=== PATIENT | male | born 1980 | race Caucasian/White ===

== ENCOUNTER 2016-05-19 15:32 | Inpatient (IN) | payer SELFPAY ==
[~2016-05-19 15:32] MED LIST: FOLI1TAB2 PO; OLAN15TA PO; THIA100TA PO
[2016-05-19 16:22] VITALS: BP 130/82
[2016-05-19] MEDS ORDERED: MOM 30ML SUSPENSION UDC PO PRN (16:30)
[2016-05-19] MEDS ORDERED: MAALOX 30 ML SUSP *UDC PO PRN (16:30)
[2016-05-19] MEDS ORDERED: LORazepam 2 MG TAB PO PRN (16:30)
[2016-05-19] MEDS: THIAMINE 100 MG TAB PO SCH (21:41)
[2016-05-19] MEDS: traZODone 50 MG TAB PO PRN (21:41)
[2016-05-19] MEDS: OLANZapine 10 MG TAB PO SCH (21:41)
[2016-05-20 06:39] VITALS: BP 145/75
[2016-05-20] MEDS: NICOTINE 21MG/24HR 1 EA TRANSDERMAL TD SCH (08:50)
[2016-05-20] MEDS: THIAMINE 100 MG TAB PO SCH ×2 (08:51→20:27)
[2016-05-20] MEDS: FOLIC ACID 1 MG TAB PO SCH (08:51)
[2016-05-20] MEDS: MULTIVITAMINS/MINERALS THERAP 1 TAB PO SCH (08:51)
[2016-05-20] MEDS: ARIPiprazole 10 MG TAB PO SCH ×3 (09:39→20:27)
--- NOTE | 2016-05-20 11:13 | HPE ---
DATE OF ADMISSION: 05/20/2016 HISTORY OF PRESENT ILLNESS (HPI): Please refer to psychiatric history and evaluation for further details on this admission. This examination and history is intended for medical issues, which may need treatment, followup or consultation on this male who was transferred from the progressive care unit (PCU) after being stabilized having taken 6 Tylenol p.m. He had recently been hospitalized in an unknown facility in [place]. His family brought him up here. He has been here for approximately one month. He states that he has a history of drinking beer 6-9 a day. He states he has cut down to 2-6 a day. He had been hearing voices. He has run out of his Zyprexa. He was convinced the [facility] was after him. He called 911 and left the house. [place] He became agitated. He went to the emergency room. He was treated on the medical floor, stabilized and transferred to the inpatient mental health unit. PAST MEDICAL HISTORY: 1. Auditory hallucinations. 2. Schizophrenia. PAST SURGICAL HISTORY: Negative. MEDICATIONS AT HOME THAT HE HAD RUN OUT OF: - clonazepam 30 mg nightly ALLERGIES: No known drug allergies. SOCIAL HISTORY: He is single. Family originally from this area. He had been in [place]. He states he no longer had a place to live there and came back here approximately one month ago. He smokes on pack of cigarettes per day. Alcohol intake is discussed above. LABORATORY DATA: WBC 10.4, hemoglobin 13.9, hematocrit 40.5, platelets 328. Sodium 143, potassium 3.4, chloride 107, CO2 24, BUN 7, creatinine 0.69. Chest x-ray was normal. EKG showed sinus rhythm. FAMILY HISTORY: Maternal uncle alcohol use and schizophrenia. Maternal grandmother is currently institutionalized at [facility]. REVIEW OF SYSTEMS: Ten system review was done. The patient had no complaints, it was essentially negative. PHYSICAL EXAMINATION: GENERAL: The patient is alert and oriented to person and place. He is a cooperative male in no acute distress. He was unsure of the date or time. Reoriented frequently, slow when answering questions. Weight 59 kilograms. VITAL SIGNS: Blood pressure 130/82, pulse 95, respirations 14, temperature 99, oxygen saturation 97%. HEENT: Pupils equal, round, reactive to light. Extraocular muscles intact. Cornea and sclerae clear. Conjunctiva is normal. No facial asymmetry. Pharynx, tongue and gum is pink and moist. Tongue is midline. NECK: Neck is supple without lymphadenopathy. No thyromegaly. No goiter. CHEST: Clear to auscultation without wheeze or retraction. HEART: Heart is regular. ABDOMEN: Benign. Bowel sounds positive. Genitourinary ()/Rectal: Not done. Extremities: Equal strength with full range of motion. No clubbing, cyanosis, and edema. Peripheral pulses are equal and palpable bilaterally. SKIN: Warm and dry. IMPRESSION AND PLAN: Psychiatric plan per psychiatry. No acute medical issues.
--- NOTE | 2016-05-20 11:26 | MHHPE ---
DATE OF ADMISSION: 05/19/2016 CURRENT MEDICATIONS: - Zyprexa 30 mg at bedtime CHIEF COMPLAINT: Acting strangely. HISTORY OF PRESENT ILLNESS: This is a 36-year-old white male living with his grandfather. Patient is hearing voices telling him that the [facility] wants to torture him and plan on killing him on national t.v. Patient apparently called 911 at his house and then left. The family also called 911. The police [place]. Patient reports to staff that he has an implant in his brain. Patient has been hearing voices constantly coming from the [facility]. He complains of some type of "technology" that has been implanted in his brain. He claims he has no peace of mind. He cannot escape it. It is non-stop. This makes him depressed. He feels suicidal but has not had any suicide attempts. He states that the symptoms are real and non-imaginary. He claims that he has been experiencing them since February 21. He claims he never heard voices like this prior to three months ago. According to the medical admission note the patient has been drinking alcohol up to two 25 ounce beers per day. Patient was admitted medically due to a possible Tylenol overdose. Patient's acetaminophen level on 05/18 was 25.6, according to the chart however another level is obtained at 6.6. Patient was transferred from medicine to psychiatry by Dr. Barry, whose notes are not yet transcribed. Patient was given Zyprexa 20 mg at bedtime last night but he claims that it is not effective. He has been on the Zyprexa for about a month now. He claims that it has not been helpful. He was hospitalized once or twice down in [place], but those records are not available. He is a poor historian, is not able to explain what did or did not happen there. He claims that prior to the Zyprexa he was given Risperdal but that was not effective either. PAST PSYCHIATRIC HISTORY: Patient claims prior to February 21 he has never had any psychiatric contact. This will need to be verified. He claims he has been hospitalized twice down in [place], perhaps in the [place] area. Staff will attempt to check on those records. MEDICAL HISTORY: Patient claims he is healthy. ALLERGIES: Denied. LEGAL ISSUES: Patient states he has been tormented by the [facility] but has no other legal issues. CHEMICAL DEPENDENCY: Patient admits that he drinks too much but has never been in a rehab. SOCIAL HISTORY: Patient is a poor historian. This will be clarified further. He is from the [facility]. He has a high school with some college. 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 Before that he was living in [place] for two years. FAMILY PSYCHIATRIC HISTORY; His grandmother has history of Schizophrenia and is currently hospitalized at [facility]. MENTAL STATUS EXAMINATION: Patient is alert and oriented. He is a poor historian. He is quite restless. He is distractible. He is agitated. The voices constantly distract him, interfering with the mental status examination. He does report paranoia. He does report bizarre delusions. He is hearing voices which are quite loud and prominent. He reports some dysphoria and depression. He is not actively suicidal. He is not homicidal. Insight is quite impaired. Judgment is quite impaired. He is a potential risk to himself due to his prominent psychosis and poor judgment. ASSESSMENT: Very prominent psychosis apparently lasting since February. DIAGNOSES: 1. 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 Alcohol use disorder. PROBLEM LIST: 1. Risk for suicide. 2. Altered thoughts. PLAN: Patient reports neither the Zyprexa nor Risperdal has been effective. Patient to be given trial doses of Abilify. Staff to obtain further clinical history to see if there is any previous history of psychosis. If so, his diagnosis will be changed to Schizophrenia. ELI
[2016-05-20 18:06] VITALS: BP 132/73
[2016-05-20] MEDS: OLANZapine 10 MG TAB PO SCH (20:27)
[2016-05-20] MEDS: traZODone 50 MG TAB PO PRN (20:27)
[2016-05-21 06:33] VITALS: BP 164/97
[2016-05-21] MEDS ORDERED: INFLUENZA QUADRIVALENT PF VACCINE 0.5ML SYRINGE/VIAL (90686) IM ONE (09:00)
[2016-05-21] MEDS: MULTIVITAMINS/MINERALS THERAP 1 TAB PO SCH (09:06)
[2016-05-21] MEDS: NICOTINE 21MG/24HR 1 EA TRANSDERMAL TD SCH (09:06)
[2016-05-21] MEDS: FOLIC ACID 1 MG TAB PO SCH (09:06)
[2016-05-21] MEDS: ARIPiprazole 10 MG TAB PO SCH ×3 (09:06→20:33)
[2016-05-21] MEDS: THIAMINE 100 MG TAB PO SCH ×2 (09:06→20:33)
[2016-05-21 12:10] VITALS: BP 127/82
--- NOTE | 2016-05-21 13:58 | IPN ---
DATE: 05/21/2016 VITAL SIGNS: Temperature 96.6, pulse 89, respirations 18, blood pressure 164/ 97. CURRENT MEDICATIONS: - Abilify 10 mg three times a day - folic acid 1 mg daily - thiamine 100 mg twice a day - trazodone 50 mg at night as needed PSYCHIATRIC HISTORY: The patient states that he feels "a bit better." The patient did fall asleep faster last night. He slept until 5:00 a.m. He is still hearing the voices but claims that they are a bit quieter. He claims his appetite is good. He is going for meals in the day room now. He still reports some depression. Not having any suicidal thoughts. His paranoia is still quite prominent. He is still hearing voices such as "the police are coming to pick him up later today or tomorrow." The patient is tolerating the Abilify well. Denies any side effects. He appears to have no reservations about taking the medication and has been medication compliant on the unit. He is not going to groups. He still spends most of his day isolating in his room. MENTAL STATUS EXAMINATION: The patient is alert and oriented. Eye contact is somewhat improved. He still is a poor historian, however. He is not as agitated. He still appears distractible to internal stimuli. The patient is still hearing voices, but they are not as loud. Paranoia is still less significant. He reports some dysphoria and depression but no suicidal thoughts. Insight and judgment still quite impaired. ASSESSMENT: The patient appears to be tolerating Abilify reasonably well with some decrease in psychomotor agitation. DIAGNOSES: 1. Schizophreniform disorder. DSM-5 Code #F20.81. 2. Alcohol use disorder. PLAN: Continue current psychotropics. ELI
[2016-05-21 18:00] VITALS: BP 122/69
[2016-05-21] MEDS: traZODone 50 MG TAB PO PRN (20:33)
[2016-05-21] MEDS: OLANZapine 10 MG TAB PO SCH (20:33)
[2016-05-22 06:28] VITALS: BP 153/76
[2016-05-22 08:00] VITALS: BP 153/76
[2016-05-22] MEDS: FOLIC ACID 1 MG TAB PO SCH (08:12)
[2016-05-22] MEDS: ARIPiprazole 10 MG TAB PO SCH ×2 (08:12→15:36)
[2016-05-22] MEDS: THIAMINE 100 MG TAB PO SCH (08:12)
[2016-05-22] MEDS: MULTIVITAMINS/MINERALS THERAP 1 TAB PO SCH (08:12)
[2016-05-22] MEDS: ACETAMINOPHEN TAB 650MG DOSE (2X325MG) PO PRN (08:13)
[2016-05-22] MEDS: NICOTINE 21MG/24HR 1 EA TRANSDERMAL TD SCH (08:13)
[2016-05-22] MEDS ORDERED: traZODone 50 MG TAB PO PRN (12:00)
--- NOTE | 2016-05-22 13:17 | IPN ---
DATE: 05/22/2016 VITAL SIGNS: Temperature 96.2, pulse 94, respirations 16, blood pressure 153/76. CURRENT MEDICATIONS: - Abilify 10 mg three times a day - Zyprexa 20 mg nightly - trazodone 50 mg nightly as needed PSYCHIATRIC HISTORY: Patient did not sleep as well last night as the night before, he requests a higher dose of trazodone. Patient is doing well with medication compliance, he has no objections to taking medications. He claims, however, that his psychosis is real. He explains that the voices are real and are put into his brain by some type of technology from the [employer] [facility] He hears the voices constantly, they are now telling him that he will be "disappeared and sent to [facility]." He claims this will be happening in the next day or two. He claims his appetite is good and he is eating all of his meals here. He did have a visitor last night, his grandfather's girlfriend Anila did come in to visit. She will come in again and can bring in clothes, including a sweater, etc. Patient is a bit more verbal about the events prior to his recent psychotic decompensation. He admits that he was drinking 4-8 alcoholic drinks per day, but only started smoking cannabis after the psychosis started. Negative history for synthetic cannabinoids. He denies any other prior drug use. MENTAL STATUS EXAMINATION: Patient is alert and oriented. He is quite anxious. He is still quite distractible, hearing voices, paranoia continues. He is dysphoric about his psychosis, but not overly depressed or suicidal. Insight and judgment remain quite poor. ASSESSMENT: Appears to be tolerating the two antipsychotics well at this time. If the patient has a good response to Abilify we will wean him off the Zyprexa. DIAGNOSES: 1. Schizophreniform disorder, DSM-5, code F20.81. 2. Alcohol use disorder. PLAN: Continue current psychotropics. Increase trazodone to 100 mg nightly as needed. Routine labs. [facility]
[2016-05-22 14:00] LABS: ANION GAP 10 MEQ/L (8-16); BLOOD UREA NITROGEN 10 MG/DL (7-18); CALCIUM LEVEL 8.8 MG/DL (8.5-10.1); CARBON DIOXIDE LEVEL 26 MEQ/L (21-32); CHLORIDE LEVEL 91 MEQ/L (98-107); CREATININE FOR GFR 0.75 MG/DL (0.70-1.30); GLOMERULAR FILTRATION RATE > 60.0 (>60); GLUCOSE, FASTING 128 MG/DL (70-105); POTASSIUM SERUM 4.5 MEQ/L (3.5-5.1); SODIUM LEVEL 127 MEQ/L (136-145)
[2016-05-22] MEDS ORDERED: BENZTROPINE MESYLATE 2MG/2ML VIAL IM ONE (15:45)
[2016-05-22] MEDS ORDERED: LORazepam 2 MG/ML VIAL (J2060) IM STA (15:47)
[2016-05-22] MEDS ORDERED: diphenhydrAMINE INJ 50MG/ML VIAL (J1200) IM STA (15:48)
[2016-05-22] MEDS ORDERED: LORazepam 2 MG/ML VIAL (J2060) As Ordered ONE (15:48)
[2016-05-22] MEDS ORDERED: diphenhydrAMINE INJ 50MG/ML VIAL (J1200) As Ordered ONE (15:49)
[2016-05-22] MEDS ORDERED: BENZTROPINE MESYLATE 2MG/2ML VIAL As Ordered ONE (15:49)
[2016-05-22] MEDS ORDERED: LORazepam 1 MG TAB PO PRN (16:45)
[2016-05-22] MEDS ORDERED: BENZTROPINE 2 MG TAB PO PRN (16:45)
[2016-05-22 20:14] VITALS: BP 119/72
[2016-05-22] MEDS ORDERED: PROMETHAZINE INJ 25 MG/ML VIAL (J2550) IM ONE (20:30)
[2016-05-22] MEDS: OLANZapine 10 MG TAB PO SCH (20:54)
[2016-05-23 06:24] VITALS: BP 127/76
[2016-05-23] MEDS: NICOTINE 21MG/24HR 1 EA TRANSDERMAL TD SCH (09:21)
[2016-05-23] MEDS: risperiDONE 1 MG M-TAB PO SCH ×4 (11:45→20:51)
[2016-05-23] MEDS: BENZTROPINE 1 MG TAB PO SCH ×4 (11:45→20:51)
--- NOTE | 2016-05-23 16:07 | IPN ---
DATE: 05/23/2016 VITAL SIGNS: Temperature 99.1, pulse 108, respirations 18, blood pressure 127/76. CURRENT MEDICATION: Abilify discontinued. Zyprexa 20 mg at bedtime (q.h.s.), trazodone 100 mg at bedtime (q.h.s.) as needed. PSYCHIATRIC HISTORY: The patient did develop some akathisia yesterday afternoon. This apparently was due to the Abilify. The patient was given some intramuscular Ativan, Cogentin and Benadryl with good affect. The patient slept all night. He was monitored with a one-to-one sitter and had no other complications. The patient is seen today and is requesting an Magnetic Resonance Imaging (MRI). He wants to get one to look at the microchip in his brain. The patient is a bit more verbal about his background. He now claims that he was hospitalized four times, not twice, down in [place] in the past three months. He is vague about the actual names of the hospitals however. He claims his grandfather here in [place] knows the most about him, but the voices are telling him not to sign a release of information. He states that for the first hospitalization the voices would tell him that there was going to be a nuclear war. During the second hospitalization, the voices were demonic in nature with plans to kill his friends. The patient had been living at [place], [place] with his grandmother, but she in September 2015. 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 He again states that his psychotic symptoms all started abruptly in February. Upon review of previous use of antipsychotics, he claims that this Zyprexa helps with the sleep, but made him quite tired and apparently did not help with the voices. He claims he was on Risperdal, but its just very briefly for one or two days. He does not recall any adverse side effects. He is willing to go on trial of this antipsychotic. MENTAL STATUS EXAMINATION: The patient is alert and oriented today. The patient less anxious today. Auditory hallucinations still quite prominent. Paranoia is quite significant. Not voicing any depressive cognitions. Insight and judgment remain quite impaired. ASSESSMENT: Apparent episode of akathisia due to Abilify. DIAGNOSIS: 1. Schizophreniform disorder. 2. Cannabis use disorder. PLAN: Add Risperdal M-Tab 1 mg four times a day, change in oral Zyprexa, which will be weaned off if he has a good response to the Risperdal. The patient to be given Cogentin 1 mg four times a day to minimize risk of akathisia, EPS, etc. Hopefully, he will change his mine and agree to sign release of information. ELI
[2016-05-23 18:00] VITALS: BP 124/68
[2016-05-23] MEDS: OLANZapine 10 MG TAB PO SCH (20:51)
[2016-05-24 06:48] VITALS: BP 115/64
[2016-05-24] MEDS: BENZTROPINE 1 MG TAB PO SCH ×4 (09:01→20:21)
[2016-05-24] MEDS: risperiDONE 1 MG M-TAB PO SCH ×4 (09:01→20:21)
[2016-05-24] MEDS: NICOTINE 21MG/24HR 1 EA TRANSDERMAL TD SCH (09:02)
[2016-05-24] MEDS ORDERED: traZODone 100 MG TAB PO PRN (15:18)
[2016-05-24 18:00] VITALS: BP 120/71
--- NOTE | 2016-05-24 19:09 | ECGEPIP ---
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
[2016-05-24] MEDS: OLANZapine 10 MG TAB PO SCH (20:22)
[2016-05-24] MEDS: zolPIDEM TARTRATE 10MG TAB PO SCH (20:22)
--- NOTE | 2016-05-24 21:40 | IPN ---
DATE: 05/24/2016 VITAL SIGNS: Temperature 99.1, pulse 106, respirations 18, blood pressure 115/64. CURRENT MEDICATIONS: - Risperdal Consta 1 mg four times a day - Cogentin 1 mg four times a day - trazodone 100 mg at night - Zyprexa 20 mg at night PSYCHIATRIC HISTORY: The patient has had no akathisia from the Risperdal. He seems to be tolerating it much better than the Abilify. The patient is still hearing the voices but they are less prominent, for example they were at a level of 10 out of 10 on admission and now they are down to 7 out of 10, so perhaps reduced by 30%. The content is less frightening as well and more random in nature. He still feels quite paranoid, however. He is socializing more with his peers, for example last night he was playing board games with the other patients. He is still isolating a lot in his room, but is starting to go to some of the groups. The patient is still resistant about signing a release of information with his grandfather, who appears to be his major support here in the community. He states his appetite is good. He did not sleep well last night, however. We discussed a trial on Ambien temporarily. MENTAL STATUS EXAMINATION: The patient is alert, oriented and cooperative. Eye contact seems improved. The patient is still guarded. Affect is flat. He is still quite paranoid. Auditory hallucinations remain prominent. Insight and judgment remain impaired. No signs of organicity. No overt signs of depression. Not voicing any homicidal or suicidal thoughts. DIAGNOSES: 1. Schizophreniform disorder. 2. Cannabis use disorder. PLAN: Continue present management. Add Ambien 10 mg at night for sleep temporarily.
[2016-05-25 06:34] VITALS: BP 123/77
[2016-05-25] MEDS: risperiDONE 1 MG M-TAB PO SCH ×4 (09:15→20:18)
[2016-05-25] MEDS: NICOTINE 21MG/24HR 1 EA TRANSDERMAL TD SCH (09:15)
[2016-05-25] MEDS: BENZTROPINE 1 MG TAB PO SCH ×4 (09:15→20:18)
[2016-05-25 18:00] VITALS: BP 133/79
[2016-05-25] MEDS: OLANZapine 10 MG TAB PO SCH (20:18)
[2016-05-25] MEDS: zolPIDEM TARTRATE 10MG TAB PO SCH (20:18)
[2016-05-26 06:35] VITALS: BP 111/59
[2016-05-26] MEDS: NICOTINE 21MG/24HR 1 EA TRANSDERMAL TD SCH (08:23)
[2016-05-26] MEDS: risperiDONE 1 MG M-TAB PO SCH ×4 (08:23→20:17)
[2016-05-26] MEDS: BENZTROPINE 1 MG TAB PO SCH ×4 (08:23→20:17)
[2016-05-26 18:00] VITALS: BP 122/71
[2016-05-26] MEDS: OLANZapine 10 MG TAB PO SCH (20:17)
[2016-05-26] MEDS: zolPIDEM TARTRATE 10MG TAB PO SCH (20:17)
[2016-05-27 06:30] VITALS: BP 111/64
[2016-05-27] MEDS: BENZTROPINE 1 MG TAB PO SCH ×4 (09:00→20:41)
[2016-05-27] MEDS: NICOTINE 21MG/24HR 1 EA TRANSDERMAL TD SCH (09:00)
[2016-05-27] MEDS: risperiDONE 1 MG M-TAB PO SCH ×4 (09:00→20:40)
[2016-05-27 10:20] LABS: MEAN CORPUSCULAR HEMOGLOBIN 32.3 pg (27.0-33.0); MEAN CORPUSCULAR HGB CONC 33.5 g/dl (32.0-36.5); MEAN CORPUSCULAR VOLUME 96.4 fl (80.0-96.0); RED CELL DISTRIBUTION WIDTH 12.6 % (11.5-14.5); WHITE BLOOD COUNT 9.9 K/mm3 (4.0-10.0)
[2016-05-27 10:43] LABS: ALBUMIN 3.8 GM/DL (3.2-5.2); ALBUMIN/GLOBULIN RATIO 1.19 (1.00-1.93); ALKALINE PHOSPHATASE 95 U/L (45-117); ALT/SGPT 32 U/L (12-78); ANION GAP 10 MEQ/L (8-16); AST/SGOT 12 U/L (15-37); BILIRUBIN,TOTAL 0.2 MG/DL (0.2-1.0); BLOOD UREA NITROGEN 15 MG/DL (7-18); CALCIUM LEVEL 9.3 MG/DL (8.5-10.1); CARBON DIOXIDE LEVEL 28 MEQ/L (21-32); CHLORIDE LEVEL 105 MEQ/L (98-107); CREATININE FOR GFR 0.96 MG/DL (0.70-1.30); GLOMERULAR FILTRATION RATE > 60.0 (>60); GLUCOSE, FASTING 112 MG/DL (70-105); POTASSIUM SERUM 4.9 MEQ/L (3.5-5.1); SODIUM LEVEL 143 MEQ/L (136-145)
[2016-05-27 18:00] VITALS: BP 113/61
[2016-05-27] MEDS: zolPIDEM TARTRATE 10MG TAB PO SCH (20:40)
[2016-05-27] MEDS: OLANZapine 10 MG TAB PO SCH (20:41)
[2016-05-28 06:00] VITALS: BP 111/67
[2016-05-28] MEDS: NICOTINE 21MG/24HR 1 EA TRANSDERMAL TD SCH (08:58)
[2016-05-28] MEDS: risperiDONE 1 MG M-TAB PO SCH ×4 (08:59→20:25)
[2016-05-28] MEDS: BENZTROPINE 1 MG TAB PO SCH ×4 (08:59→20:25)
--- NOTE | 2016-05-28 09:49 | IPN ---
DATE: 05/27/2016 VITAL SIGNS: Temperature 97.4, pulse 67, respirations 16, blood pressure 111/64. CURRENT MEDICATIONS: - Risperdal M-Tab 1 mg four times a day - Cogentin 1 mg four times a day - Ambien 10 mg by mouth at bedtime - Zyprexa 20 mg at bedtime PSYCH HISTORY: The patient reports he is tolerating the Risperdal well. He is still on the Zyprexa at night. The Zyprexa dose will be weaned off later in the hospitalization. He states that the psychotic symptoms are not as intense. The voices are more distant. The content is still the same. The patient is still quite paranoid. He states his appetite is good. He sleeps well at night with the Ambien. He states he is going to some groups. We discussed getting release of information and family contact from his grandfather. The patient considers, but then declines at this time. MENTAL STATUS EXAM: Patient is alert, oriented. He remains somewhat guarded with paranoia. Affect is flat. Patient still reports auditory hallucinations. Insight and judgment appear fair. He is not depressed. No homicidal or suicidal ideation. DIAGNOSES: Schizophreniform disorder. Cannabis use disorder. PLAN: Continue current psychotropics.
[2016-05-28] MEDS: ACETAMINOPHEN TAB 650MG DOSE (2X325MG) PO PRN (16:24)
[2016-05-28 18:23] VITALS: BP 125/66
[2016-05-28] MEDS: zolPIDEM TARTRATE 10MG TAB PO SCH (20:24)
[2016-05-28] MEDS: OLANZapine 10 MG TAB PO SCH (20:25)
[2016-05-29 06:22] VITALS: BP 137/83
[2016-05-29] MEDS: NICOTINE 21MG/24HR 1 EA TRANSDERMAL TD SCH (09:00)
[2016-05-29] MEDS: risperiDONE 1 MG M-TAB PO SCH (09:00)
[2016-05-29] MEDS: BENZTROPINE 1 MG TAB PO SCH ×4 (09:00→20:40)
--- NOTE | 2016-05-29 16:26 | IPN ---
DATE: 05/28/2016 VITAL SIGNS: Temperature 95.6, pulse 76, respirations 16, blood pressure 111/67. CURRENT MEDICATION: - Risperdal M tabs 1 mg four times a day - Cogentin 1 mg four times a day - Zyprexa 20 mg at bedtime - Ambien 10 mg at bedtime - Trazodone 100 mg at bedtime as needed Patient states his appetite is good. He had a good lunch today. He slept much better last night with the Ambien. The voices are still quite loud however. The voices blame him for numerous crimes. They claim that the [place] Police will be visiting at any moment to take him away. Patient is reassured. He volunteers that the medication does seem to be helping. He claims the voices are not as loud as before. He describes them as a level 6 out of 10. He denies feeling depressed or suicidal. Patient does go to some groups more so in the evening. His uncle and grandmother did visit last night. He still has not given permission to contact his family. MENTAL STATUS EXAMINATION: Patient is alert and oriented. He is still guarded with flat affect. Auditory hallucinations persist. Insight and judgment appear fair. No signs of depression. He denies any suicidal thoughts. He is not homicidal. DIAGNOSES: 1. Schizophreniform disorder. 2. Cannabis use disorder. PLAN: Continue current psychotropics.
[2016-05-29 18:00] VITALS: BP 115/70
[2016-05-29] MEDS: zolPIDEM TARTRATE 10MG TAB PO SCH (20:40)
[2016-05-29] MEDS: OLANZapine 10 MG TAB PO SCH (20:40)
[2016-05-29] MEDS ORDERED: risperiDONE 1 MG M-TAB PO SCH (21:00)
[2016-05-30 06:41] VITALS: BP 134/67
[2016-05-30] MEDS: BENZTROPINE 1 MG TAB PO SCH ×3 (08:26→20:15)
[2016-05-30] MEDS: NICOTINE 21MG/24HR 1 EA TRANSDERMAL TD SCH (08:27)
[2016-05-30] MEDS ORDERED: risperiDONE 1 MG M-TAB PO SCH (09:00)
--- NOTE | 2016-05-30 14:06 | IPN ---
DATE: 05/29/2016 VITAL SIGNS: Temperature 97.1, pulse 73, respirations 16, blood pressure 137/83. CURRENT MEDICATIONS: - Risperdal M-tab 1 mg four times daily - Ambien 10 mg at bedtime - trazodone 100 mg at bedtime as needed - Cogentin 1 mg four times daily - Zyprexa 20 mg at bedtime PSYCHIATRIC HISTORY: Patient had a fever yesterday. He reports having cold symptoms. He has a stuffy nose. He complains of lack of energy today. His appetite is fair. He did sleep well last night. Patient still reports paranoia. The voices are still prominent. He is still resistant to signing release of information for family input so we can get more historical background. MENTAL STATUS EXAMINATION: Patient is alert and oriented but is still rather guarded. He volunteers little. Responses to questions are typically one word, yes or no. He does appear a bit sedated today. No change in psychotic symptoms. Insight and judgment remain fair. He denies feeling depressed. He is not having any homicidal thoughts. DIAGNOSIS: Schizophreniform disorder, rule out schizophrenia. Cannabis use disorder. PLAN: Start switching Risperdal over to bedtime dosage to reduce daytime sedation.
[2016-05-30 18:00] VITALS: BP 111/59
[2016-05-30] MEDS: OLANZapine 10 MG TAB PO SCH (20:14)
[2016-05-30] MEDS: zolPIDEM TARTRATE 10MG TAB PO SCH (20:15)
[2016-05-31 06:35] VITALS: BP 135/79
[2016-05-31] MEDS: NICOTINE 21MG/24HR 1 EA TRANSDERMAL TD SCH (09:14)
[2016-05-31] MEDS: BENZTROPINE 1 MG TAB PO SCH ×2 (09:14→20:27)
[2016-05-31] MEDS: OLANZapine 10 MG TAB PO SCH (20:27)
[2016-05-31] MEDS: zolPIDEM TARTRATE 10MG TAB PO SCH (20:27)
[2016-05-31] MEDS: risperiDONE 1 MG M-TAB PO SCH (20:29)
[2016-05-31 22:05] VITALS: BP 112/64
--- NOTE | 2016-06-01 00:03 | IPN ---
DATE: 05/30/2016 VITAL SIGNS: Temperature 96.2, pulse 72, respirations 18, blood pressure 134/67. CURRENT MEDICATIONS: - Risperdal M-Tab 1 mg in the morning, 3 mg nightly - Cogentin 1 mg four times a day - Ambien 10 mg nightly - Zyprexa 20 mg nightly PSYCHIATRIC HISTORY: The patient's fever has resolved. No further cold symptoms or sore throat. He claims he went to the morning group for the first time. The patient is still seclusive, however. For example, today he is eating his lunch tray in his room. Interactions with other patients are minimal. He claims he has always been a loner. He states his appetite is good. He does have family visiting, but he refuses to give release of information to speak to them. He also refuses to give further releases to get old records from [place]. He does seem to like the Risperdal. He claims that it is quieting down "the voices." MENTAL STATUS EXAMINATION: The patient is still quite guarded. Affect is slightly brighter, however. Eye contact is minimal but affect not as constricted and the patient is somewhat more verbal. Paranoid ideations still persist, however. Auditory hallucinations are quite paranoid in content. Insight and judgment are fair. Not voicing any homicidal or suicidal thoughts. DIAGNOSIS: Schizophreniform disorder, rule out schizophrenia. Cannabis use disorder. PLAN: Wean off daytime Risperdal. The patient could be given one dose at bedtime instead to reduce daytime sedation. The patient is still on two antipsychotics. His Zyprexa will be weaned off prior to discharge. The patient finds Ambien helpful for sleep. The Ambien will be weaned off gradually prior to discharge as well. Cogentin dose reduced.
[2016-06-01 06:50] VITALS: BP 116/60
[2016-06-01] MEDS: NICOTINE 21MG/24HR 1 EA TRANSDERMAL TD SCH (08:30)
[2016-06-01] MEDS: BENZTROPINE 1 MG TAB PO SCH ×2 (08:30→20:06)
[2016-06-01 18:00] VITALS: BP 117/59
[2016-06-01] MEDS: zolPIDEM TARTRATE 10MG TAB PO SCH (20:06)
[2016-06-01] MEDS: OLANZapine 10 MG TAB PO SCH (20:06)
[2016-06-01] MEDS: risperiDONE 1 MG M-TAB PO SCH (20:07)
[2016-06-02 06:32] VITALS: BP 122/73
[2016-06-02] MEDS: BENZTROPINE 1 MG TAB PO SCH ×2 (08:57→20:08)
[2016-06-02] MEDS: NICOTINE 21MG/24HR 1 EA TRANSDERMAL TD SCH (08:57)
--- NOTE | 2016-06-02 09:12 | IPN ---
DATE: 05/31/2016 VITAL SIGNS: Temperature 98.4, pulse 78, respirations 16, blood pressure 135/ 79. CURRENT MEDICATIONS: - Risperdal M-Tab 4 mg at bedtime - Cogentin 1 mg twice a day - Ambien 10 mg at bedtime - Zyprexa 20 mg at bedtime PSYCH HISTORY: Patient is out of his room more today. He is going to groups, but not necessarily the entire length. He claims his appetite is good. He reports sleeping well at night. He has found the medication helpful. He reports that the hallucinations are not as severe. We discussed possible monthly treatment option with the Invlydia Osborn, he will consider it over the weekend. The patient is still on the Zyprexa. This dose will be weaned off next week assuming he does well over the upcoming weekend. The patient's family is still visiting frequently, but he still refuses to give us any permission to contact them or to get further information about his background. MENTAL STATUS EXAMINATION: The patient is still quite guarded. He volunteers little. He does still look paranoid. He is still hearing the voices, but reports the intensity not as severe. He denies depression or suicidal thoughts. He appears more alert and awake today. DIAGNOSES: Schizophrenia, acute episode. Cannabis use disorder. PLAN: Continue current treatment regimen. MTDD
[2016-06-02 18:00] VITALS: BP 115/65
[2016-06-02] MEDS: OLANZapine 10 MG TAB PO SCH (20:08)
[2016-06-02] MEDS: zolPIDEM TARTRATE 10MG TAB PO SCH (20:08)
[2016-06-02] MEDS: risperiDONE 1 MG M-TAB PO SCH (20:09)
[2016-06-03 06:00] VITALS: BP 142/81
[2016-06-03] MEDS: BENZTROPINE 1 MG TAB PO SCH ×2 (09:26→20:45)
[2016-06-03] MEDS: NICOTINE 21MG/24HR 1 EA TRANSDERMAL TD SCH (09:27)
[2016-06-03 18:00] VITALS: BP 106/65
[2016-06-03] MEDS: zolPIDEM TARTRATE 10MG TAB PO SCH (20:45)
[2016-06-03] MEDS: risperiDONE 1 MG M-TAB PO SCH (20:45)
[2016-06-03] MEDS: OLANZapine 10 MG TAB PO SCH (20:45)
[2016-06-04 07:01] VITALS: BP 136/71
[2016-06-04] MEDS: NICOTINE 21MG/24HR 1 EA TRANSDERMAL TD SCH (09:22)
[2016-06-04] MEDS: BENZTROPINE 1 MG TAB PO SCH ×2 (09:23→20:48)
[2016-06-04 14:11] LABS: RISPERIDONE1 10 ng/mL (Not Estab.); RISPERIDONE2 14 ng/mL (Not Estab.); RISPERIDONE3 24 ng/mL (20-60)
[2016-06-04] MEDS ORDERED: PALIPERIDONE PALMITATE 156 MG/1ML INJ(INVEGA SUSTENNA)(J2426) IM ONE (17:00)
[2016-06-04 18:00] VITALS: BP 100/56
[2016-06-04] MEDS: risperiDONE 1 MG M-TAB PO SCH (20:47)
[2016-06-04] MEDS: OLANZapine 5 MG TAB PO SCH (20:48)
[2016-06-04] MEDS: zolPIDEM TARTRATE 10MG TAB PO SCH (20:48)
[2016-06-05 06:00] VITALS: BP 100/59
[2016-06-05] MEDS: NICOTINE 21MG/24HR 1 EA TRANSDERMAL TD SCH (09:00)
[2016-06-05] MEDS: BENZTROPINE 1 MG TAB PO SCH ×2 (09:00→20:00)
--- NOTE | 2016-06-05 13:24 | IPN ---
DATE: 06/04/2016 VITAL SIGNS: Temperature 96.9, pulse 66, respirations 16, blood pressure 136/71. CURRENT MEDICATIONS: - Risperdal M-Tablet 4 mg at bedtime - Cogentin 1 mg twice a day - Ambien 10 mg at bedtime - Zyprexa 20 mg at bedtime PSYCHIATRIC HISTORY: Patient claims he "feels the same." He had a good [place] here on the unit. He is still tormented by the voices, however. He says that they are saying the most scary of things possible. He likes the fact that the medication has helped to reduce them but hopes they have further progress, which is reasonable. He is willing to go on the Invega injection. Patient sleeps well at night with the Ambien. Patient is attending some groups but is still rather guarded in the milieu. He is superficial with staff, answering yes or no responses. Patient still does not give us permission to speak to family members. MENTAL STATUS EXAMINATION: Patient remains quite guarded. He appears less anxious, however, and perhaps a bit more verbal. Paranoia persists. Auditory hallucinations persist with frightening content. No signs of depression. He is not suicidal or homicidal. DIAGNOSES: 1. Schizophrenia, acute episode. 2. Cannabis use disorder. PLAN: Invega Sustenna injection. Start weaning down from the Zyprexa.
[2016-06-05 18:00] VITALS: BP 102/58
[2016-06-05] MEDS: zolPIDEM TARTRATE 10MG TAB PO SCH (20:00)
[2016-06-05] MEDS: OLANZapine 5 MG TAB PO SCH (20:00)
[2016-06-05] MEDS: risperiDONE 1 MG M-TAB PO SCH (20:00)
[2016-06-06 06:14] VITALS: BP 129/63
[2016-06-06] MEDS: BENZTROPINE 1 MG TAB PO SCH ×2 (08:09→20:10)
[2016-06-06] MEDS: NICOTINE 21MG/24HR 1 EA TRANSDERMAL TD SCH (08:10)
--- NOTE | 2016-06-06 13:07 | IPN ---
DATE: 06/05/2016 VITAL SIGNS: Temperature 96.3, pulse 71, respirations 16, blood pressure 100/59. CURRENT MEDICATIONS: - Zyprexa 15 mg at night - risperidone M tab 4 mg at night - Cogentin 1 mg twice a day - Ambien 10 mg at night PSYCHIATRIC HISTORY: The patient states that he is still hearing the voices. The content is still quite frightening but not as frequent as before. He feels the antipsychotics seem to be helping. He is still quite guarded and paranoid on the unit. He denies feeling depressed. He is not homicidal or suicidal. He claims that his appetite is good. He is going to some groups, but in general is isolating a lot. The patient has been refusing contact with the family. He did however sign a limited release of information so that staff could speak to the family about insurance issues. He has no current insurance and will need this to cover his appointments and medications upon discharge. MENTAL STATUS EXAMINATION: The patient still volunteers very little. He is still quite guarded. No signs of paranoia. Auditory hallucinations persist. He is not overtly depressed. He denies suicidal or homicidal ideation. Insight appears limited. Judgment is fair. No signs of organic deficit. DIAGNOSES: 1. Schizophrenia with acute episode. 2. Cannabis use disorder. PLAN: Continue psychotropics. Continue working with patient and family regarding insurance issues.
[2016-06-06 18:00] VITALS: BP 111/66
[2016-06-06] MEDS: OLANZapine 5 MG TAB PO SCH (20:10)
[2016-06-06] MEDS: zolPIDEM TARTRATE 10MG TAB PO SCH (20:10)
[2016-06-06] MEDS: risperiDONE 1 MG M-TAB PO SCH (20:10)
[2016-06-07 06:30] VITALS: BP 109/56
[2016-06-07] MEDS: BENZTROPINE 1 MG TAB PO SCH ×2 (09:03→20:14)
[2016-06-07] MEDS: NICOTINE 21MG/24HR 1 EA TRANSDERMAL TD SCH (09:04)
--- NOTE | 2016-06-07 13:59 | IPN ---
DATE: 06/06/2016 VITAL SIGNS: Temperature 96.2, pulse 71, respirations 18, blood pressure 129/63. CURRENT MEDICATION: - Zyprexa 15 mg at bedtime - Risperdal M-Tab 4 mg at bedtime - Cogentin 1 mg twice a day - Ambien 10 mg at bedtime PSYCH HISTORY: Patient reports no change in the severity of the voices. The content of the voices are primarily paranoid in nature. The patient isolates. He does go to some groups, but mostly stays to himself. He does a lot of reading. He states his appetite is good. His weight is stable. He reports sleeping well at night. He did give permission for social work staff to work on insurance issues to be resolved prior to discharge. We discussed cutting back further on the dose of the Zyprexa. He has no other complaints. MENTAL STATUS EXAMINATION: The patient remains quite paranoid. He is guarded. He still reports hearing voices. He denies depression. He is not having any homicidal ideation. Insight appears fair. Judgment is fair. No signs of organicity. DIAGNOSES: 1. Schizophrenia with acute episode. 2. Cannabis use disorder. PLAN: Reduce Zyprexa another 5 mg at bedtime. Continue Risperdal M-Tab.
[2016-06-07 18:00] VITALS: BP 103/66
[2016-06-07] MEDS: risperiDONE 1 MG M-TAB PO SCH (20:14)
[2016-06-07] MEDS: zolPIDEM TARTRATE 5 MG TAB PO SCH (20:14)
[2016-06-07] MEDS: OLANZapine 5 MG TAB PO SCH (20:14)
[2016-06-08 06:31] VITALS: BP 112/71
[2016-06-08] MEDS: NICOTINE 21MG/24HR 1 EA TRANSDERMAL TD SCH (08:46)
[2016-06-08] MEDS: BENZTROPINE 1 MG TAB PO SCH ×2 (08:46→20:07)
[2016-06-08 18:00] VITALS: BP 126/68
[2016-06-08] MEDS: zolPIDEM TARTRATE 5 MG TAB PO SCH (20:07)
[2016-06-08] MEDS: OLANZapine 5 MG TAB PO SCH (20:08)
[2016-06-08] MEDS: risperiDONE 1 MG M-TAB PO SCH (21:24)
[2016-06-09 06:13] VITALS: BP 130/84
[2016-06-09] MEDS: BENZTROPINE 1 MG TAB PO SCH ×2 (09:08→20:37)
[2016-06-09] MEDS: NICOTINE 21MG/24HR 1 EA TRANSDERMAL TD SCH (09:08)
--- NOTE | 2016-06-09 12:08 | IPN ---
DATE: 06/07/2016 VITAL SIGNS: Temperature 96.6, pulse 80, respirations 16, blood pressure 109/56. CURRENT MEDICATIONS: - Ambien 10 mg nightly - Zyprexa 10 mg nightly - risperidone M-tab 4 mg nightly - Cogentin 1 mg twice a day - trazodone 100 mg nightly as needed PSYCHIATRIC HISTORY: The patient still has no insurance. He has reached out to previous employers to get information. He states his appetite is good. He claims he is sleeping fine. No problems reducing the Zyprexa so far. He is still hearing the voices. They can be prominent at times, especially when he is isolating and bored. He tries to keep himself busy and distracted, like reading and going to groups, playing board games with other patients. We discussed discharge plans for next week. He hopes to return home to his grandparents. He is afraid that if they know about his mental health issues, they will abandon him and he will be homeless. According to staff, the grandparents are quite supportive and this is not likely to happen, but the patient cannot be reassured. MENTAL STATUS EXAMINATION: The patient remains guarded with some paranoia but is interacting more socially with his peers. Auditory hallucinations are still prominent. No signs of depression, suicidal or homicidal thoughts. DIAGNOSIS: Schizophrenia with acute episode. Cannabis use disorder. PLAN: Reduce Ambien to 5 mg nightly. No change in other psychotropics.
[2016-06-09 18:00] VITALS: BP 121/70
[2016-06-09] MEDS: risperiDONE 2 MG TAB PO SCH (20:36)
[2016-06-09] MEDS: zolPIDEM TARTRATE 5 MG TAB PO SCH (20:37)
[2016-06-09] MEDS: OLANZapine 5 MG TAB PO SCH (20:37)
[2016-06-10 06:00] VITALS: BP 122/79
[2016-06-10] MEDS: BENZTROPINE 1 MG TAB PO SCH ×2 (08:34→20:00)
[2016-06-10] MEDS: NICOTINE 21MG/24HR 1 EA TRANSDERMAL TD SCH (08:35)
[2016-06-10 18:00] VITALS: BP 113/59
[2016-06-10] MEDS: zolPIDEM TARTRATE 5 MG TAB PO SCH (20:00)
[2016-06-10] MEDS: OLANZapine 5 MG TAB PO SCH (20:00)
[2016-06-10] MEDS: risperiDONE 2 MG TAB PO SCH (20:01)
[2016-06-11 06:04] VITALS: BP 129/79
[2016-06-11] MEDS: NICOTINE 21MG/24HR 1 EA TRANSDERMAL TD SCH (08:36)
[2016-06-11] MEDS: BENZTROPINE 1 MG TAB PO SCH ×2 (08:36→20:05)
--- NOTE | 2016-06-11 16:25 | IPN ---
DATE: 06/11/2016 Temperature 96.4, pulse 80, respirations 18, blood pressure 129/79. CURRENT MEDICATIONS: - Zyprexa 5 mg at bedtime - Risperdal 4 mg at bedtime - Ambien 5 mg at bedtime - Cogentin 1 mg twice a day PSYCHIATRIC HISTORY: Patient states that he is still hearing the voices, but they have been reduced in severity. He still reports the paranoia as well but also less prominent. Patient reports he sleeps well at night. He has had no problems cutting back on the Zyprexa. For example, he will take naps during the daytime. Patient is still isolating from other peers but does socialize at times. Patient still has no insurance. This is in process. We discuss having a family meeting to have his grandparents help him get insurance. MENTAL STATUS EXAMINATION: Patient still remains paranoid and guarded. He socializes at times but frequently isolated from his peers. Patient is still hearing voices but not as severe. Paranoia is better too. Not voicing any homicidal or suicidal thoughts. DIAGNOSES: 1. Schizophrenia with acute episode. 2. Cannabis use disorder. PLAN: Discontinue Zyprexa. No change in other psychotropics.
[2016-06-11 18:00] VITALS: BP 122/76
[2016-06-11] MEDS: zolPIDEM TARTRATE 5 MG TAB PO SCH (20:05)
[2016-06-11] MEDS: risperiDONE 2 MG TAB PO SCH (20:05)
[2016-06-12 06:26] VITALS: BP 101/57
[2016-06-12] MEDS ORDERED: NICO21PAT TD (08:15)
[2016-06-12] MEDS: NICOTINE 21MG/24HR 1 EA TRANSDERMAL TD SCH (08:36)
[2016-06-12] MEDS: BENZTROPINE 1 MG TAB PO SCH (08:36)
[2016-06-12] MEDS ORDERED: traZODone 50 MG TAB PO PRN (15:15)
[2016-06-12] MEDS ORDERED: PALIPERIDONE PALMITATE 156 MG/1ML INJ(INVEGA SUSTENNA)(J2426) IM ONE (17:00)
[2016-06-12 18:00] VITALS: BP 119/64
[2016-06-12] MEDS: risperiDONE 2 MG TAB PO SCH (20:34)
[2016-06-12] MEDS: zolPIDEM TARTRATE 5 MG TAB PO SCH (20:34)
--- NOTE | 2016-06-12 20:45 | IPN ---
DATE: 06/12/2016 VITAL SIGNS: Temperature 97.8, pulse 71, respirations 16, blood pressure 101/57. MEDICATIONS: - trazodone 100 mg at bedtime - Cogentin 1 mg twice a day - Risperdal 4 mg at bedtime - Ambien 5 mg at bedtime PSYCHIATRIC HISTORY: Patient's family meeting was held today, which went well, according to staff. The grandparents are going to help him with discharge planning. He is optimistic about the future. He hopes to go to the local [employer], for example. He still hears the voices, but they are less prominent. He is able to focus on his homework, he thinks, without the distraction from the hallucinations. He is still working on getting insurance. The voices are decreased in volume and frequency. Paranoia less prominent. He asked for an increase in trazodone, which appears reasonable. We discuss getting him another booster injection of the Invega Sustenna; hence the Risperdal 4 mg at bedtime is somewhat optional and may no longer be necessary. MENTAL STATUS EXAMINATION: Patient is still paranoid and somewhat guarded. He is definitely less anxious, however. Voices not as prominent. Paranoia much improved. No signs of dangerousness. DIAGNOSES: 1. Schizophrenia with acute episode. 2. Cannabis use disorder. PLAN: Discontinue Cogentin. Trazodone increase to 150 mg at bedtime as needed. Patient given an Invega Sustenna injection again today for loading purposes. Oral dose of Risperdal is now optional. We will discuss tomorrow if he would like it on an as-needed basis or not. Patient agreeable to outpatient mental health followup as well.
[2016-06-13 06:30] VITALS: BP 108/71
[2016-06-13] MEDS: NICOTINE 21MG/24HR 1 EA TRANSDERMAL TD SCH (10:02)
[2016-06-13] MEDS ORDERED: NICO21DI5 TD (10:52)
[2016-06-13] MEDS ORDERED: TRAZ150T14 PO (11:51)
[2016-06-13] MEDS ORDERED: INVE156I IM (15:12)
--- NOTE | 2016-06-14 12:08 | MHDS ---
DATE OF ADMISSION: 05/19/2016 DATE OF DISCHARGE: 06/13/2016 VITAL SIGNS: Temperature 96.7, pulse 95, respiration 20, blood pressure 108/71. LABS: CBC and differential normal except for low red blood cell, hemoglobin, hematocrit and MCV. Platelet count was high at 470. Chem survey was within normal limits except for elevated fasting glucose. Toxicology not done in the emergency room. DISCHARGE DIAGNOSES: Schizophrenia, acute episode. Cannabis use disorder. DISCHARGE MEDICATIONS: - Invega Sustenna 156 mg IM monthly - trazodone 150 mg at bedtime as needed CHIEF COMPLAINT: Bizarre behavior. PSYCHIATRIC HISTORY: This is a 36-year-old white male living with his grandfather. Patient has been hearing voices telling him that the [facility] wants to torture him. The JUAN A voices state that he is to be killed on national television. Patient apparently called 911 regarding this at his house but then left. The family also called 911. [place] Patient reports to staff that he has a chip implant in his brain. He wants an MRI to find it. He hears the voices constantly, from the [facility]. He complains that there is some type of technology "that has been implanted in his brain". He gets no piece of mind. He cannot escape it. This makes him depressed. He feels suicidal but has not had any suicidal attempts. He claims that the symptoms are real and not imaginary. He claims that they started approximately February 21. Patient reports some history of alcohol consumption but he minimized it. He also has a history of cannabis consumption. Patient was admitted to the medical floor due to possible Tylenol overdose. Patient was on Zyprexa back in [place]. He was hospitalized three or four times in [place] and placed on Zyprexa. Patient just moved here to [facility] from [place] to live with his grandfather. PROGRESS ON THE UNIT: Initially the patient was highly anxious and tormented by his auditory hallucinations. He hears them around the clock. He claimed that the Zyprexa was not effective. He was originally given Abilify but had severe akathisia from it so that was discontinued. He was then switched to Risperdal 1 mg four times daily which was well tolerated. He has no parkinsonian symptoms on the Risperdal. No signs of akathisia. Patient's psychotic symptoms gradually improved, however, he still was quite paranoid and was resistant to giving release of information to get old records from his grandparents. He was willing to give information only on one hospital stay down in [place]. Patient was given the Invega Sustenna injection which he found helpful. Plans were made to refer him for local Medicaid insurance. His grandparents will help him with the details. Patient became somewhat more involved on the unit but still interacted minimally with his peers. Attendance at groups was intermittent. Patient appeared to reach maximal hospital benefit and was agreeable to continuing his antipsychotic injection as an outpatient. MENTAL STATUS EXAMINATION AT TIME OF DISCHARGE: Patient was still guarded with some signs of paranoia. Patient still reported some auditory hallucinations but they were less prominent. Anxiety symptoms were markedly improved. Mood was markedly improved. Affect was somewhat improved. Grooming and hygiene appeared reasonably good. No signs of dangerousness. Insight and judgment appear fair. No signs of being a danger to self or others at time of discharge. ASSESSMENT: Patient has had a good response to his antipsychotic medication. PLAN: Discharge today to the care of his grandfather. Followup at local mental health services.
== END 2016-06-13 15:00 | disposition home or self-care (01) | DRG 751 ==
LOC: M PSY 15:32
PROVIDERS: ADMIT Psychiatry & Neurology Psychiatry; ATTEND Psychiatry & Neurology Psychiatry
DX: F23 Brief psychotic disorder (principal); R45.851 Suicidal ideations; F12.90 Cannabis use, unspecified, uncomplicated; F17.210 Nicotine dependence, cigarettes, uncomplicated; Z81.8 Family history of other mental and behavioral disorders; Z79.899 Other long term (current) drug therapy

== ENCOUNTER 2016-07-09 02:21 | Inpatient (IN) | payer MEDICAID, SELFPAY ==
[~2016-07-09] VITALS: Ht 177.8 cm; Wt 63.1 kg
[~2016-07-09 02:21] MED LIST changes: +INVE156I IM; +NICO21DI5 TD; +NICO21PAT TD; +TRAZ150T14 PO
[2016-07-09 02:57] LABS: MEAN CORPUSCULAR HEMOGLOBIN 31.7 pg (27.0-33.0); MEAN CORPUSCULAR HGB CONC 33.3 g/dl (32.0-36.5); MEAN CORPUSCULAR VOLUME 95.4 fl (80.0-96.0); RED CELL DISTRIBUTION WIDTH 13.8 % (11.5-14.5); WHITE BLOOD COUNT 16.1 K/mm3 (4.0-10.0)
[2016-07-09 03:10] LABS: CONTROL LINE INT CTR LINE PRESENT; METHADONE URINE NEGATIVE (NEGATIVE); TRICYCLIC ANTIDEPRESS URINE NEGATIVE (NEGATIVE)
[2016-07-09 03:26] LABS: ALBUMIN 4.6 GM/DL (3.2-5.2); ALBUMIN/GLOBULIN RATIO 1.35 (1.00-1.93); ALKALINE PHOSPHATASE 100 U/L (45-117); ALT/SGPT 23 U/L (12-78); ANION GAP 13 MEQ/L (8-16); AST/SGOT 15 U/L (15-37); BILIRUBIN,DIRECT < 0.1 MG/DL (0.0-0.2); BILIRUBIN,TOTAL 0.4 MG/DL (0.2-1.0); BLOOD UREA NITROGEN 4 MG/DL (7-18); CALCIUM LEVEL 9.6 MG/DL (8.5-10.1); CARBON DIOXIDE LEVEL 26 MEQ/L (21-32); CHLORIDE LEVEL 101 MEQ/L (98-107); CREATININE FOR GFR 0.94 MG/DL (0.70-1.30); GLOMERULAR FILTRATION RATE > 60.0 (>60); GLUCOSE, FASTING 102 MG/DL (70-105); POTASSIUM SERUM 3.9 MEQ/L (3.5-5.1); SODIUM LEVEL 140 MEQ/L (136-145)
[2016-07-09] MEDS ORDERED: FOLI1TAB2 PO (07:21)
[2016-07-09] MEDS ORDERED: THIA100T PO (07:21)
[2016-07-09] MEDS ORDERED: TRAZ150T14 PO (07:21)
[2016-07-09] MEDS ORDERED: traZODone 50 MG TAB As Ordered ONE (08:45)
[2016-07-09] MEDS ORDERED: traZODone 100 MG TAB As Ordered ONE (08:46)
--- NOTE | 2016-07-09 11:35 | EDDOCDS ---
Physician Documentation [facility] Name: Jay You Age: 36 yrs Sex: Male : 1980 Arrival Date: 07/09/2016 Time: 02:21 Bed BHU1 Private MD: Disposition: 07/09/16 06:58 Hospitalization ordered by Derik Hatch for Inpatient Admission. Preliminary diagnosis is Suicidal ideations. - Bed requested for Admit. - Status is Inpatient Admission. dwg - Condition is Stable. - Problem is an acute exacerbation. - Symptoms have improved. Historical: - Allergies: No known drug Allergies; - Home Meds: 1. trazodone 150 mg Oral Tb24 1 tab once daily 2. Invega/Systena once a month once a month - PMHx: Schizophrenia; - PSHx: Unable to obtain; - Social history: Smoking status: Patient uses tobacco products, current every day smoker. No barriers to communication noted, The patient speaks fluent Azeri, Speaks appropriately for age, Preferred Language: Azeri. - Family history: Not pertinent. - : The pt / caregiver states he / she is not on anticoagulants. Home medication list is obtained from the patient. - Exposure Risk Screening:: None identified. Vital Signs: 07/09 02:28 BP 141 / 88; Pulse 114; Resp 18; Temp 98.7(O); Pulse Ox 98% on R/A; Weight 62.6 kg / rw1 138.01 lbs (R); Height 5 ft. 10 in. (177.80 cm) (R); Pain 0/10; 06:30 BP 118 / 71; Pulse 99; Resp 16; Temp 98.6(TE); Pulse Ox 97% on R/A; Pain 0/10; rw1 10:17 BP 131 / 82; Pulse 100; Resp 16; Temp 97.6(O); Pulse Ox 97% on R/A; dpm 11:31 BP 141 / 85; Pulse 92; Resp 16; Temp 96.9(O); Pulse Ox 98% on R/A; dwg 02:28 Body Mass Index 19.80 (62.60 kg, 177.80 cm) rw1 MDM: 02:38 Consult PFS/PSA/Bevel Face Stoner And Polisher ordered. jun 02:38 Consult PFS/PSA/Bevel Face Stoner And Polisher: Patient's case requires discussion with on-call heriberto Psychiatrist ordered. 02:38 PSA/PFS to call Nursing Pulmonary Care Nurse, to enter patient data on [place] Safe Act if patient heriberto involuntarily admitted or transferred for SI or HI ordered. 02:38 Confirm accurate psychiatric medication list and times of last dosage ordered. jun 02:38 Detain Pt Until Medically/PFS Cleared ordered. jun 02:39 Acetaminophen Level Ordered. EDMS 02:39 Basic Metabolic Profile Ordered. EDMS 02:39 Complete Blood Count Ordered. EDMS 02:39 Drug Eval Toxicology ED Only Ordered. EDMS 02:39 Ethyl Alcohol (ethanol) Ordered. EDMS 02:39 Liver Profile Ordered. EDMS 02:39 Salicylate Level Ordered. EDMS 02:39 Thyroid Stimulating Hormone Ordered. EDMS 02:42 [facility] Legal paperwork was scanned into [employer] and attached to record. rw1 03:35 Consult PFS/PSA/Bevel Face Stoner And Polisher complete. jfb 03:35 Consult PFS/PSA/Bevel Face Stoner And Polisher: Patient's case requires discussion with on-call b Psychiatrist complete. 03:35 PSA/PFS to call Nursing Pulmonary Care Nurse, to enter patient data [place] Safe [place] if patient jfb involuntarily admitted or transferred for SI or HI complete. 04:18 Acetaminophen Level Reviewed. mm11 04:18 Basic Metabolic Profile Reviewed. mm11 04:18 Complete Blood Count Reviewed. mm11 04:18 Drug Eval Toxicology ED Only Reviewed. mm11 04:18 Ethyl Alcohol (ethanol) Reviewed. mm11 04:18 Liver Profile Reviewed. mm11 04:18 Salicylate Level Reviewed. mm11 04:18 Thyroid Stimulating Hormone Reviewed. mm11 05:10 Financial registration complete. pm4 05:12 REGULAR DIET PLASTIC WILKINSON+DIET ordered. EDMS 06:16 [facility] Payment Agreement was scanned into [employer] and attached to record. hs2 08:39 traZODone 150 mg PO once ordered. mcp 10:13 Admit to [facility]: ordered. EDMS 10:14 [facility] Legal paperwork was scanned into [employer] and attached to record. ac 11:25 [facility] Legal paperwork was scanned into [employer] and attached to record. rb 11:28 REGULAR DIET PLASTIC WILKINSON+DIET ordered. EDMS Administered Medications: 08:49 Drug: traZODone 150 mg [trazodone 100 mg tablet (1.5 tabs)] Route: PO; mcp Signatures: Dispatcher [employer] EDMS Martínez, Erasmo, RN Lana Kevin RN RN jan Peters, Mary, Joselyn Garcia RN, mcp, PSA PSA rb Clifton Campbell, PSA PSA ac Corona Allen,[employer] SUPERVISOR [employer] SUPERVISOR rw1 Maria E Vazquez RN RN lf1 Raj Samson, DO DO mm11 Joanna Reed, PSA PSA jfb Nikki Lynn, Reg Reg hs2 Reji Blanchard, Reg Reg pm4 The chart was reviewed and I authenticate all verbal orders and agree with the evaluation and treatment provided.Attachments: 06:16 [facility] Payment Agreement hs2 MTDD
--- NOTE | 2016-07-09 11:35 | EDDOCDS ---
Nurse's Notes [facility] Name: Jay You Age: 36 yrs Sex: Male : 1980 Arrival Date: 07/09/2016 Time: 02:21 Bed [facility] Private MD: Diagnosis: Suicidal ideations Presentation: 07/09 02:29 Presenting complaint: Patient states: Pt brought in by [facility] on 941 after 1 calling 911 to report he was having thoughts of hurting himself and having difficulty sleeping. Pt. lives with his grandparents and they report that he is due for an unknown monthly injection on the 12 of July. Pt was cooperative en route. Mental Health Triage Level: Level 2: The patient displays active suicidal ideations. The patient was brought to the ED for evaluation because of a legal pickup order. Mental Health Triage Level: Level 2: The patient displays active suicidal ideations. The patient was brought to the ED for evaluation because of a legal pickup order. Suicide/Homicide risk assessment- The patient admits to and/or has been reported to be having suicidal ideations. Status: Patient is not a human services supervisor or dependent. Transition of care: patient was not received from another setting of care. 02:29 Acuity: MAN Level 3 lf1 02:29 Method Of Arrival: Police Car lf1 11:33 Adult Sepsis Screening: The patient does not have new or worsening altered mentation. dwg Patient's respiratory rate is less than 22. Systolic blood pressure is greater than 100. Patient has a qSOFA score of 0- Negative Sepsis Screen. Triage Assessment: 02:36 General: Appears slender, unkempt, Behavior is cooperative, flat. Pain: Denies pain. lf1 HIV screening NA for this visit Offered previously. Neurological: Level of Consciousness is awake, Oriented to person, place, time, Speech slow. EENT: No deficits noted. Respiratory: Respiratory effort is even, unlabored. GI: Denies nausea, vomiting. Derm: No deficits noted. Injury Description: No known injury. Historical: - Allergies: No known drug Allergies; - Home Meds: 1. trazodone 150 mg Oral Tb24 1 tab once daily 2. Invega/Systena once a month once a month - PMHx: Schizophrenia; - PSHx: Unable to obtain; - Social history: Smoking status: Patient uses tobacco products, current every day smoker. No barriers to communication noted, The patient speaks fluent [place]an, Speaks appropriately for age, Preferred Language: Comoran. - Family history: Not pertinent. - : The pt / caregiver states he / she is not on anticoagulants. Home medication list is obtained from the patient. - Exposure Risk Screening:: None identified. Screenin:15 Screening information is obtained from the patient. Fall risk: No risks identified. [facility] Assistance ADL's: requires no assistance with activities of daily living. Abuse/DV Screen: The patient / caregiver reports he/she is: not in a situation that causes fear, pain or injury. Nutritional screening: No deficits noted. Advance Directives: There is no active DNR order. home support is adequate. Assessment: 02:36 General: see triage assessment. rw1 03:35 General: Appears in no apparent distress, comfortable, Behavior is cooperative, quiet. rw1 Pain: Denies pain. Neurological: Level of Consciousness is awake, alert, obeys commands, Oriented to person, place. Respiratory: Airway is patent Respiratory effort is even, unlabored. Derm: Skin is pink, warm & dry. normal. 04:23 Reassessment: Patient appears in no apparent distress at this time. resting quietly on rw1 stretcher, safety maintained will monitor.. 05:34 Reassessment: Patient appears in no apparent distress at this time. resting quietly on rw1 stretcher, safety maintained will monitor.. 06:30 General: Appears in no apparent distress, comfortable, Behavior is quiet. Pain: Denies rw1 pain. Neurological: Level of Consciousness is awake, obeys commands, Oriented to person, place. Respiratory: Airway is patent Respiratory effort is even, unlabored. Derm: Skin is pink, warm & dry. normal. 07:30 General: Appears in no apparent distress, comfortable, Behavior is cooperative. Pain: mcp Denies pain. Neurological: No deficits noted. Respiratory: Airway is patent Respiratory effort is even, unlabored. Derm: Skin is pink, warm & dry. 08:30 General: Sitting up on stretcher eating breakfast. mcp 11:31 General: Appears in no apparent distress, comfortable, Behavior is cooperative, quiet. dwg General: Calm and cooperative, tranfered to [facility].. Pain: Denies pain. Neurological: Level of Consciousness is awake, alert, Oriented to person, place, time. Respiratory: Airway is patent Respiratory effort is even, unlabored, Respiratory pattern is regular, symmetrical. Mental Health Eval: 03:04 Status: The patient is not a human services supervisor or dependent. [facility] jfb Behavioral Health: The patient is established as a patient of [facility] Behavioral Health. Referral Information: Evaluation referral is generated by a police agency: 9.41 [facility] [place] esc[employer]ge #[id number]. The patient was referred for evaluation because PT is experiencing AH and is +SI. Subjective: The patients chief complaint is PT is having difficulty staying engaged in conversation and requires verbal cues after almost all questions as he will stare off and stop responding. PT states he is hearing a female voice that sounds like his ex GF and a male voice he doesn't recognize. Both voices tell PT he is going to assisted and that he is going to [place]. "They have been reading my mind since May 23". PT would not elaborate on the significance of that date. PT denies he is in outpatient treatment but records indicate that he was scheduled and seen at [facility] 06/26/2016 and that he was scheduled with the [facility] for 06/17, 07/09 and 07/12. Records also indicate that PT received Ivega Sustenna 156mg 06/12 and is now due again 07/12. PT unsure what the shot was for or if he has already had it. PT admits to being suicidal and asked if he thought of plans "I don't wish to discuss this at this time". PT states he has not slept since yesterday and he has strong body odor and can't say when he last showered. . Delusions are persecutory, feals there has been a chip put in his brain (per 05/19/2016 admission) Feels others have been reading his mind. Patient's mood is depressed, Auditory Hallucinations are reported by the patient. Mental Health history: schizophrenia, sleep disturbance, suicide 05/18/2016 PT presented for OD but labs did not support. PT was cleared from PCU and admitted to [facility] Mental Health Admissions: [facility] 05/19/2016-06/13/2016 Current living environment is The patient currently lives grandfather and grandfather's GF. PT is working with [facility] to establish more independent living . Patient presents to Emergency Department with the following symptoms within the past 2 weeks: anxiety, delusions of persecution, depressed mood, auditory hallucinations stated by patient paranoia, poor concentration, psychosis, sleep disturbance - insomnia, suicidal ideation with plan for PT will not discuss his plan. Substance abuse: PT will smoke two cigars in a day and admits to no other substance or tobacco use. Mental status exam: Patients appearance is malodorous unkempt, Patient's behavior is minimally responsive Speech is normal. Affect is flat. Mood is depressed. Auditory Hallucinations are reported by the patient. Appetite is erratic Memory is fair. Energy level is normal. Content of thought is paranoid. feels others can read his mind Thought process is loose. Cognitive level is Oriented to person, place, situation Patient's insight is fair. Judgement is fair. Rapport with interviewer is good. Suicidal Ideation present with a plan to kill self by will not divulge. Homicidal ideation is not present. [facility] Admission Criteria: The patient is experiencing suicidal ideation. The patient displays symptoms of severe psychiatric disorder resulting in disordered behavior and significant interference with his / her ability to maintain self care. Hallucinations. Delusions. The patient requires continuous observation and/or control to protect self, others or property. The patient's care requires a multi-modal treatment plan under close supervision and coordination due to the complexity and severity of the patient's symptoms. The patient requires administration and monitoring of psychoactive medications by skilled medical providers due to the side effects of the psychoactive medications or significant dosage adjustments. [place] because patient was registered less than 6 months ago. DSM-V Differential Diagnosis: Schizophrenia (F20.9). 04:21 Disposition: Medically cleared for disposition by Raj Samson DO Psychiatric jfb Consult is performed by phone with Dr Derik Hatch MD. Legal Status: Patient's legal status will be involuntary. 09:50 Insurance Pre-Certification: Not Required, Per check on e-paces, pt has [facility] Medicaid. Vital Signs: 02:28 BP 141 / 88; Pulse 114; Resp 18; Temp 98.7(O); Pulse Ox 98% on R/A; Weight 62.6 kg (R); rw1 Height 5 ft. 10 in. (177.80 cm) (R); Pain 0/10; 06:30 BP 118 / 71; Pulse 99; Resp 16; Temp 98.6(TE); Pulse Ox 97% on R/A; Pain 0/10; rw1 10:17 BP 131 / 82; Pulse 100; Resp 16; Temp 97.6(O); Pulse Ox 97% on R/A; dpm 11:31 BP 141 / 85; Pulse 92; Resp 16; Temp 96.9(O); Pulse Ox 98% on R/A; dwg 02:28 Body Mass Index 19.80 (62.60 kg, 177.80 cm) rw1 Vitals: 02:28 Log In time N/A- police car arrival. rw1 ED Course: 02:26 Patient visited by Reji Blanchard, Reg. pm4 02:26 Patient moved to Waiting pm4 02:28 Corona Allen LPN is Primary Nurse. rw1 02:28 Patient moved to [facility] rw1 02:32 Triage Initiated lf1 02:42 [facility] Legal paperwork was scanned into [employer] and attached to record. rw1 02:43 Patient visited by Liu Emerson. tr 02:46 Patient visited by Reji Blanchard, Reg. pm4 02:51 Acetaminophen Level Sent. rw1 02:52 Basic Metabolic Profile Sent. rw1 02:52 Complete Blood Count Sent. rw1 02:52 Drug Eval Toxicology ED Only Sent. rw1 02:52 Ethyl Alcohol (ethanol) Sent. rw1 02:52 Liver Profile Sent. rw1 02:52 Salicylate Level Sent. rw1 02:52 Thyroid Stimulating Hormone Sent. rw1 02:59 Patient visited by Liu Emerson. tr 03:12 Patient visited by Liu Emerson. tr 03:43 Patient visited by Liu Emerson. tr 03:58 Raj Samson DO is Attending Physician. mm11 03:58 Patient visited by Raj Samson DO. mm11 03:59 Patient visited by Liu Emerson. tr 04:16 Patient visited by Corona Allen LPN. rw1 04:18 Patient visited by Raj Samson DO. mm11 04:47 Patient visited by Liu Emerson. tr 05:04 Patient visited by Liu Emerson. tr 05:12 Patient visited by Liu Emerson. tr 05:28 Patient visited by Liu Emerson. tr 05:47 Patient visited by Liu Emerson. tr 06:03 Patient visited by Liu Emerson. tr 06:15 Patient visited by Liu Emerson. tr 06:16 [facility] Payment Agreement was scanned into [employer] and attached to record. hs2 06:17 Patient name changed from Jay\\S\\T\\S\\You\\S\\ to Jay\\S\\Gabo\\S\\You. EDMS 06:30 Patient visited by Corona Allen LPN. rw1 06:34 Primary Nurse role handed off by Corona Allen LPN rw1 06:46 Patient visited by Liu Emerson. tr 06:58 Derik Hatch MD is Hospitalizing Provider. mm11 07:16 Patient visited by Jovany Abbott. dpm 07:36 Patient visited by Jovany Abbott. dpm 07:46 Patient visited by Jovany Abbott. dpm 08:17 Patient visited by Jovany Abbott. dpm 08:32 Patient visited by Jovany Abbott. dpm 08:46 Patient visited by Jovany Abbott. dpm 09:07 Patient visited by Jovany Abbott. dpm 09:15 Patient visited by Jyoti Doyle RN. mcp 09:42 Patient visited by Jovany Abbott. dpm 10:03 Patient visited by Jovany Abbott. dpm 10:14 [facility] Legal paperwork was scanned into [employer] and attached to record. ac 10:22 Patient visited by Jovany Abbott. dpm 10:45 Patient visited by Jovany Abbott. dpm 11:05 Patient visited by Jovany Abbott. dpm 11:15 Patient visited by Jovany Abbott. dpm 11:24 [facility] Legal paperwork was scanned into [employer] and attached to record. rb 11:33 The patient / caregiver is instructed regarding the plan of care and ED course. dwg 11:33 No IV's were initiated during this patient's visit. No procedures done that require dwg assistance. 11:34 Patient visited by Erasmo Martínez RN. dwg Administered Medications: 08:49 Drug: traZODone 150 mg [trazodone 100 mg tablet (1.5 tabs)] Route: PO; mcp Attachments: 02:42 [facility] Legal paperwork rw1 10:14 [facility] Legal paperwork ac 11:24 [facility] Legal paperwork rb Order Results: Lab Order: Acetaminophen Level; SPEC'M 07/09/16 02:49 Test: ACETAMINOPHEN LEVEL; Value: < 2.0; Range: 10.0-30.0; Abnormal: Below low normal; Units: UG/ML; Status: F Lab Order: Basic Metabolic Profile; SPEC07/09/16 02:49 Test: GLUCOSE, FASTING; Value: 102; Range: 70-105; Units: MG/DL; Status: F Test: BLOOD UREA NITROGEN; Value: 4; Range: 7-18; Abnormal: Below low normal; Units: MG/DL; Status: F Test: CREATININE FOR GFR; Value: 0.94; Range: 0.70-1.30; Units: MG/DL; Status: F Test: GLOMERULAR FILTRATION RATE; Value: > 60.0; Range: >60; Status: F Test: SODIUM LEVEL; Value: 140; Range: 136-145; Units: MEQ/L; Status: F Test: POTASSIUM SERUM; Value: 3.9; Range: 3.5-5.1; Units: MEQ/L; Status: F Test: CHLORIDE LEVEL; Value: 101; Range: 98-107; Units: MEQ/L; Status: F Test: CARBON DIOXIDE LEVEL; Value: 26; Range: 21-32; Units: MEQ/L; Status: F Test: ANION GAP; Value: 13; Range: 8-16; Units: MEQ/L; Status: F Test: CALCIUM LEVEL; Value: 9.6; Range: 8.5-10.1; Units: MG/DL; Status: F Test Note: ; Units are mL/min/1.73 m2 Chronic Kidney Disease Staging per NKF: Stage I & II GFR >=60 Normal to Mildly Decreased Stage III GFR 30-59 Moderately Decreased Stage IV GFR 15-29 Severely Decreased Stage V GFR <15 Very Little GFR Left ESRD GFR <15 on PARTY HOST/HOSTESS Lab Order: Complete Blood Count; SPEC'M 07/09/16 02:49 Test: WHITE BLOOD COUNT; Value: 16.1; Range: 4.0-10.0; Abnormal: Above high normal; Units: K/mm3; Status: F Test: RED BLOOD COUNT; Value: 4.46; Range: 4.30-6.10; Units: M/mm3; Status: F Test: HEMOGLOBIN; Value: 14.2; Range: 14.0-18.0; Units: g/dl; Status: F Test: HEMATOCRIT; Value: 42.6; Range: 42.0-52.0; Units: %; Status: F Test: MEAN CORPUSCULAR VOLUME; Value: 95.4; Range: 80.0-96.0; Units: fl; Status: F Test: MEAN CORPUSCULAR HEMOGLOBIN; Value: 31.7; Range: 27.0-33.0; Units: pg; Status: F Test: MEAN CORPUSCULAR HGB CONC; Value: 33.3; Range: 32.0-36.5; Units: g/dl; Status: F Test: RED CELL DISTRIBUTION WIDTH; Value: 13.8; Range: 11.5-14.5; Units: %; Status: F Test: PLATELET COUNT, AUTOMATED; Value: 402; Range: 150-450; Units: k/mm3; Status: F Lab Order: Drug Eval Toxicology ED Only; SPEC'M 07/09/16 02:49 Test: AMPHETAMINES LEVEL URINE; Value: NEGATIVE; Range: NEGATIVE; Status: F Test: BARBITURATES URINE; Value: NEGATIVE; Range: NEGATIVE; Status: F Test: BENZODIAZEPINES URINE; Value: NEGATIVE; Range: NEGATIVE; Status: F Test: CANNABINOIDS URINE; Value: NEGATIVE; Range: NEGATIVE; Status: F Test: COCAINE METABOLITE URINE; Value: NEGATIVE; Range: NEGATIVE; Status: F Test: METHADONE URINE; Value: NEGATIVE; Range: NEGATIVE; Status: F Test: OPIATES URINE; Value: NEGATIVE; Range: NEGATIVE; Status: F Test: TRICYCLIC ANTIDEPRESS URINE; Value: NEGATIVE; Range: NEGATIVE; Status: F Test Note: ; ALL PRESUMPTIVE POSITIVE FINDINGS ARE UNCONFIRMED NORMAL VALUES THRESHOLD IN NG/ML AMPHETAMINES 1000 METHAMPHETAMINES 1000 BARBITURATES 300 BENZODIAZEPINES 300 CANNABINOIDS (THC) 50 COCAINE METABOLITE 300 METHADONE 300 OPIATES 300 PHENCYCLIDINE 25 TRICYCLIC ANTIDEPRESSANTS 1000 RESULTS ARE FOR MEDICAL PURPOSES ONLY. ALL URINE SPECIMENS WILL BE SAVED FOR 3 DAYS. IF CONFIRMATION OF A PRESUMPTIVE POSTIVE SCREEN RESULT IS DESIRED, CALL CHEMISTRY ([phone]) AND REQUEST URINE TO BE SENT TO REFERENCE LAB. FOR A LIST OF CLOSELY RELATED COMPOUNDS PLEASE CALL THE LAB. Lab Order: Ethyl Alcohol (ethanol); SPEC'M 07/09/16 02:49 Test: ETHYL ALCOHOL (ETHANOL); Value: 0.005; Range: 0.000-0.010; Units: %; Status: F Lab Order: Liver Profile; SPEC'M 07/09/16 02:49 Test: AST/SGOT; Value: 15; Range: 15-37; Units: U/L; Status: F Test: ALT/SGPT; Value: 23; Range: 12-78; Units: U/L; Status: F Test: ALKALINE PHOSPHATASE; Value: 100; Range: 45-117; Units: U/L; Status: F Test: BILIRUBIN,TOTAL; Value: 0.4; Range: 0.2-1.0; Units: MG/DL; Status: F Test: BILIRUBIN,DIRECT; Value: < 0.1; Range: 0.0-0.2; Units: MG/DL; Status: F Test: TOTAL PROTEIN; Value: 8.0; Range: 6.4-8.2; Units: GM/DL; Status: F Test: ALBUMIN; Value: 4.6; Range: 3.2-5.2; Units: GM/DL; Status: F Test: ALBUMIN/GLOBULIN RATIO; Value: 1.35; Range: 1.00-1.93; Status: F Lab Order: Salicylate Level; SPEC'M 07/09/16 02:49 Test: SALICYLATE LEVEL; Value: 7.1; Range: 5.0-30.0; Units: MG/DL; Status: F Lab Order: Thyroid Stimulating Hormone; SPEC'M 07/09/16 02:49 Test: THYROID STIMULATING HORMONE; Value: 2.000; Range: 0.358-3.740; Units: uIU/ML; Status: F Outcome: 06:58 Decision to Hospitalize by Provider. mm11 11:32 Discharge Assessment: Patient awake, alert and oriented x 3. No cognitive and/or dwg functional deficits noted. Patient verbalized understanding of disposition instructions. patient administered narcotics - no. Admitted to [facility] via wheelchair, with chart. The following High Risk Discharge criteria are identified: None. Condition: good Condition: stable. No special radiology studies were completed. Property secured in belongings bag- Placed in Given to [facility] staff. 11:34 Patient left the ED. [facility] Signatures: Dispatcher [employer] Erasmo Benedict RN RN dwg Peters, Mary, RN RN mcp Baxter, Renee, PSA PSA rb Clifton Campbell, PSA PSA Liu Becerra Robert,ROUGH CARPENTER ROUGH CARPENTER rw1 Maria E Vazquez RN RN lf1 Raj Samson, DO DO mm11 Reed Joanna, PSA PSA jfJovany Sequeira dpm Nikki Lynn, Reg Reg hs2 Reji Blanchard, Reg Reg pm4 Corrections: (The following items were deleted from the chart) 03:39 03:04 Referral Information: Evaluation referral is generated by the patient's therapist sandrine 9.41 [facility] [place] enzo #[id number]. The patient was referred for evaluation because PT is experiencing AH and is +SI. [facility] 03:39 03:04 Subjective: The patients chief complaint is PT is having difficulty staying jfb engaged in conversation and requires verbal cues after almost all questions as he will stare off and stop responding. PT states he is hearing a female voice that sounds like his ex GF and a male voice he doesn't recognize. Both voices tell PT he is going to assisted and that he is going to [place]. "They have been reading my mind since May 23. PT would not elaborate on the significance of that date. PT denies he is in outpatient treatment but records indicate that he was scheduled and seen at [facility] and that he was scheduled with the [facility] for 06/17, 07/09 and 07/12. Records also indicate that PT received Ivega Sustenna 156mg 06/12 and is now due again 07/12. PT unsure what the shot was for or if he has already had it. PT admits to being suicidal and asked if he thought of plans "I don't wish to discuss this at this time". PT states he has not slept since yesterday and he has strong body odor and can't say when he last showered. . Delusions are persecutory, feals there has been a chip put in his brain (per 05/19/2016 admission) Feels others have been reading his mind. Patient's mood is depressed, Auditory Hallucinations are reported by the patient. jfb 04:23 04:21 Legal Status: Patient's legal status will be jfb jfb MTDD
[2016-07-09] MEDS ORDERED: MAALOX 30 ML SUSP *UDC PO PRN (14:00)
[2016-07-09] MEDS ORDERED: MOM 30ML SUSPENSION UDC PO PRN (14:00)
[2016-07-09] MEDS ORDERED: ACETAMINOPHEN TAB 650MG DOSE (2X325MG) PO PRN (14:00)
[2016-07-09] MEDS: NICOTINE 21MG/24HR 1 EA TRANSDERMAL TD SCH (14:09)
[2016-07-09 18:00] VITALS: BP 132/92
[2016-07-09] MEDS: QUEtiapine FUMARATE 100 MG TAB PO SCH (21:26)
[2016-07-10] MEDS ORDERED: OLANZapine ORAL DISINTEGRATING TAB 5MG PO STA (01:01)
[2016-07-10] MEDS ORDERED: LORazepam 0.5 MG TAB PO STA (01:01)
[2016-07-10] MEDS: NICOTINE 21MG/24HR 1 EA TRANSDERMAL TD SCH (09:00)
[2016-07-10] MEDS ORDERED: QUEtiapine FUMARATE 100 MG TAB PO STA (10:06)
[2016-07-10] MEDS ORDERED: BENZTROPINE 1 MG TAB PO PRN ×2 (12:00→21:15)
[2016-07-10] MEDS: LORazepam 1 MG TAB PO PRN ×2 (12:01→19:58)
[2016-07-10] MEDS: HALOPERIDOL 5 MG TAB PO PRN ×2 (12:01→19:58)
--- NOTE | 2016-07-10 12:12 | HPEPDOC ---
Medical History and Physical Date of Admission Jul 09, 2016 at 09:33 History and Physical PCP: None ATTENDING: Dr. Jamal Kyle HPI: 36yoM admitted to [facility] for schizoaffective disorder, being medically examined today. No acute medical complaints reported today. Refuses to provide history or participate with exam. States there is something implanted in his ear , he needs it removed. PMHx: Schizophrenia PSHX: None SOCHX: Resides in: Lives with grandparents Marital Status: Single Kids: None Employment: Unemployed Tobacco use: One pack per day ETOH: History of 6-9 beers per day Illicit Drugs: Denies IV Drug Use: Denies Tattoos done unprofessionally: Denies FAMHX: Family originally from this area recently in [place]. Maternal uncle alcohol use and schizophrenia. ROS: Patient is unable to provide history. PE: GEN: agitated, refuses exam. EACs both patent BL. TMs both visualized and capellan with good cone of light, no bulging or erythema. There is excoriation of external canals with bleeding L>R. EK05/22/16 SINUS TACHYCARDIA POSSIBLE LEFT ATRIAL ENLARGEMENT LEFT VENTRICULAR HYPERTROPHY AND ST-T CHANGE SIMILAR 05/19/16 A&P: 36yoM admitted to [facility] for schizoaffective disorder 1. Psych. Plan per Psychiatry. EKG on file. 2. Nicotine dependence. Patch available. 3. Leukocytosis. Patient is asymptomatic. Afebrile. Recheck CBC. Also check UA/ urine culture. 4. Follow up. No Primary Care Provider. Will attempt to establish PCP on discharge. 5. I was called back to see the Pt related to the pt inserting the handle of a fork into the external ear canals bilaterally. There were excoriations noted in the external ear canals bilaterally, small amount of blood noted in the left ear canal, no active bleeding. TMs are intact bilaterally. Pt is with 1:1 observation. Avoid any further FB in ear canal. Keep area clean and dry. Monitor. 6. Staff member present throughout exam. behavioral health aideTolu RN. Vital Signs Vital Signs Label Value Date Time Patient Temperature 97.8 degrees F 07/09/16 1800 Temperature Source Tympanic 07/09/16 1800 Pulse 101 07/09/16 1800 Respiratory Rate 16 bpm 07/09/16 1800 Blood Pressure Assessment 132/92 (105) 07/09/16 1800 Laboratory Data Labs 24H Item Value Date Time White Blood Count 16.1 K/mm3 H 07/09/16 0249 Red Blood Count 4.46 M/mm3 07/09/16 0249 Hemoglobin 14.2 g/dl 07/09/16 0249 Hematocrit 42.6 % 07/09/16 0249 Mean Corpuscular Volume 95.4 fl 07/09/16 0249 Mean Corpuscular Hemoglobin 31.7 pg 07/09/16 0249 Mean Corpuscular Hemoglobin Concent 33.3 g/dl 07/09/16 0249 Red Cell Distribution Width 13.8 % 07/09/16 0249 Platelet Count 402 k/mm3 07/09/16 0249 Sodium Level 140 MEQ/L 07/09/16 0249 Potassium Level 3.9 MEQ/L 07/09/16 0249 Chloride Level 101 MEQ/L 07/09/16 0249 Carbon Dioxide Level 26 MEQ/L 07/09/16 0249 Anion Gap 13 MEQ/L 07/09/16 0249 Blood Urea Nitrogen 4 MG/DL L 07/09/16 0249 Creatinine 0.94 MG/DL 07/09/16 0249 Glomerular Filtration Rate > 60.0 07/09/16 0249 Fasting Glucose 102 MG/DL 07/09/16 0249 Calcium Level 9.6 MG/DL 07/09/16 0249 Total Bilirubin 0.4 MG/DL 07/09/16 0249 Direct Bilirubin < 0.1 MG/DL 07/09/16 0249 Aspartate Amino Transf (AST/SGOT) 15 U/L 07/09/16 0249 Alanine Aminotransferase (ALT/SGPT) 23 U/L 07/09/16 0249 Alkaline Phosphatase 100 U/L 07/09/16 0249 Total Protein 8.0 GM/DL 07/09/16 0249 Albumin 4.6 GM/DL 07/09/16 0249 Albumin/Globulin Ratio 1.35 07/09/16 0249 Thyroid Stimulating Hormone (TSH) 2.000 uIU/ML 07/09/16 0249 Salicylates Level 7.1 MG/DL 07/09/16 0249 Urine Opiates Screen NEGATIVE 07/09/16 0249 Urine Methadone Screen NEGATIVE 07/09/16 0249 Acetaminophen Level < 2.0 UG/ML L 07/09/16 0249 Urine Barbiturates, Qualitative NEGATIVE 07/09/16 0249 Urine Tricyclic Antidepressants NEGATIVE 07/09/16 0249 Urine Amphetamine Level NEGATIVE 07/09/16 024 Urine Benzodiazepines Screen NEGATIVE 07/09/16 024 Urine Cocaine Metabolite NEGATIVE 07/09/16 024 Urine Cannabinoids NEGATIVE 07/09/16 024 Ethyl Alcohol Level 0.005 % 07/09/16 0249 Home Medications Scheduled Folic Acid (Folic Acid) 1 Mg Tab 1 MG PO DAILY Paliperidone Palmitate (Invega Sustenna) 156 Mg/Ml Inj 156 MG IM QMONTH thought process Thiamine HCl (Thiamine HCl) 100 Mg Tab 100 MG PO DAILY Trazodone HCl (Trazodone HCl) 150 Mg Tab 150 MG PO QHS Allergies Coded Allergies: No Known Allergies (Unverified , 05/18/16) Genia Linton Jul 10, 2016 12:12 Paliperidone Palmitate (Invega Sustenna) 156 Mg/Ml Inj 156 MG IM QMONTH thought process Thiamine HCl (Thiamine HCl) 100 Mg Tab 100 MG PO DAILY Trazodone HCl (Trazodone HCl) 150 Mg Tab 150 MG PO QHS Allergies Coded Allergies: No Known Allergies (Unverified , 05/18/16) Genia Linton Jul 10, 2016 12:12
[2016-07-10 12:56] LABS: MEAN CORPUSCULAR HEMOGLOBIN 31.4 pg (27.0-33.0); MEAN CORPUSCULAR HGB CONC 33.6 g/dl (32.0-36.5); MEAN CORPUSCULAR VOLUME 93.5 fl (80.0-96.0); RED CELL DISTRIBUTION WIDTH 12.7 % (11.5-14.5); WHITE BLOOD COUNT 15.2 K/mm3 (4.0-10.0)
[2016-07-10 18:00] VITALS: BP 135/97
[2016-07-10] MEDS: QUEtiapine FUMARATE 100 MG TAB PO SCH (19:58)
[2016-07-10] MEDS: diphenhydrAMINE 50 MG CAP PO PRN (19:58)
[2016-07-10] MEDS: HALOPERIDOL 5 MG TAB PO SCH (21:00)
--- NOTE | 2016-07-10 22:20 | HPEPDOC ---
[facility] History & Physical History and Physical DATE OF ADMISSION: Jul 09, 2016 at 09:33 CHIEF COMPLAINT: "Can you come back in a while so we can talk about it later?" HISTORY OF THE PRESENT ILLNESS: Patient is a 36-year-old who was recently treated at [facility] from 05/19/16-06/13/16. Patient was then seen by [facility] outpatient doctor on 06/26/16 and was scheduled for an outpatient appointment at [facility] on 07/09/16, and was due for his follow-up Invega Sustenna injection on 07/12/16. Per transfer summary report, patient is currently hospitalized due to having thoughts of wanting to hurt himself and having difficulty with sleep. Patient has apparently been hearing a female voice which sounds like his ex-girlfriend and a male voice he doesn't recognize , both voices are saying he is going to correction and to [place]. Also per transfer summary report, patient apparently feels that the voices have been reading his mind since 05/23/16. Patient is today in seclusion room where he is at times agitated, at other times resting quietly, informs keno writer/runner 3 that he does not want to meet to complete assessment. Patient is, however, willing to answer basic assessment questions. By way of history, as previously mentioned, patient was recently discharged from [facility] inpatient psychiatric unit and was admitted at that time for bizarre behavior and was diagnosed with schizophrenia. Per record, patient began hearing voices in February 2016 and had paranoid delusions that the [facility] placed a chip in his brain. Patient was admitted for paranoia, auditory hallucinations, depression, and questionable Tylenol overdose, though acetaminophen levels were normal. UDS was negative. Per record, patient has had previous inpatient psychiatric admissions in [place] and has a history of cannabis use disorder and alcohol use disorder. Patient currently lives with his grandfather who rents a room and the grandfather's landlady has reportedly indicated that she no longer wants patient to live in residence. instructional coordinator has made contact with the grandfather who indicates patient did not respond well to Invega Sustenna injection, continued to experience audio hallucinations post discharge, poor hygiene, and bizarre behavior. Patient also reportedly has history of taking Zyprexa, Risperdal, and Abilify with poor effect. Per record, at time of previous [facility] inpatient admission, patient indicated he had been hearing voices telling him that he has a chip implanted in his brain, the [place] [employer] wants to torture him and telling him, and that he is going to be killed on national television. 911 was called by family and [place]. Patient indicated at that time that his inability to escape the audio hallucinations makes him feel depressed and suicidal though he denied any history of suicide attempt. Patient also indicated that time that the symptoms began on 02/22/16, with acute episode occurring 05/2016, he reported history of alcohol consumption but apparently minimized his use and also reported a history of cannabis use. Patient was admitted to the medical floor due to a possible Tylenol overdose. During patient 's previous hospitalization he indicated that Zyprexa was ineffective. Patient was then given Abilify but had severe akathisia reaction so medication was discontinued she was then switched to Risperdal 1 mg 4 times daily which, per record, was well tolerated. Patient's symptoms of psychosis improved but he remained paranoid and guarded, continued to report some auditory hallucinations , reportedly reached maximal hospital benefits and was agreeable to continuing his antipsychotic injection as an outpatient. At time of last discharge from [facility] inpatient treatment she was being prescribed trazodone 150 mg at bedtime as needed for sleep and Invega Sustenna 156 mg IM q 4 weeks. PAST PSYCHIATRIC HISTORY: Prior hospitalizations at [facility] and in [place] prior diagnosis of schizoaffective disorder. Previous medications include Zyprexa, Abilify, Risperdal, Invega Sustenna which were apparently ineffective Patient was scheduled for outpatient follow-up with [facility], did not follow through on appointments Patient denies history of suicide attempt, per record. No known history of aggression or homicidal ideation ALLERGIES: Please see below. PAST MEDICAL/SURGICAL HISTORY: None known. EK05/22/16 SINUS TACHYCARDIA POSSIBLE LEFT ATRIAL ENLARGEMENT LEFT VENTRICULAR HYPERTROPHY AND ST-T CHANGE SIMILAR 05/19/16. Lab work on admission indicates low BUN and elevated WBCs. Leukocytosis, patient is afebrile and asymptomatic, PA to monitor ND IS ALSO ORDERING URINE CULTURE. HOME MEDICATIONS: Please see below. FAMILY PSYCHIATRIC HISTORY: Patient's grandmother has history of Schizophrenia and is, per record, currently hospitalized at [facility]. SOCIAL HISTORY: Patient is a poor historian. Patient indicates he is from the [facility], completed high school high school with some college. Patient had been living in [place] for 2-1/2 years prior to returning to the [facility] to live with his grandparents. 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 Patient indicates he is single, never and no children. SUBSTANCE ABUSE HISTORY: Patient denies but, per record, has history of alcohol and cannabis use. Patient is also apparently a cigarette smoker. LEGAL HISTORY: Patient denies. VITAL SIGNS: B/P 132/92, P 101, R 16, T 97.8 LABORATORY DATA: Please see below. MENTAL STATUS EXAMINATION: Patient is a 36-year-old, reportedly single male, who is observed to be sitting quietly in room at times, at other times agitated and walking the hallways. Patient is disheveled, mildly odiferous, thin, appears younger than stated age, makes poor eye contact, appears to be responding to internal stimuli. Though patient is generally pleasant he indicates 3 he does not wish to speak with keno writer/runner to complete assessment, politely asks keno writer/runner to return "later." Speech: Is pressured, repetitive, unspontaneous. Thought processes: Appears internally preoccupied Rate of thoughts: Unable to assess, appears delayed Thought content: Illogical, expresses concerns about the [place], the government, a chip in his brain, paranoid Abstract reasoning: Unable to assess Associations: Loose, requires further assessment Abnormal or psychotic thoughts: Patient endorses audio hallucinations, experiences persecutory delusions, has preoccupation with the government and J[employer]AN [employer] , believes he has a chip in his brain, denies homicidal and suicidal ideation, but reportedly experienced suicidal ideation prior to hospitalization. Judgment: Poor Insight: Poor Oriented to: Times one to person Recent and Remote Memory: Limited, requires further assessment Attention Span and Concentration: Limited. Language: Limited. Fund of knowledge: Poor. Mood: Irrational, depressed, anxious Affect: Flat, agitated at times DIAGNOSES: Schizophrenia, unspecified type. History of cannabis use disorder, history of alcohol use disorder ASSESSMENT: Patient is in seclusion room, slept approximately 1.5 hours last night, has been agitated at times, calm and resting quietly at other times patient is generally isolative, walks hallways with little engagement, is engageable for short periods of time. Patient is psychotic, displays diminished awareness of boundaries with staff but has been able to maintain behavioral control. Patient appears internally preoccupied and appears to be responding to internal stimuli, has verbalized concerns about the J[employer] and the government, and believes that he has a chip in his brain. Patient denies current suicidal and homicidal ideation and is able to agree to notify staff if he begins to experience urge to harm self or others. Will monitor patient's adjustment to unit and will evaluate appropriate psychotropic course and patient's response to medications. Due to patient's inability to attend to his ADLs and safety at this time he is in need of inpatient psychiatric treatment. instructional coordinator will pursue to collection of collateral information needed to organize safe discharge planning and the treatment team will evaluate need for referral to long-term care and/or supervised housing options. PROBLEM LIST: Depression Suicidality Anxiety/Agitation Psychosis Persecutory delusions/paranoia Alteration in thought Reduced sleep Decreased concentration Limited coping skills Housing INITIAL TREATMENT PLAN: Patient was admitted on a 30 legal status Attempt to complete history was made With patients permission, family will be contacted and database will be expanded Patients medication regimen will be reviewed and changed accordingly Patient will be provided with protected environment Patient will be treated with individual, group, and milieu therapies Patient will receive supportive psych-education Discharge planning will commence immediately Outpatient follow-up treatment will be strongly recommended The initial treatment plan will focus initially on: depression, psychosis ESTIMATED LENGTH OF STAY: 7-10 days. TIME SPENT COUNSELING AND COORDINATING INITIAL CARE: 70 minutes. Laboratory Data CBC/BMP Laboratory Tests 07/10/16 12:31 Red Blood Count 4.36, Mean Corpuscular Volume 93.5, Mean Corpuscular Hemoglobin 31.4, Mean Corpuscular Hemoglobin Concent 33.6, Red Cell Distribution Width 12.7 Medications Scheduled Folic Acid (Folic Acid) 1 Mg Tab 1 MG PO DAILY (Reported) Paliperidone Palmitate (Invega Sustenna) 156 Mg/Ml Inj 156 MG IM QMONTH thought process (Reported) Thiamine HCl (Thiamine HCl) 100 Mg Tab 100 MG PO DAILY (Reported) Trazodone HCl (Trazodone HCl) 150 Mg Tab 150 MG PO QHS (Reported) Allergies Coded Allergies: No Known Allergies (Unverified , 05/18/16) Desire Jackson Jul 10, 2016 22:20
[2016-07-11] MEDS: **PENDING PPD ENTRY XX SCH (09:00)
[2016-07-11] MEDS: HALOPERIDOL 5 MG TAB PO SCH ×2 (09:45→20:59)
[2016-07-11] MEDS: NICOTINE 21MG/24HR 1 EA TRANSDERMAL TD SCH (09:45)
[2016-07-11 12:00] VITALS: BP 115/62
--- NOTE | 2016-07-11 12:35 | EDDOCDS ---
Physician Documentation [facility] Name: Jay You Age: 36 yrs Sex: Male : 1980 Arrival Date: 07/09/2016 Time: 02:21 Bed BHU1 Private MD: Disposition: 07/09/16 06:58 Hospitalization ordered by Derik Hatch for Inpatient Admission. Preliminary diagnosis is Suicidal ideations. - Bed requested for Admit. - Status is Inpatient Admission. dwg - Condition is Stable. - Problem is an acute exacerbation. - Symptoms have improved. Historical: - Allergies: No known drug Allergies; - Home Meds: 1. trazodone 150 mg Oral Tb24 1 tab once daily 2. Invega/Systena once a month once a month - PMHx: Schizophrenia; - PSHx: Unable to obtain; - Social history: Smoking status: Patient uses tobacco products, current every day smoker. No barriers to communication noted, The patient speaks fluent Hungarian, Speaks appropriately for age, Preferred Language: Hungarian. - Family history: Not pertinent. - : The pt / caregiver states he / she is not on anticoagulants. Home medication list is obtained from the patient. - Exposure Risk Screening:: None identified. Vital Signs: 07/09 02:28 BP 141 / 88; Pulse 114; Resp 18; Temp 98.7(O); Pulse Ox 98% on R/A; Weight 62.6 kg / rw1 138.01 lbs (R); Height 5 ft. 10 in. (177.80 cm) (R); Pain 0/10; 06:30 BP 118 / 71; Pulse 99; Resp 16; Temp 98.6(TE); Pulse Ox 97% on R/A; Pain 0/10; rw1 10:17 BP 131 / 82; Pulse 100; Resp 16; Temp 97.6(O); Pulse Ox 97% on R/A; dpm 11:31 BP 141 / 85; Pulse 92; Resp 16; Temp 96.9(O); Pulse Ox 98% on R/A; dwg 02:28 Body Mass Index 19.80 (62.60 kg, 177.80 cm) rw1 MDM: 02:38 Consult PFS/PSA/Interdisciplinary Professor ordered. jun 02:38 Consult PFS/PSA/Interdisciplinary Professor: Patient's case requires discussion with on-call heriberto Psychiatrist ordered. 02:38 PSA/PFS to call Nursing Solar Water Heater Installer, to enter patient data on [place] Safe Act if patient heriberto involuntarily admitted or transferred for SI or HI ordered. 02:38 Confirm accurate psychiatric medication list and times of last dosage ordered. jun 02:38 Detain Pt Until Medically/PFS Cleared ordered. jun 02:39 Acetaminophen Level Ordered. EDMS 02:39 Basic Metabolic Profile Ordered. EDMS 02:39 Complete Blood Count Ordered. EDMS 02:39 Drug Eval Toxicology ED Only Ordered. EDMS 02:39 Ethyl Alcohol (ethanol) Ordered. EDMS 02:39 Liver Profile Ordered. EDMS 02:39 Salicylate Level Ordered. EDMS 02:39 Thyroid Stimulating Hormone Ordered. EDMS 02:42 [facility] Legal paperwork was scanned into [employer] and attached to record. rw1 03:35 Consult PFS/PSA/Interdisciplinary Professor complete. jfb 03:35 Consult PFS/PSA/Interdisciplinary Professor: Patient's case requires discussion with on-call b Psychiatrist complete. 03:35 PSA/PFS to call Nursing Solar Water Heater Installer, to enter patient data [place] Safe [place] if patient jfb involuntarily admitted or transferred for SI or HI complete. 04:18 Acetaminophen Level Reviewed. mm11 04:18 Basic Metabolic Profile Reviewed. mm11 04:18 Complete Blood Count Reviewed. mm11 04:18 Drug Eval Toxicology ED Only Reviewed. mm11 04:18 Ethyl Alcohol (ethanol) Reviewed. mm11 04:18 Liver Profile Reviewed. mm11 04:18 Salicylate Level Reviewed. mm11 04:18 Thyroid Stimulating Hormone Reviewed. mm11 05:10 Financial registration complete. pm4 05:12 REGULAR DIET PLASTIC WILKINSON+DIET ordered. EDMS 06:16 [facility] Payment Agreement was scanned into [employer] and attached to record. hs2 08:39 traZODone 150 mg PO once ordered. mcp 10:13 Admit to [facility]: ordered. EDMS 10:14 [facility] Legal paperwork was scanned into [employer] and attached to record. ac 11:25 [facility] Legal paperwork was scanned into [employer] and attached to record. rb 11:28 REGULAR DIET PLASTIC WILKINSON+DIET ordered. EDMS 14:51 T-Sheet-- Draft Copy was scanned into [employer] and attached to record. gb Administered Medications: 08:49 Drug: traZODone 150 mg [trazodone 100 mg tablet (1.5 tabs)] Route: PO; [facility] Signatures: Dispatcher [employer] Erasmo Benedict, RN Lana Kevin RN RN jan Peters, Mary, RN RN mcp Baxter, Renee, PSA PSA rb Clifton Campbell, PSA PSA ac Emma Leonard, Reg Reg gb Corona Allen,PRIMER PRESS OPERATOR PRIMER PRESS OPERATOR rw1 Maria E VazquezRN RN lf1 Raj Samson, DO DO mm11 Joanna Reed, PSA PSA jfb Nikki Lynn, Reg Reg hs2 Reji Blanchard, Reg Reg pm4 The chart was reviewed and I authenticate all verbal orders and agree with the evaluation and treatment provided.Attachments: 06:16 [facility] Payment Agreement hs2 14:51 T-Sheet-- Draft Copy gb Chart Complete MTDD
--- NOTE | 2016-07-11 12:35 | EDDOCDS ---
Physician Documentation [facility] Name: Jay You Age: 36 yrs Sex: Male : 1980 Arrival Date: 07/09/2016 Time: 02:21 Bed BHU1 Private MD: Disposition: 07/09/16 06:58 Hospitalization ordered by Derik Hatch for Inpatient Admission. Preliminary diagnosis is Suicidal ideations. - Bed requested for Admit. - Status is Inpatient Admission. dwg - Condition is Stable. - Problem is an acute exacerbation. - Symptoms have improved. Historical: - Allergies: No known drug Allergies; - Home Meds: 1. trazodone 150 mg Oral Tb24 1 tab once daily 2. Invega/Systena once a month once a month - PMHx: Schizophrenia; - PSHx: Unable to obtain; - Social history: Smoking status: Patient uses tobacco products, current every day smoker. No barriers to communication noted, The patient speaks fluent Bengali, Speaks appropriately for age, Preferred Language: Bengali. - Family history: Not pertinent. - : The pt / caregiver states he / she is not on anticoagulants. Home medication list is obtained from the patient. - Exposure Risk Screening:: None identified. Vital Signs: 07/09 02:28 BP 141 / 88; Pulse 114; Resp 18; Temp 98.7(O); Pulse Ox 98% on R/A; Weight 62.6 kg / rw1 138.01 lbs (R); Height 5 ft. 10 in. (177.80 cm) (R); Pain 0/10; 06:30 BP 118 / 71; Pulse 99; Resp 16; Temp 98.6(TE); Pulse Ox 97% on R/A; Pain 0/10; rw1 10:17 BP 131 / 82; Pulse 100; Resp 16; Temp 97.6(O); Pulse Ox 97% on R/A; dpm 11:31 BP 141 / 85; Pulse 92; Resp 16; Temp 96.9(O); Pulse Ox 98% on R/A; dwg 02:28 Body Mass Index 19.80 (62.60 kg, 177.80 cm) rw1 MDM: 02:38 Consult PFS/PSA/Project Manager Process Development ordered. jun 02:38 Consult PFS/PSA/Project Manager Process Development: Patient's case requires discussion with on-call heriberto Psychiatrist ordered. 02:38 PSA/PFS to call Nursing House Parent, to enter patient data on [place] Safe Act if patient heriberto involuntarily admitted or transferred for SI or HI ordered. 02:38 Confirm accurate psychiatric medication list and times of last dosage ordered. jun 02:38 Detain Pt Until Medically/PFS Cleared ordered. jun 02:39 Acetaminophen Level Ordered. EDMS 02:39 Basic Metabolic Profile Ordered. EDMS 02:39 Complete Blood Count Ordered. EDMS 02:39 Drug Eval Toxicology ED Only Ordered. EDMS 02:39 Ethyl Alcohol (ethanol) Ordered. EDMS 02:39 Liver Profile Ordered. EDMS 02:39 Salicylate Level Ordered. EDMS 02:39 Thyroid Stimulating Hormone Ordered. EDMS 02:42 [facility] Legal paperwork was scanned into [employer] and attached to record. rw1 03:35 Consult PFS/PSA/Project Manager Process Development complete. jfb 03:35 Consult PFS/PSA/Project Manager Process Development: Patient's case requires discussion with on-call b Psychiatrist complete. 03:35 PSA/PFS to call Nursing House Parent, to enter patient data on [place] Safe [place] if patient jfb involuntarily admitted or transferred for SI or HI complete. 04:18 Acetaminophen Level Reviewed. mm11 04:18 Basic Metabolic Profile Reviewed. mm11 04:18 Complete Blood Count Reviewed. mm11 04:18 Drug Eval Toxicology ED Only Reviewed. mm11 04:18 Ethyl Alcohol (ethanol) Reviewed. mm11 04:18 Liver Profile Reviewed. mm11 04:18 Salicylate Level Reviewed. mm11 04:18 Thyroid Stimulating Hormone Reviewed. mm11 05:10 Financial registration complete. pm4 05:12 REGULAR DIET PLASTIC WILKINSON+DIET ordered. EDMS 06:16 [facility] Payment Agreement was scanned into [employer] and attached to record. hs2 08:39 traZODone 150 mg PO once ordered. mcp 10:13 Admit to [facility]: ordered. EDMS 10:14 [facility] Legal paperwork was scanned into [employer] and attached to record. ac 11:25 [facility] Legal paperwork was scanned into [employer] and attached to record. rb 11:28 REGULAR DIET PLASTIC WILKINSON+DIET ordered. EDMS 14:51 T-Sheet-- Draft Copy was scanned into [employer] and attached to record. gb Administered Medications: 08:49 Drug: traZODone 150 mg [trazodone 100 mg tablet (1.5 tabs)] Route: PO; [facility] Signatures: Dispatcher [employer] Erasmo Benedict, RN Lana Kevin RN RN jan Peters, Mary, RN RN mcp Baxter, Renee, PSA PSA rb Clifton Campbell, PSA PSA ac Emma Leonard, Reg Reg gb Corona Allen,LOAN SERVICING OFFICER LOAN SERVICING OFFICER rw1 Maria E VazquezRN RN lf1 Raj Samson, DO DO mm11 Joanna Reed, PSA PSA jfb Nikki Lynn, Reg Reg hs2 Reji Blanchard, Reg Reg pm4 The chart was reviewed and I authenticate all verbal orders and agree with the evaluation and treatment provided.Attachments: 06:16 [facility] Payment Agreement hs2 14:51 T-Sheet-- Draft Copy gb Chart Complete MTDD
--- NOTE | 2016-07-11 12:35 | EDDOCDS ---
Nurse's Notes [facility] Name: Jay You Age: 36 yrs Sex: Male : 1980 Arrival Date: 07/09/2016 Time: 02:21 Bed [facility] [[email or web address] Private MD: Diagnosis: Suicidal ideations Presentation: 07/09 02:29 Presenting complaint: Patient states: Pt brought in by [facility] on 941 after 1 calling 911 to report he was having thoughts of hurting himself and having difficulty sleeping. Pt. lives with his grandparents and they report that he is due for an unknown monthly injection on the 12 of July. Pt was cooperative en route. Mental Health Triage Level: Level 2: The patient displays active suicidal ideations. The patient was brought to the ED for evaluation because of a legal pickup order. Mental Health Triage Level: Level 2: The patient displays active suicidal ideations. The patient was brought to the ED for evaluation because of a legal pickup order. Suicide/Homicide risk assessment- The patient admits to and/or has been reported to be having suicidal ideations. 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 Transition of care: patient was not received from another setting of care. 02:29 Acuity: MAN Level 3 lf1 02:29 Method Of Arrival: Police Car lf1 11:33 Adult Sepsis Screening: The patient does not have new or worsening altered mentation. dwg Patient's respiratory rate is less than 22. Systolic blood pressure is greater than 100. Patient has a qSOFA score of 0- Negative Sepsis Screen. Triage Assessment: 02:36 General: Appears slender, unkempt, Behavior is cooperative, flat. Pain: Denies pain. lf1 HIV screening NA for this visit Offered previously. Neurological: Level of Consciousness is awake, Oriented to person, place, time, Speech slow. EENT: No deficits noted. Respiratory: Respiratory effort is even, unlabored. GI: Denies nausea, vomiting. Derm: No deficits noted. Injury Description: No known injury. Historical: - Allergies: No known drug Allergies; - Home Meds: 1. trazodone 150 mg Oral Tb24 1 tab once daily 2. Invega/Systena once a month once a month - PMHx: Schizophrenia; - PSHx: Unable to obtain; - Social history: Smoking status: Patient uses tobacco products, current every day smoker. No barriers to communication noted, The patient speaks fluent Scottish, Speaks appropriately for age, Preferred Language: Scottish. - Family history: Not pertinent. - : The pt / caregiver states he / she is not on anticoagulants. Home medication list is obtained from the patient. - Exposure Risk Screening:: None identified. Screenin:15 Screening information is obtained from the patient. Fall risk: No risks identified. [facility] Assistance ADL's: requires no assistance with activities of daily living. Abuse/DV Screen: The patient / caregiver reports he/she is: not in a situation that causes fear, pain or injury. Nutritional screening: No deficits noted. Advance Directives: There is no active DNR order. home support is adequate. Assessment: 02:36 General: see triage assessment. rw1 03:35 General: Appears in no apparent distress, comfortable, Behavior is cooperative, quiet. rw1 Pain: Denies pain. Neurological: Level of Consciousness is awake, alert, obeys commands, Oriented to person, place. Respiratory: Airway is patent Respiratory effort is even, unlabored. Derm: Skin is pink, warm & dry. normal. 04:23 Reassessment: Patient appears in no apparent distress at this time. resting quietly on rw1 stretcher, safety maintained will monitor.. 05:34 Reassessment: Patient appears in no apparent distress at this time. resting quietly on rw1 stretcher, safety maintained will monitor.. 06:30 General: Appears in no apparent distress, comfortable, Behavior is quiet. Pain: Denies rw1 pain. Neurological: Level of Consciousness is awake, obeys commands, Oriented to person, place. Respiratory: Airway is patent Respiratory effort is even, unlabored. Derm: Skin is pink, warm & dry. normal. 07:30 General: Appears in no apparent distress, comfortable, Behavior is cooperative. Pain: mcp Denies pain. Neurological: No deficits noted. Respiratory: Airway is patent Respiratory effort is even, unlabored. Derm: Skin is pink, warm & dry. 08:30 General: Sitting up on stretcher eating breakfast. mcp 11:31 General: Appears in no apparent distress, comfortable, Behavior is cooperative, quiet. dwg General: Calm and cooperative, tranfered to [facility].. Pain: Denies pain. Neurological: Level of Consciousness is awake, alert, Oriented to person, place, time. Respiratory: Airway is patent Respiratory effort is even, unlabored, Respiratory pattern is regular, symmetrical. 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 [facility] jfb Behavioral Health: The patient is established as a patient of [facility] Behavioral Health. Referral Information: Evaluation referral is generated by a police agency: 9.41 [facility] [place] Felipe escobarge #[id number]. The patient was referred for evaluation because PT is experiencing AH and is +SI. Subjective: The patients chief complaint is PT is having difficulty staying engaged in conversation and requires verbal cues after almost all questions as he will stare off and stop responding. PT states he is hearing a female voice that sounds like his ex GF and a male voice he doesn't recognize. Both voices tell PT he is going to [facility] and that he is going to [place]. "They have been reading my mind since May 23". PT would not elaborate on the significance of that date. PT denies he is in outpatient treatment but records indicate that he was scheduled and seen at [facility] 06/26/2016 and that he was scheduled with the [facility] for 06/17, 07/09 and 07/12. Records also indicate that PT received Ivega Sustenna 156mg 06/12 and is now due again 07/12. PT unsure what the shot was for or if he has already had it. PT admits to being suicidal and asked if he thought of plans "I don't wish to discuss this at this time". PT states he has not slept since yesterday and he has strong body odor and can't say when he last showered. . Delusions are persecutory, feals there has been a chip put in his brain (per 05/19/2016 admission) Feels others have been reading his mind. Patient's mood is depressed, Auditory Hallucinations are reported by the patient. Mental Health history: schizophrenia, sleep disturbance, suicide 05/18/2016 PT presented for OD but labs did not support. PT was cleared from PCU and admitted to [facility] Mental Health Admissions: [facility] 05/19/2016-06/13/2016 Current living environment is The patient currently lives grandfather and grandfather's GF. PT is working with [facility] to establish more independent living . Patient presents to Emergency Department with the following symptoms within the past 2 weeks: anxiety, delusions of persecution, depressed mood, auditory hallucinations stated by patient paranoia, poor concentration, psychosis, sleep disturbance - insomnia, suicidal ideation with plan for PT will not discuss his plan. Substance abuse: PT will smoke two cigars in a day and admits to no other substance or tobacco use. Mental status exam: Patients appearance is malodorous unkempt, Patient's behavior is minimally responsive Speech is normal. Affect is flat. Mood is depressed. Auditory Hallucinations are reported by the patient. Appetite is erratic Memory is fair. Energy level is normal. Content of thought is paranoid. feels others can read his mind Thought process is loose. Cognitive level is Oriented to person, place, situation Patient's insight is fair. Judgement is fair. Rapport with interviewer is good. Suicidal Ideation present with a plan to kill self by will not divulge. Homicidal ideation is not present. [facility] Admission Criteria: The patient is experiencing suicidal ideation. The patient displays symptoms of severe psychiatric disorder resulting in disordered behavior and significant interference with his / her ability to maintain self care. Hallucinations. Delusions. The patient requires continuous observation and/or control to protect self, others or property. The patient's care requires a multi-modal treatment plan under close supervision and coordination due to the complexity and severity of the patient's symptoms. The patient requires administration and monitoring of psychoactive medications by skilled medical providers due to the side effects of the psychoactive medications or significant dosage adjustments. [place] because patient was registered less than 6 months ago. DSM-V Differential Diagnosis: Schizophrenia (F20.9). 04:21 Disposition: Medically cleared for disposition by Raj Samson DO Psychiatric jfb Consult is performed by phone with Dr Derik Hatch MD. Legal Status: Patient's legal status will be involuntary. 09:50 Insurance Pre-Certification: Not Required, Per check on e-paces, pt has [facility] Medicaid. Vital Signs: 02:28 BP 141 / 88; Pulse 114; Resp 18; Temp 98.7(O); Pulse Ox 98% on R/A; Weight 62.6 kg (R); rw1 Height 5 ft. 10 in. (177.80 cm) (R); Pain 0/10; 06:30 BP 118 / 71; Pulse 99; Resp 16; Temp 98.6(TE); Pulse Ox 97% on R/A; Pain 0/10; rw1 10:17 BP 131 / 82; Pulse 100; Resp 16; Temp 97.6(O); Pulse Ox 97% on R/A; dpm 11:31 BP 141 / 85; Pulse 92; Resp 16; Temp 96.9(O); Pulse Ox 98% on R/A; dwg 02:28 Body Mass Index 19.80 (62.60 kg, 177.80 cm) rw1 Vitals: 02:28 Log In time N/A- police car arrival. rw1 ED Course: 02:26 Patient visited by Reji Blanchard, Reg. pm4 02:26 Patient moved to Waiting pm4 02:28 Corona Allen LPN is Primary Nurse. rw1 02:28 Patient moved to [facility] [[email or web address]] rw1 02:32 Triage Initiated lf1 02:42 [facility] Legal paperwork was scanned into [employer] and attached to record. rw1 02:43 Patient visited by Liu Emerson. tr 02:46 Patient visited by Reji Blanchard, Reg. pm4 02:51 Acetaminophen Level Sent. rw1 02:52 Basic Metabolic Profile Sent. rw1 02:52 Complete Blood Count Sent. rw1 02:52 Drug Eval Toxicology ED Only Sent. rw1 02:52 Ethyl Alcohol (ethanol) Sent. rw1 02:52 Liver Profile Sent. rw1 02:52 Salicylate Level Sent. rw1 02:52 Thyroid Stimulating Hormone Sent. rw1 02:59 Patient visited by Liu Emerson. tr 03:12 Patient visited by Liu Emerson. tr 03:43 Patient visited by Liu Emerson. tr 03:58 Raj Samson DO is Attending Physician. mm11 03:58 Patient visited by Raj Samson DO. mm11 03:59 Patient visited by Liu Emerson. tr 04:16 Patient visited by Corona Allen LPN. rw1 04:18 Patient visited by Raj Samson DO. mm11 04:47 Patient visited by Liu Emerson. tr 05:04 Patient visited by Liu Emerson. tr 05:12 Patient visited by Liu Emerson. tr 05:28 Patient visited by Liu Emerson. tr 05:47 Patient visited by Liu Emerson. tr 06:03 Patient visited by Liu Emerson. tr 06:15 Patient visited by Liu Emerson. tr 06:16 [facility] Payment Agreement was scanned into [employer] and attached to record. hs2 06:17 Patient name changed from Jay\\S\\T\\S\\You\\S\\ to Jay\\S\\Gabo\\S\\You. EDMS 06:30 Patient visited by Corona Allen LPN. rw1 06:34 Primary Nurse role handed off by Corona Allen LPN rw1 06:46 Patient visited by Liu Emerson. tr 06:58 Derik Hatch MD is Hospitalizing Provider. mm11 07:16 Patient visited by Jovany Abbott. dpm 07:36 Patient visited by Jovany Abbott. dpm 07:46 Patient visited by Jovany Abbott. dpm 08:17 Patient visited by Jovany Abbott. dpm 08:32 Patient visited by Jovany Abbott. dpm 08:46 Patient visited by Jovany Abbott. dpm 09:07 Patient visited by Jovany Abbott. dpm 09:15 Patient visited by Jyoti Doyle RN. mcp 09:42 Patient visited by Jovany Abbott. dpm 10:03 Patient visited by Jovany Abbott. dpm 10:14 [facility] Legal paperwork was scanned into [employer] and attached to record. ac 10:22 Patient visited by Jovany Abbott. dpm 10:45 Patient visited by Jovany Abbott. dpm 11:05 Patient visited by Jovany Abbott. dpm 11:15 Patient visited by Jovany Abbott. dpm 11:24 [facility] Legal paperwork was scanned into [employer] and attached to record. rb 11:33 The patient / caregiver is instructed regarding the plan of care and ED course. dwg 11:33 No IV's were initiated during this patient's visit. No procedures done that require dwg assistance. 11:34 Patient visited by Erasmo Martínez RN. dwg 14:51 T-Sheet-- Draft Copy was scanned into [employer] and attached to record. gb Administered Medications: 08:49 Drug: traZODone 150 mg [trazodone 100 mg tablet (1.5 tabs)] Route: PO; [facility] Attachments: 02:42 [facility] Legal paperwork rw1 10:14 [facility] Legal paperwork ac 11:24 [facility] Legal paperwork rb Order Results: Lab Order: Acetaminophen Level; [facility]' 07/09/16 02:49 Test: ACETAMINOPHEN LEVEL; Value: < 2.0; Range: 10.0-30.0; Abnormal: Below low normal; Units: UG/ML; Status: F Lab Order: Basic Metabolic Profile; SPEC 07/09/16 02:49 Test: GLUCOSE, FASTING; Value: 102; Range: 70-105; Units: MG/DL; Status: F Test: BLOOD UREA NITROGEN; Value: 4; Range: 7-18; Abnormal: Below low normal; Units: MG/DL; Status: F Test: CREATININE FOR GFR; Value: 0.94; Range: 0.70-1.30; Units: MG/DL; Status: F Test: GLOMERULAR FILTRATION RATE; Value: > 60.0; Range: >60; Status: F Test: SODIUM LEVEL; Value: 140; Range: 136-145; Units: MEQ/L; Status: F Test: POTASSIUM SERUM; Value: 3.9; Range: 3.5-5.1; Units: MEQ/L; Status: F Test: CHLORIDE LEVEL; Value: 101; Range: 98-107; Units: MEQ/L; Status: F Test: CARBON DIOXIDE LEVEL; Value: 26; Range: 21-32; Units: MEQ/L; Status: F Test: ANION GAP; Value: 13; Range: 8-16; Units: MEQ/L; Status: F Test: CALCIUM LEVEL; Value: 9.6; Range: 8.5-10.1; Units: MG/DL; Status: F Test Note: ; Units are mL/min/1.73 m2 Chronic Kidney Disease Staging per NKF: Stage I & II GFR >=60 Normal to Mildly Decreased Stage III GFR 30-59 Moderately Decreased Stage IV GFR 15-29 Severely Decreased Stage V GFR <15 Very Little GFR Left ESRD GFR <15 on DYE FEEDER Lab Order: Complete Blood Count; SPEC 07/09/16 02:49 Test: WHITE BLOOD COUNT; Value: 16.1; Range: 4.0-10.0; Abnormal: Above high normal; Units: K/mm3; Status: F Test: RED BLOOD COUNT; Value: 4.46; Range: 4.30-6.10; Units: M/mm3; Status: F Test: HEMOGLOBIN; Value: 14.2; Range: 14.0-18.0; Units: g/dl; Status: F Test: HEMATOCRIT; Value: 42.6; Range: 42.0-52.0; Units: %; Status: F Test: MEAN CORPUSCULAR VOLUME; Value: 95.4; Range: 80.0-96.0; Units: fl; Status: F Test: MEAN CORPUSCULAR HEMOGLOBIN; Value: 31.7; Range: 27.0-33.0; Units: pg; Status: F Test: MEAN CORPUSCULAR HGB CONC; Value: 33.3; Range: 32.0-36.5; Units: g/dl; Status: F Test: RED CELL DISTRIBUTION WIDTH; Value: 13.8; Range: 11.5-14.5; Units: %; Status: F Test: PLATELET COUNT, AUTOMATED; Value: 402; Range: 150-450; Units: k/mm3; Status: F Lab Order: Drug Eval Toxicology ED Only; SPEC'M 07/09/16 02:49 Test: AMPHETAMINES LEVEL URINE; Value: NEGATIVE; Range: NEGATIVE; Status: F Test: BARBITURATES URINE; Value: NEGATIVE; Range: NEGATIVE; Status: F Test: BENZODIAZEPINES URINE; Value: NEGATIVE; Range: NEGATIVE; Status: F Test: CANNABINOIDS URINE; Value: NEGATIVE; Range: NEGATIVE; Status: F Test: COCAINE METABOLITE URINE; Value: NEGATIVE; Range: NEGATIVE; Status: F Test: METHADONE URINE; Value: NEGATIVE; Range: NEGATIVE; Status: F Test: OPIATES URINE; Value: NEGATIVE; Range: NEGATIVE; Status: F Test: TRICYCLIC ANTIDEPRESS URINE; Value: NEGATIVE; Range: NEGATIVE; Status: F Test Note: ; ALL PRESUMPTIVE POSITIVE FINDINGS ARE UNCONFIRMED NORMAL VALUES THRESHOLD IN NG/ML AMPHETAMINES 1000 METHAMPHETAMINES 1000 BARBITURATES 300 BENZODIAZEPINES 300 CANNABINOIDS (THC) 50 COCAINE METABOLITE 300 METHADONE 300 OPIATES 300 PHENCYCLIDINE 25 TRICYCLIC ANTIDEPRESSANTS 1000 RESULTS ARE FOR MEDICAL PURPOSES ONLY. ALL URINE SPECIMENS WILL BE SAVED FOR 3 DAYS. IF CONFIRMATION OF A PRESUMPTIVE POSTIVE SCREEN RESULT IS DESIRED, CALL CHEMISTRY ([phone]) AND REQUEST URINE TO BE SENT TO REFERENCE LAB. FOR A LIST OF CLOSELY RELATED COMPOUNDS PLEASE CALL THE LAB. Lab Order: Ethyl Alcohol (ethanol); SPEC'M 07/09/16 02:49 Test: ETHYL ALCOHOL (ETHANOL); Value: 0.005; Range: 0.000-0.010; Units: %; Status: F Lab Order: Liver Profile; SPEC'M 07/09/16 02:49 Test: AST/SGOT; Value: 15; Range: 15-37; Units: U/L; Status: F Test: ALT/SGPT; Value: 23; Range: 12-78; Units: U/L; Status: F Test: ALKALINE PHOSPHATASE; Value: 100; Range: 45-117; Units: U/L; Status: F Test: BILIRUBIN,TOTAL; Value: 0.4; Range: 0.2-1.0; Units: MG/DL; Status: F Test: BILIRUBIN,DIRECT; Value: < 0.1; Range: 0.0-0.2; Units: MG/DL; Status: F Test: TOTAL PROTEIN; Value: 8.0; Range: 6.4-8.2; Units: GM/DL; Status: F Test: ALBUMIN; Value: 4.6; Range: 3.2-5.2; Units: GM/DL; Status: F Test: ALBUMIN/GLOBULIN RATIO; Value: 1.35; Range: 1.00-1.93; Status: F Lab Order: Salicylate Level; SPEC'M 07/09/16 02:49 Test: SALICYLATE LEVEL; Value: 7.1; Range: 5.0-30.0; Units: MG/DL; Status: F Lab Order: Thyroid Stimulating Hormone; SPEC'M 07/09/16 02:49 Test: THYROID STIMULATING HORMONE; Value: 2.000; Range: 0.358-3.740; Units: uIU/ML; Status: F Outcome: 06:58 Decision to Hospitalize by Provider. mm11 11:32 Discharge Assessment: Patient awake, alert and oriented x 3. No cognitive and/or dwg functional deficits noted. Patient verbalized understanding of disposition instructions. patient administered narcotics - no. Admitted to Psych via wheelchair, with chart. The following High Risk Discharge criteria are identified: None. Condition: good Condition: stable. No special radiology studies were completed. Property secured in belongings bag- Placed in Given to [facility] staff. 11:34 Patient left the ED. [facility] Signatures: Dispatcher [employer] Erasmo Benedict, Jyoti Grace RN, RN RN mcp Duran, Joselyn, PSA PSA rb Adrian, [place], PSA PSA ac Emma Leonard, Reg Reg gb Liu Emerson Robert,GYPSUM BLOCK SETTER GYPSUM BLOCK SETTER rw1 Maria E Vazquez RN RN lf1 Raj Samson, DO DO mm11 Joanna Reed, PSA PSA jfb Jovany Abbott dpNikki Pritchard, Reg Reg hs2 Reji Blanchard, Reg Reg pm4 Corrections: (The following items were deleted from the chart) 03:39 03:04 Referral Information: Evaluation referral is generated by the patient's therapist sandrine 9.41 [facility] [place] Felipe giraldo #[id number]. The patient was referred for evaluation because PT is experiencing AH and is +SI. sandrine 03:39 03:04 Subjective: The patients chief complaint is PT is having difficulty staying jfb engaged in conversation and requires verbal cues after almost all questions as he will stare off and stop responding. PT states he is hearing a female voice that sounds like his ex GF and a male voice he doesn't recognize. Both voices tell PT he is going to [facility] and that he is going to [place]. "They have been reading my mind since May 23. PT would not elaborate on the significance of that date. PT denies he is in outpatient treatment but records indicate that he was scheduled and seen at [facility] and that he was scheduled with the [facility] for 06/17, 07/09 and 07/12. Records also indicate that PT received Ivega Sustenna 156mg 06/12 and is now due again 07/12. PT unsure what the shot was for or if he has already had it. PT admits to being suicidal and asked if he thought of plans "I don't wish to discuss this at this time". PT states he has not slept since yesterday and he has strong body odor and can't say when he last showered. . Delusions are persecutory, feals there has been a chip put in his brain (per 05/19/2016 admission) Feels others have been reading his mind. Patient's mood is depressed, Auditory Hallucinations are reported by the patient. jfidalia 04:23 04:21 Legal Status: Patient's legal status will be [facility] jfb Chart Complete MTDD
[2016-07-11 18:00] VITALS: BP 115/58
--- NOTE | 2016-07-11 19:04 | IPNPDOC ---
[facility] Progress Note Progress Note DATE OF SERVICE: 07/11/16 HISTORY: Anthropometrist made multiple attempts to meet with patient to assess treatment progress on inpatient unit. Patient was observed to be sleeping comfortably during the morning, was then observed to be sitting up on edge of bed calmly eating lunch, was willing to engage with check writer. Patient reported 7/10 anxiety, 8/10 depression indicating symptoms of depression were related to fears that he will "never get to go home," denied suicidal and homicidal ideation, endorsed symptoms of audio hallucinations describing content is "threats to take me away , I've been having them since February 21, they're consistent," adds he believes he is had something "implanted in my head." Patient denied visual hallucinations and denied command element to audio hallucinations. Patient denied symptoms of agitation and irritability. Patient denied change to presentation from yesterday, indicated that current medications are helping and he denied medication side effects. Patient denied feeling unsafe on unit and denied physical pain. Patient informed check writer today that he has taken Zyprexa, Risperdal, Invega Sustenna, and Abilify in past with poor effect. Addendum: Patient apparently tempted to use a plastic knife to remove perceived implanted object in his head yesterday afternoon. Patient responded well to stat dose of Haldol 5 mg, Ativan 1 mg, and Benadryl 50 mg; willingly took medication by mouth. Patient's behavior was interrupted and he was placed on one -to-one observation and PA was asked to evaluate patient's years. Per PA note, excoriation noted no damage to TM. Nursing staff will monitor and patient to remain on one-to-one observation until safety can be assured. Patient has engaged in repeat of no such behavior, nor has he required PRN medications date of entry. VITAL SIGNS: See below. NEW TEST RESULTS: No new results. EK05/22/16 SINUS TACHYCARDIA POSSIBLE LEFT ATRIAL ENLARGEMENT LEFT VENTRICULAR HYPERTROPHY AND ST-T CHANGE SIMILAR 05/19/16. Lab work on admission indicates low BUN and elevated WBCs. Leukocytosis, patient is afebrile and asymptomatic, PA to monitor and is also ordering urine culture. CURRENT MEDICATIONS: See below. MENTAL STATUS EXAMINATION: Patient is a 36-year-old, reportedly single male, who is observed to be sleeping quietly at times and sitting calmly in room at times, displays no agitation today and is cooperative and compliant with staff. Patient remains disheveled, appears younger than stated age, except improved eye contact today, continues to appear to be responding to internal stimuli. Speech: Is pressured, less repetitive repetitive, more spontaneous Thought processes: Appears internally preoccupied, makes attempts to verbalize internal experience Rate of thoughts: Appears accelerated but requires further evaluation Thought content: Illogical, reports audio hallucinations and concerns about being taken away, remains paranoid, indicates he feels he has something implanted in his head, paranoid Abstract reasoning: Unable to assess Associations: Remain loose Abnormal or psychotic thoughts: Patient endorses audio hallucinations, experiences persecutory delusions, has preoccupation with the government and fears of being taken away, believes he has something implanted in his head, denies homicidal and suicidal ideation, but reportedly experienced suicidal ideation prior to hospitalization. Judgment: Poor Insight: Poor Oriented to: Times [address] Recent and Remote Memory: Limited, requires further assessment Attention Span and Concentration: Limited. Language: Limited. Fund of knowledge: Limited Mood: Irrational, depressed, anxious Affect: Flat, calm and level today, no agitation DIAGNOSES: Schizophrenia, unspecified type. History of cannabis use disorder, history of alcohol use disorder ASSESSMENT: Patient remains in seclusion room, is now on one-to-one observation and his cooperative with staff. Patient has been sleeping, eating, displays no symptoms of agitation or aggression, has not displayed behavior management challenges. Per staff around sheets, patient slept last night and per staff report, patient is clearer. Patient continues to report symptoms of audio hallucinations and indicates symptoms are distressful, denies command element to sensory experience. Patient has not self injured, or attempt to self injure since yesterday and will remain on one-to-one observation to ensure patient safety until stabilization can be achieved. Patient denies current suicidal and homicidal ideation and is able to agree to notify staff if he begins to experience urge to harm self or others. Due to patient report of failure to respond well to Zyprexa, Risperdal, Invega Sustenna, and Abilify, patient is currently being prescribed Haldol 5 mg po twice a day. Patient indicates he believes medication is helpful, states he would like to continue to take medication and he denies medication side effects. Patient is also taking Seroquel 100 mg by mouth hs, notes this medication is also helpful for sleep and reducing anxiety/agitation, denies medication side effects and indicates he wants to continue this medication as well. Will monitor patient response to Haldol for stabilization purposes and will then evaluate transition to another antipsychotic and will attempt to reduce patient's medication regimen to one antipsychotic for ongoing psychotropic medication treatment purposes. Due to patient's inability to attend to his ADLs and his safety at this time he is in need of inpatient psychiatric treatment. brokerage coordinator will continue to pursue the collection of collateral information needed to organize safe discharge planning and for all to long-term care will be initiated with eventual goal for supervised housing once patient is stabilized. MANAGEMENT PLAN: Continue Haldol 5 mg po BID, Seroquel 100 mg po q hs with plan to transition patient to atypical antipsychotic and reduced treatment to one antipsychotic once patient is stabilized Maintain patient on one-to-one observation Maintain safety precautions Patient to attend groups and participate in unit programming to develop coping strategies when able Engage patient in discharge planning process and arrange meeting with support system to ensure safe discharge planning when appropriate, initiate referral to long-term care in the event patient is not appropriate for community residence TLS housing Patient to follow up with PCM upon discharge TIME SPENT: 35 minutes. Vital Signs Vital Signs Date Time Temp Pulse Resp B/P Pulse Ox O2 Delivery O2 Flow Rate FiO2 07/11/16 18:00 97.6 93 18 115/58 Current Medications Current Medications Medications (Trade) Dose Ordered Sig/Ne Route PRN Reason Start Time Stop Time Status Last Admin Dose Admin Acetaminophen (Tylenol Tab) 650 mg Q6HP PRN PO HEADACHE or DISCOMFORT 07/09/16 14:00 08/08/16 13:59 Al Hydrox/Mg Hydrox/Simethicone (Mylanta) 30 ml Q4HP PRN PO HEARTBURN/INDIGESTION 07/09/16 14:00 08/08/16 13:59 Benztropine Mesylate (Cogentin) 1 mg Q6HP PRN PO EPS symptoms 07/10/16 12:00 07/10/16 12:00 DC Benztropine Mesylate (Cogentin) 1 mg Q6HP PRN PO EPS 07/10/16 21:15 08/09/16 21:14 Diphenhydramine HCl (Benadryl) 50 mg Q6HP PRN PO AGITATION 07/10/16 12:00 3/3/17 11:59 07/10/16 19:58 Haloperidol (Haldol) 5 mg BID PO 07/10/16 21:00 08/09/16 20:59 07/11/16 09:45 Haloperidol (Haldol) 5 mg Q6HP PRN PO AGITATION 07/10/16 12:00 08/09/16 11:59 07/10/16 19:58 Home Med (Med Rec Complete!) ASDIRECTED XX 07/09/16 07:30 07/09/16 07:30 DC Lorazepam (Ativan) 1 mg Q6H PRN PO AGITATION 07/10/16 12:00 07/17/16 11:59 07/10/16 19:58 Magnesium Hydroxide (Milk Of Magnesia) 30 ml DAILYPRN PRN PO CONSTIPATION 07/09/16 14:00 08/08/16 13:59 Nicotine (Nicoderm Cq 21mg) 1 patch DAILY TD 07/09/16 09:00 08/08/16 08:59 07/11/16 09:45 Non-Formulary Medication ( See Comment Field Below ) SEE COMMENTS SECTION 1T@10 XX 07/13/16 10:00 07/14/16 09:59 UNV Quetiapine Fumarate (SEROquel) 100 mg QHS PO 07/09/16 21:00 08/08/16 20:59 07/10/16 19:58 Allergies Coded Allergies: No Known Allergies (Unverified , 05/18/16) Desire Jackson Jul 11, 2016 19:04 EPS symptoms 07/10/16 12:00 07/10/16 12:00 DC Benztropine Mesylate (Cogentin) 1 mg Q6HP PRN PO EPS 07/10/16 21:15 08/09/16 21:14 Diphenhydramine HCl (Benadryl) 50 mg Q6HP PRN PO AGITATION 07/10/16 12:00 08/09/16 11:59 07/10/16 19:58 Haloperidol (Haldol) 5 mg BID PO 07/10/16 21:00 08/09/16 20:59 07/11/16 09:45 Haloperidol (Haldol) 5 mg Q6HP PRN PO AGITATION 07/10/16 12:00 08/09/16 11:59 07/10/16 19:58 Home Med (Med Rec Complete!) ASDIRECTED XX 07/09/16 07:30 07/09/16 07:30 DC Lorazepam (Ativan) 1 mg Q6H PRN PO AGITATION 07/10/16 12:00 07/17/16 11:59 07/10/16 19:58 Magnesium Hydroxide (Milk Of Magnesia) 30 ml DAILYPRN PRN PO CONSTIPATION 07/09/16 14:00 08/08/16 13:59 Nicotine (Nicoderm Cq 21mg) 1 patch DAILY TD 07/09/16 09:00 08/08/16 08:59 07/11/16 09:45 Non-Formulary Medication ( See Comment Field Below ) SEE COMMENTS SECTION 1T@10 XX 07/13/16 10:00 07/14/16 09:59 UNV Quetiapine Fumarate (SEROquel) 100 mg QHS PO 07/09/16 21:00 08/08/16 20:59 07/10/16 19:58 Allergies Coded Allergies: No Known Allergies (Unverified , 05/18/16) Desire Jackson Jul 11, 2016 19:04
[2016-07-11] MEDS: QUEtiapine FUMARATE 100 MG TAB PO SCH (20:59)
[2016-07-11] MEDS: diphenhydrAMINE 50 MG CAP PO PRN (20:59)
[2016-07-11] MEDS: LORazepam 1 MG TAB PO PRN (20:59)
[2016-07-12 07:05] LABS: MEAN CORPUSCULAR HEMOGLOBIN 31.9 pg (27.0-33.0); MEAN CORPUSCULAR VOLUME 96.7 fl (80.0-96.0); RED CELL DISTRIBUTION WIDTH 12.9 % (11.5-14.5); WHITE BLOOD COUNT 8.9 K/mm3 (4.0-10.0)
[2016-07-12] MEDS: **PENDING PPD ENTRY XX SCH (09:00)
--- NOTE | 2016-07-12 09:33 | IPNPDOC ---
[facility] Progress Note Progress Note DATE OF SERVICE: 07/12/16 HISTORY: Heel Nailing Machine Operator completed multiple checks on patient today, patient was willing and able to engage with assembly instructions writer at breakfast time and was observed to have good intake. Per staff, patient has been eating, drinking, voiding without incident and has presented with no signs of acute distress. At time of interaction patient was engageable, denied suicidal or homicidal ideation, reported 5/10 depression, 6/10 anxiety, indicated he is experiencing audio hallucinations and described them as "muted today," added sensory experience generally is a "commentary" on patient activity, added voices are "not negative but sometimes they say they'll be taking me to shelter." Patient denied urge to engage in self- injurious behavior and denied command element to audio hallucinations. At other times throughout the day patient was observed to be resting quietly in bed or sleeping or sitting up calmly on bed in room. Patient has not been a behavior management problem, is calm and cooperative with staff, redirectable. Patient denied symptoms of agitation and irritability, indicated that current medications are helping and he denied medication side effects. Patient denied feeling unsafe on unit and denied physical pain. Of note: Patient informed assembly instructions writer at previous interaction that he has taken Zyprexa, Risperdal, Invega Sustenna, and Abilify in past with poor effect. VITAL SIGNS: See below. NEW TEST RESULTS: New lab work indicates WBCs now within normal range at 8.9, will monitor for change. EK05/22/16 SINUS TACHYCARDIA POSSIBLE LEFT ATRIAL ENLARGEMENT LEFT VENTRICULAR HYPERTROPHY AND ST-T CHANGE SIMILAR 05/19/16. Lab work on admission indicates low BUN and elevated WBCs. Leukocytosis, patient was afebrile and asymptomatic, PA to monitor and is also ordering urine culture. CURRENT MEDICATIONS: See below. MENTAL STATUS EXAMINATION: Patient is a 36-year-old, reportedly single male, who is observed to be resting in bed but readily gets up to eat breakfast and engage with assembly instructions writer, is observed to be sitting calmly in room at other times, sleeping quietly at times, displays no agitation today and is cooperative and compliant with staff. Patient remains disheveled, appears younger than stated age, displays some improvement I contact today, continues to appear to be responding to internal stimuli but less than yesterday. Speech: Is pressured, less repetitive repetitive, more spontaneous Thought processes: Appears internally preoccupied, makes attempts to verbalize internal experience Rate of thoughts: Appears accelerated but requires further evaluation Thought content: Generally logical, illogical when ascribing audio hallucinations and concerns about being taken to shelter, remains paranoid, makes no mention of believing he has something implanted in his head today, Abstract reasoning: Unable to assess Associations: Remain loose Abnormal or psychotic thoughts: Patient endorses audio hallucinations, experiences persecutory delusions, has preoccupation with the government and fears of being taken to present, yesterday believed he had something implanted in his head, denies homicidal and suicidal ideation, but reportedly experienced suicidal ideation prior to hospitalization. Judgment: Poor Insight: Poor Oriented to: Times [address], unable to assess orientation to time Recent and Remote Memory: Limited, requires further assessment Attention Span and Concentration: Limited. Language: Limited. Fund of knowledge: Limited Mood: Less irrational, less depressed and anxious Affect: Flat, calm and level today, no agitation DIAGNOSES: Schizophrenia, unspecified type. History of cannabis use disorder, history of alcohol use disorder ASSESSMENT: Patient has been moved to own room, remains on one-to-one observation and is cooperative with staff. Patient has been sleeping, eating, displays no symptoms of agitation or aggression, has not displayed behavior management challenges. Per staff around sheets, patient slept last night and per staff report, patient is clearer. Patient continues to report symptoms of audio hallucinations but appears less distressed, denies command. Per EMR, patient requested PRN medications last night X 1 for symptoms of agitation. Patient has not self injured, or attempt to self injure X 2 days, however, remains unpredictable and impulsive; will remain on one-to-one observation to ensure patient safety until stabilization can be achieved. Patient denies current suicidal and homicidal ideation and is able to agree to notify staff if he begins to experience urge to harm self or others. Due to patient report of failure to respond well to Zyprexa, Risperdal, Invega Sustenna, and Abilify, patient will continue on current treatment course of Haldol. Patient indicates he believes medication is helpful, states he would like to continue to take medication and he denies medication side effects. Patient is also taking Seroquel 100 mg by mouth hs, notes this medication is also helpful for sleep and reducing anxiety/agitation, denies medication side effects and indicates he wants to continue this medication as well. Will monitor patient response to Haldol for stabilization purposes and will then evaluate transition to another antipsychotic and will attempt to reduce patient's medication regimen to one antipsychotic for ongoing psychotropic medication treatment purposes. Due to patient's inability to attend to his ADLs and maintain personal safety at this time he remains in need of inpatient psychiatric treatment. destination coordinator will continue to pursue the collection of collateral information needed to organize safe discharge planning and referral to long-term care has been initiated with eventual goal for supervised housing once patient is stabilized. MANAGEMENT PLAN: Continue Haldol 5 mg po BID, Seroquel 100 mg po q hs with plan to transition patient to atypical antipsychotic and reduced treatment to one antipsychotic once patient is stabilized Maintain patient on one-to-one observation Maintain safety precautions Patient to attend groups and participate in unit programming to develop coping strategies when able Engage patient in discharge planning process and arrange meeting with support system to ensure safe discharge planning when appropriate, initiate referral to long-term care in the event patient is not appropriate for community residence TLS housing Patient to follow up with PCM upon discharge TIME SPENT: 35 minutes Vital Signs Vital Signs Date Time Temp Pulse Resp B/P Pulse Ox O2 Delivery O2 Flow Rate FiO2 07/11/16 18:00 97.6 93 18 115/58 Laboratory Data CBC/BMP Laboratory Tests 07/12/16 06:44 Red Blood Count 4.48, Mean Corpuscular Volume 96.7 H, Mean Corpuscular Hemoglobin 31.9, Mean Corpuscular Hemoglobin Concent 33.0, Red Cell Distribution Width 12.9 Current Medications Current Medications Medications (Trade) Dose Ordered Sig/Ne Route PRN Reason Start Time Stop Time Status Last Admin Dose Admin Acetaminophen (Tylenol Tab) 650 mg Q6HP PRN PO HEADACHE or DISCOMFORT 07/09/16 14:00 08/08/16 13:59 Al Hydrox/Mg Hydrox/Simethicone (Mylanta) 30 ml Q4HP PRN PO HEARTBURN/INDIGESTION 07/09/16 14:00 08/08/16 13:59 Benztropine Mesylate (Cogentin) 1 mg Q6HP PRN PO EPS symptoms 07/10/16 12:00 07/10/16 12:00 DC Benztropine Mesylate (Cogentin) 1 mg Q6HP PRN PO EPS 07/10/16 21:15 08/09/16 21:14 07/11/16 20:59 Diphenhydramine HCl (Benadryl) 50 mg Q6HP PRN PO AGITATION 07/10/16 12:00 08/09/16 11:59 07/11/16 20:59 Haloperidol (Haldol) 5 mg BID PO 07/10/16 21:00 08/09/16 20:59 07/11/16 20:59 Haloperidol (Haldol) 5 mg Q6HP PRN PO AGITATION 07/10/16 12:00 08/09/16 11:59 07/10/16 19:58 Home Med (Med Rec Complete!) ASDIRECTED XX 07/09/16 07:30 07/09/16 07:30 DC Lorazepam (Ativan) 1 mg Q6H PRN PO AGITATION 07/10/16 12:00 07/17/16 11:59 07/11/16 20:59 Magnesium Hydroxide (Milk Of Magnesia) 30 ml DAILYPRN PRN PO CONSTIPATION 07/09/16 14:00 08/08/16 13:59 Nicotine (Nicoderm Cq 21mg) 1 patch DAILY TD 07/09/16 09:00 08/08/16 08:59 07/11/16 09:45 Non-Formulary Medication ( See Comment Field Below ) SEE COMMENTS SECTION 1T@10 XX 07/13/16 10:00 07/13/16 10:00 DC Non-Formulary Medication ( See Comment Field Below ) SEE LABEL COMMENTS DAILY XX 07/11/16 09:00 08/10/16 08:59 Quetiapine Fumarate (SEROquel) 100 mg QHS PO 07/09/16 21:00 08/08/16 20:59 07/11/16 20:59 Allergies Coded Allergies: No Known Allergies (Unverified , 05/18/16) Desire Jackson Jul 12, 2016 09:33
[2016-07-12] MEDS ORDERED: TUBERCULIN PPD 5 UNITS/0.1 ML ID ONE (10:00)
[2016-07-12] MEDS: NICOTINE 21MG/24HR 1 EA TRANSDERMAL TD SCH (10:02)
[2016-07-12] MEDS: HALOPERIDOL 5 MG TAB PO SCH ×2 (10:02→21:27)
[2016-07-12 18:00] VITALS: BP 108/60
[2016-07-12] MEDS: QUEtiapine FUMARATE 100 MG TAB PO SCH (21:27)
[2016-07-12 22:00] VITALS: BP 114/70
[2016-07-13] MEDS: LORazepam 1 MG TAB PO PRN (00:17)
[2016-07-13] MEDS: diphenhydrAMINE 50 MG CAP PO PRN (00:17)
[2016-07-13 06:49] VITALS: BP 119/74
[2016-07-13] MEDS: NICOTINE 21MG/24HR 1 EA TRANSDERMAL TD SCH (09:42)
[2016-07-13] MEDS: HALOPERIDOL 5 MG TAB PO SCH ×2 (09:42→21:13)
[2016-07-13] MEDS: **PENDING PPD ENTRY XX SCH (09:46)
[2016-07-13] MEDS ORDERED: PPD DOCUMENTATION ENTRY MISC XX SCH (10:00)
[2016-07-13] MEDS ORDERED: TUBERCULIN PPD 5 UNITS/0.1 ML ID ONE (11:00)
[2016-07-13 12:00] VITALS: BP 123/71
[2016-07-13 18:00] VITALS: BP 108/71
[2016-07-13] MEDS: QUEtiapine FUMARATE 100 MG TAB PO SCH (21:13)
[2016-07-13 21:42] VITALS: BP 118/68
[2016-07-14 06:53] VITALS: BP 104/59
[2016-07-14] MEDS: HALOPERIDOL 5 MG TAB PO SCH ×2 (09:36→21:06)
[2016-07-14] MEDS: NICOTINE 21MG/24HR 1 EA TRANSDERMAL TD SCH (09:36)
[2016-07-14 12:03] VITALS: BP 122/65
[2016-07-14 18:00] VITALS: BP 114/60
[2016-07-14 21:06] VITALS: BP 116/73
[2016-07-14] MEDS: QUEtiapine FUMARATE 100 MG TAB PO SCH (21:06)
[2016-07-15 06:35] VITALS: BP 110/60
[2016-07-15] MEDS: HALOPERIDOL 5 MG TAB PO SCH ×2 (09:37→20:15)
[2016-07-15] MEDS: NICOTINE 21MG/24HR 1 EA TRANSDERMAL TD SCH (09:37)
[2016-07-15] MEDS ORDERED: PPD DOCUMENTATION ENTRY MISC XX SCH (10:00)
[2016-07-15 12:07] VITALS: BP 98/56
[2016-07-15 18:30] VITALS: BP 108/64
--- NOTE | 2016-07-15 19:14 | IPNPDOC ---
[facility] Progress Note Progress Note DATE OF SERVICE: 07/15/16 HISTORY: Carpenter General completed multiple checks on patient today, patient was willing and able to engage with music writer on several occasions, was noted to be lying in bed resting at times, at other times visible on unit. Patient indicated "the voices are low and the medication is making the best difference of anything yet. " Patient notes he is experiencing intermittent symptoms of audio hallucinations , denies all command element to sensory experience, indicates symptoms are mildly distressing at times but generally manageable, denies experiencing paranoia or feeling as though he is being persecuted. Per patient and staff, patient is eating and drinking, voiding without incident, attending to his ADLs , attending groups, making efforts to engage with others, has been redirectable and was not a behavioral management challenge over the weekend. Patient reports low anxiety (3/10), and low depression (3/10) at time of interaction, denies suicidal and homicidal ideation, denies urge to engage in self-injurious behavior. Patient denied symptoms of agitation and irritability, indicated that current medications are helping and he denied medication side effects. Patient denied feeling unsafe on unit and denied symptoms of fever and physical pain. When asked about discharge, patient indicated he plans to discharge to home with grandfather. Of note: Patient informed music writer at previous interaction that he has taken Zyprexa, Risperdal, Invega Sustenna, and Abilify in past with poor effect. VITAL SIGNS: See below. NEW TEST RESULTS: New lab work indicates WBCs now within normal range at 8.9, will monitor for change. EK05/22/16 SINUS TACHYCARDIA POSSIBLE LEFT ATRIAL ENLARGEMENT LEFT VENTRICULAR HYPERTROPHY AND ST-T CHANGE SIMILAR 05/19/16. Lab work on admission indicates low BUN and elevated WBCs. Leukocytosis, patient was afebrile and asymptomatic, PA to monitor and is also ordering urine culture. CURRENT MEDICATIONS: See below. MENTAL STATUS EXAMINATION: Patient is a 36-year-old, reportedly single male, who is observed to be resting in bed at times during the day but also visible on unit and attending some groups during the day, displays no agitation today and is cooperative and compliant with staff. Patient remains disheveled, appears younger than stated age, displays some improvement in eye contact today, continues to appear to be responding to internal stimuli but reduced. Speech: Is pressured, less repetitive repetitive, more spontaneous Thought processes: Appears less internally preoccupied, makes attempts to verbalize internal experience Rate of thoughts: Appears accelerated but requires further evaluation Thought content: Generally logical, denies symptoms of paranoia today denies believing he has a chip in his head or that he is being persecuted or will be taken to long term Abstract reasoning: Unable to assess Associations: Appear generally intact Abnormal or psychotic thoughts: Patient endorses audio hallucinations, denies persecutory delusions, denies preoccupation with the government and fears of being taken to present, denies believing he has chip implanted in his head, denies homicidal and suicidal ideation, but reportedly experienced suicidal ideation prior to hospitalization. Judgment: Poor Insight: Poor Oriented to: Times [address], unable to assess orientation to time Recent and Remote Memory: Limited, requires further assessment Attention Span and Concentration: Limited. Language: Limited. Fund of knowledge: Limited Mood: Less irrational, less depressed and anxious Affect: Remains blunted, calm and level today, no agitation DIAGNOSES: Schizophrenia, unspecified type. History of cannabis use disorder, history of alcohol use disorder ASSESSMENT: Patient has been moved to own room, was taken off on one-to-one observation today, has been cooperative with staff, has exhibited no signs of aggression or behavioral management concerns. Patient has been sleeping, eating. Per staff and around sheets, patient has been sleeping well, has been clear and has been able to attend groups. Patient has made no request for when necessary medication 2 days, indicates current medication regimen is effective and denies medication side effects. Patient denies current suicidal and homicidal ideation and is able to agree to notify staff if he begins to experience urge to harm self or others. Due to patient report of failure to respond well to Zyprexa, Risperdal, Invega Sustenna, and Abilify, patient will continue on current treatment course of Haldol. Patient indicates he believes medication is helpful, states he would like to continue to take medication and he denies medication side effects. Patient is also taking Seroquel 100 mg by mouth hs, notes this medication is also helpful for sleep and reducing anxiety/ agitation, denies medication side effects and indicates he wants to continue this medication as well. Will monitor patient response to Haldol for stabilization purposes and will then evaluate transition to another antipsychotic and will attempt to reduce patient's medication regimen to one antipsychotic for ongoing psychotropic medication treatment purposes. Due to patient's inability to attend to his ADLs and maintain personal safety at this time he remains in need of inpatient psychiatric treatment. sales project coordinator will continue to pursue the collection of collateral information needed to organize safe discharge planning and referral to long-term care has been initiated with eventual goal for supervised housing once patient is stabilized. MANAGEMENT PLAN: Continue Haldol 5 mg po BID, Seroquel 100 mg po q hs with plan to transition patient to atypical antipsychotic and reduced treatment to one antipsychotic once patient is stabilized Maintain patient on one-to-one observation Maintain safety precautions Patient to attend groups and participate in unit programming to develop coping strategies when able Engage patient in discharge planning process and arrange meeting with support system to ensure safe discharge planning when appropriate, initiate referral to long-term care in the event patient is not appropriate for community residence TLS housing Patient to follow up with PCM upon discharge TIME SPENT: 35 minutes Vital Signs Vital Signs Date Time Temp Pulse Resp B/P Pulse Ox O2 Delivery O2 Flow Rate FiO2 07/15/16 18:30 97.3 68 16 108/64 Current Medications Current Medications Medications (Trade) Dose Ordered Sig/Ne Route PRN Reason Start Time Stop Time Status Last Admin Dose Admin Acetaminophen (Tylenol Tab) 650 mg Q6HP PRN PO HEADACHE or DISCOMFORT 07/09/16 14:00 08/08/16 13:59 Al Hydrox/Mg Hydrox/Simethicone (Mylanta) 30 ml Q4HP PRN PO HEARTBURN/INDIGESTION 07/09/16 14:00 08/08/16 13:59 Benztropine Mesylate (Cogentin) 1 mg Q6HP PRN PO EPS symptoms 07/10/16 12:00 07/10/16 12:00 DC Benztropine Mesylate (Cogentin) 1 mg Q6HP PRN PO EPS 07/10/16 21:15 08/09/16 21:14 07/11/16 20:59 Diphenhydramine HCl (Benadryl) 50 mg Q6HP PRN PO AGITATION 07/10/16 12:00 08/09/16 11:59 07/13/16 00:17 Haloperidol (Haldol) 5 mg BID PO 07/10/16 21:00 08/09/16 20:59 07/15/16 09:37 Haloperidol (Haldol) 5 mg Q6HP PRN PO AGITATION 07/10/16 12:00 08/09/16 11:59 07/10/16 19:58 Home Med (Med Rec Complete!) ASDIRECTED XX 07/09/16 07:30 07/09/16 07:30 DC Lorazepam (Ativan) 1 mg Q6H PRN PO AGITATION 07/10/16 12:00 07/17/16 11:59 07/13/16 00:17 Magnesium Hydroxide (Milk Of Magnesia) 30 ml DAILYPRN PRN PO CONSTIPATION 07/09/16 14:00 08/08/16 13:59 Nicotine (Nicoderm Cq 21mg) 1 patch DAILY TD 07/09/16 09:00 08/08/16 08:59 07/15/16 09:37 Non-Formulary Medication ( See Comment Field Below ) SEE COMMENTS SECTION 1T@10 XX 07/13/16 10:00 07/13/16 10:00 DC Non-Formulary Medication ( See Comment Field Below ) SEE COMMENTS SECTION 1T@10 XX 07/15/16 10:00 07/15/16 23:59 Non-Formulary Medication ( See Comment Field Below ) SEE LABEL COMMENTS DAILY XX 07/11/16 09:00 07/13/16 09:49 DC 07/13/16 09:46 Quetiapine Fumarate (SEROquel) 100 mg QHS PO 07/09/16 21:00 08/08/16 20:59 07/14/16 21:06 Allergies Coded Allergies: No Known Allergies (Unverified , 05/18/16) Desire Jackson Jul 15, 2016 19:14
[2016-07-15] MEDS: diphenhydrAMINE 50 MG CAP PO PRN (20:15)
[2016-07-15] MEDS: QUEtiapine FUMARATE 100 MG TAB PO SCH (20:15)
[2016-07-16 06:36] VITALS: BP 101/60
[2016-07-16] MEDS: HALOPERIDOL 5 MG TAB PO SCH ×2 (09:32→20:11)
[2016-07-16] MEDS: NICOTINE 21MG/24HR 1 EA TRANSDERMAL TD SCH (09:32)
--- NOTE | 2016-07-16 19:21 | IPNPDOC ---
[facility] Progress Note Progress Note DATE OF SERVICE: 07/16/16 HISTORY: Feed Mill Manager completed multiple checks on patient today, patient was willing and able to engage with policy writer on several occasions, was noted to be lying in bed resting at times, at other times visible on unit, attending groups. During assessment interaction this morning patient denied experiencing audio hallucinations, indicates he has periods when he hears no voices, states he believes Seroquel is quelling audio hallucination symptoms adding that the voices become more prominent as he gets further away from time at which he takes Seroquel. Patient adds after taking Seroquel the voices then "breakup and then go away again." Patient reports ongoing reduction to audio hallucinations, today indicates they're less than yesterday, notes they're currently manageable and denies command element to sensory experience. Patient denies experiencing paranoia or feeling as though he is being persecuted. Per patient and staff, patient is eating and drinking, voiding without incident, attending to his ADLs with encouragement and some assistance, is attending groups, making efforts to engage with others, remains redirectable and has not presented to behavior management challenge. Patient reports current anxiety level of 2/10, depression 2/10, indicates aforementioned symptoms are related to "getting out of here," denies suicidal and homicidal ideation, denies visual hallucinations, denies urge to engage in self-injurious behavior. Patient denied symptoms of agitation and irritability, indicated that current medications are helping and he denied medication side effects. Patient denied feeling unsafe on unit and denied symptoms of fever and physical pain. Feed Mill Manager approached subjective discharge planning again with patient today who indicates he would like to return to the home of his grandfather. Patient indicates, however, that he is open to it TLS referral for supervised residential housing. Of note: Patient informed policy writer at previous interaction that he has taken Zyprexa, Risperdal, Invega Sustenna, and Abilify in past with poor effect. VITAL SIGNS: See below. NEW TEST RESULTS: New lab work indicates WBCs now within normal range at 8.9, will monitor for change. EK05/22/16 SINUS TACHYCARDIA POSSIBLE LEFT ATRIAL ENLARGEMENT LEFT VENTRICULAR HYPERTROPHY AND ST-T CHANGE SIMILAR 05/19/16. Lab work on admission indicates low BUN and elevated WBCs. Leukocytosis, patient was afebrile and asymptomatic, PA to monitor and is also ordering urine culture. Patient remains afebrile and asymptomatic CURRENT MEDICATIONS: See below. MENTAL STATUS EXAMINATION: Patient is a 36-year-old, single male, who is observed to be resting in bed at times during the day but also visible on unit and attending groups during the day, displays no agitation today and is cooperative and compliant with staff. Patient remains disheveled, appears younger than stated age, displays ongoing improvement in eye contact, does not appear to be responding to internal stimuli at time of interaction. Speech: Is less pressured, less repetitive, more spontaneous Thought processes: Appears less internally preoccupied, makes attempts to verbalize internal experience Rate of thoughts: Does not appear accelerated, appears to be of normal rate, rhythm, volume Thought content: Generally logical, denies symptoms of paranoia today denies believing he has a chip in his head or that he is being persecuted or will be taken to intermediate Abstract reasoning: Appears to be intact Associations: Appear generally intact Abnormal or psychotic thoughts: Patient endorses intermittent audio hallucinations, denies persecutory delusions, denies preoccupation with the government and fears of being taken to present, denies believing he has chip implanted in his head, denies homicidal and suicidal ideation, but reportedly experienced suicidal ideation prior to hospitalization. Judgment: Poor Insight: Limited Oriented to: Person, place and time Recent and Remote Memory: Limited, appears to be improving Attention Span and Concentration: Limited. Language: Limited but is improving Fund of knowledge: Limited but is improving Mood: Less irrational, less depressed and anxious Affect: Remains blunted, calm and level today, no agitation DIAGNOSES: Schizophrenia, unspecified type. History of cannabis use disorder, history of alcohol use disorder ASSESSMENT: Patient remains in own room, remains off one-to-one observation, remains cooperative with staff and has exhibited no signs of aggression or behavioral management concerns. Patient has been sleeping and eating. Patient indicates he is sleeping well, adds he feels clearer, and has been attending groups. Patient utilized PRN Benadryl last night for symptoms of anxiety/ agitation, indicates he feels current medication regimen is effective, inquires as to dose increase of Seroquel. Feed Mill Manager agrees to monitor patient to evaluate need for dosing adjustment. Patient denies medication side effects. Patient denies current suicidal and homicidal ideation and is able to agree to notify staff if he begins to experience urge to harm self or others. Due to patient report of failure to respond well to Zyprexa, Risperdal, Invega Sustenna, and Abilify, patient will continue on current treatment course of Haldol. Will continue to monitor patient response to Haldol for stabilization purposes and will then evaluate transition to another antipsychotic and will attempt to reduce patient's medication regimen to one antipsychotic for ongoing psychotropic medication treatment purposes. Due to patient's improvement but ongoing inability to independently attend to his ADLs and maintain personal safety, he remains in need of inpatient psychiatric treatment. measurement coordinator will continue to pursue the collection of collateral information needed to organize safe discharge planning and referral to long-term care has been initiated with eventual goal for supervised housing once patient is stabilized. Referral for TLS for supervised housing has also been initiated for future discharge planning purposes. MANAGEMENT PLAN: Continue Haldol 5 mg po BID, Seroquel 100 mg po q hs with plan to transition patient to atypical antipsychotic and reduced treatment to one antipsychotic once patient is stabilized Maintain patient on one-to-one observation Maintain safety precautions Patient to attend groups and participate in unit programming to develop coping strategies when able Engage patient in discharge planning process and arrange meeting with support system to ensure safe discharge planning when appropriate, initiate referral to long-term care in the event patient is not appropriate for community residence TLS housing Patient to follow up with PCM upon discharge TIME SPENT: 35 minutes Vital Signs Vital Signs Date Time Temp Pulse Resp B/P Pulse Ox O2 Delivery O2 Flow Rate FiO2 07/16/16 06:36 96.4 61 16 101/60 Current Medications Current Medications Medications (Trade) Dose Ordered Sig/Ne Route PRN Reason Start Time Stop Time Status Last Admin Dose Admin Acetaminophen (Tylenol Tab) 650 mg Q6HP PRN PO HEADACHE or DISCOMFORT 07/09/16 14:00 08/08/16 13:59 Al Hydrox/Mg Hydrox/Simethicone (Mylanta) 30 ml Q4HP PRN PO HEARTBURN/INDIGESTION 07/09/16 14:00 08/08/16 13:59 Benztropine Mesylate (Cogentin) 1 mg Q6HP PRN PO EPS symptoms 07/10/16 12:00 07/10/16 12:00 DC Benztropine Mesylate (Cogentin) 1 mg Q6HP PRN PO EPS 07/10/16 21:15 08/09/16 21:14 07/11/16 20:59 Diphenhydramine HCl (Benadryl) 50 mg Q6HP PRN PO AGITATION 07/10/16 12:00 08/09/16 11:59 07/15/16 20:15 Haloperidol (Haldol) 5 mg BID PO 07/10/16 21:00 08/09/16 20:59 07/16/16 09:32 Haloperidol (Haldol) 5 mg Q6HP PRN PO AGITATION 07/10/16 12:00 08/09/16 11:59 07/10/16 19:58 Home Med (Med Rec Complete!) ASDIRECTED XX 07/09/16 07:30 07/09/16 07:30 DC Lorazepam (Ativan) 1 mg Q6H PRN PO ANXIETY/AGITATION 07/10/16 12:00 07/23/16 11:59 07/13/16 00:17 Magnesium Hydroxide (Milk Of Magnesia) 30 ml DAILYPRN PRN PO CONSTIPATION 07/09/16 14:00 08/08/16 13:59 Nicotine (Nicoderm Cq 21mg) 1 patch DAILY TD 07/09/16 09:00 08/08/16 08:59 07/16/16 09:32 Non-Formulary Medication ( See Comment Field Below ) SEE COMMENTS SECTION 1T@10 XX 07/13/16 10:00 07/13/16 10:00 DC Non-Formulary Medication ( See Comment Field Below ) SEE COMMENTS SECTION 1T@10 XX 07/15/16 10:00 07/15/16 23:59 DC Non-Formulary Medication ( See Comment Field Below ) SEE LABEL COMMENTS DAILY XX 07/11/16 09:00 07/13/16 09:49 DC 07/13/16 09:46 Quetiapine Fumarate (SEROquel) 100 mg QHS PO 07/09/16 21:00 08/08/16 20:59 07/15/16 20:15 Allergies Coded Allergies: No Known Allergies (Unverified , 05/18/16) Desire Jackson Jul 16, 2016 19:20
[2016-07-16] MEDS: QUEtiapine FUMARATE 100 MG TAB PO SCH (20:11)
[2016-07-16 22:05] VITALS: BP 106/61
[2016-07-17 06:52] VITALS: BP 104/72
[2016-07-17] MEDS: HALOPERIDOL 5 MG TAB PO SCH ×2 (09:17→20:06)
[2016-07-17] MEDS: NICOTINE 21MG/24HR 1 EA TRANSDERMAL TD SCH (09:17)
--- NOTE | 2016-07-17 12:03 | IPNPDOC ---
[facility] Progress Note Progress Note DATE OF SERVICE: 07/17/16 HISTORY: Shot Dropper met with patient today to assess treatment progress on inpatient unit. Patient was observed to be lying down in room between groups, had been visible on unit prior to interaction, and had eaten breakfast. Patient remains engageable, continues to attend groups, and is cooperative with staff. Patient indicates audio hallucination symptoms are further reduced from yesterday describing them as "low when I have them but I don't always have them. " Patient denies command element the symptoms and indicates symptoms are no longer distressing adding, "I have to really concentrate to hear them." Patient denies experiencing paranoia or feeling as though he is being persecuted. Per patient and staff, patient continues to eat and drink, is voiding without incident, is attending to his ADLs with encouragement and some assistance, is attending groups, making efforts to engage with others, remains redirectable and has not presented to behavior management challenge. Patient reports current anxiety level of 1/10, depression 2/10, indicates aforementioned symptoms are related to "getting out of here," denies suicidal and homicidal ideation, denies visual hallucinations, denies urge to engage in self-injurious behavior, indicates apetite is stable. Patient denied symptoms of agitation and irritability, indicated that current medications are helping and he denied medication side effects. Patient denied feeling unsafe on unit and denied symptoms of fever and physical pain. Shot Dropper and patient again discuss discharge planning, patient remains interested in discharging to home with grandfather but verbalizes agreement with simultaneous referral to [facility] for supervised housing. Of note: Patient informed mortgage loan underwriter at previous interaction that he has taken Zyprexa, Risperdal, Invega Sustenna, and Abilify in past with poor effect. VITAL SIGNS: See below. NEW TEST RESULTS: New lab work indicates WBCs now within normal range at 8.9, will monitor for change. Patient is afebrile and is asymptomatic. EK05/22/16 SINUS TACHYCARDIA POSSIBLE LEFT ATRIAL ENLARGEMENT LEFT VENTRICULAR HYPERTROPHY AND ST-T CHANGE CURRENT MEDICATIONS: See below. MENTAL STATUS EXAMINATION: Patient is a 36-year-old, single male, who is observed to be resting in bed at times during the day but also visible on unit and attending groups during the day, displays no agitation today and is cooperative and compliant with staff. Patient remains disheveled, appears younger than stated age, displays ongoing improvement in eye contact, does not appear to be responding to internal stimuli at time of interaction. Speech: Is less pressured, less repetitive, more spontaneous Thought processes: Appears less internally preoccupied, makes attempts to verbalize internal experience Rate of thoughts: Does not appear accelerated, appears to be of normal rate, rhythm, volume Thought content: Generally logical, denies symptoms of paranoia today denies believing he has a chip in his head or that he is being persecuted or will be taken to assisted Abstract reasoning: Appears to be intact Associations: Appear generally intact Abnormal or psychotic thoughts: Patient endorses intermittent audio hallucinations, denies persecutory delusions, denies preoccupation with the government and fears of being taken to present, denies believing he has chip implanted in his head, denies homicidal and suicidal ideation, but reportedly experienced suicidal ideation prior to hospitalization. Judgment: Poor Insight: Limited Oriented to: Person, place and time Recent and Remote Memory: Limited, appears to be improving Attention Span and Concentration: Limited. Language: Limited but is improving Fund of knowledge: Limited but is improving Mood: Less irrational, less depressed and anxious Affect: Remains blunted, calm and level today, no agitation DIAGNOSES: Schizophrenia, unspecified type. History of cannabis use disorder, history of alcohol use disorder ASSESSMENT: Patient remains in own room, remains off one-to-one observation, remains cooperative with staff and has exhibited no signs of aggression or behavioral management concerns. Patient has been sleeping and eating well. Patient indicates he continues to feel clearer, and has been attending groups. Patient has not utilized PRN Benadryl last night for symptoms of anxiety/ agitation, indicates he feels current medication regimen is effective, inquires as to dose increase of Seroquel. Shot Dropper agrees to monitor patient to evaluate need for dosing adjustment. Patient denies medication side effects. Patient denies current suicidal and homicidal ideation and is able to agree to notify staff if he begins to experience urge to harm self or others. Due to patient report of failure to respond well to Zyprexa, Risperdal, Invega Sustenna, and Abilify, patient will continue on current treatment course of Haldol. Will continue to monitor patient response to Haldol for stabilization purposes and will then evaluate transition to another antipsychotic and will attempt to reduce patient's medication regimen to one antipsychotic for ongoing psychotropic medication treatment purposes. Due to patient's improvement but ongoing inability to independently attend to his ADLs and maintain personal safety, he remains in need of inpatient psychiatric treatment. printing services coordinator will continue to pursue the collection of collateral information needed to organize safe discharge planning and referral to long-term care has been initiated with eventual goal for supervised housing once patient is stabilized. Referral for TLS for supervised housing has also been initiated for future discharge planning purposes. MANAGEMENT PLAN: Continue Haldol 5 mg po BID, Seroquel 100 mg po q hs with plan to transition patient to atypical antipsychotic and reduced treatment to one antipsychotic once patient is stabilized Maintain patient on one-to-one observation Maintain safety precautions Patient to attend groups and participate in unit programming to develop coping strategies when able Engage patient in discharge planning process and arrange meeting with support system to ensure safe discharge planning when appropriate, initiate referral to long-term care in the event patient is not appropriate for community residence TLS housing Patient to follow up with PCM upon discharge TIME SPENT: 35 minutes Vital Signs Vital Signs Date Time Temp Pulse Resp B/P Pulse Ox O2 Delivery O2 Flow Rate FiO2 07/17/16 06:52 96.2 66 18 104/72 Current Medications Current Medications Acetaminophen (Tylenol Tab) 650 mg Q6HP PRN PO HEADACHE or DISCOMFORT; Start at 14:00; Stop 08/08/16 at 13:59 Al Hydrox/Mg Hydrox/Simethicone (Mylanta) 30 ml Q4HP PRN PO HEARTBURN/ INDIGESTION; Start 07/09/16 at 14:00; Stop 08/08/16 at 13:59 Benztropine Mesylate (Cogentin) 1 mg Q6HP PRN PO EPS symptoms; Start 07/10/16 at 12:00; Stop 07/10/16 at 12:00; Status DC Benztropine Mesylate (Cogentin) 1 mg Q6HP PRN PO EPS Last administered on 20:59; Start 07/10/16 at 21:15; Stop 08/09/16 at 21:14 Diphenhydramine HCl (Benadryl) 50 mg Q6HP PRN PO AGITATION Last administered on 07/15/16 20:15; Start 07/10/16 at 12:00; Stop 08/09/16 at 11:59 Haloperidol (Haldol) 5 mg BID PO Last administered on 07/17/16 09:17; Start 07/10/16 at 21:00; Stop 08/09/16 at 20:59 Haloperidol (Haldol) 5 mg Q6HP PRN PO AGITATION Last administered on 07/10/16 19:58; Start 07/10/16 at 12:00; Stop 08/09/16 at 11:59 Home Med (Med Rec Complete!) ASDIRECTED XX ; Start 07/09/16 at 07:30; Stop at 07:30; Status DC Lorazepam (Ativan) 1 mg Q6H PRN PO ANXIETY/AGITATION Last administered on 00:17; Start 07/10/16 at 12:00; Stop 07/23/16 at 11:59 Magnesium Hydroxide (Milk Of Magnesia) 30 ml DAILYPRN PRN PO CONSTIPATION; Start 07/09/16 at 14:00; Stop 08/08/16 at 13:59 Nicotine (Nicoderm Cq 21mg) 1 patch DAILY TD Last administered on 07/17/16 09: 17; Start 07/09/16 at 09:00; Stop 08/08/16 at 08:59 Non-Formulary Medication ( See Comment Field Below ) SEE COMMENTS SECTION 1T @10 XX ; Start 07/13/16 at 10:00; Stop 07/13/16 at 10:00; Status DC Non-Formulary Medication ( See Comment Field Below ) SEE COMMENTS SECTION 1T @10 XX ; Start 07/15/16 at 10:00; Stop 07/15/16 at 23:59; Status DC Non-Formulary Medication ( See Comment Field Below ) SEE LABEL COMMENTS DAILY XX Last administered on 07/13/16 09:46; Start 07/11/16 at 09:00; Stop 07/13 at 09:49; Status DC Quetiapine Fumarate (SEROquel) 100 mg QHS PO Last administered on 07/16/16 20: 11; Start 07/09/16 at 21:00; Stop 08/08/16 at 20:59 Allergies Coded Allergies: No Known Allergies (Unverified , 05/18/16) Desire Jackson Jul 17, 2016 12:03 Desire Jackson Jul 17, 2016 12:03
[2016-07-17 18:27] VITALS: BP 121/71
[2016-07-17] MEDS: QUEtiapine FUMARATE 100 MG TAB PO SCH (20:06)
[2016-07-17] MEDS: diphenhydrAMINE 50 MG CAP PO PRN (20:06)
[2016-07-18 07:31] VITALS: BP 110/70
[2016-07-18] MEDS: HALOPERIDOL 5 MG TAB PO SCH ×2 (08:51→20:55)
[2016-07-18] MEDS: NICOTINE 21MG/24HR 1 EA TRANSDERMAL TD SCH (08:51)
--- NOTE | 2016-07-18 14:15 | IPNPDOC ---
[facility] Progress Note Progress Note DATE OF SERVICE: 07/18/16 HISTORY: Drafter met with patient today to assess treatment progress on inpatient unit. Patient was observed to be lying down in room between groups, had been visible on unit prior to interaction, and had eaten breakfast. Patient remains engageable, continues to attend groups, and is cooperative with staff. Patient today denies audio hallucination symptoms, states he has not experience symptoms 2 days (inconsistent with patient's report during yesterday's assessment), positive for a moment in effort to try to focus on symptoms and notes, "even when I concentrate now I don't hear them." Patient denies experiencing paranoia or feeling as though he is being persecuted. Per patient and staff, patient continues to eat and drink, is voiding without incident, is attending to his ADLs with encouragement and some assistance, is attending most groups, making efforts to engage with others, remains redirectable and has not presented to behavior management challenge. Patient reports current anxiety level of 2/10, depression 2/10, indicates aforementioned symptoms are related to "I'd like to go back and live with my grandfather," denies suicidal and homicidal ideation, denies visual hallucinations, denies urge to engage in self- injurious behavior, indicates appetite is stable. Patient denied symptoms of agitation and irritability, indicated that current medications are helping, describing current regimen as "best yet," and he denied medication side effects other than intermittent dry mouth which he indicated is manageable and was able to verbalize ways to mitigate. Patient denied feeling unsafe on unit and denied symptoms of fever and physical pain. Drafter and patient again discussed discharge planning. Patient remains interested in discharging to home with grandfather, is aware he may not be able to return to that environment, has been informed primary discharge plan is transition to long-term care with simultaneous referral to [facility] for supervised housing. Patient indicates his grandfather visited over the weekend and visit went well, added he is looking forward to seeing his grandfather this weekend. Of note: Patient informed lead technical writer at previous interaction that he has taken Zyprexa, Risperdal, Invega Sustenna, and Abilify in past with poor effect. VITAL SIGNS: See below. NEW TEST RESULTS: New lab work indicates WBCs now within normal range at 8.9, will monitor for change. Patient is afebrile and is asymptomatic. EK05/22/16 SINUS TACHYCARDIA POSSIBLE LEFT ATRIAL ENLARGEMENT LEFT VENTRICULAR HYPERTROPHY AND ST-T CHANGE CURRENT MEDICATIONS: See below. MENTAL STATUS EXAMINATION: Patient is a 36-year-old, single male, who is observed to be resting in bed at times during the day but also visible on unit and attending groups during the day, displays no agitation today and is cooperative and compliant with staff. Patient remains disheveled, appears younger than stated age, displays ongoing improvement in eye contact, does not appear to be responding to internal stimuli at time of interaction. Speech: Is less pressured, less repetitive, more spontaneous Thought processes: Appears less internally preoccupied, makes attempts to verbalize internal experience, some delay in responses at times Rate of thoughts: Does not appear accelerated, appears to be of normal rate, rhythm, volume Thought content: Generally logical, denies symptoms of paranoia today denies believing he has a chip in his head or that he is being persecuted or will be taken to [place] [facility] Abstract reasoning: Appears to be intact Associations: Appear generally intact Abnormal or psychotic thoughts: Patient endorses intermittent audio hallucinations, denies persecutory delusions, denies preoccupation with the government and fears of being taken to present, denies believing he has chip implanted in his head, denies homicidal and suicidal ideation, but reportedly experienced suicidal ideation prior to hospitalization. Judgment: Poor Insight: Limited Oriented to: Person, place and time Recent and Remote Memory: Limited, appears to be improving Attention Span and Concentration: Limited. Language: Limited but is improving Fund of knowledge: Limited but is improving Mood: "Better, good, ready to go." Appears less depressed and anxious Affect: Remains blunted, calm and level today, no agitation DIAGNOSES: Schizophrenia, unspecified type. History of cannabis use disorder, history of alcohol use disorder ASSESSMENT: Patient remains in own room, has been cooperative with staff and has exhibited no signs of aggression or behavioral management concerns. Patient has been sleeping and eating well. Patient indicates he continues to feel clearer, and has been attending afternoon groups. Patient was encouraged to bathe more frequently and attend a.m. groups to which she responded by stating, "I'm sure I could." Patient utilized PRN Benadryl last night for symptoms of anxiety/agitation, indicates he feels current medication regimen is effective. Drafter agrees to monitor patient to evaluate need for dosing adjustment. Patient denies medication side effects. Patient denies current suicidal and homicidal ideation and is able to agree to notify staff if he begins to experience urge to harm self or others. Due to patient report of failure to respond well to Zyprexa, Risperdal, Invega Sustenna, and Abilify, patient will continue on current treatment course of Haldol. Will continue to monitor patient response to Haldol for stabilization purposes and will then evaluate transition to another antipsychotic and will attempt to reduce patient's medication regimen to one antipsychotic for ongoing psychotropic medication treatment purposes. Due to patient's improvement but ongoing inability to independently attend to his ADLs and maintain personal safety, he remains in need of inpatient psychiatric treatment. value analysis coordinator will continue to pursue the collection of collateral information needed to organize safe discharge planning and referral to long-term care has been initiated with eventual goal for supervised housing once patient is stabilized. Referral for [facility] for supervised housing has also been initiated for future discharge planning purposes. MANAGEMENT PLAN: Continue Haldol 5 mg po BID, Seroquel 100 mg po q hs with plan to transition patient to atypical antipsychotic and reduce treatment to one antipsychotic once patient is stabilized for period of time and able to determine consistent and persistent response to medication Maintain patient on one-to-one observation Maintain safety precautions Patient to attend groups and participate in unit programming to develop coping strategies when able Engage patient in discharge planning process and arrange meeting with support system to ensure safe discharge planning when appropriate, initiate referral to long-term care in the event patient is not appropriate for community residence TLS housing Patient to follow up with PCM and dentist upon discharge TIME SPENT: 35 minutes Vital Signs Vital Signs Date Time Temp Pulse Resp B/P Pulse Ox O2 Delivery O2 Flow Rate FiO2 07/18/16 07:31 96.7 60 16 110/70 Current Medications Current Medications Acetaminophen (Tylenol Tab) 650 mg Q6HP PRN PO HEADACHE or DISCOMFORT; Start at 14:00; Stop 08/08/16 at 13:59 Al Hydrox/Mg Hydrox/Simethicone (Mylanta) 30 ml Q4HP PRN PO HEARTBURN/ INDIGESTION; Start 07/09/16 at 14:00; Stop 08/08/16 at 13:59 Benztropine Mesylate (Cogentin) 1 mg Q6HP PRN PO EPS symptoms; Start 07/10/16 at 12:00; Stop 07/10/16 at 12:00; Status DC Benztropine Mesylate (Cogentin) 1 mg Q6HP PRN PO EPS Last administered on 20:59; Start 07/10/16 at 21:15; Stop 08/09/16 at 21:14 Diphenhydramine HCl (Benadryl) 50 mg Q6HP PRN PO AGITATION Last administered on 07/17/16 20:06; Start 07/10/16 at 12:00; Stop 08/09/16 at 11:59 Haloperidol (Haldol) 5 mg BID PO Last administered on 07/18/16 08:51; Start 07/10/16 at 21:00; Stop 08/09/16 at 20:59 Haloperidol (Haldol) 5 mg Q6HP PRN PO AGITATION Last administered on 07/10/16 19:58; Start 07/10/16 at 12:00; Stop 08/09/16 at 11:59 Home Med (Med Rec Complete!) ASDIRECTED XX ; Start 07/09/16 at 07:30; Stop at 07:30; Status DC Lorazepam (Ativan) 1 mg Q6H PRN PO ANXIETY/AGITATION Last administered on 00:17; Start 07/10/16 at 12:00; Stop 07/23/16 at 11:59 Magnesium Hydroxide (Milk Of Magnesia) 30 ml DAILYPRN PRN PO CONSTIPATION; Start 07/09/16 at 14:00; Stop 08/08/16 at 13:59 Nicotine (Nicoderm Cq 21mg) 1 patch DAILY TD Last administered on 07/18/16 08: 51; Start 07/09/16 at 09:00; Stop 08/08/16 at 08:59 Non-Formulary Medication ( See Comment Field Below ) SEE COMMENTS SECTION 1T @10 XX ; Start 07/13/16 at 10:00; Stop 07/13/16 at 10:00; Status DC Non-Formulary Medication ( See Comment Field Below ) SEE COMMENTS SECTION 1T @10 XX ; Start 07/15/16 at 10:00; Stop 07/15/16 at 23:59; Status DC Non-Formulary Medication ( See Comment Field Below ) SEE LABEL COMMENTS DAILY XX Last administered on 07/13/16 09:46; Start 07/11/16 at 09:00; Stop 07/13 at 09:49; Status DC Quetiapine Fumarate (SEROquel) 100 mg QHS PO Last administered on 07/17/16 20: 06; Start 07/09/16 at 21:00; Stop 08/08/16 at 20:59 Allergies Coded Allergies: No Known Allergies (Unverified , 05/18/16) Desire Jackson Jul 18, 2016 14:15
[2016-07-18 18:00] VITALS: BP 106/63
[2016-07-18] MEDS: QUEtiapine FUMARATE 100 MG TAB PO SCH (20:55)
[2016-07-19 06:42] VITALS: BP 89/52
[2016-07-19] MEDS: NICOTINE 21MG/24HR 1 EA TRANSDERMAL TD SCH (09:00)
[2016-07-19] MEDS: HALOPERIDOL 5 MG TAB PO SCH ×2 (09:20→19:59)
[2016-07-19] MEDS: OSELTAMIVIR PHOSPHATE 75 MG CAP (TAMIFLU) PO SCH (12:49)
--- NOTE | 2016-07-19 13:03 | IPNPDOC ---
[facility] Progress Note Progress Note DATE OF SERVICE: 07/19/16 HISTORY: Wash Worker met with patient today to assess treatment progress on inpatient unit. Patient was observed to be lying down in room between groups, had been visible on unit prior to interaction, and had eaten breakfast. Patient remains engageable, continues to attend afternoon groups, and is cooperative with staff. Patient today denies audio hallucination symptoms, states he has not experienced symptoms 3 days (inconsistent with other reports in EMR), states even when concentrating and attempting to hear voices he cannot. Patient denies experiencing paranoia or feeling as though he is being persecuted. Per patient and staff, patient continues to eat and drink, is voiding without incident, is attending to his ADLs with encouragement and some assistance, is attending most groups, making efforts to engage with others, remains redirectable and has not presented to behavior management challenge. Patient today denies symptoms of anxiety and depression, denies suicidal and homicidal ideation, denies visual hallucinations, denies urge to engage in self-injurious behavior, indicates appetite is stable. Patient denies symptoms of agitation and irritability, indicates current medications remain helpful noting "I think this is the best combination yet," denies medication side effects other than intermittent dry mouth which he indicates remains manageable; verbalize ways to mitigate. Patient denies feeling unsafe on unit and denied symptoms of fever and physical pain. Wash Worker and patient again discussed discharge planning. Patient remains interested in discharging to home with grandfather, is aware grandfather has indicated to distribution coordinator that he may not return to that environment, remains aware that primary discharge plan is transition to long-term care with simultaneous referral to [facility] for supervised housing. Patient indicates his grandfather visited over the weekend and visit went well, added he is looking forward to seeing his grandfather this weekend. Late Entry: Administrative hearing held today at which patient indicated he is continuing to experience intermittent audio hallucinations, reiterates he feels symptoms are occurring when Seroquel is "wearing off." Discharge plan of transition to longer-term care to proceed per hearing outcome. Of note: Patient informed race and sports book writer at previous interaction that he has taken Zyprexa, Risperdal, Invega Sustenna, and Abilify in past with poor effect. VITAL SIGNS: See below. NEW TEST RESULTS: New lab work indicates WBCs now within normal range at 8.9, will monitor for change. Patient is afebrile and is asymptomatic. EK05/22/16 SINUS TACHYCARDIA POSSIBLE LEFT ATRIAL ENLARGEMENT LEFT VENTRICULAR HYPERTROPHY AND ST-T CHANGE CURRENT MEDICATIONS: See below. MENTAL STATUS EXAMINATION: Patient is a 36-year-old, single male, who is observed to be resting in bed at times during the day but also visible on unit and attending groups during the day, displays no agitation today and is cooperative and compliant with staff. Patient remains disheveled, appears younger than stated age, displays fair eye contact, does not appear to be responding to internal stimuli at time of interaction. Speech: Is less pressured, less repetitive, more spontaneous Thought processes: Appears less internally preoccupied, makes attempts to verbalize internal experience, some delay in responses at times Rate of thoughts: Does not appear accelerated, appears to be of normal rate, rhythm, volume Thought content: Generally logical, denies symptoms of paranoia today denies believing he has a chip in his head or that he is being persecuted or will be taken to [facility]dc Abstract reasoning: Appears to be intact Associations: Appear generally intact Abnormal or psychotic thoughts: Patient denies audio hallucinations, denies persecutory delusions, denies preoccupation with the government and fears of being taken to present, denies believing he has chip implanted in his head, denies homicidal and suicidal ideation, but reportedly experienced suicidal ideation prior to hospitalization. Judgment: Poor Insight: Limited Oriented to: Person, place and time Recent and Remote Memory: Limited, appears to be improving Attention Span and Concentration: Limited. Language: Limited but is improving Fund of knowledge: Limited but is improving Mood: "Better today; I want to go to my grandfather's." Appears less depressed and anxious Affect: Remains blunted, calm and level today, no agitation, no brightening today DIAGNOSES: Schizophrenia, unspecified type. History of cannabis use disorder, history of alcohol use disorder ASSESSMENT: Patient remains in own room, has been cooperative with staff and has exhibited no signs of aggression or behavioral management concerns. Patient has been sleeping and eating well. Patient indicates he continues to feel clearer, continues to attend afternoon groups but not morning groups. Patient was, again, encouraged to bathe more frequently and attend a.m. groups. Patient did not utilize PRN Benadryl yesterday, indicates he feels current medication regimen is effective, denies medication side effects. Patient denies current suicidal and homicidal ideation and is able to agree to notify staff if he begins to experience urge to harm self or others. Due to patient report of failure to respond well to Zyprexa, Risperdal, Invega Sustenna, and Abilify, patient will continue on current treatment course of Haldol. Will continue to monitor patient response to Haldol for stabilization purposes and will then evaluate need fro dosing adjustment and/or transition to another antipsychotic and will attempt to reduce patient's medication regimen to one antipsychotic for ongoing psychotropic medication treatment purposes. Due to patient's improvement but ongoing inability to independently attend to his ADLs, combined with history of initial response to medications followed by decompensation, patient remains in need of inpatient psychiatric treatment. nursing unit coordinator will continue to pursue collateral information needed to organize safe discharge planning and referral to long-term care has been initiated with eventual goal for supervised housing once patient is stabilized. Referral for TLS for supervised housing has also been initiated for future discharge planning purposes. MANAGEMENT PLAN: Continue Haldol 5 mg po BID, Seroquel 100 mg po q hs. Monitor need for dosing adjustment with plan to transition patient to atypical antipsychotic and reduce treatment to one antipsychotic once patient is stabilized for period of time and able to determine consistent and persistent response to medication Maintain patient on one-to-one observation Maintain safety precautions Patient to attend groups and participate in unit programming to develop coping strategies when able Engage patient in discharge planning process and arrange meeting with support system to ensure safe discharge planning when appropriate, initiate referral to long-term care in the event patient is not appropriate for community residence TLS housing Patient to follow up with PCM and dentist upon discharge TIME SPENT: 35 minutes Vital Signs Vital Signs Date Time Temp Pulse Resp B/P Pulse Ox O2 Delivery O2 Flow Rate FiO2 07/19/16 06:42 96.2 64 16 89/52 Current Medications Current Medications Acetaminophen (Tylenol Tab) 650 mg Q6HP PRN PO HEADACHE or DISCOMFORT; Start at 14:00; Stop 08/08/16 at 13:59 Al Hydrox/Mg Hydrox/Simethicone (Mylanta) 30 ml Q4HP PRN PO HEARTBURN/ INDIGESTION; Start 07/09/16 at 14:00; Stop 08/08/16 at 13:59 Benztropine Mesylate (Cogentin) 1 mg Q6HP PRN PO EPS symptoms; Start 07/10/16 at 12:00; Stop 07/10/16 at 12:00; Status DC Benztropine Mesylate (Cogentin) 1 mg Q6HP PRN PO EPS Last administered on 20:59; Start 07/10/16 at 21:15; Stop 08/09/16 at 21:14 Diphenhydramine HCl (Benadryl) 50 mg Q6HP PRN PO AGITATION Last administered on 07/17/16 20:06; Start 07/10/16 at 12:00; Stop 08/09/16 at 11:59 Haloperidol (Haldol) 5 mg BID PO Last administered on 07/19/16 09:20; Start at 21:00; Stop 08/09/16 at 20:59 Haloperidol (Haldol) 5 mg Q6HP PRN PO AGITATION Last administered on 07/10/16 19:58; Start 07/10/16 at 12:00; Stop 08/09/16 at 11:59 Home Med (Med Rec Complete!) ASDIRECTED XX ; Start 07/09/16 at 07:30; Stop at 07:30; Status DC Lorazepam (Ativan) 1 mg Q6H PRN PO ANXIETY/AGITATION Last administered on 00:17; Start 07/10/16 at 12:00; Stop 07/23/16 at 11:59 Magnesium Hydroxide (Milk Of Magnesia) 30 ml DAILYPRN PRN PO CONSTIPATION; Start 07/09/16 at 14:00; Stop 08/08/16 at 13:59 Nicotine (Nicoderm Cq 21mg) 1 patch DAILY TD Last administered on 07/18/16 08: 51; Start 07/09/16 at 09:00; Stop 07/19/16 at 11:20; Status DC Nicotine (Nicorette) 2 mg Q2HP PRN PO NICOTINE WITHDRAWAL; Start 07/19/16 at 11 :30; Stop 08/18/16 at 11:29 Non-Formulary Medication ( See Comment Field Below ) SEE COMMENTS SECTION 1T @10 XX ; Start 07/13/16 at 10:00; Stop 07/13/16 at 10:00; Status DC Non-Formulary Medication ( See Comment Field Below ) SEE COMMENTS SECTION 1T @10 XX ; Start 07/15/16 at 10:00; Stop 07/15/16 at 23:59; Status DC Non-Formulary Medication ( See Comment Field Below ) SEE LABEL COMMENTS DAILY XX Last administered on 07/13/16 09:46; Start 07/11/16 at 09:00; Stop 07/13 at 09:49; Status DC Oseltamivir Phosphate (Tamiflu) 75 mg DAILY PO Last administered on 07/19/16 12:49; Start 07/19/16 at 09:00; Stop 07/28/16 at 12:00 Quetiapine Fumarate (SEROquel) 100 mg QHS PO Last administered on 07/18/16 20: 55; Start 07/09/16 at 21:00; Stop 08/08/16 at 20:59 Allergies Coded Allergies: No Known Allergies (Unverified , 05/18/16) Desire Jackson Jul 19, 2016 13:03
[2016-07-19] MEDS: NICOTINE POLACRILEX 2 MG GUM PO PRN ×2 (15:37→20:00)
[2016-07-19 18:00] VITALS: BP 124/71
[2016-07-19] MEDS: QUEtiapine FUMARATE 100 MG TAB PO SCH (19:59)
[2016-07-20 06:14] VITALS: BP 107/61
[2016-07-20] MEDS: OSELTAMIVIR PHOSPHATE 75 MG CAP (TAMIFLU) PO SCH (09:20)
[2016-07-20] MEDS: HALOPERIDOL 5 MG TAB PO SCH ×2 (09:20→20:02)
[2016-07-20] MEDS: NICOTINE POLACRILEX 2 MG GUM PO PRN ×2 (09:21→20:02)
[2016-07-20 18:40] VITALS: BP 100/56
[2016-07-20] MEDS: diphenhydrAMINE 50 MG CAP PO PRN (20:01)
[2016-07-20] MEDS: QUEtiapine FUMARATE 100 MG TAB PO SCH (20:01)
[2016-07-21 06:28] VITALS: BP 138/65
[2016-07-21] MEDS: HALOPERIDOL 5 MG TAB PO SCH ×2 (09:20→20:56)
[2016-07-21] MEDS: OSELTAMIVIR PHOSPHATE 75 MG CAP (TAMIFLU) PO SCH (09:20)
[2016-07-21] MEDS: NICOTINE POLACRILEX 2 MG GUM PO PRN ×3 (09:22→20:56)
[2016-07-21 18:00] VITALS: BP 112/72
[2016-07-21] MEDS: QUEtiapine FUMARATE 100 MG TAB PO SCH (20:56)
[2016-07-22 06:00] VITALS: BP 87/52
--- NOTE | 2016-07-22 06:55 | IPN ---
DATE: 07/21/2016 He is seen for a confirmatory consult. He says things are better, but somewhat vague on this, has had auditory hallucinations, delusions. He is currently cooperative, coherent, with a restricted, but reactive affect, questionable judgment and insight. The chart is reviewed. Assessments made by the two other psychiatrists were also reviewed. The patient needs remaining in hospital at present. The relevant form is filled.
[2016-07-22] MEDS: HALOPERIDOL 5 MG TAB PO SCH ×2 (08:45→20:00)
[2016-07-22] MEDS: OSELTAMIVIR PHOSPHATE 75 MG CAP (TAMIFLU) PO SCH (08:45)
[2016-07-22] MEDS: NICOTINE POLACRILEX 2 MG GUM PO PRN ×2 (08:47→20:00)
--- NOTE | 2016-07-22 15:03 | IPN ---
DATE: 07/22/2016 SUBJECTIVE: "I'm feeling better." OBJECTIVE: The patient continues to improve. The patient reports no auditory hallucinations for the last 24 hours. He is tolerating well the medication. He is more sociable and he is interacting somewhat with other patients and staff. The patient is denying side effect from the medication and is satisfied with the results of his treatment. MENTAL STATUS EXAMINATION: The patient is dressed in [facility]. The patient has fair eye contact. Speech is somewhat slow and monotone. Mood is euthymic. Affect is blunted. The patient denies auditory or visual hallucinations. No evidence of delusions. Memory is fair. The patient is fully oriented. The patient is denying suicidal or homicidal ideation. Insight and judgment is limited. ASSESSMENT: Schizophrenia. PLAN: 1. Continue with Haldol 5 mg by mouth twice a day. 2. Continue with Seroquel 100 mg by mouth at bedtime. 3. Continue close observation. 4. Continue medication management, individual and group therapy.
[2016-07-22 18:00] VITALS: BP 102/62
[2016-07-22] MEDS: diphenhydrAMINE 50 MG CAP PO PRN (20:00)
[2016-07-22] MEDS: QUEtiapine FUMARATE 100 MG TAB PO SCH (20:00)
[2016-07-23 07:03] VITALS: BP 99/55
[2016-07-23] MEDS: OSELTAMIVIR PHOSPHATE 75 MG CAP (TAMIFLU) PO SCH (09:11)
[2016-07-23] MEDS: HALOPERIDOL 5 MG TAB PO SCH ×2 (09:12→20:04)
[2016-07-23] MEDS: NICOTINE POLACRILEX 2 MG GUM PO PRN ×3 (09:12→20:04)
--- NOTE | 2016-07-23 09:57 | IPNPDOC ---
[facility] Progress Note Progress Note DATE OF SERVICE: 07/23/16 HISTORY: Missile Tracking Technician met with patient today to assess treatment progress on inpatient unit. Patient was observed to be lying down in room between groups, reiterated he does not attend am groups. Patient remains engageable, continues to attend afternoon groups, and is cooperative with staff. Patient today denies audio hallucination symptoms, contradicts self when asked about symptoms he previously states continue to occur in afternoon. Patient denies experiencing paranoia or feeling as though he is being persecuted. Patient is eating and drinking, making efforts to attend to his ADLs, requires some assistance, is attending most groups. Patient remains redirectable and has not presented to behavior management challenge. Patient today denies symptoms of anxiety and depression, denies suicidal and homicidal ideation, denies visual hallucinations , denies urge to engage in self-injurious behavior, indicates appetite is stable. Patient denies symptoms of agitation and irritability, indicates current medications remain affective and denies side effects. Patient denies feeling unsafe on unit and denied symptoms of fever and physical pain. Missile Tracking Technician and patient again discussed discharge planning. Patient remains interested in discharging to home with grandfather, is aware grandfather has indicated to dental financial coordinator that he may not return to that environment, remains aware that primary discharge plan is transition to long-term care with simultaneous referral to [facility] for supervised housing. Patient indicates his grandfather again visited over the weekend and visit went well. Addendum: emergency department coordinator spoke with patient's grandfather on the telephone date of entry, grandfather indicated that patient will not be permitted to return to the home. Of note: Patient informed filing writer at previous interaction that he has taken Zyprexa, Risperdal, Invega Sustenna, and Abilify in past with poor effect. VITAL SIGNS: See below. NEW TEST RESULTS: New lab work indicates WBCs now within normal range at 8.9, will monitor for change. Patient is afebrile and is asymptomatic. EK05/22/16 SINUS TACHYCARDIA POSSIBLE LEFT ATRIAL ENLARGEMENT LEFT VENTRICULAR HYPERTROPHY AND ST-T CHANGE CURRENT MEDICATIONS: See below. MENTAL STATUS EXAMINATION: Patient is a 36-year-old, single male, who is observed to be resting in bed at times during the day but also visible on unit and attending groups during the day, displays no agitation today and is cooperative and compliant with staff. Patient remains disheveled, appears younger than stated age, displays fair eye contact, does not appear to be responding to internal stimuli at time of interaction. Speech: Is less pressured, less repetitive, remains monotone but is somewhat more spontaneous Thought processes: Appears less internally preoccupied, makes attempts to verbalize internal experience, some delay in responses at times Rate of thoughts: Does not appear accelerated, appears to be of normal rate, rhythm, volume Thought content: Generally logical, denies symptoms of paranoia today denies believing he has a chip in his head or that he is being persecuted or will be taken to custodial Abstract reasoning: Appears to be intact Associations: Appear generally intact Abnormal or psychotic thoughts: Patient denies audio hallucinations, denies persecutory delusions, denies preoccupation with the government and fears of being taken to present, denies believing he has chip implanted in his head, denies homicidal and suicidal ideation, but reportedly experienced suicidal ideation prior to hospitalization. Judgment: Poor Insight: Limited Oriented to: Person, place and time Recent and Remote Memory: Limited, appears to be improving Attention Span and Concentration: Limited. Language: Limited but is improving Fund of knowledge: Limited but is improving Mood: "I feel fine." Appears less depressed and anxious Affect: Remains blunted, calm and level today, no agitation, no brightening today DIAGNOSES: Schizophrenia, unspecified type. History of cannabis use disorder, history of alcohol use disorder ASSESSMENT: Patient remains in own room, has been cooperative with staff and has exhibited no signs of aggression or behavioral management concerns. Patient did not utilize PRN Benadryl yesterday, indicates he feels current medication regimen is effective, denies medication side effects. Patient denies current suicidal and homicidal ideation and is able to agree to notify staff if he begins to experience urge to harm self or others. Due to patient report of failure to respond well to Zyprexa, Risperdal, Invega Sustenna, and Abilify, patient will continue on current treatment course of Haldol. Will continue to monitor patient response to Haldol for stabilization purposes and will then evaluate need fro dosing adjustment and/or transition to another antipsychotic and will attempt to reduce patient's medication regimen to one antipsychotic for ongoing psychotropic medication treatment purposes. Due to patient's improvement but ongoing inability to independently attend to his ADLs, combined with history of initial response to medications followed by decompensation, patient remains in need of inpatient psychiatric treatment. emergency department coordinator will continue to pursue collateral information needed to organize safe discharge planning and referral to long-term care has been initiated with eventual goal for supervised housing once patient is stabilized. Referral for TLS for supervised housing has also been initiated for future discharge planning purposes. MANAGEMENT PLAN: Continue Haldol 5 mg po BID, Seroquel 100 mg po q hs. Monitor need for dosing adjustment with plan to transition patient to atypical antipsychotic and reduce treatment to one antipsychotic once patient is stabilized for period of time and able to determine consistent and persistent response to medication Maintain patient on one-to-one observation Maintain safety precautions Patient to attend groups and participate in unit programming to develop coping strategies when able Engage patient in discharge planning process and arrange meeting with support system to ensure safe discharge planning when appropriate, initiate referral to long-term care in the event patient is not appropriate for community residence TLS housing Patient to follow up with PCM and dentist upon discharge TIME SPENT: 35 minutes Vital Signs Vital Signs Date Time Temp Pulse Resp B/P Pulse Ox O2 Delivery O2 Flow Rate FiO2 07/23/16 07:03 97.4 61 16 99/55 07/22/16 18:00 Room Air Current Medications Current Medications Acetaminophen (Tylenol Tab) 650 mg Q6HP PRN PO HEADACHE or DISCOMFORT; Start at 14:00; Stop 08/08/16 at 13:59 Al Hydrox/Mg Hydrox/Simethicone (Mylanta) 30 ml Q4HP PRN PO HEARTBURN/ INDIGESTION; Start 07/09/16 at 14:00; Stop 08/08/16 at 13:59 Benztropine Mesylate (Cogentin) 1 mg Q6HP PRN PO EPS symptoms; Start 07/10/16 at 12:00; Stop 07/10/16 at 12:00; Status DC Benztropine Mesylate (Cogentin) 1 mg Q6HP PRN PO EPS Last administered on 20:59; Start 07/10/16 at 21:15; Stop 08/09/16 at 21:14 Diphenhydramine HCl (Benadryl) 50 mg Q6HP PRN PO AGITATION Last administered on 07/22/16 20:00; Start 07/10/16 at 12:00; Stop 08/09/16 at 11:59 Haloperidol (Haldol) 5 mg BID PO Last administered on 07/23/16 09:12; Start at 21:00; Stop 08/09/16 at 20:59 Haloperidol (Haldol) 5 mg Q6HP PRN PO AGITATION Last administered on 07/10/16 19:58; Start 07/10/16 at 12:00; Stop 08/09/16 at 11:59 Home Med (Med Rec Complete!) ASDIRECTED XX ; Start 07/09/16 at 07:30; Stop at 07:30; Status DC Lorazepam (Ativan) 1 mg Q6H PRN PO ANXIETY/AGITATION Last administered on 00:17; Start 07/10/16 at 12:00; Stop 07/23/16 at 11:59 Magnesium Hydroxide (Milk Of Magnesia) 30 ml DAILYPRN PRN PO CONSTIPATION; Start 07/09/16 at 14:00; Stop 08/08/16 at 13:59 Nicotine (Nicoderm Cq 21mg) 1 patch DAILY TD Last administered on 07/18/16 08: 51; Start 07/09/16 at 09:00; Stop 07/19/16 at 11:20; Status DC Nicotine (Nicorette) 2 mg Q2HP PRN PO NICOTINE WITHDRAWAL Last administered on 07/23/16 09:12; Start 07/19/16 at 11:30; Stop 08/18/16 at 11:29 Non-Formulary Medication ( See Comment Field Below ) SEE COMMENTS SECTION 1T @10 XX ; Start 07/13/16 at 10:00; Stop 07/13/16 at 10:00; Status DC Non-Formulary Medication ( See Comment Field Below ) SEE COMMENTS SECTION 1T @10 XX ; Start 07/15/16 at 10:00; Stop 07/15/16 at 23:59; Status DC Non-Formulary Medication ( See Comment Field Below ) SEE LABEL COMMENTS DAILY XX Last administered on 07/13/16 09:46; Start 07/11/16 at 09:00; Stop 07/13 at 09:49; Status DC Oseltamivir Phosphate (Tamiflu) 75 mg DAILY PO Last administered on 07/23/16 09:11; Start 07/19/16 at 09:00; Stop 07/28/16 at 12:00 Quetiapine Fumarate (SEROquel) 100 mg QHS PO Last administered on 07/22/16 20: 00; Start 07/09/16 at 21:00; Stop 08/08/16 at 20:59 Allergies Coded Allergies: No Known Allergies (Unverified , 05/18/16) Desire Jackson Jul 23, 2016 09:57
[2016-07-23 18:00] VITALS: BP 107/63
[2016-07-23] MEDS: diphenhydrAMINE 50 MG CAP PO PRN (20:04)
[2016-07-23] MEDS: QUEtiapine FUMARATE 100 MG TAB PO SCH (20:05)
[2016-07-24 06:34] VITALS: BP 101/55
[2016-07-24] MEDS: HALOPERIDOL 5 MG TAB PO SCH ×2 (09:18→20:09)
[2016-07-24] MEDS: OSELTAMIVIR PHOSPHATE 75 MG CAP (TAMIFLU) PO SCH (09:18)
[2016-07-24] MEDS: NICOTINE POLACRILEX 2 MG GUM PO PRN ×2 (09:18→19:46)
--- NOTE | 2016-07-24 11:51 | IPNPDOC ---
[facility] Progress Note Progress Note DATE OF SERVICE: 07/24/16 HISTORY: Photographic Double met with patient today to assess treatment progress on inpatient unit. Patient was observed to be sleeping in bed during morning groups , was asked to get up out of bed to meet with rewriter in office today to complete assessment. Patient reiterated today he does not attend am groups, was again encouraged to attend am groups, informed rewriter "I haven't attended than before and I don't see why he should start attending them now." Photographic Double attempted to explain potential clinical benefit of groups stating, "I don't agree been attending groups is an indicator of improvement." Patient denies symptoms of anxiety and depression, denies audiovisual hallucinations, denies suicidal and homicidal ideation, and denies urge to engage in self-injurious behavior. Patient denies experiencing paranoia or feeling as though he is being persecuted. Patient is eating and drinking, states he is making efforts to attend to his ADLs but does not appear to be behaving daily and requires some assistance, is attending most groups. Patient remains redirectable and has not presented to behavior management challenge. Patient indicates appetite is stable. Patient denies symptoms of agitation and irritability, indicates current medications remain affective and denies side effects. Photographic Double and patient again discussed discharge planning. Patient remains interested in discharging to home with grandfather, is aware grandfather has indicated to life skills coordinator that he may not return to that environment, remains aware that primary discharge plan is transition to long-term care with simultaneous referral to [facility] for supervised housing. Patient indicates his grandfather again visited over the weekend and visit went well. Patient denies symptoms of physical pain. Of note: Patient informed rewriter at previous interaction that he has taken Zyprexa, Risperdal, Invega Sustenna, and Abilify in past with poor effect. VITAL SIGNS: See below. NEW TEST RESULTS: New lab work indicates WBCs now within normal range at 8.9, patient is afebrile and is asymptomatic. EK05/22/16 SINUS TACHYCARDIA POSSIBLE LEFT ATRIAL ENLARGEMENT LEFT VENTRICULAR HYPERTROPHY AND ST-T CHANGE CURRENT MEDICATIONS: See below. MENTAL STATUS EXAMINATION: Patient is a 36-year-old, single male, who is observed to be resting in bed at times during the day but also visible on unit and attending some groups during the day, displays no agitation today and is cooperative and compliant with staff, appears disheveled, indicates he last showered last night. Patient remains disheveled, appears younger than stated age, displays fair eye contact, does not appear to be responding to internal stimuli at time of interaction. Speech: Is less pressured, less repetitive, remains monotone but is somewhat more spontaneous Thought processes: Appears less internally preoccupied, makes attempts to verbalize internal experience, some delay in responses at times Rate of thoughts: Does not appear accelerated, appears to be of normal rate, rhythm, volume Thought content: Generally logical, denies symptoms of paranoia today denies believing he has a chip in his head or that he is being persecuted or will be taken to long-term Abstract reasoning: Appears to be intact Associations: Appear generally intact Abnormal or psychotic thoughts: Patient denies audio hallucinations, denies persecutory delusions, denies preoccupation with the government and fears of being taken to present, denies believing he has chip implanted in his head, denies homicidal and suicidal ideation, but reportedly experienced suicidal ideation prior to hospitalization. Judgment: Poor Insight: Limited Oriented to: Person, place and time Recent and Remote Memory: Limited, appears to be improving Attention Span and Concentration: Limited. Language: Limited but continues to improve Fund of knowledge: Limited but is improving Mood: "I feel fine, no problem." Appears less depressed and anxious Affect: Remains blunted but brightens, is calm and level today, no agitation DIAGNOSES: Schizophrenia, unspecified type. History of cannabis use disorder, history of alcohol use disorder ASSESSMENT: Patient remains in own room, has been cooperative with staff and has exhibited no signs of aggression or behavioral management concerns. Patient did not utilize PRN Benadryl yesterday, indicates he feels current medication regimen is effective, denies medication side effects. Due to patient report of failure to respond well to Zyprexa, Risperdal, Invega Sustenna, and Abilify, patient will continue on current treatment course of Haldol. Will continue to monitor patient response to Haldol for stabilization purposes and will then evaluate need fro dosing adjustment and/or transition to another antipsychotic and will attempt to reduce patient's medication regimen to one antipsychotic for ongoing psychotropic medication treatment purposes. Due to patient's improvement but ongoing inability to independently attend to his ADLs, combined with history of initial response to medications followed by decompensation, patient remains in need of inpatient psychiatric treatment. interior design coordinator will continue to pursue collateral information needed to organize safe discharge planning and referral to long-term care has been initiated with eventual goal for supervised housing once patient is stabilized. Referral for [facility] for supervised housing has also been initiated for future discharge planning purposes. Patient is requesting information on follow-up administrative hearing, informed rewriter he will not be requesting court date until he knows the outcome of the follow-up administrative hearing. Photographic Double informed life skills coordinator patient's desire for information and asked that information be provided to patient. MANAGEMENT PLAN: Continue Haldol 5 mg po BID, Seroquel 100 mg po q hs. Monitor need for dosing adjustment with plan to transition patient to atypical antipsychotic and reduce treatment to one antipsychotic once patient is stabilized for period of time and able to determine consistent and persistent response to medication Maintain patient on one-to-one observation Maintain safety precautions Patient to attend groups and participate in unit programming to develop coping strategies when able Engage patient in discharge planning process and arrange meeting with support system to ensure safe discharge planning when appropriate, initiate referral to long-term care in the event patient is not appropriate for community residence TLS housing Patient to follow up with PCM and dentist upon discharge TIME SPENT: 25 minutes Vital Signs Vital Signs Date Time Temp Pulse Resp B/P Pulse Ox O2 Delivery O2 Flow Rate FiO2 07/24/16 06:34 96.2 61 18 101/55 07/22/16 18:00 Room Air Current Medications Current Medications Acetaminophen (Tylenol Tab) 650 mg Q6HP PRN PO HEADACHE or DISCOMFORT; Start at 14:00; Stop 08/08/16 at 13:59 Al Hydrox/Mg Hydrox/Simethicone (Mylanta) 30 ml Q4HP PRN PO HEARTBURN/ INDIGESTION; Start 07/09/16 at 14:00; Stop 08/08/16 at 13:59 Benztropine Mesylate (Cogentin) 1 mg Q6HP PRN PO EPS symptoms; Start 07/10/16 at 12:00; Stop 07/10/16 at 12:00; Status DC Benztropine Mesylate (Cogentin) 1 mg Q6HP PRN PO EPS Last administered on t 20:59; Start 07/10/16 at 21:15; Stop 08/09/16 at 21:14 Diphenhydramine HCl (Benadryl) 50 mg Q6HP PRN PO AGITATION Last administered on 07/23/16 20:04; Start 07/10/16 at 12:00; Stop 08/09/16 at 11:59 Haloperidol (Haldol) 5 mg BID PO Last administered on 07/24/16 09:18; Start at 21:00; Stop 08/09/16 at 20:59 Haloperidol (Haldol) 5 mg Q6HP PRN PO AGITATION Last administered on 07/10/16 19:58; Start 07/10/16 at 12:00; Stop 08/09/16 at 11:59 Home Med (Med Rec Complete!) ASDIRECTED XX ; Start 07/09/16 at 07:30; Stop at 07:30; Status DC Lorazepam (Ativan) 1 mg Q6H PRN PO ANXIETY/AGITATION Last administered on 00:17; Start 07/10/16 at 12:00; Stop 07/23/16 at 11:59; Status DC Magnesium Hydroxide (Milk Of Magnesia) 30 ml DAILYPRN PRN PO CONSTIPATION; Start 07/09/16 at 14:00; Stop 08/08/16 at 13:59 Nicotine (Nicoderm Cq 21mg) 1 patch DAILY TD Last administered on 07/18/16 08: 51; Start 07/09/16 at 09:00; Stop 07/19/16 at 11:20; Status DC Nicotine (Nicorette) 2 mg Q2HP PRN PO NICOTINE WITHDRAWAL Last administered on 07/24/16 09:18; Start 07/19/16 at 11:30; Stop 08/18/16 at 11:29 Non-Formulary Medication ( See Comment Field Below ) SEE COMMENTS SECTION 1T @10 XX ; Start 07/13/16 at 10:00; Stop 07/13/16 at 10:00; Status DC Non-Formulary Medication ( See Comment Field Below ) SEE COMMENTS SECTION 1T @10 XX ; Start 07/15/16 at 10:00; Stop 07/15/16 at 23:59; Status DC Non-Formulary Medication ( See Comment Field Below ) SEE LABEL COMMENTS DAILY XX Last administered on 07/13/16 09:46; Start 07/11/16 at 09:00; Stop 07/13 at 09:49; Status DC Oseltamivir Phosphate (Tamiflu) 75 mg DAILY PO Last administered on 07/24/16 09:18; Start 07/19/16 at 09:00; Stop 07/28/16 at 12:00 Quetiapine Fumarate (SEROquel) 100 mg QHS PO Last administered on 07/23/16 20: 05; Start 07/09/16 at 21:00; Stop 08/08/16 at 20:59 Allergies Coded Allergies: No Known Allergies (Unverified , 05/18/16) Desire Jackson Jul 24, 2016 11:51
[2016-07-24 18:00] VITALS: BP 110/60
[2016-07-24] MEDS: QUEtiapine FUMARATE 100 MG TAB PO SCH (20:09)
[2016-07-25 07:00] VITALS: BP 106/65
[2016-07-25] MEDS: NICOTINE POLACRILEX 2 MG GUM PO PRN ×3 (08:47→20:08)
[2016-07-25] MEDS: HALOPERIDOL 5 MG TAB PO SCH ×2 (08:47→20:07)
[2016-07-25] MEDS: OSELTAMIVIR PHOSPHATE 75 MG CAP (TAMIFLU) PO SCH (08:47)
--- NOTE | 2016-07-25 11:26 | IPNPDOC ---
[facility] [place] DATE OF SERVICE: 07/25/16 HISTORY: Scallop Raker met with patient today to assess treatment progress on inpatient unit. Patient was observed to be sleeping in bed during morning groups , did not sit up or get out of bed, has notbene attending am groups and continues to deny desire to attend, was again encouraged to attend. Patient denies symptoms of anxiety and depression, denies audiovisual hallucinations, denies suicidal and homicidal ideation, and denies urge to engage in self- injurious behavior. Patient denies experiencing paranoia or feeling as though he is being persecuted. Patient is eating and drinking, states he is attending to his ADLs. Patient remains redirectable and has not presented as behavior management challenge. Patient indicates appetite is stable. Patient denies symptoms of agitation and irritability, indicates current medications remain affective and denies side effects. Scallop Raker and patient again discussed discharge planning and patient was, again, informed that customer service coordinator is being told by grandfather that discharge plan does not include discharge to home. Patient states he is receptive to discharge to level of TLS. Of note: Patient informed automobile service writer at previous interaction that he has taken Zyprexa, Risperdal, Invega Sustenna, and Abilify in past with poor effect. VITAL SIGNS: See below. NEW TEST RESULTS: New lab work indicates WBCs now within normal range at 8.9, patient is afebrile and is asymptomatic. EK05/22/16 SINUS TACHYCARDIA POSSIBLE LEFT ATRIAL ENLARGEMENT LEFT VENTRICULAR HYPERTROPHY AND ST-T CHANGE CURRENT MEDICATIONS: See below. MENTAL STATUS EXAMINATION: Patient is a 36-year-old, single male, who is observed to be resting in bed at times during the day but also visible on unit and attending some groups during the day, displays no agitation today and is cooperative and compliant with staff, appears disheveled, indicates he last showered last night. Patient remains disheveled, appears younger than stated age, displays fair eye contact, does not appear to be responding to internal stimuli at time of interaction. Speech: Is less pressured, less repetitive, remains monotone but is somewhat more spontaneous Thought processes: Appears less internally preoccupied, makes attempts to verbalize internal experience, some delay in responses at times Rate of thoughts: Does not appear accelerated, appears to be of normal rate, rhythm, volume Thought content: Generally logical, denies symptoms of paranoia today denies believing he has a chip in his head or that he is being persecuted or will be taken to detention Abstract reasoning: Appears to be intact Associations: Appears generally intact Abnormal or psychotic thoughts: Patient denies audio hallucinations, denies persecutory delusions, denies preoccupation with the government and fears of being taken to present, denies believing he has chip implanted in his head, denies homicidal and suicidal ideation, but reportedly experienced suicidal ideation prior to hospitalization. Judgment: Limited Insight: Limited Oriented to: Person, place and time Recent and Remote Memory: Limited, appears to be improving Attention Span and Concentration: Limited. Language: Limited but continues to improve Fund of knowledge: Adequate Mood: "I'm fine." Appears less depressed and anxious Affect: Remains blunted but brightens, is calm and level today, no agitation DIAGNOSES: Schizophrenia, unspecified type. History of cannabis use disorder, history of alcohol use disorder ASSESSMENT: Patient remains cooperative with staff and has exhibited no signs of aggression or behavioral management concerns. Patient did not utilize PRN Benadryl yesterday, indicates he feels current medication regimen is effective, denies medication side effects. Due to patient report of failure to respond well to Zyprexa, Risperdal, Invega Sustenna, and Abilify, patient will continue on current treatment course of Haldol. Will continue to monitor patient response to Haldol for stabilization purposes and will then evaluate need for dosing adjustment and/or transition to another antipsychotic and will attempt to reduce patient's medication regimen to one antipsychotic for ongoing psychotropic medication treatment purposes. Due to patient's not having discharge destination, combined with history of initial response to medications followed by decompensation, transfer to [facility] is being pursued in conjunction with [facility] CR housing. customer service coordinator will continue to pursue referral to long-term care if deemed appropriate after follow up Administrative Hearing scheduled for today. Referral for TLS for supervised housing has been initiated for future discharge planning purposes. Patient reiterates he will not be requesting court date until he knows the outcome of the follow-up administrative hearing. MANAGEMENT PLAN: Continue Haldol 5 mg po BID, Seroquel 100 mg po q hs. Monitor need for dosing adjustment with plan to transition patient to atypical antipsychotic and reduce treatment to one antipsychotic once patient is stabilized for period of time and able to determine consistent and persistent response to medication Maintain patient on one-to-one observation Maintain safety precautions Patient to attend groups and participate in unit programming to develop coping strategies when able Engage patient in discharge planning process and arrange meeting with support system to ensure safe discharge planning when appropriate, initiate referral to long-term care in the event patient is not appropriate for community residence TLS housing Patient to follow up with PCM and dentist upon discharge TIME SPENT: 25 minutes Vital Signs Vital Signs Date Time Temp Pulse Resp B/P Pulse Ox O2 Delivery O2 Flow Rate FiO2 07/25/16 07:00 97.2 69 16 106/65 07/22/16 18:00 Room Air Current Medications Current Medications Acetaminophen (Tylenol Tab) 650 mg Q6HP PRN PO HEADACHE or DISCOMFORT; Start at 14:00; Stop 08/08/16 at 13:59 Al Hydrox/Mg Hydrox/Simethicone (Mylanta) 30 ml Q4HP PRN PO HEARTBURN/ INDIGESTION; Start 07/09/16 at 14:00; Stop 08/08/16 at 13:59 Benztropine Mesylate (Cogentin) 1 mg Q6HP PRN PO EPS symptoms; Start 07/10/16 at 12:00; Stop 07/10/16 at 12:00; Status DC Benztropine Mesylate (Cogentin) 1 mg Q6HP PRN PO EPS Last administered on 20:59; Start 07/10/16 at 21:15; Stop 08/09/16 at 21:14 Diphenhydramine HCl (Benadryl) 50 mg Q6HP PRN PO AGITATION Last administered on 07/23/16 20:04; Start 07/10/16 at 12:00; Stop 08/09/16 at 11:59 Haloperidol (Haldol) 5 mg BID PO Last administered on 07/25/16 08:47; Start at 21:00; Stop 08/09/16 at 20:59 Haloperidol (Haldol) 5 mg Q6HP PRN PO AGITATION Last administered on 07/10/16 19:58; Start 07/10/16 at 12:00; Stop 08/09/16 at 11:59 Home Med (Med Rec Complete!) ASDIRECTED XX ; Start 07/09/16 at 07:30; Stop at 07:30; Status DC Lorazepam (Ativan) 1 mg Q6H PRN PO ANXIETY/AGITATION Last administered on 00:17; Start 07/10/16 at 12:00; Stop 07/23/16 at 11:59; Status DC Magnesium Hydroxide (Milk Of Magnesia) 30 ml DAILYPRN PRN PO CONSTIPATION; Start 07/09/16 at 14:00; Stop 08/08/16 at 13:59 Nicotine (Nicoderm Cq 21mg) 1 patch DAILY TD Last administered on 07/18/16 08: 51; Start 07/09/16 at 09:00; Stop 07/19/16 at 11:20; Status DC Nicotine (Nicorette) 2 mg Q2HP PRN PO NICOTINE WITHDRAWAL Last administered on 07/25/16 08:47; Start 07/19/16 at 11:30; Stop 08/18/16 at 11:29 Non-Formulary Medication ( See Comment Field Below ) SEE COMMENTS SECTION 1T @10 XX ; Start 07/13/16 at 10:00; Stop 07/13/16 at 10:00; Status DC Non-Formulary Medication ( See Comment Field Below ) SEE COMMENTS SECTION 1T @10 XX ; Start 07/15/16 at 10:00; Stop 07/15/16 at 23:59; Status DC Non-Formulary Medication ( See Comment Field Below ) SEE LABEL COMMENTS DAILY XX Last administered on 07/13/16 09:46; Start 07/11/16 at 09:00; Stop 07/13 at 09:49; Status DC Oseltamivir Phosphate (Tamiflu) 75 mg DAILY PO Last administered on 07/25/16 08:47; Start 07/19/16 at 09:00; Stop 07/28/16 at 12:00 Quetiapine Fumarate (SEROquel) 100 mg QHS PO Last administered on 07/24/16 20: 09; Start 07/09/16 at 21:00; Stop 08/08/16 at 20:59 Allergies Coded Allergies: No Known Allergies (Unverified , 05/18/16) Desire Jackson Jul 25, 2016 11:26
[2016-07-25 18:00] VITALS: BP 111/64
[2016-07-25] MEDS: QUEtiapine FUMARATE 100 MG TAB PO SCH (20:07)
[2016-07-26 06:20] VITALS: BP 101/57
[2016-07-26] MEDS: HALOPERIDOL 5 MG TAB PO SCH ×2 (09:26→20:09)
[2016-07-26] MEDS: OSELTAMIVIR PHOSPHATE 75 MG CAP (TAMIFLU) PO SCH (09:26)
[2016-07-26] MEDS: NICOTINE POLACRILEX 2 MG GUM PO PRN ×3 (09:27→21:31)
--- NOTE | 2016-07-26 10:55 | IPNPDOC ---
[facility] Progress Note Progress Note DATE OF SERVICE: 07/26/16 HISTORY: Manufacturing Technology Analyst met with patient today to assess treatment progress on inpatient unit. Patient was observed to be sleeping in bed during morning groups , did not sit up or get out of bed, has not been attending am groups and continues to deny desire to attend. Patient denies symptoms of anxiety and depression, denies audiovisual hallucinations, denies suicidal and homicidal ideation, and denies urge to engage in self-injurious behavior. Patient denies experiencing paranoia or feeling as though he is being persecuted. Patient is eating and drinking, states he is attending to his ADLs, states he has been showering nightly. Patient remains engageable, indicates appetite is stable, denies challenges with energy level or concentration. Patient denies symptoms of agitation and irritability, indicates current medications remain affective and denies side effects. Manufacturing Technology Analyst and patient again discussed discharge planning and patient remains aware that dental financial coordinator is being told by grandfather that discharge plan does not include discharge to home. Patient reiterates today he is receptive to discharge to level of TLS. Of note: Patient informed television script writer at previous interaction that he has taken Zyprexa, Risperdal, Invega Sustenna, and Abilify in past with poor effect. VITAL SIGNS: See below. NEW TEST RESULTS: New lab work indicates WBCs now within normal range at 8.9, patient is afebrile and is asymptomatic. EK05/22/16 SINUS TACHYCARDIA POSSIBLE LEFT ATRIAL ENLARGEMENT LEFT VENTRICULAR HYPERTROPHY AND ST-T CHANGE CURRENT MEDICATIONS: See below. MENTAL STATUS EXAMINATION: Patient is a 36-year-old, single male, who is observed to be resting in bed at times during the day but also visible on unit and attending some groups during the day, displays no agitation today and is cooperative and compliant with staff, appears disheveled, indicates he last showered last night. Patient appears younger than stated age, displays fair eye contact, does not appear to be responding to internal stimuli at time of interaction. Speech: Is monotone but less pressured, less repetitive, somewhat more spontaneous Thought processes: Appears less internally preoccupied, makes attempts to verbalize internal experience, some delay in responses at times Rate of thoughts: Do not appear accelerated, appears to be of normal rate Thought content: Generally logical, denies symptoms of paranoia today denies believing he has a chip in his head or that he is being persecuted or will be taken to retirement Abstract reasoning: Appears to be intact Associations: Appears generally intact Abnormal or psychotic thoughts: Patient denies audio hallucinations, denies persecutory delusions, denies preoccupation with the government and fears of being taken to retirement, denies believing he has chip implanted in his head, denies homicidal and suicidal ideation, but reportedly experienced suicidal ideation prior to hospitalization. Judgment: Limited Insight: Limited Oriented to: Person, place and time Recent and Remote Memory: Limited, appears to be improving Attention Span and Concentration: Limited. Language: Limited but continues to improve Fund of knowledge: Adequate Mood: "I'm feeling fine." Appears less depressed and anxious Affect: Remains blunted, no brightening today, is calm and level today, no agitation DIAGNOSES: Schizophrenia, unspecified type. History of cannabis use disorder, history of alcohol use disorder ASSESSMENT: Patient remains cooperative with staff and exhibits no signs of aggression or behavioral management concerns. Patient continues to utilize PRN Benadryl intermittently, indicates he feels current medication regimen is effective, denies medication side effects. Due to patient report of failure to respond well to Zyprexa, Risperdal, Invega Sustenna, and Abilify, patient will continue on current treatment course of Haldol. Will continue to monitor patient 's response to Haldol for stabilization purposes and will then evaluate need for dosing adjustment and/or transition to another antipsychotic and will attempt to reduce patient's medication regimen to one antipsychotic for ongoing psychotropic medication treatment purposes. Due to patient not having discharge destination, combined with history of initial response to medications followed by decompensation, [place] [facility] conjunction with TLS CR housing. bereavement coordinator will continue to pursue referral to long-term care if deemed appropriate after follow up Administrative Hearing which was scheduled for yesterday, which is now to occur today. Referral for TLS for supervised housing has been initiated for future discharge planning purposes. Patient reiterates he will not be requesting court date until he knows the outcome of the follow-up administrative hearing. MANAGEMENT PLAN: Continue Haldol 5 mg po BID, Seroquel 100 mg po q hs. Monitor need for dosing adjustment with plan to transition patient to atypical antipsychotic and reduce treatment to one antipsychotic once patient is stabilized for period of time and able to determine consistent and persistent response to medication Maintain patient on one-to-one observation Maintain safety precautions Patient to attend groups and participate in unit programming to develop coping strategies when able Engage patient in discharge planning process and arrange meeting with support system to ensure safe discharge planning when appropriate, initiate referral to long-term care in the event patient is not appropriate for community residence TLS housing Patient to follow up with PCM and dentist upon discharge TIME SPENT: 15 minutes Vital Signs Vital Signs Date Time Temp Pulse Resp B/P Pulse Ox O2 Delivery O2 Flow Rate FiO2 07/26/16 06:20 96.4 66 18 101/57 07/22/16 18:00 Room Air Current Medications Current Medications Acetaminophen (Tylenol Tab) 650 mg Q6HP PRN PO HEADACHE or DISCOMFORT; Start at 14:00; Stop 08/08/16 at 13:59 Al Hydrox/Mg Hydrox/Simethicone (Mylanta) 30 ml Q4HP PRN PO HEARTBURN/ INDIGESTION; Start 07/09/16 at 14:00; Stop 08/08/16 at 13:59 Benztropine Mesylate (Cogentin) 1 mg Q6HP PRN PO EPS symptoms; Start 07/10/16 at 12:00; Stop 07/10/16 at 12:00; Status DC Benztropine Mesylate (Cogentin) 1 mg Q6HP PRN PO EPS Last administered on 20:59; Start 07/10/16 at 21:15; Stop 08/09/16 at 21:14 Diphenhydramine HCl (Benadryl) 50 mg Q6HP PRN PO AGITATION Last administered on 07/23/16 20:04; Start 07/10/16 at 12:00; Stop 08/09/16 at 11:59 Haloperidol (Haldol) 5 mg BID PO Last administered on 07/26/16 09:26; Start at 21:00; Stop 08/09/16 at 20:59 Haloperidol (Haldol) 5 mg Q6HP PRN PO AGITATION Last administered on 07/10/16 19:58; Start 07/10/16 at 12:00; Stop 08/09/16 at 11:59 Home Med (Med Rec Complete!) ASDIRECTED XX ; Start 07/09/16 at 07:30; Stop at 07:30; Status DC Lorazepam (Ativan) 1 mg Q6H PRN PO ANXIETY/AGITATION Last administered on 00:17; Start 07/10/16 at 12:00; Stop 07/23/16 at 11:59; Status DC Magnesium Hydroxide (Milk Of Magnesia) 30 ml DAILYPRN PRN PO CONSTIPATION; Start 07/09/16 at 14:00; Stop 08/08/16 at 13:59 Nicotine (Nicoderm Cq 21mg) 1 patch DAILY TD Last administered on 07/18/16 08: 51; Start 07/09/16 at 09:00; Stop 07/19/16 at 11:20; Status DC Nicotine (Nicorette) 2 mg Q2HP PRN PO NICOTINE WITHDRAWAL Last administered on 07/26/16 09:27; Start 07/19/16 at 11:30; Stop 08/18/16 at 11:29 Non-Formulary Medication ( See Comment Field Below ) SEE COMMENTS SECTION 1T @10 XX ; Start 07/13/16 at 10:00; Stop 07/13/16 at 10:00; Status DC Non-Formulary Medication ( See Comment Field Below ) SEE COMMENTS SECTION 1T @10 XX ; Start 07/15/16 at 10:00; Stop 07/15/16 at 23:59; Status DC Non-Formulary Medication ( See Comment Field Below ) SEE LABEL COMMENTS DAILY XX Last administered on 07/13/16 09:46; Start 07/11/16 at 09:00; Stop 07/13 at 09:49; Status DC Oseltamivir Phosphate (Tamiflu) 75 mg DAILY PO Last administered on 07/26/16 09:26; Start 07/19/16 at 09:00; Stop 07/28/16 at 12:00 Quetiapine Fumarate (SEROquel) 100 mg QHS PO Last administered on 07/25/16 20: 07; Start 07/09/16 at 21:00; Stop 08/08/16 at 20:59 Allergies Coded Allergies: No Known Allergies (Unverified , 05/18/16) Desire Jackson Jul 26, 2016 10:55
[2016-07-26 18:00] VITALS: BP 113/61
[2016-07-26] MEDS: QUEtiapine FUMARATE 100 MG TAB PO SCH (20:09)
[2016-07-26] MEDS: diphenhydrAMINE 50 MG CAP PO PRN (20:09)
[2016-07-27 06:36] VITALS: BP 104/51
[2016-07-27] MEDS: HALOPERIDOL 5 MG TAB PO SCH ×2 (09:02→20:00)
[2016-07-27] MEDS: OSELTAMIVIR PHOSPHATE 75 MG CAP (TAMIFLU) PO SCH (09:02)
[2016-07-27] MEDS: NICOTINE POLACRILEX 2 MG GUM PO PRN ×3 (09:03→18:12)
[2016-07-27 18:00] VITALS: BP 110/56
[2016-07-27] MEDS: QUEtiapine FUMARATE 100 MG TAB PO SCH (20:00)
[2016-07-28 06:16] VITALS: BP 99/54
[2016-07-28] MEDS: OSELTAMIVIR PHOSPHATE 75 MG CAP (TAMIFLU) PO SCH (08:56)
[2016-07-28] MEDS: NICOTINE POLACRILEX 2 MG GUM PO PRN ×4 (08:56→21:56)
[2016-07-28] MEDS: HALOPERIDOL 5 MG TAB PO SCH ×2 (08:58→20:19)
[2016-07-28 18:00] VITALS: BP 119/82
[2016-07-28] MEDS: QUEtiapine FUMARATE 100 MG TAB PO SCH (20:19)
[2016-07-28] MEDS: diphenhydrAMINE 50 MG CAP PO PRN (21:56)
[2016-07-29 06:34] VITALS: BP 110/64
[2016-07-29] MEDS: NICOTINE POLACRILEX 2 MG GUM PO PRN ×2 (09:14→20:25)
[2016-07-29] MEDS: HALOPERIDOL 5 MG TAB PO SCH ×2 (09:15→20:24)
--- NOTE | 2016-07-29 10:54 | IPNPDOC ---
[facility] Progress Note Progress Note DATE OF SERVICE: 07/29/16 HISTORY: Hospice Clinical Manager met with patient today to assess treatment progress on inpatient unit. Patient was again observed to be sleeping in bed during morning groups, did not sit up or get out of bed, has not been attending am groups and continues to deny desire to attend. Patient denies symptoms of anxiety and depression, denies audiovisual hallucinations, denies suicidal and homicidal ideation, and denies urge to engage in self-injurious behavior. Patient denies experiencing paranoia or feeling as though he is being persecuted. Patient is eating and drinking, states he is attending to his ADLs, states he has been showering nightly. Patient remains engageable, indicates appetite is stable, denies challenges with energy level or concentration. Patient denies symptoms of agitation and irritability, indicates current medications remain affective and denies side effects. Hospice Clinical Manager and patient again discussed discharge planning and patient remains aware that early childhood education coordinator is being told by grandfather that discharge plan does not include discharge to home and has made referral to TLS CR, patient remains receptive to CR level of TLS. Of note: Patient informed senior medical writer at previous interaction that he has taken Zyprexa, Risperdal, Invega Sustenna, and Abilify in past with poor effect. VITAL SIGNS: See below. NEW TEST RESULTS: New lab work indicates WBCs now within normal range at 8.9, patient is afebrile and is asymptomatic. EK05/22/16 SINUS TACHYCARDIA POSSIBLE LEFT ATRIAL ENLARGEMENT LEFT VENTRICULAR HYPERTROPHY AND ST-T CHANGE. PA is aware. CURRENT MEDICATIONS: See below. MENTAL STATUS EXAMINATION: Patient is a 36-year-old, single male, who is observed to be resting in bed at times during the day but also visible on unit and attending some groups during the day, displays no agitation today and is cooperative and compliant with staff, appears disheveled, indicates he last showered last night. Patient appears younger than stated age, displays fair eye contact, does not appear to be responding to internal stimuli at time of interaction. Speech: Is monotone but less pressured, less repetitive, somewhat more spontaneous Thought processes: Appears less internally preoccupied, makes attempts to verbalize internal experience, some delay in responses at times Rate of thoughts: Do not appear accelerated, appears to be of normal rate Thought content: Generally logical, denies symptoms of paranoia today denies believing he has a chip in his head or that he is being persecuted or will be taken to [facility] Abstract reasoning: Appears to be intact Associations: Appears generally intact Abnormal or psychotic thoughts: Patient denies audio hallucinations, denies persecutory delusions, denies preoccupation with the government and fears of being taken to [facility], denies believing he has chip implanted in his head, denies homicidal and suicidal ideation, but reportedly experienced suicidal ideation prior to hospitalization. Judgment: Limited Insight: Limited Oriented to: Person, place and time Recent and Remote Memory: Limited, appears to be improving Attention Span and Concentration: Limited. Language: Limited but continues to improve Fund of knowledge: Adequate Mood: "I'm fine. no problems." Appears less depressed and anxious Affect: Remains blunted, no brightening today, is calm and level today, no agitation DIAGNOSES: Schizophrenia, unspecified type. History of cannabis use disorder, history of alcohol use disorder ASSESSMENT: Patient remains cooperative with staff and exhibits no signs of aggression or behavioral management concerns. Patient continues to utilize PRN Benadryl intermittently, indicates he feels current medication regimen is effective, denies medication side effects. Due to patient report of failure to respond well to Zyprexa, Risperdal, Invega Sustenna, and Abilify, patient will continue on current treatment course of Haldol. Will continue to monitor patient 's response to Haldol for stabilization purposes and will then evaluate need for dosing adjustment and/or transition to another antipsychotic and will attempt to reduce patient's medication regimen to one antipsychotic for ongoing psychotropic medication treatment purposes. Due to patient not having discharge destination, combined with history of initial response to medications followed by decompensation, transfer to [facility] [place] is being pursued in conjunction with TLS CR housing referral. operations coordinator will continue to pursue referral to long -term care and referral for TLS for supervised housing has been initiated for future discharge planning purposes. Patient indicates today he will consider desire to request court date after communicating with his inorganic chemistry teacher. MANAGEMENT PLAN: Continue Haldol 5 mg po BID, Seroquel 100 mg po q hs. Monitor need for dosing adjustment with plan to transition patient to atypical antipsychotic and reduce treatment to one antipsychotic once patient is stabilized for period of time and able to determine consistent and persistent response to medication Maintain patient on one-to-one observation Maintain safety precautions Patient to attend groups and participate in unit programming to develop coping strategies when able Engage patient in discharge planning process and arrange meeting with support system to ensure safe discharge planning when appropriate, initiate referral to long-term care in the event patient is not appropriate for community residence TLS housing Patient to follow up with PCM and dentist upon discharge TIME SPENT: 25 minutes Vital Signs Vital Signs Date Time Temp Pulse Resp B/P Pulse Ox O2 Delivery O2 Flow Rate FiO2 07/29/16 06:34 97.7 55 20 110/64 07/28/16 08:44 Room Air Current Medications Current Medications Acetaminophen (Tylenol Tab) 650 mg Q6HP PRN PO HEADACHE or DISCOMFORT; Start at 14:00; Stop 08/08/16 at 13:59 Al Hydrox/Mg Hydrox/Simethicone (Mylanta) 30 ml Q4HP PRN PO HEARTBURN/ INDIGESTION; Start 07/09/16 at 14:00; Stop 08/08/16 at 13:59 Benztropine Mesylate (Cogentin) 1 mg Q6HP PRN PO EPS symptoms; Start 07/10/16 at 12:00; Stop 07/10/16 at 12:00; Status DC Benztropine Mesylate (Cogentin) 1 mg Q6HP PRN PO EPS Last administered on 20:59; Start 07/10/16 at 21:15; Stop 08/09/16 at 21:14 Diphenhydramine HCl (Benadryl) 50 mg Q6HP PRN PO AGITATION Last administered on 07/28/16 21:56; Start 07/10/16 at 12:00; Stop 08/09/16 at 11:59 Haloperidol (Haldol) 5 mg BID PO Last administered on 07/29/16 09:15; Start at 21:00; Stop 08/09/16 at 20:59 Haloperidol (Haldol) 5 mg Q6HP PRN PO AGITATION Last administered on 07/10/16 19:58; Start 07/10/16 at 12:00; Stop 08/09/16 at 11:59 Home Med (Med Rec Complete!) ASDIRECTED XX ; Start 07/09/16 at 07:30; Stop at 07:30; Status DC Lorazepam (Ativan) 1 mg Q6H PRN PO ANXIETY/AGITATION Last administered on 00:17; Start 07/10/16 at 12:00; Stop 07/23/16 at 11:59; Status DC Magnesium Hydroxide (Milk Of Magnesia) 30 ml DAILYPRN PRN PO CONSTIPATION; Start 07/09/16 at 14:00; Stop 08/08/16 at 13:59 Nicotine (Nicoderm Cq 21mg) 1 patch DAILY TD Last administered on 07/18/16 08: 51; Start 07/09/16 at 09:00; Stop 07/19/16 at 11:20; Status DC Nicotine (Nicorette) 2 mg Q2HP PRN PO NICOTINE WITHDRAWAL Last administered on 07/29/16 09:14; Start 07/19/16 at 11:30; Stop 08/18/16 at 11:29 Non-Formulary Medication ( See Comment Field Below ) SEE COMMENTS SECTION 1T @10 XX ; Start 07/13/16 at 10:00; Stop 07/13/16 at 10:00; Status DC Non-Formulary Medication ( See Comment Field Below ) SEE COMMENTS SECTION 1T @10 XX ; Start 07/15/16 at 10:00; Stop 07/15/16 at 23:59; Status DC Non-Formulary Medication ( See Comment Field Below ) SEE LABEL COMMENTS DAILY XX Last administered on 07/13/16 09:46; Start 07/11/16 at 09:00; Stop 07/13 at 09:49; Status DC Oseltamivir Phosphate (Tamiflu) 75 mg DAILY PO Last administered on 07/28/16 08:56; Start 07/19/16 at 09:00; Stop 07/28/16 at 12:00; Status DC Quetiapine Fumarate (SEROquel) 100 mg QHS PO Last administered on 07/28/16 20: 19; Start 07/09/16 at 21:00; Stop 08/08/16 at 20:59 Allergies Coded Allergies: No Known Allergies (Unverified , 05/18/16) Desire Jackson Jul 29, 2016 10:53
[2016-07-29 18:00] VITALS: BP 124/69
[2016-07-29] MEDS: QUEtiapine FUMARATE 100 MG TAB PO SCH (20:24)
[2016-07-30 06:29] VITALS: BP 113/70
[2016-07-30] MEDS: HALOPERIDOL 5 MG TAB PO SCH ×2 (09:00→20:05)
[2016-07-30] MEDS: NICOTINE POLACRILEX 2 MG GUM PO PRN (16:32)
[2016-07-30 18:00] VITALS: BP 110/66
--- NOTE | 2016-07-30 18:01 | IPN ---
DATE: 07/30/2016 SUBJECTIVE: "I'm feeling better." OBJECTIVE: Patient is laying in bed. Patient reports improvement from his auditory hallucinations. Patient denies feelings of paranoia during the interview. Patient also denies side effect from medication. Patient has very little interaction with other patients and staff. MENTAL STATUS EXAMINATION: Patient dressed in [facility]. Patient is cooperative, has poor eye contact, his speech is slow and monotone. Mood is euthymic, affect is blunted. Patient is denying auditory or visual hallucinations or delusions during the interview. Memory is fair. Patient is denying suicidal or homicidal ideation during the interview. Insight and judgment is limited. ASSESSMENT: 1. Schizophrenia. 2. Marijuana abuse. 3. Alcohol abuse. PLAN: 1. Continue with Haldol 5 mg by mouth twice a day. 2. Cogentin as needed for extrapyramidal symptoms (EPS). Patient has not been needing this medication. 3. Seroquel 100 mg by mouth nightly. 4. Continue medication management and individual and group psychotherapy.
[2016-07-30] MEDS: QUEtiapine FUMARATE 100 MG TAB PO SCH (20:05)
[2016-07-31 06:36] VITALS: BP 115/62
[2016-07-31] MEDS: HALOPERIDOL 5 MG TAB PO SCH ×2 (08:32→20:05)
--- NOTE | 2016-07-31 15:14 | IPN ---
DATE: 07/31/2016 SUBJECTIVE: "I'm feeling better." OBJECTIVE: The patient is laying in bed sleeping. The patient continues to report significant improvement from auditory hallucinations. The patient denies any feeling of paranoia. The patient denies side effects from the medication although, he has some parkinsonian rigidity walking. However, he is not conscious about this side effect. The patient continues to have very little interaction with other patients and staff. MENTAL STATUS EXAMINATION: The patient is dressed in [facility]. The patient is calm and cooperative. He has poor eye contact. Speech is slow and monotone. Mood is euthymic. Affect is blunted. The patient is denying auditory or visual hallucinations. The patient is denying feelings of paranoia. Memory is fair. The patient denies suicidal or homicidal ideation during the interview. Insight and judgment are poor. ASSESSMENT: 1. Schizophrenia. 2. Marijuana abuse. 3. Alcohol abuse. PLAN: 1. Continue with Haldol 5 mg by mouth twice a day. 2. Cogentin as needed for extrapyramidal symptoms (EPS). 3. Seroquel 100 mg by mouth at bedtime. 4. Continue medication management, individual and group therapy. 5. Social work is working on placement.
[2016-07-31 18:00] VITALS: BP 116/57
[2016-07-31] MEDS: QUEtiapine FUMARATE 100 MG TAB PO SCH (20:04)
[2016-07-31] MEDS: NICOTINE POLACRILEX 2 MG GUM PO PRN (20:05)
[2016-08-01 06:33] VITALS: BP 114/63
[2016-08-01] MEDS: NICOTINE POLACRILEX 2 MG GUM PO PRN ×2 (09:29→18:52)
[2016-08-01] MEDS: HALOPERIDOL 5 MG TAB PO SCH ×2 (09:29→20:12)
[2016-08-01 18:00] VITALS: BP 106/64
--- NOTE | 2016-08-01 18:42 | IPNPDOC ---
[facility] [place] Progress Note Progress Note DATE OF SERVICE: 08/01/16 HISTORY: Radiopharmacist met with patient today to assess treatment progress on inpatient unit. Patient was again observed to be sleeping in bed during morning groups, did sit up today to engage with creative services writer and, with prompting, agreed to get out of bed to walk. The patient denies side effects from the medication although, he has some parkinsonian rigidity walking, however, he is not conscious of the side effect. Patient is agreeable to trialing standing BID order of low-dose Cogentin in effort to address as recommended by attending, is aware med trial will be for 3-4 days to assess and may be followed by a small Haldol dose reduction in effort to try to maintain gains made by patient on medication and simultaneously reduce side effects. Patient denies symptoms of anxiety and depression, denies audiovisual hallucinations, denies suicidal and homicidal ideation, and denies urge to engage in self-injurious behavior. Patient denies experiencing paranoia or feeling as though he is being persecuted. Patient is eating and drinking, states he is attending to his ADLs, states he has been showering nightly though appears disheveled. Patient remains engageable, indicates appetite is stable, denies challenges with energy level or concentration, there was frequently observed isolating to room and sleeping in bed. Patient denies symptoms of agitation and irritability, indicates current medications remain affective and denies awareness of side effects. Radiopharmacist and patient again discussed discharge planning and patient remains aware that office coordinator is being told by grandfather that discharge plan does not include discharge to home and has made referral to [facility] and [facility]. Of note: Patient informed creative services writer at previous interaction that he has taken Zyprexa, Risperdal, Invega Sustenna, and Abilify in past with poor effect. Addendum: Per office coordinator, confirmation was received today the patient may not discharge to the home of uncle, mother, or grandfather. VITAL SIGNS: See below. NEW TEST RESULTS: New lab work indicates WBCs now within normal range at 8.9, patient is afebrile and is asymptomatic. EK05/22/16 SINUS TACHYCARDIA POSSIBLE LEFT ATRIAL ENLARGEMENT LEFT VENTRICULAR HYPERTROPHY AND ST-T CHANGE. PA is aware. CURRENT MEDICATIONS: See below. MENTAL STATUS EXAMINATION: Patient is a 36-year-old, single male, who is observed to be resting in bed at times during the day but also visible on unit and attending some groups during the day, displays no agitation today and is cooperative and compliant with staff, appears disheveled, indicates he last showered last night. Patient appears younger than stated age, displays fair eye contact, does not appear to be responding to internal stimuli at time of interaction. Speech: Is monotone but less pressured, less repetitive Thought processes: Appears less internally preoccupied, makes attempts to verbalize internal experience, some delay in responses at times Rate of thoughts: Do not appear accelerated, appears to be of normal rate Thought content: Generally logical, denies symptoms of paranoia today denies believing he has a chip in his head or that he is being persecuted or will be taken to care home Abstract reasoning: Appears to be intact Associations: Appears generally intact Abnormal or psychotic thoughts: Patient denies audio hallucinations, denies persecutory delusions, denies preoccupation with the government and fears of being taken to care home, denies believing he has chip implanted in his head, denies homicidal and suicidal ideation, but reportedly experienced suicidal ideation prior to hospitalization. Judgment: Limited Insight: Limited Oriented to: Person, place and time Recent and Remote Memory: Limited, appears to be improving Attention Span and Concentration: Limited. Language: Limited but continues to improve Fund of knowledge: Adequate Mood: "I feel the same." Affect: Remains blunted, no brightening today, is calm and level today, no agitation DIAGNOSES: Schizophrenia, unspecified type. History of cannabis use disorder, history of alcohol use disorder ASSESSMENT: Patient remains limited in terms of program participation but is otherwise cooperative with staff and exhibits no signs of aggression or behavioral management concerns. Patient continues to utilize PRN Benadryl intermittently, indicates he feels current medication regimen is effective, denies medication side effects. Due to patient report of failure to respond well to Zyprexa, Risperdal, Invega Sustenna, and Abilify, patient will continue on current treatment course of Haldol. With patient's approval, will initiate a trial of Cogentin 0.5 mg po BID in effort to address symptoms of parkinsonism. May also attempt to make small reduction in Haldol dosing also in effort to reduce medication side effects. Will continue to monitor patient's response to Haldol for stabilization purposes and will then evaluate need for dosing adjustment and/or transition to another antipsychotic and will attempt to reduce patient's medication regimen to one antipsychotic for ongoing psychotropic medication treatment purposes. Due to patient not having discharge destination, combined with history of initial response to medications followed by decompensation, transfer to [facility] [place] being pursued in conjunction with [facility] housing referral. school community relations coordinator will continue to pursue referral to long -term care and referral for [facility] for supervised housing has been initiated for future discharge planning purposes. MANAGEMENT PLAN: Initiate med trial Cogentin 0.5 mg po BID. Continue Haldol 5 mg po BID, Seroquel 100 mg po q hs. Monitor need for dosing adjustment with plan to transition patient to atypical antipsychotic and reduce treatment to one antipsychotic once patient is stabilized for period of time and able to determine consistent and persistent response to medication Maintain patient on one-to-one observation Maintain safety precautions Patient to attend groups and participate in unit programming to develop coping strategies when able Engage patient in discharge planning process and arrange meeting with support system to ensure safe discharge planning when appropriate, initiate referral to long-term care in the event patient is not appropriate for community residence [facility] Patient to follow up with PCM and dentist upon discharge TIME SPENT: 25 minutes Vital Signs Vital Signs Date Time Temp Pulse Resp B/P Pulse Ox O2 Delivery O2 Flow Rate FiO2 08/01/16 06:33 96.0 72 18 114/63 07/28/16 08:44 Room Air Current Medications Current Medications Acetaminophen (Tylenol Tab) 650 mg Q6HP PRN PO HEADACHE or DISCOMFORT; Start at 14:00; Stop 08/08/16 at 13:59 Al Hydrox/Mg Hydrox/Simethicone (Mylanta) 30 ml Q4HP PRN PO HEARTBURN/ INDIGESTION; Start 07/09/16 at 14:00; Stop 08/08/16 at 13:59 Benztropine Mesylate (Cogentin) 0.5 mg BID PO ; Start 08/01/16 at 21:00; Stop at 20:59 Benztropine Mesylate (Cogentin) 1 mg Q6HP PRN PO EPS symptoms; Start 07/10/16 at 12:00; Stop 07/10/16 at 12:00; Status DC Benztropine Mesylate (Cogentin) 1 mg Q6HP PRN PO EPS Last administered on t 20:59; Start 07/10/16 at 21:15; Stop 08/01/16 at 21:00 Diphenhydramine HCl (Benadryl) 50 mg Q6HP PRN PO AGITATION Last administered on 07/28/16 21:56; Start 07/10/16 at 12:00; Stop 08/09/16 at 11:59 Haloperidol (Haldol) 5 mg BID PO Last administered on 08/01/16 09:29; Start at 21:00; Stop 08/09/16 at 20:59 Haloperidol (Haldol) 5 mg Q6HP PRN PO AGITATION Last administered on 07/10/16 19:58; Start 07/10/16 at 12:00; Stop 08/09/16 at 11:59 Home Med (Med Rec Complete!) ASDIRECTED XX ; Start 07/09/16 at 07:30; Stop at 07:30; Status DC Lorazepam (Ativan) 1 mg Q6H PRN PO ANXIETY/AGITATION Last administered on 00:17; Start 07/10/16 at 12:00; Stop 07/23/16 at 11:59; Status DC Magnesium Hydroxide (Milk Of Magnesia) 30 ml DAILYPRN PRN PO CONSTIPATION; Start 07/09/16 at 14:00; Stop 08/08/16 at 13:59 Nicotine (Nicoderm Cq 21mg) 1 patch DAILY TD Last administered on 07/18/16 08: 51; Start 07/09/16 at 09:00; Stop 07/19/16 at 11:20; Status DC Nicotine (Nicorette) 2 mg Q2HP PRN PO NICOTINE WITHDRAWAL Last administered on 08/01/16 09:29; Start 07/19/16 at 11:30; Stop 08/18/16 at 11:29 Non-Formulary Medication ( See Comment Field Below ) SEE COMMENTS SECTION 1T @10 XX ; Start 07/13/16 at 10:00; Stop 07/13/16 at 10:00; Status DC Non-Formulary Medication ( See Comment Field Below ) SEE COMMENTS SECTION 1T @10 XX ; Start 07/15/16 at 10:00; Stop 07/15/16 at 23:59; Status DC Non-Formulary Medication ( See Comment Field Below ) SEE LABEL COMMENTS DAILY XX Last administered on 07/13/16 09:46; Start 07/11/16 at 09:00; Stop 07/13 at 09:49; Status DC Oseltamivir Phosphate (Tamiflu) 75 mg DAILY PO Last administered on 07/28/16 08:56; Start 07/19/16 at 09:00; Stop 07/28/16 at 12:00; Status DC Quetiapine Fumarate (SEROquel) 100 mg QHS PO Last administered on 07/31/16 20: 04; Start 07/09/16 at 21:00; Stop 08/08/16 at 20:59 Allergies Coded Allergies: No Known Allergies (Unverified , 05/18/16) Desire Jackson Aug 01, 2016 18:41
[2016-08-01] MEDS: BENZTROPINE 0.5 MG TAB PO SCH (20:12)
[2016-08-01] MEDS: QUEtiapine FUMARATE 100 MG TAB PO SCH (20:12)
[2016-08-02 06:42] VITALS: BP 113/62
[2016-08-02] MEDS: NICOTINE POLACRILEX 2 MG GUM PO PRN ×2 (08:59→17:57)
[2016-08-02] MEDS: BENZTROPINE 0.5 MG TAB PO SCH ×2 (08:59→20:11)
[2016-08-02] MEDS: HALOPERIDOL 5 MG TAB PO SCH ×2 (08:59→20:11)
[2016-08-02 18:00] VITALS: BP 108/53
[2016-08-02] MEDS: QUEtiapine FUMARATE 100 MG TAB PO SCH (20:10)
[2016-08-02] MEDS: diphenhydrAMINE 50 MG CAP PO PRN (20:10)
--- NOTE | 2016-08-02 20:13 | IPNPDOC ---
[facility] Progress Note Progress Note DATE OF SERVICE: 08/02/16 HISTORY: Socket Puller met with patient today to assess treatment progress on inpatient unit. Patient was again observed to be sleeping in bed during morning groups, got out of bed when asked, ambulated with credit underwriter. Patient continues to deny side effects from the medication although, he continues to exhibit some parkinsonian rigidity when walking, is not conscious of the side effect. Patient has been taking standing BID low-dose Cogentin in effort to address symptoms times one day, remains aware med trial will be for 3-4 days to assess and may be followed by a small Haldol dose reduction in effort to try to maintain gains made by patient on medication and simultaneously reduce side effects. Patient denies symptoms of anxiety and depression, denies audiovisual hallucinations, denies suicidal and homicidal ideation, and denies urge to engage in self-injurious behavior. Patient denies experiencing paranoia or feeling as though he is being persecuted. Patient is eating and drinking, initially states he is attending to his ADLs daily, then informs credit underwriter he did not shower last night, continues to appear disheveled. Patient remains engageable, indicates appetite is stable, denies challenges with energy level or concentration, Continues to isolate to room during day sleeping in bed, per EMR is visible in the evening and has been attending evening groups. Patient denies symptoms of agitation and irritability, indicates he feels current medications remain affective and denies awareness of side effects. Socket Puller and patient again discussed discharge planning and patient remains aware that home health outreach coordinator is being told by grandfather that discharge plan does not include discharge to home and has made referral to [facility] and [facility]. Of note: Patient informed credit underwriter at previous interaction that he has taken Zyprexa, Risperdal, Invega Sustenna, and Abilify in past with poor effect. Addendum: Per home health outreach coordinator, confirmation was received on 08/01/16 that patient may not discharge to the home of uncle, mother, or grandfather. VITAL SIGNS: See below. NEW TEST RESULTS: New lab work indicates WBCs now within normal range at 8.9, patient is afebrile and is asymptomatic. Rectal consult completed regarding EEG/head CT, not indicated EK05/22/16 SINUS TACHYCARDIA POSSIBLE LEFT ATRIAL ENLARGEMENT LEFT VENTRICULAR HYPERTROPHY AND ST-T CHANGE. PA is aware. CURRENT MEDICATIONS: See below. MENTAL STATUS EXAMINATION: Patient is a 36-year-old, single male, who is observed to be sleeping in bed during the day but also visible on unit and attending some groups in evening, displays no agitation today and is cooperative and compliant with staff, appears disheveled, indicates he last showered last night. Patient appears younger than stated age, displays fair eye contact, does not appear to be responding to internal stimuli at time of interaction. Speech: Is monotone but less pressured, less repetitive Thought processes: Appears less internally preoccupied, makes attempts to verbalize internal experience, some delay in responses at times Rate of thoughts: Do not appear accelerated, appears to be of normal rate Thought content: Generally logical, denies symptoms of paranoia today denies believing he has a chip in his head or that he is being persecuted or will be taken to [facility] Abstract reasoning: Appears to be intact Associations: Appears generally intact Abnormal or psychotic thoughts: Patient denies audio hallucinations, denies persecutory delusions, denies preoccupation with the government and fears of being taken to [facility], denies believing he has chip implanted in his head, denies homicidal and suicidal ideation, but reportedly experienced suicidal ideation prior to hospitalization. Judgment: Limited Insight: Limited Oriented to: Person, place and time Recent and Remote Memory: Limited, continues to improve Attention Span and Concentration: Limited. Language: Limited but continues to improve Fund of knowledge: Adequate Mood: "I feel the same, fine." Affect: Remains blunted, no brightening today, is calm and level today, no agitation DIAGNOSES: Schizophrenia, unspecified type. History of cannabis use disorder, history of alcohol use disorder ASSESSMENT: Patient remains limited in terms of program participation but is otherwise cooperative with staff and exhibits no signs of aggression or behavioral management concerns. Patient continues to utilize PRN Benadryl intermittently, indicates he feels current medication regimen is effective, denies medication side effects. Due to patient report of failure to respond well to Zyprexa, Risperdal, Invega Sustenna, and Abilify, patient will continue on current treatment course of Haldol. With patient's approval, will continue trial of Cogentin 0.5 mg po BID in effort to address symptoms of parkinsonism. May also attempt to make small reduction in Haldol dosing also in effort to reduce medication side effects. Will continue to monitor patient's response to Haldol for stabilization purposes and will then evaluate need for dosing adjustment and/or transition to another antipsychotic and will attempt to reduce patient's medication regimen to one antipsychotic for ongoing psychotropic medication treatment purposes. Due to patient not having discharge destination, combined with history of initial response to medications followed by decompensation, transfer to [facility] [place] being pursued in conjunction with [facility] housing referral. acute coordinator will continue to pursue referral to long -term care and referral for [facility] for supervised housing has been initiated for future discharge planning purposes. MANAGEMENT PLAN: Continue med trial Cogentin 0.5 mg po BID. Continue Haldol 5 mg po BID, Seroquel 100 mg po q hs. Monitor need for dosing adjustment with plan to transition patient to atypical antipsychotic and reduce treatment to one antipsychotic once patient is stabilized for period of time and able to determine consistent and persistent response to medication Maintain safety precautions Patient to attend groups and participate in unit programming to develop coping strategies when able Engage patient in discharge planning process and arrange meeting with support system to ensure safe discharge planning when appropriate, initiate referral to long-term care in the event patient is not appropriate for community residence [facility] Patient to follow up with PCM and dentist upon discharge TIME SPENT: 25 minutes Vital Signs Vital Signs Date Time Temp Pulse Resp B/P Pulse Ox O2 Delivery O2 Flow Rate FiO2 08/02/16 18:00 98.0 71 16 108/53 07/28/16 08:44 Room Air Current Medications Current Medications Acetaminophen (Tylenol Tab) 650 mg Q6HP PRN PO HEADACHE or DISCOMFORT; Start at 14:00; Stop 08/08/16 at 13:59 Al Hydrox/Mg Hydrox/Simethicone (Mylanta) 30 ml Q4HP PRN PO HEARTBURN/ INDIGESTION; Start 07/09/16 at 14:00; Stop 08/08/16 at 13:59 Benztropine Mesylate (Cogentin) 0.5 mg BID PO Last administered on 08/02/16t 08 :59; Start 08/01/16 at 21:00; Stop 08/31/16 at 20:59 Benztropine Mesylate (Cogentin) 1 mg Q6HP PRN PO EPS symptoms; Start 07/10/16 at 12:00; Stop 07/10/16 at 12:00; Status DC Benztropine Mesylate (Cogentin) 1 mg Q6HP PRN PO EPS Last administered on 20:59; Start 07/10/16 at 21:15; Stop 08/01/16 at 21:00; Status DC Diphenhydramine HCl (Benadryl) 50 mg Q6HP PRN PO AGITATION Last administered on 07/28/16 21:56; Start 07/10/16 at 12:00; Stop 08/09/16 at 11:59 Haloperidol (Haldol) 5 mg BID PO Last administered on 08/02/16 08:59; Start at 21:00; Stop 08/09/16 at 20:59 Haloperidol (Haldol) 5 mg Q6HP PRN PO AGITATION Last administered on 07/10/16 19:58; Start 07/10/16 at 12:00; Stop 08/09/16 at 11:59 Home Med (Med Rec Complete!) ASDIRECTED XX ; Start 07/09/16 at 07:30; Stop at 07:30; Status DC Lorazepam (Ativan) 1 mg Q6H PRN PO ANXIETY/AGITATION Last administered on 00:17; Start 07/10/16 at 12:00; Stop 07/23/16 at 11:59; Status DC Magnesium Hydroxide (Milk Of Magnesia) 30 ml DAILYPRN PRN PO CONSTIPATION; Start 07/09/16 at 14:00; Stop 08/08/16 at 13:59 Nicotine (Nicoderm Cq 21mg) 1 patch DAILY TD Last administered on 07/18/16 08: 51; Start 07/09/16 at 09:00; Stop 07/19/16 at 11:20; Status DC Nicotine (Nicorette) 2 mg Q2HP PRN PO NICOTINE WITHDRAWAL Last administered on 08/02/16 17:57; Start 07/19/16 at 11:30; Stop 08/18/16 at 11:29 Non-Formulary Medication ( See Comment Field Below ) SEE COMMENTS SECTION 1T @10 XX ; Start 07/13/16 at 10:00; Stop 07/13/16 at 10:00; Status DC Non-Formulary Medication ( See Comment Field Below ) SEE COMMENTS SECTION 1T @10 XX ; Start 07/15/16 at 10:00; Stop 07/15/16 at 23:59; Status DC Non-Formulary Medication ( See Comment Field Below ) SEE LABEL COMMENTS DAILY XX Last administered on 07/13/16 09:46; Start 07/11/16 at 09:00; Stop 07/13 at 09:49; Status DC Oseltamivir Phosphate (Tamiflu) 75 mg DAILY PO Last administered on 07/28/16 08:56; Start 07/19/16 at 09:00; Stop 07/28/16 at 12:00; Status DC Quetiapine Fumarate (SEROquel) 100 mg QHS PO Last administered on 08/01/16 20: 12; Start 07/09/16 at 21:00; Stop 08/08/16 at 20:59 Allergies Coded Allergies: No Known Allergies (Unverified , 05/18/16) Desire Jackson Aug 02, 2016 20:13
[2016-08-03 06:33] VITALS: BP 101/58
[2016-08-03] MEDS: HALOPERIDOL 5 MG TAB PO SCH ×2 (09:04→20:03)
[2016-08-03] MEDS: BENZTROPINE 0.5 MG TAB PO SCH ×2 (09:04→20:03)
[2016-08-03 18:10] VITALS: BP 109/68
[2016-08-03] MEDS: NICOTINE POLACRILEX 2 MG GUM PO PRN (18:18)
[2016-08-03] MEDS: QUEtiapine FUMARATE 100 MG TAB PO SCH (20:03)
[2016-08-04 06:39] VITALS: BP 117/71
[2016-08-04] MEDS: BENZTROPINE 0.5 MG TAB PO SCH ×2 (08:32→20:00)
[2016-08-04] MEDS: HALOPERIDOL 5 MG TAB PO SCH ×2 (08:32→20:00)
[2016-08-04 18:00] VITALS: BP 106/55
[2016-08-04] MEDS: NICOTINE POLACRILEX 2 MG GUM PO PRN (18:10)
[2016-08-04] MEDS: QUEtiapine FUMARATE 100 MG TAB PO SCH (20:00)
[2016-08-05 06:33] VITALS: BP 105/61
[2016-08-05] MEDS: HALOPERIDOL 5 MG TAB PO SCH ×2 (09:14→20:24)
[2016-08-05] MEDS: BENZTROPINE 0.5 MG TAB PO SCH ×2 (09:14→20:24)
[2016-08-05] MEDS: NICOTINE POLACRILEX 2 MG GUM PO PRN ×2 (09:15→19:05)
--- NOTE | 2016-08-05 16:58 | IPN ---
DATE: 08/05/2016 SUBJECTIVE: "I'm not hearing voices." OBJECTIVE: Patient is significantly improved from admission. Patient denies any auditory or visual hallucinations. No evidence of other psychotic symptoms. Denies feelings of paranoia. Denies side effect from medication. Patient would like to be discharged as soon as possible but he has no place to go since he was living with a relative that is refusing to take him back. Patient [facility] to [facility] but they do not have any bed openings at this point. The request is in process. He does not want to stay in the hospital. I discussed the treatment with the patient and he would like to be discharged to go for emergency housing at [facility] [employer] [facility] Patient is motivated for treatment and wants to continue his medications at discharge. MENTAL STATUS EXAMINATION: Patient is dressed in [employer]. Patient is cooperative during the interview, has fair eye contact. Speech is normal in rate, volume, articulation, is coherent, and is spontaneous. Mood is euthymic. Affect is restricted. No delusions or hallucinations. Short-term and long-term memory is fair. Patient is fully oriented. Associations are intact. Thinking is logical. Thought content is appropriate. Patient is denying suicidal or homicidal ideation. Insight and judgment is improved. ASSESSMENT: 1. Schizophrenia. 2. Marijuana abuse. 3. Alcohol abuse. PLAN: 1. Continue with Haldol 5 mg by mouth twice a day. 2. Continue with Cogentin 0.5 mg by mouth twice a day. 3. Continue with Seroquel 100 mg by mouth nightly. 4. Continue medication management and individual and group therapy. 5. Discharge process has been started.
[2016-08-05 18:00] VITALS: BP 126/79
[2016-08-05] MEDS: QUEtiapine FUMARATE 100 MG TAB PO SCH (20:24)
[2016-08-06 06:34] VITALS: BP 104/65
[2016-08-06] MEDS: NICOTINE POLACRILEX 2 MG GUM PO PRN ×2 (08:56→20:03)
[2016-08-06] MEDS: HALOPERIDOL 5 MG TAB PO SCH ×2 (08:56→20:03)
[2016-08-06] MEDS: BENZTROPINE 0.5 MG TAB PO SCH ×2 (08:56→20:03)
--- NOTE | 2016-08-06 17:45 | IPNPDOC ---
[facility] Progress Note Progress Note DATE OF SERVICE: 08/06/16 HISTORY: Director Medical Surgical met with patient today to assess treatment progress on inpatient unit. Patient was again observed to be sleeping in bed during morning groups, got out of bed when asked, ambulated with marine underwriter. Patient continues to deny side effects from the medication although, he continues to exhibit some parkinsonian rigidity when walking, is not conscious of the side effect. Patient has been taking standing BID low-dose Cogentin in effort to address symptoms. Patient continues to present with medication side effect, is today agreeable to trialing a 1 mg reduction to a.m. Haldol dose. Patient denies symptoms of anxiety and depression , denies audiovisual hallucinations, denies suicidal and homicidal ideation, and denies urge to engage in self-injurious behavior. Patient denies experiencing paranoia or feeling as though he is being persecuted. Patient is eating and drinking, initially states he is attending to his ADLs daily, then becomes evasive regarding completion of personal care, continues to appear disheveled. Patient remains engageable, indicates appetite is stable, denies challenges with energy level or concentration, continues to isolate to room during day sleeping in bed, per EMR remains visible most evenings and has been attending evening groups. Patient denies symptoms of agitation and irritability , indicates he feels current medications remain affective and denies awareness of side effects. Director Medical Surgical and patient again discussed discharge planning and patient remains aware that fundraising coordinator is being told by grandfather that discharge plan does not include discharge to home and has made referral to [facility] and [facility]. operating room coordinator is also now attempting to communicate with [facility] who has reportedly agreed to provide hotel housing to patient, but housing is notable distance from location where patient must check in daily in order to maintain housing. Of note: Patient informed marine underwriter at previous interaction that he has taken Zyprexa, Risperdal, Invega Sustenna, and Abilify in past with poor effect. Addendum: Per fundraising coordinator, confirmation was received on 08/01/16 that patient may not discharge to the home of uncle, mother, or grandfather. VITAL SIGNS: See below. NEW TEST RESULTS: New lab work indicates WBCs now within normal range at 8.9, patient is afebrile and is asymptomatic. Rectal consult completed regarding EEG/head CT, not indicated EK05/22/16 SINUS TACHYCARDIA POSSIBLE LEFT ATRIAL ENLARGEMENT LEFT VENTRICULAR HYPERTROPHY AND ST-T CHANGE. PA is aware. CURRENT MEDICATIONS: See below. MENTAL STATUS EXAMINATION: Patient is a 36-year-old, single male, who is observed to be sleeping in bed during the day but also visible on unit and attending some groups in evening, displays no agitation today and is cooperative and compliant with staff, appears disheveled, indicates he last showered last night. Patient appears younger than stated age, displays fair eye contact, does not appear to be responding to internal stimuli at time of interaction. Speech: Is monotone but less pressured, less repetitive Thought processes: Appears less internally preoccupied, makes attempts to verbalize internal experience, some delay in responses at times Rate of thoughts: Do not appear accelerated, appears to be of normal rate Thought content: Generally logical, denies symptoms of paranoia today denies believing he has a chip in his head or that he is being persecuted or will be taken to [facility] Abstract reasoning: Appears to be intact Associations: Appears generally intact Abnormal or psychotic thoughts: Patient denies audio hallucinations, denies persecutory delusions, denies preoccupation with the government and fears of being taken to [facility], denies believing he has chip implanted in his head, denies homicidal and suicidal ideation, but reportedly experienced suicidal ideation prior to hospitalization. Judgment: Limited Insight: Limited Oriented to: Person, place and time Recent and Remote Memory: Limited, continues to improve Attention Span and Concentration: Limited. Language: Limited but continues to improve Fund of knowledge: Adequate Mood: "I feel the same, fine, I'm not hearing any voices." Affect: Remains blunted, brightens today X 1, is calm and level today, no agitation DIAGNOSES: Schizophrenia, unspecified type. History of cannabis use disorder, history of alcohol use disorder ASSESSMENT: Patient remains limited in terms of program participation but is otherwise cooperative with staff and exhibits no signs of aggression or behavioral management concerns. Patient continues to utilize PRN Benadryl intermittently, indicates he feels current medication regimen is effective, denies medication side effects, though medication side effects involving stiffness are noted. Due to patient report of failure to respond well to Zyprexa , Risperdal, Invega Sustenna, and Abilify, patient will continue on current treatment course of Haldol. Will continue trial of Cogentin 0.5 mg po BID in effort to address symptoms of parkinsonism, and patient is in agreement with 1 mg reduction to a.m. Haldol dose in effort to reduce medication side effects. Will monitor patient's response to Haldol dose reduction and continue to evaluate for stabilization purposes and will then evaluate need for dosing adjustment and/or transition to another antipsychotic and will attempt to reduce patient's medication regimen to one antipsychotic for ongoing psychotropic medication treatment purposes. Due to patient not having discharge destination, combined with history of initial response to medications followed by decompensation, [place] [facility] conjunction with [facility] housing referral. operating room coordinator is now also attempting to communicate with DSS who has agreed to provide hotel housing, but housing is reportedly a distance from where patient must check in daily in order to maintain his housing. operating room coordinator will continue to also pursue referral to [facility] for supervised housing has been initiated for future discharge planning purposes. MANAGEMENT PLAN: Continue med trial Cogentin 0.5 mg po BID. Reduce Haldol to 4 mg po q am and 5 mg po hs. Continue Seroquel 100 mg po q hs. Monitor need for dosing adjustment with plan to transition patient to atypical antipsychotic and reduce treatment to one antipsychotic once patient is stabilized for period of time and able to determine consistent and persistent response to medication Maintain safety precautions Patient to attend groups and participate in unit programming to develop coping strategies when able Engage patient in discharge planning process and arrange meeting with support system to ensure safe discharge planning when appropriate, initiate referral to long-term care in the event patient is not appropriate for community residence [facility], and communicate with DSS regarding a logistics of discharge to DSS supported hotel type housing Patient to follow up with PCM and dentist upon discharge TIME SPENT: 35 minutes Vital Signs Vital Signs Date Time Temp Pulse Resp B/P Pulse Ox O2 Delivery O2 Flow Rate FiO2 08/06/16 06:34 96.3 81 18 104/65 Current Medications Current Medications Acetaminophen (Tylenol Tab) 650 mg Q6HP PRN PO HEADACHE or DISCOMFORT; Start at 14:00; Stop 08/08/16 at 13:59 Al Hydrox/Mg Hydrox/Simethicone (Mylanta) 30 ml Q4HP PRN PO HEARTBURN/ INDIGESTION; Start 07/09/16 at 14:00; Stop 08/08/16 at 13:59 Benztropine Mesylate (Cogentin) 0.5 mg BID PO Last administered on 08/06/16 08 :56; Start 08/01/16 at 21:00; Stop 08/31/16 at 20:59 Benztropine Mesylate (Cogentin) 1 mg Q6HP PRN PO EPS symptoms; Start 07/10/16 at 12:00; Stop 07/10/16 at 12:00; Status DC Benztropine Mesylate (Cogentin) 1 mg Q6HP PRN PO EPS Last administered on 20:59; Start 07/10/16 at 21:15; Stop 08/01/16 at 21:00; Status DC Diphenhydramine HCl (Benadryl) 50 mg Q6HP PRN PO AGITATION Last administered on 08/02/16 20:10; Start 07/10/16 at 12:00; Stop 08/09/16 at 11:59 Haloperidol (Haldol) 4 mg QAM PO ; Start 08/07/16 at 09:00; Stop 09/06/16 at 08: 59 Haloperidol (Haldol) 5 mg BID PO Last administered on 08/06/16 08:56; Start at 21:00; Stop 08/06/16 at 13:52; Status DC Haloperidol (Haldol) 5 mg Q6HP PRN PO AGITATION Last administered on 07/10/16 19:58; Start 07/10/16 at 12:00; Stop 08/09/16 at 11:59 Haloperidol (Haldol) 5 mg QHS PO ; Start 08/06/16 at 21:00; Stop 09/05/16 at 20: 59 Home Med (Med Rec Complete!) ASDIRECTED XX ; Start 07/09/16 at 07:30; Stop at 07:30; Status DC Lorazepam (Ativan) 1 mg Q6H PRN PO ANXIETY/AGITATION Last administered on 00:17; Start 07/10/16 at 12:00; Stop 07/23/16 at 11:59; Status DC Magnesium Hydroxide (Milk Of Magnesia) 30 ml DAILYPRN PRN PO CONSTIPATION; Start 07/09/16 at 14:00; Stop 08/08/16 at 13:59 Nicotine (Nicoderm Cq 21mg) 1 patch DAILY TD Last administered on 07/18/16 08: 51; Start 07/09/16 at 09:00; Stop 07/19/16 at 11:20; Status DC Nicotine (Nicorette) 2 mg Q2HP PRN PO NICOTINE WITHDRAWAL Last administered on 08/06/16 08:56; Start 07/19/16 at 11:30; Stop 08/18/16 at 11:29 Non-Formulary Medication ( See Comment Field Below ) SEE COMMENTS SECTION 1T @10 XX ; Start 07/13/16 at 10:00; Stop 07/13/16 at 10:00; Status DC Non-Formulary Medication ( See Comment Field Below ) SEE COMMENTS SECTION 1T @10 XX ; Start 07/15/16 at 10:00; Stop 07/15/16 at 23:59; Status DC Non-Formulary Medication ( See Comment Field Below ) SEE LABEL COMMENTS DAILY XX Last administered on 07/13/16 09:46; Start 07/11/16 at 09:00; Stop 07/13 at 09:49; Status DC Oseltamivir Phosphate (Tamiflu) 75 mg DAILY PO Last administered on 07/28/16 08:56; Start 07/19/16 at 09:00; Stop 07/28/16 at 12:00; Status DC Quetiapine Fumarate (SEROquel) 100 mg QHS PO Last administered on 08/05/16 20: 24; Start 07/09/16 at 21:00; Stop 08/08/16 at 20:59 Allergies Coded Allergies: No Known Allergies (Unverified , 05/18/16) Desire Jackson Aug 06, 2016 17:45
[2016-08-06 18:00] VITALS: BP 139/97
[2016-08-06] MEDS: QUEtiapine FUMARATE 100 MG TAB PO SCH (20:03)
[2016-08-07 06:36] VITALS: BP 104/64
[2016-08-07] MEDS: HALOPERIDOL 2 MG TAB PO SCH (08:41)
[2016-08-07] MEDS: BENZTROPINE 0.5 MG TAB PO SCH ×2 (08:41→20:00)
[2016-08-07] MEDS: NICOTINE POLACRILEX 2 MG GUM PO PRN ×2 (08:42→20:02)
[2016-08-07 18:00] VITALS: BP 113/73
--- NOTE | 2016-08-07 19:57 | IPNPDOC ---
[facility] Progress Note Progress Note DATE OF SERVICE: 08/07/16 HISTORY: Counterintelligence/Humint Specialist met with patient today to assess treatment progress on inpatient unit. Patient took first dose of reduced Haldol this morning, denies noticing any changes and denies medication side effects. Patient was again observed to be sleeping in bed during morning groups, continues to deny side effects from the medication but continues to exhibit some parkinsonian rigidity in movement, remains unconscious of side effect. Patient has been taking standing BID low-dose Cogentin in effort to address symptoms. Patient continues to present with medication side effect, remains in agreement to maintaining 4 mg Haldol morning dose in effort to reduce side effects. Patient denies symptoms of anxiety and depression, denies audiovisual hallucinations, denies suicidal and homicidal ideation, and denies urge to engage in self-injurious behavior. Patient denies experiencing paranoia or feeling as though he is being persecuted. Patient is eating and drinking, states he is attending to his ADLs "pretty much every day," continues to appear disheveled. Patient remains engageable, indicates appetite is stable, denies challenges with energy level or concentration, continues to isolate to room during day sleeping in bed, per EMR is now visible some evenings, isolates to room some nights. Patient denies symptoms of agitation and irritability, indicates he feels current medications remain affective and denies awareness of side effects. Counterintelligence/Humint Specialist and patient again discussed discharge planning and patient remains aware that data security coordinator is being told by grandfather that discharge plan does not include discharge to home and has made referral to [facility] and [facility]. telehealth coordinator is also now attempting to communicate with [facility] who has reportedly agreed to provide hotel housing to patient, but housing is notable distance from location where patient must check in daily in order to maintain housing. Of note: Patient informed freelance copywriter at previous interaction that he has taken Zyprexa, Risperdal, Invega Sustenna, and Abilify in past with poor effect. Addendum: Per data security coordinator, confirmation was received on 08/01/16 that patient may not discharge to the home of uncle, mother, or grandfather. VITAL SIGNS: See below. NEW TEST RESULTS: New lab work indicates WBCs now within normal range at 8.9, patient is afebrile and is asymptomatic. Rectal consult completed regarding EEG/head CT, not indicated EK05/22/16 SINUS TACHYCARDIA POSSIBLE LEFT ATRIAL ENLARGEMENT LEFT VENTRICULAR HYPERTROPHY AND ST-T CHANGE. PA is aware. CURRENT MEDICATIONS: See below. MENTAL STATUS EXAMINATION: Patient is a 36-year-old, single male, who is observed to be sleeping in bed during the day but is sometimes visible on unit and attending some groups in evening, displays no agitation today and is cooperative and compliant with staff, appears disheveled, indicates he last showered last night. Patient appears younger than stated age, displays fair eye contact, does not appear to be responding to internal stimuli at time of interaction. Speech: Is monotone but less pressured, less repetitive Thought processes: Appears less internally preoccupied, makes attempts to verbalize internal experience, some delay in responses at times Rate of thoughts: Do not appear accelerated, appears to be of normal rate Thought content: Generally logical, denies symptoms of paranoia today denies believing he has a chip in his head or that he is being persecuted or will be taken to care home Abstract reasoning: Appears to be intact Associations: Appears generally intact Abnormal or psychotic thoughts: Patient denies audio hallucinations, denies persecutory delusions, denies preoccupation with the government and fears of being taken to care home, denies believing he has chip implanted in his head, denies homicidal and suicidal ideation, but reportedly experienced suicidal ideation prior to hospitalization. Judgment: Limited Insight: Limited Oriented to: Person, place and time Recent and Remote Memory: Limited, continues to improve Attention Span and Concentration: Limited. Language: Limited but continues to improve Fund of knowledge: Adequate Mood: "I'm fine." Patient appears lethargic, no mood lability noted Affect: Remains blunted, no brightening today, is calm, no agitation DIAGNOSES: Schizophrenia, unspecified type. History of cannabis use disorder, history of alcohol use disorder ASSESSMENT: Patient remains limited in terms of program participation but is otherwise cooperative with staff and exhibits no signs of aggression or behavioral management concerns. Patient continues to utilize PRN Benadryl intermittently, indicates he feels current medication regimen is effective, denies medication side effects, though medication side effects involving stiffness are noted. Due to patient report of failure to respond well to Zyprexa , Risperdal, Invega Sustenna, and Abilify, patient will continue on current treatment course of Haldol. Will continue trial of Cogentin 0.5 mg po BID in effort to address symptoms of parkinsonism, and will monitor patient's response to Haldol dose reduction effective this am if effort to reduce medication side effects. Will monitor patient's response to Haldol dose reduction and continue to evaluate for stabilization purposes and will then evaluate need for dosing adjustment and/or transition to another antipsychotic and will attempt to reduce patient's medication regimen to one antipsychotic for ongoing psychotropic medication treatment purposes. Due to patient not having discharge destination, combined with history of initial response to medications followed by decompensation, [place] [facility] [place] with [facility] [place] referral. telehealth coordinator is now also attempting to communicate with DSS who has agreed to provide hotel housing, but housing is reportedly a distance from where patient must check in daily with DSS in order to maintain his housing. telehealth coordinator will continue to also pursue referral to [facility] for supervised housing has been initiated for future discharge planning purposes. MANAGEMENT PLAN: Continue med trial Cogentin 0.5 mg po BID. Continue Haldol 4 mg po q am and 5 mg po hs. Continue Seroquel 100 mg po q hs. Monitor need for dosing adjustment with plan to transition patient to atypical antipsychotic and reduce treatment to one antipsychotic once patient is stabilized for period of time and able to determine consistent and persistent response to medication Maintain safety precautions Patient to attend groups and participate in unit programming to develop coping strategies when able Engage patient in discharge planning process and arrange meeting with support system to ensure safe discharge planning when appropriate, initiate referral to long-term care in the event patient is not appropriate for community residence [facility], and communicate with DSS regarding a logistics of discharge to DSS supported hotel type housing Patient to follow up with PCM and dentist upon discharge TIME SPENT: 25 minutes Vital Signs Vital Signs Date Time Temp Pulse Resp B/P Pulse Ox O2 Delivery O2 Flow Rate FiO2 08/07/16 06:36 96.3 74 16 104/64 Current Medications Current Medications Acetaminophen (Tylenol Tab) 650 mg Q6HP PRN PO HEADACHE or DISCOMFORT; Start at 14:00; Stop 09/06/16 at 13:59 Al Hydrox/Mg Hydrox/Simethicone (Mylanta) 30 ml Q4HP PRN PO HEARTBURN/ INDIGESTION; Start 07/09/16 at 14:00; Stop 09/06/16 at 13:59 Benztropine Mesylate (Cogentin) 0.5 mg BID PO Last administered on 08/07/16 08: 41; Start 08/01/16 at 21:00; Stop 08/31/16 at 20:59 Benztropine Mesylate (Cogentin) 1 mg Q6HP PRN PO EPS symptoms; Start 07/10/16 at 12:00; Stop 07/10/16 at 12:00; Status DC Benztropine Mesylate (Cogentin) 1 mg Q6HP PRN PO EPS Last administered on 20:59; Start 07/10/16 at 21:15; Stop 08/01/16 at 21:00; Status DC Diphenhydramine HCl (Benadryl) 50 mg Q6HP PRN PO AGITATION Last administered on 08/02/16 20:10; Start 07/10/16 at 12:00; Stop 08/09/16 at 11:59 Haloperidol (Haldol) 4 mg QAM PO Last administered on 08/07/16 08:41; Start 08/07/16 at 09:00; Stop 09/06/16 at 08:59 Haloperidol (Haldol) 5 mg BID PO Last administered on 08/06/16 08:56; Start at 21:00; Stop 08/06/16 at 13:52; Status DC Haloperidol (Haldol) 5 mg Q6HP PRN PO AGITATION Last administered on 07/10/16 19:58; Start 07/10/16 at 12:00; Stop 08/09/16 at 11:59 Haloperidol (Haldol) 5 mg QHS PO Last administered on 08/06/16 20:03; Start at 21:00; Stop 09/05/16 at 20:59 Home Med (Med Rec Complete!) ASDIRECTED XX ; Start 07/09/16 at 07:30; Stop at 07:30; Status DC Lorazepam (Ativan) 1 mg Q6H PRN PO ANXIETY/AGITATION Last administered on 00:17; Start 07/10/16 at 12:00; Stop 07/23/16 at 11:59; Status DC Magnesium Hydroxide (Milk Of Magnesia) 30 ml DAILYPRN PRN PO CONSTIPATION; Start 07/09/16 at 14:00; Stop 09/06/16 at 13:59 Nicotine (Nicoderm Cq 21mg) 1 patch DAILY TD Last administered on 07/18/16 08: 51; Start 07/09/16 at 09:00; Stop 07/19/16 at 11:20; Status DC Nicotine (Nicorette) 2 mg Q2HP PRN PO NICOTINE WITHDRAWAL Last administered on 08/07/16 08:42; Start 07/19/16 at 11:30; Stop 08/18/16 at 11:29 Non-Formulary Medication ( See Comment Field Below ) SEE COMMENTS SECTION 1T @10 XX ; Start 07/13/16 at 10:00; Stop 07/13/16 at 10:00; Status DC Non-Formulary Medication ( See Comment Field Below ) SEE COMMENTS SECTION 1T @10 XX ; Start 07/15/16 at 10:00; Stop 07/15/16 at 23:59; Status DC Non-Formulary Medication ( See Comment Field Below ) SEE LABEL COMMENTS DAILY XX Last administered on 07/13/16 09:46; Start 07/11/16 at 09:00; Stop 07/13 at 09:49; Status DC Oseltamivir Phosphate (Tamiflu) 75 mg DAILY PO Last administered on 07/28/16 08:56; Start 07/19/16 at 09:00; Stop 07/28/16 at 12:00; Status DC Quetiapine Fumarate (SEROquel) 100 mg QHS PO Last administered on 08/06/16 20: 03; Start 07/09/16 at 21:00; Stop 09/06/16 at 20:59 Allergies Coded Allergies: No Known Allergies (Unverified , 05/18/16) Desire Jackson Aug 07, 2016 19:57
[2016-08-07] MEDS: HALOPERIDOL 5 MG TAB PO SCH (20:00)
[2016-08-07] MEDS: QUEtiapine FUMARATE 100 MG TAB PO SCH (20:00)
[2016-08-08 06:23] VITALS: BP 123/76
[2016-08-08] MEDS: NICOTINE POLACRILEX 2 MG GUM PO PRN ×2 (08:58→18:14)
[2016-08-08] MEDS: BENZTROPINE 0.5 MG TAB PO SCH ×2 (08:58→20:03)
[2016-08-08] MEDS: HALOPERIDOL 2 MG TAB PO SCH (08:58)
--- NOTE | 2016-08-08 14:35 | IPNPDOC ---
[facility] Progress Note Progress Note DATE OF SERVICE: 08/08/16 HISTORY: Dry Cleaning Counter Clerk met with patient today to assess treatment progress on inpatient unit. Patient is on day 2 of reduced am Haldol dose, indicates medication remains effective and denies medication side effects. Patient ambulated with keno writer / runner and was observed to still be experiencing parkinsonian rigidity in movement, remains unconscious of side effect. At outset of interaction patient was observed to be sleeping in bed with face covered by sweatshirt, was rousable and agreed to get up to meet with keno writer / runner. Patient continues to take standing BID low-dose of Cogentin in effort to address symptoms, denies medication side effects. Patient denies symptoms of anxiety and depression, denies audiovisual hallucinations, denies suicidal and homicidal ideation, and denies urge to engage in self-injurious behavior. Patient denies experiencing paranoia or feeling as though he is being persecuted. Patient is eating and drinking, states he is attending to his ADLs "pretty much," continues to appear disheveled. Patient indicates appetite is stable, denies challenges with energy level or concentration, continues to isolate to room during day sleeping in bed, per EMR is now visible some evenings , isolates to room some nights. Patient denies symptoms of agitation and irritability. Dry Cleaning Counter Clerk and patient again discussed discharge planning and patient remains aware that dental coordinator is being told by grandfather that discharge plan does not include discharge to home and has made referral to [facility] and [facility]. Patient keno writer / runner spoke at length today regarding patient's possible discharge options. Patient was made aware that psychiatric social worker continues to try to confirm from [facility] that should he desire to discharge to [facility] housing he will have access to transportation which she will need to complete required daily [id number] checks with [facility]. Patient was informed of bed which may become available at [facility] next week and also upcoming availability of [facility] bed. Patient indicated he prefers discharged to [facility]. Of note: Patient informed keno writer / runner at previous interaction that he has taken Zyprexa, Risperdal, Invega Sustenna, and Abilify in past with poor effect. Addendum: Per dental coordinator, confirmation was received on 08/01/16 that patient may not discharge to the home of uncle, mother, or grandfather. VITAL SIGNS: See below. NEW TEST RESULTS: New lab work indicates WBCs now within normal range at 8.9, patient is afebrile and is asymptomatic. Rectal consult completed regarding EEG/head CT, not indicated EK05/22/16 SINUS TACHYCARDIA POSSIBLE LEFT ATRIAL ENLARGEMENT LEFT VENTRICULAR HYPERTROPHY AND ST-T CHANGE. PA is aware. CURRENT MEDICATIONS: See below. MENTAL STATUS EXAMINATION: Patient is a 36-year-old, single male, who is observed to be sleeping in bed during the day but is sometimes visible on unit and attending some groups in evening, displays no agitation today and is cooperative and compliant with staff, appears disheveled and unshowered though states he last showered last night. Patient appears younger than stated age, displays limited eye contact, does not appear to be responding to internal stimuli at time of interaction. Speech: Is monotone but less pressured, less repetitive, responses somewhat slower today Thought processes: Appears less internally preoccupied, makes attempts to verbalize internal experience, some delay in responses at times Rate of thoughts: Do not appear accelerated, possible presence of thought blocking Thought content: Generally logical, denies symptoms of paranoia today denies believing he has a chip in his head or that he is being persecuted or will be taken to intermediate Abstract reasoning: Appears to be intact Associations: Appears generally intact Abnormal or psychotic thoughts: Patient denies audio hallucinations, denies persecutory delusions, denies preoccupation with the government and fears of being taken to intermediate, denies believing he has chip implanted in his head, denies homicidal and suicidal ideation, but reportedly experienced suicidal ideation prior to hospitalization. Judgment: Limited Insight: Limited Oriented to: Person, place and time Recent and Remote Memory: Limited, continues to improve Attention Span and Concentration: Limited. Language: Limited but continues to improve Fund of knowledge: Adequate Mood: "I'm fine." Patient appears lethargic, no mood lability noted Affect: Remains blunted, no brightening today, is calm, no agitation DIAGNOSES: Schizophrenia, unspecified type. History of cannabis use disorder, history of alcohol use disorder ASSESSMENT: Patient remains limited in terms of program participation but is otherwise cooperative with staff and exhibits no signs of aggression or behavioral management concerns. Patient continues to utilize PRN Benadryl intermittently, indicates he feels current medication regimen is effective, denies medication side effects, though medication side effects involving stiffness are noted. Due to patient report of failure to respond well to Zyprexa , Risperdal, Invega Sustenna, and Abilify, patient will continue on current treatment course of Haldol. Will continue trial of Cogentin 0.5 mg po BID in effort to address symptoms of parkinsonism, and will monitor patient's response to Haldol dose reduction effective this am if effort to reduce medication side effects. Will continue to monitor patient's response to Haldol dose reduction and continue to evaluate for stabilization purposes and will then evaluate need for dosing adjustment and/or transition to another antipsychotic and will attempt to reduce patient's medication regimen to one antipsychotic for ongoing psychotropic medication treatment purposes. Due to patient not having discharge destination, combined with history of initial response to medications followed by decompensation, transfer to [facility] was being pursued in conjunction with [facility] CR housing referral. recycle coordinator is now also attempting to communicate with DSS who has agreed to provide hotel housing, but housing is reportedly a distance from where patient must check in daily with DSS in order to maintain his housing. Patient is currently requesting that dental coordinator continue to also pursue referral to [facility] for supervised housing has been initiated for future discharge planning purposes. MANAGEMENT PLAN: Continue med trial Cogentin 0.5 mg po BID. Continue Haldol 4 mg po q am and 5 mg po hs. Continue Seroquel 100 mg po q hs. Monitor need for dosing adjustment with plan to transition patient to atypical antipsychotic and reduce treatment to one antipsychotic once patient is stabilized for period of time and able to determine consistent and persistent response to medication Maintain safety precautions Patient to attend groups and participate in unit programming to develop coping strategies when able Engage patient in discharge planning process and arrange meeting with support system to ensure safe discharge planning when appropriate, initiate referral to long-term care in the event patient is not appropriate for community residence [facility] housing, and communicate with DSS regarding a logistics of discharge to DSS supported hotel type housing Patient to follow up with PCM and dentist upon discharge TIME SPENT: 25 minutes Vital Signs Vital Signs Date Time Temp Pulse Resp B/P Pulse Ox O2 Delivery O2 Flow Rate FiO2 08/08/16 06:23 97.0 79 18 123/76 Current Medications Current Medications Acetaminophen (Tylenol Tab) 650 mg Q6HP PRN PO HEADACHE or DISCOMFORT; Start at 14:00; Stop 09/06/16 at 13:59 Al Hydrox/Mg Hydrox/Simethicone (Mylanta) 30 ml Q4HP PRN PO HEARTBURN/ INDIGESTION; Start 07/09/16 at 14:00; Stop 09/06/16 at 13:59 Benztropine Mesylate (Cogentin) 0.5 mg BID PO Last administered on 08/08/16 08: 58; Start 08/01/16 at 21:00; Stop 08/31/16 at 20:59 Benztropine Mesylate (Cogentin) 1 mg Q6HP PRN PO EPS symptoms; Start 07/10/16 at 12:00; Stop 07/10/16 at 12:00; Status DC Benztropine Mesylate (Cogentin) 1 mg Q6HP PRN PO EPS Last administered on 20:59; Start 07/10/16 at 21:15; Stop 08/01/16 at 21:00; Status DC Diphenhydramine HCl (Benadryl) 50 mg Q6HP PRN PO AGITATION Last administered on 08/02/16 20:10; Start 07/10/16 at 12:00; Stop 09/07/16 at 11:59 Haloperidol (Haldol) 4 mg QAM PO Last administered on 08/08/16 08:58; Start 08/07/16 at 09:00; Stop 09/06/16 at 08:59 Haloperidol (Haldol) 5 mg BID PO Last administered on 08/06/16 08:56; Start at 21:00; Stop 08/06/16 at 13:52; Status DC Haloperidol (Haldol) 5 mg Q6HP PRN PO AGITATION Last administered on 07/10/16 19:58; Start 07/10/16 at 12:00; Stop 09/07/16 at 11:59 Haloperidol (Haldol) 5 mg QHS PO Last administered on 08/07/16 20:00; Start at 21:00; Stop 09/05/16 at 20:59 Home Med (Med Rec Complete!) ASDIRECTED XX ; Start 07/09/16 at 07:30; Stop at 07:30; Status DC Lorazepam (Ativan) 1 mg Q6H PRN PO ANXIETY/AGITATION Last administered on 00:17; Start 07/10/16 at 12:00; Stop 07/23/16 at 11:59; Status DC Magnesium Hydroxide (Milk Of Magnesia) 30 ml DAILYPRN PRN PO CONSTIPATION; Start 07/09/16 at 14:00; Stop 09/06/16 at 13:59 Nicotine (Nicoderm Cq 21mg) 1 patch DAILY TD Last administered on 07/18/16 08: 51; Start 07/09/16 at 09:00; Stop 07/19/16 at 11:20; Status DC Nicotine (Nicorette) 2 mg Q2HP PRN PO NICOTINE WITHDRAWAL Last administered on 08/08/16 08:58; Start 07/19/16 at 11:30; Stop 08/18/16 at 11:29 Non-Formulary Medication ( See Comment Field Below ) SEE COMMENTS SECTION 1T @10 XX ; Start 07/13/16 at 10:00; Stop 07/13/16 at 10:00; Status DC Non-Formulary Medication ( See Comment Field Below ) SEE COMMENTS SECTION 1T @10 XX ; Start 07/15/16 at 10:00; Stop 07/15/16 at 23:59; Status DC Non-Formulary Medication ( See Comment Field Below ) SEE LABEL COMMENTS DAILY XX Last administered on 07/13/16 09:46; Start 07/11/16 at 09:00; Stop 07/13 at 09:49; Status DC Oseltamivir Phosphate (Tamiflu) 75 mg DAILY PO Last administered on 07/28/16 08:56; Start 07/19/16 at 09:00; Stop 07/28/16 at 12:00; Status DC Quetiapine Fumarate (SEROquel) 100 mg QHS PO Last administered on 08/07/16 20: 00; Start 07/09/16 at 21:00; Stop 09/06/16 at 20:59 Allergies Coded Allergies: No Known Allergies (Unverified , 05/18/16) Desire Jackson Aug 08, 2016 14:35
[2016-08-08 18:00] VITALS: BP 116/78
[2016-08-08] MEDS: QUEtiapine FUMARATE 100 MG TAB PO SCH (20:03)
[2016-08-08] MEDS: diphenhydrAMINE 50 MG CAP PO PRN (20:03)
[2016-08-08] MEDS: HALOPERIDOL 5 MG TAB PO SCH (20:03)
[2016-08-09 07:08] VITALS: BP 98/53
[2016-08-09] MEDS: BENZTROPINE 0.5 MG TAB PO SCH ×2 (08:46→20:02)
[2016-08-09] MEDS: HALOPERIDOL 2 MG TAB PO SCH (08:46)
[2016-08-09] MEDS: NICOTINE POLACRILEX 2 MG GUM PO PRN ×2 (08:46→14:27)
--- NOTE | 2016-08-09 14:12 | IPNPDOC ---
[facility] Progress Note Progress Note DATE OF SERVICE: 08/09/16 HISTORY: Herb Counselor met with patient today to assess treatment progress on inpatient unit. Patient has begun trialing reduced am Haldol dose, indicates medication remains effective and denies medication side effects. Patient ambulated with medical writer and was observed to still be experiencing parkinsonian rigidity in movement, remains unconscious of side effect. At outset of interaction patient was observed to be sleeping in bed with face covered, was rousable and agreed to get up to meet with medical writer. Patient continues to take standing BID low-dose of Cogentin in effort to address symptoms, denies medication side effects. Patient denies symptoms of anxiety and depression, denies audiovisual hallucinations, denies suicidal and homicidal ideation, and denies urge to engage in self-injurious behavior. Patient denies experiencing paranoia or feeling as though he is being persecuted. Patient is eating and drinking, states he is "I guess" attending to his ADLs, continues to appear disheveled and oral hygiene appears unaddressed. Patient indicates appetite is stable, denies challenges with energy level or concentration, continues to isolate to room during day sleeping in bed, remains visible some evenings, isolates to room some nights. Patient denies symptoms of agitation and irritability. Herb Counselor and patient again discussed discharge planning and patient remains aware that operating room coordinator is being told by grandfather that discharge plan does not include discharge to home and has made referral to [facility] and [facility]. Patient medical writer again spoke at length today regarding patient's possible discharge options and patient was made aware that social media marketing manager continues to try to confirm with DSS, that should he desire to discharge to DSS housing, he will have access to transportation which he will need to complete required daily DSS checks. Patient was informed of bed which may become available at [place] next week and also upcoming availability of [facility] bed. Patient states he wants to be discharged to [facility]. AIMS completed date of entry Of note: Patient informed medical writer at previous interaction that he has taken Zyprexa, Risperdal, Invega Sustenna, and Abilify in past with poor effect. Addendum: Per operating room coordinator, confirmation was received on 08/01/16 that patient may not discharge to the home of uncle, mother, or grandfather. VITAL SIGNS: See below. NEW TEST RESULTS: New lab work indicates WBCs now within normal range at 8.9, patient is afebrile and is asymptomatic. Rectal consult completed regarding EEG/head CT, not indicated EK05/22/16 SINUS TACHYCARDIA POSSIBLE LEFT ATRIAL ENLARGEMENT LEFT VENTRICULAR HYPERTROPHY AND ST-T CHANGE. PA is aware. CURRENT MEDICATIONS: See below. MENTAL STATUS EXAMINATION: Patient is a 36-year-old, single male, who is observed to be sleeping in bed during the day but is sometimes visible on unit and attending some groups in evening, displays no agitation today and is cooperative and compliant with staff, appears disheveled and unshowered though states he showers "pretty much every night." Patient appears younger than stated age, displays limited eye contact, does not appear to be responding to internal stimuli at time of interaction. Speech: Is monotone but less pressured, less repetitive, responses somewhat slower today Thought processes: Appears less internally preoccupied, makes attempts to verbalize internal experience, some delay in responses at times Rate of thoughts: Do not appear accelerated, possible presence of thought blocking Thought content: Generally logical, denies symptoms of paranoia today denies believing he has a chip in his head or that he is being persecuted or will be taken to assisted Abstract reasoning: Appears to be intact Associations: Appears generally intact Abnormal or psychotic thoughts: Patient denies audio hallucinations, denies persecutory delusions, denies preoccupation with the government and fears of being taken to assisted, denies believing he has chip implanted in his head, denies homicidal and suicidal ideation, but reportedly experienced suicidal ideation prior to hospitalization. Judgment: Limited Insight: Limited Oriented to: Person, place and time Recent and Remote Memory: Limited, continues to improve Attention Span and Concentration: Limited. Language: Limited but continues to improve Fund of knowledge: Adequate Mood: "I'm fine, just waiting for housing." Patient appears lethargic, no mood lability noted Affect: Blunted, no brightening today, is calm, no agitation DIAGNOSES: Schizophrenia, unspecified type. History of cannabis use disorder, history of alcohol use disorder ASSESSMENT: Patient remains limited in terms of program participation but is otherwise cooperative with staff and exhibits no signs of aggression or behavioral management concerns. Patient continues to utilize PRN Benadryl intermittently, indicates he feels current medication regimen is effective, denies medication side effects, though medication side effects involving stiffness are noted. Due to patient report of failure to respond well to Zyprexa , Risperdal, Invega Sustenna, and Abilify, patient will continue on current treatment course of Haldol. Will continue trial of Cogentin 0.5 mg po BID in effort to address symptoms of parkinsonism, and will monitor patient's response to recent Haldol dose reduction made in effort to reduce medication side effects. Will continue to monitor patient's response to Haldol dose reduction and continue to evaluate for stabilization purposes and will then evaluate need for dosing adjustment and/or transition to another antipsychotic and will attempt to reduce patient's medication regimen to one antipsychotic for ongoing psychotropic medication treatment purposes. Due to patient not having discharge destination, combined with history of initial response to medications followed by decompensation, transfer to [facility] [place] being pursued in conjunction with [facility] housing referral. transaction coordinator is now also attempting to communicate with [facility], who has agreed to provide hotel housing, but housing is reportedly a distance from where patient must check in daily with DSS in order to maintain his housing. Patient is currently requesting that operating room coordinator continue to also pursue referral to [facility] for supervised housing, referral has been initiated and patient is on list for bed at . MANAGEMENT PLAN: Continue med trial Cogentin 0.5 mg po BID. Continue Haldol 4 mg po q am and 5 mg po hs. Continue Seroquel 100 mg po q hs. Monitor need for dosing adjustment with plan to transition patient to atypical antipsychotic and reduce treatment to one antipsychotic once patient is stabilized for period of time and able to determine consistent and persistent response to medication Maintain safety precautions Patient to attend groups and participate in unit programming to develop coping strategies when able Engage patient in discharge planning process and arrange meeting with support system to ensure safe discharge planning when appropriate, initiate referral to long-term care in the event patient is not appropriate for community residence [facility] housing, and communicate with DSS regarding a logistics of discharge to DSS supported hotel type housing Patient to follow up with PCM and dentist upon discharge TIME SPENT: 25 minutes Vital Signs Vital Signs Date Time Temp Pulse Resp B/P Pulse Ox O2 Delivery O2 Flow Rate FiO2 08/09/16 07:08 98.3 68 18 98/53 Current Medications Current Medications Acetaminophen (Tylenol Tab) 650 mg Q6HP PRN PO HEADACHE or DISCOMFORT; Start at 14:00; Stop 09/06/16 at 13:59 Al Hydrox/Mg Hydrox/Simethicone (Mylanta) 30 ml Q4HP PRN PO HEARTBURN/ INDIGESTION; Start 07/09/16 at 14:00; Stop 09/06/16 at 13:59 Benztropine Mesylate (Cogentin) 0.5 mg BID PO Last administered on 08/09/16 08: 46; Start 08/01/16 at 21:00; Stop 08/31/16 at 20:59 Benztropine Mesylate (Cogentin) 1 mg Q6HP PRN PO EPS symptoms; Start 07/10/16 at 12:00; Stop 07/10/16 at 12:00; Status DC Benztropine Mesylate (Cogentin) 1 mg Q6HP PRN PO EPS Last administered on 20:59; Start 07/10/16 at 21:15; Stop 08/01/16 at 21:00; Status DC Diphenhydramine HCl (Benadryl) 50 mg Q6HP PRN PO AGITATION Last administered on 08/08/16 20:03; Start 07/10/16 at 12:00; Stop 09/07/16 at 11:59 Haloperidol (Haldol) 4 mg QAM PO Last administered on 08/09/16 08:46; Start 08/07/16 at 09:00; Stop 09/06/16 at 08:59 Haloperidol (Haldol) 5 mg BID PO Last administered on 08/06/16 08:56; Start at 21:00; Stop 08/06/16 at 13:52; Status DC Haloperidol (Haldol) 5 mg Q6HP PRN PO AGITATION Last administered on 07/10/16 19:58; Start 07/10/16 at 12:00; Stop 09/07/16 at 11:59 Haloperidol (Haldol) 5 mg QHS PO Last administered on 08/08/16 20:03; Start at 21:00; Stop 09/05/16 at 20:59 Home Med (Med Rec Complete!) ASDIRECTED XX ; Start 07/09/16 at 07:30; Stop at 07:30; Status DC Lorazepam (Ativan) 1 mg Q6H PRN PO ANXIETY/AGITATION Last administered on 00:17; Start 07/10/16 at 12:00; Stop 07/23/16 at 11:59; Status DC Magnesium Hydroxide (Milk Of Magnesia) 30 ml DAILYPRN PRN PO CONSTIPATION; Start 07/09/16 at 14:00; Stop 09/06/16 at 13:59 Nicotine (Nicoderm Cq 21mg) 1 patch DAILY TD Last administered on 07/18/16 08: 51; Start 07/09/16 at 09:00; Stop 07/19/16 at 11:20; Status DC Nicotine (Nicorette) 2 mg Q2HP PRN PO NICOTINE WITHDRAWAL Last administered on 08/09/16 08:46; Start 07/19/16 at 11:30; Stop 08/18/16 at 11:29 Non-Formulary Medication ( See Comment Field Below ) SEE COMMENTS SECTION 1T @10 XX ; Start 07/13/16 at 10:00; Stop 07/13/16 at 10:00; Status DC Non-Formulary Medication ( See Comment Field Below ) SEE COMMENTS SECTION 1T @10 XX ; Start 07/15/16 at 10:00; Stop 07/15/16 at 23:59; Status DC Non-Formulary Medication ( See Comment Field Below ) SEE LABEL COMMENTS DAILY XX Last administered on 07/13/16 09:46; Start 07/11/16 at 09:00; Stop 07/13 at 09:49; Status DC Oseltamivir Phosphate (Tamiflu) 75 mg DAILY PO Last administered on 07/28/16 08:56; Start 07/19/16 at 09:00; Stop 07/28/16 at 12:00; Status DC Quetiapine Fumarate (SEROquel) 100 mg QHS PO Last administered on 08/08/16 20: 03; Start 07/09/16 at 21:00; Stop 09/06/16 at 20:59 Allergies Coded Allergies: No Known Allergies (Unverified , 05/18/16) Desire Jackson Aug 09, 2016 14:12
[2016-08-09 18:00] VITALS: BP 105/66
[2016-08-09] MEDS: HALOPERIDOL 5 MG TAB PO SCH (20:02)
[2016-08-09] MEDS: QUEtiapine FUMARATE 100 MG TAB PO SCH (20:02)
[2016-08-09] MEDS: diphenhydrAMINE 50 MG CAP PO PRN (20:02)
[2016-08-10 06:37] VITALS: BP 116/66
[2016-08-10] MEDS: BENZTROPINE 0.5 MG TAB PO SCH ×2 (08:33→21:24)
[2016-08-10] MEDS: NICOTINE POLACRILEX 2 MG GUM PO PRN ×3 (08:33→21:24)
[2016-08-10] MEDS: HALOPERIDOL 2 MG TAB PO SCH (08:33)
[2016-08-10 18:00] VITALS: BP 119/68
[2016-08-10] MEDS: diphenhydrAMINE 50 MG CAP PO PRN (21:24)
[2016-08-10] MEDS: HALOPERIDOL 5 MG TAB PO SCH (21:24)
[2016-08-10] MEDS: QUEtiapine FUMARATE 100 MG TAB PO SCH (21:24)
[2016-08-11 06:44] VITALS: BP 108/73
[2016-08-11] MEDS: BENZTROPINE 0.5 MG TAB PO SCH ×2 (08:59→20:03)
[2016-08-11] MEDS: HALOPERIDOL 2 MG TAB PO SCH (08:59)
[2016-08-11] MEDS: NICOTINE POLACRILEX 2 MG GUM PO PRN ×3 (08:59→18:06)
[2016-08-11 18:00] VITALS: BP 110/69
[2016-08-11] MEDS: QUEtiapine FUMARATE 100 MG TAB PO SCH (20:03)
[2016-08-11] MEDS: HALOPERIDOL 5 MG TAB PO SCH (20:03)
[2016-08-11] MEDS: diphenhydrAMINE 50 MG CAP PO PRN (20:05)
[2016-08-12 06:21] VITALS: BP 101/55
[2016-08-12] MEDS: BENZTROPINE 0.5 MG TAB PO SCH ×2 (08:31→20:01)
[2016-08-12] MEDS: NICOTINE POLACRILEX 2 MG GUM PO PRN ×2 (08:31→20:01)
[2016-08-12] MEDS: HALOPERIDOL 2 MG TAB PO SCH (08:31)
[2016-08-12 18:00] VITALS: BP 102/68
[2016-08-12] MEDS: diphenhydrAMINE 50 MG CAP PO PRN (20:01)
[2016-08-12] MEDS: QUEtiapine FUMARATE 100 MG TAB PO SCH (20:01)
[2016-08-12] MEDS: HALOPERIDOL 5 MG TAB PO SCH (20:01)
[2016-08-13 06:25] VITALS: BP 110/61
[2016-08-13] MEDS: BENZTROPINE 0.5 MG TAB PO SCH ×2 (08:50→20:02)
[2016-08-13] MEDS: HALOPERIDOL 2 MG TAB PO SCH (08:50)
[2016-08-13] MEDS: NICOTINE POLACRILEX 2 MG GUM PO PRN ×3 (08:50→20:03)
--- NOTE | 2016-08-13 09:27 | IPN ---
DATE: 08/12/2016 SUBJECTIVE: "I feel fine". OBJECTIVE: The patient denies auditory or visual hallucinations. No evidence of delusions. No longer paranoid. The patient is tolerating well the medication and denies side effect. MENTAL STATUS EXAMINATION: The patient is dressed in [facility]. The patient is calm and cooperative. The patient has fair eye contact. Speech is slow, somewhat poor. Mood is euthymic. Affect is restricted. No delusions or hallucinations. Memory is fair. Patient is full oriented. Associations are intact. Thinking is logical. Thought content is appropriate. Patient is denying suicidal or homicidal ideation during the interview. Insight and judgment is limited. ASSESSMENT: Schizophrenia. PLAN: 1. Continue with Haldol 4 mg by mouth every a.m. and 5 mg every bedtime. 2. Continue with Cogentin 0.5 mg by mouth twice a day. 3. Continue with Seroquel 100 mg by mouth at bedtime.
--- NOTE | 2016-08-13 19:22 | IPNPDOC ---
[facility] Progress Note Progress Note DATE OF SERVICE: 08/13/16 HISTORY: Reimbursement Analyst met with patient today to assess treatment progress on inpatient unit. Patient ambulated with development writer and was observed to still be experiencing parkinsonian rigidity in movement, remains unconscious of side effect. Patient continues to take standing BID low-dose of Cogentin in effort to address symptoms, denies medication side effects. Patient denies symptoms of anxiety and depression, denies audiovisual hallucinations, denies suicidal and homicidal ideation, and denies urge to engage in self-injurious behavior. Patient denies experiencing paranoia or feeling as though he is being persecuted. Patient is eating and drinking, states he is atending to ADL's though appears disheveled with poor oral hygiene observed. Patient indicates appetite is stable, denies challenges with energy level or concentration, continues to isolate to room during day sleeping in bed, remains visible some evenings, isolates to room some nights. Patient denies symptoms of agitation and irritability. Reimbursement Analyst and patient again discussed discharge planning and patient remains aware that dental office coordinator is being told by grandfather that discharge plan does not include discharge to home and has made referral to [facility] and [facility]. Patient is aware of possible discharge options and patient was made aware that pediatric social worker continues to try to confirm with DSS, that should he desire to discharge to DSS housing, he will have access to transportation which he will need to complete required daily DSS checks. Patient was informed of bed which may become available at [place] next week and also upcoming availability of [facility] bed. Patient states he wants to be discharged to [facility]. AIMS completed 08/09/16 Of note: Patient informed development writer at previous interaction that he has taken Zyprexa, Risperdal, Invega Sustenna, and Abilify in past with poor effect. Addendum: Per dental office coordinator, confirmation was received on 08/01/16 that patient may not discharge to the home of uncle, mother, or grandfather. VITAL SIGNS: See below. NEW TEST RESULTS: New lab work indicates WBCs now within normal range at 8.9, patient is afebrile and is asymptomatic. Rectal consult completed regarding EEG/head CT, not indicated EK05/22/16 SINUS TACHYCARDIA POSSIBLE LEFT ATRIAL ENLARGEMENT LEFT VENTRICULAR HYPERTROPHY AND ST-T CHANGE. PA is aware. CURRENT MEDICATIONS: See below. MENTAL STATUS EXAMINATION: Patient is a 36-year-old, single male, who is observed to be sleeping in bed during the day but is sometimes visible on unit and attending some groups in evening, displays no agitation today and is cooperative and compliant with staff, appears disheveled and unshowered though states he showers "pretty much every night." Patient appears younger than stated age, displays limited eye contact, does not appear to be responding to internal stimuli at time of interaction. Speech: Is monotone but less pressured, less repetitive, responses somewhat slower today Thought processes: Appears less internally preoccupied, makes attempts to verbalize internal experience, some delay in responses at times Rate of thoughts: Do not appear accelerated, possible presence of thought blocking Thought content: Generally logical, denies symptoms of paranoia today denies believing he has a chip in his head or that he is being persecuted or will be taken to [facility] Abstract reasoning: Appears to be intact Associations: Appears generally intact Abnormal or psychotic thoughts: Patient denies audio hallucinations, denies persecutory delusions, denies preoccupation with the government and fears of being taken to [facility], denies believing he has chip implanted in his head, denies homicidal and suicidal ideation, but reportedly experienced suicidal ideation prior to hospitalization. Judgment: Limited Insight: Limited Oriented to: Person, place and time Recent and Remote Memory: Limited, continues to improve Attention Span and Concentration: Limited. Language: Limited but continues to improve Fund of knowledge: Adequate Mood: "I'm fine." Patient appears less lethargic today, no mood lability noted Affect: Blunted, no brightening today, is calm, no agitation DIAGNOSES: Schizophrenia, unspecified type. History of cannabis use disorder, history of alcohol use disorder ASSESSMENT: Patient remains limited in terms of program participation but is otherwise cooperative with staff and exhibits no signs of aggression or behavioral management concerns. Patient continues to utilize PRN Benadryl intermittently, indicates he feels current medication regimen is effective, denies medication side effects, though medication side effects involving stiffness are noted. Due to patient report of failure to respond well to Zyprexa , Risperdal, Invega Sustenna, and Abilify, patient will continue on current treatment course of Haldol. Will continue trial of Cogentin 0.5 mg po BID in effort to address symptoms of parkinsonism, and will monitor patient's response to recent Haldol dose reduction made in effort to reduce medication side effects. Will continue to monitor patient's response to Haldol dose reduction and continue to evaluate for stabilization purposes and will then evaluate need for dosing adjustment and/or transition to another antipsychotic and will attempt to reduce patient's medication regimen to one antipsychotic for ongoing psychotropic medication treatment purposes. Due to patient not having discharge destination, combined with history of initial response to medications followed by decompensation, transfer [place] [facility] [place] being pursued in conjunction with [facility] housing referral. shift coordinator is now also attempting to communicate with [facility], who has agreed to provide hotel housing, but housing is reportedly a distance from where patient must check in daily with [facility] in order to maintain his housing. Patient is currently requesting that dental office coordinator continue to also pursue referral to [facility] for supervised housing, referral has been initiated and patient is on list for bed at . MANAGEMENT PLAN: Continue med trial Cogentin 0.5 mg po BID. Continue Haldol 4 mg po q am and 5 mg po hs. Continue Seroquel 100 mg po q hs. Monitor need for dosing adjustment with plan to transition patient to atypical antipsychotic and reduce treatment to one antipsychotic once patient is stabilized for period of time and able to determine consistent and persistent response to medication Maintain safety precautions Patient to attend groups and participate in unit programming to develop coping strategies when able Engage patient in discharge planning process and arrange meeting with support system to ensure safe discharge planning when appropriate, initiate referral to long-term care in the event patient is not appropriate for community residence [facility] housing, and communicate with [facility] regarding a logistics of discharge to [facility] supported hotel type housing Patient to follow up with PCM and dentist upon discharge TIME SPENT: 25 minutes Vital Signs Vital Signs Date Time Temp Pulse Resp B/P Pulse Ox O2 Delivery O2 Flow Rate FiO2 08/13/16 06:25 97.3 86 18 110/61 Current Medications Current Medications Acetaminophen (Tylenol Tab) 650 mg Q6HP PRN PO HEADACHE or DISCOMFORT; Start at 14:00; Stop 09/06/16 at 13:59 Al Hydrox/Mg Hydrox/Simethicone (Mylanta) 30 ml Q4HP PRN PO HEARTBURN/ INDIGESTION; Start 07/09/16 at 14:00; Stop 09/06/16 at 13:59 Benztropine Mesylate (Cogentin) 0.5 mg BID PO Last administered on 08/13/16 08: 50; Start 08/01/16 at 21:00; Stop 08/31/16 at 20:59 Benztropine Mesylate (Cogentin) 1 mg Q6HP PRN PO EPS symptoms; Start 07/10/16 at 12:00; Stop 07/10/16 at 12:00; Status DC Benztropine Mesylate (Cogentin) 1 mg Q6HP PRN PO EPS Last administered on 20:59; Start 07/10/16 at 21:15; Stop 08/01/16 at 21:00; Status DC Diphenhydramine HCl (Benadryl) 50 mg Q6HP PRN PO AGITATION Last administered on 08/12/16 20:01; Start 07/10/16 at 12:00; Stop 09/07/16 at 11:59 Haloperidol (Haldol) 4 mg QAM PO Last administered on 08/13/16 08:50; Start 08/07/16 at 09:00; Stop 09/06/16 at 08:59 Haloperidol (Haldol) 5 mg BID PO Last administered on 08/06/16 08:56; Start at 21:00; Stop 08/06/16 at 13:52; Status DC Haloperidol (Haldol) 5 mg Q6HP PRN PO AGITATION Last administered on 07/10/16 19:58; Start 07/10/16 at 12:00; Stop 09/07/16 at 11:59 Haloperidol (Haldol) 5 mg QHS PO Last administered on 08/12/16 20:01; Start at 21:00; Stop 09/05/16 at 20:59 Home Med (Med Rec Complete!) ASDIRECTED XX ; Start 07/09/16 at 07:30; Stop at 07:30; Status DC Lorazepam (Ativan) 1 mg Q6H PRN PO ANXIETY/AGITATION Last administered on 00:17; Start 07/10/16 at 12:00; Stop 07/23/16 at 11:59; Status DC Magnesium Hydroxide (Milk Of Magnesia) 30 ml DAILYPRN PRN PO CONSTIPATION; Start 07/09/16 at 14:00; Stop 09/06/16 at 13:59 Nicotine (Nicoderm Cq 21mg) 1 patch DAILY TD Last administered on 07/18/16 08: 51; Start 07/09/16 at 09:00; Stop 07/19/16 at 11:20; Status DC Nicotine (Nicorette) 2 mg Q2HP PRN PO NICOTINE WITHDRAWAL Last administered on 08/13/16 13:38; Start 07/19/16 at 11:30; Stop 08/18/16 at 11:29 Non-Formulary Medication ( See Comment Field Below ) SEE COMMENTS SECTION 1T @10 XX ; Start 07/13/16 at 10:00; Stop 07/13/16 at 10:00; Status DC Non-Formulary Medication ( See Comment Field Below ) SEE COMMENTS SECTION 1T @10 XX ; Start 07/15/16 at 10:00; Stop 07/15/16 at 23:59; Status DC Non-Formulary Medication ( See Comment Field Below ) SEE LABEL COMMENTS DAILY XX Last administered on 07/13/16 09:46; Start 07/11/16 at 09:00; Stop 07/13 at 09:49; Status DC Oseltamivir Phosphate (Tamiflu) 75 mg DAILY PO Last administered on 07/28/16 08:56; Start 07/19/16 at 09:00; Stop 07/28/16 at 12:00; Status DC Quetiapine Fumarate (SEROquel) 100 mg QHS PO Last administered on 08/12/16 20: 01; Start 07/09/16 at 21:00; Stop 09/06/16 at 20:59 Allergies Coded Allergies: No Known Allergies (Unverified , 05/18/16) Desire Jackson Aug 13, 2016 19:22
[2016-08-13] MEDS: HALOPERIDOL 5 MG TAB PO SCH (20:02)
[2016-08-13] MEDS: diphenhydrAMINE 50 MG CAP PO PRN (20:02)
[2016-08-13] MEDS: QUEtiapine FUMARATE 100 MG TAB PO SCH (20:03)
[2016-08-13 22:15] VITALS: BP 119/73
[2016-08-14 06:12] VITALS: BP 124/60
[2016-08-14] MEDS: BENZTROPINE 0.5 MG TAB PO SCH ×2 (08:52→20:22)
[2016-08-14] MEDS: HALOPERIDOL 2 MG TAB PO SCH (08:52)
[2016-08-14] MEDS: NICOTINE POLACRILEX 2 MG GUM PO PRN ×2 (08:56→20:22)
--- NOTE | 2016-08-14 13:14 | IPNPDOC ---
[facility] Progress Note Progress Note DATE OF SERVICE: 08/14/16 HISTORY: Harp Maker met with patient today to assess treatment progress on inpatient unit. Patient ambulated with resume writer and was observed to still be experiencing parkinsonian rigidity in movement, remains unconscious of side effect. Patient continues to take standing BID low-dose of Cogentin in effort to address symptoms, denies medication side effects. Patient denies symptoms of anxiety and depression, denies audiovisual hallucinations, denies suicidal and homicidal ideation, and denies urge to engage in self-injurious behavior. Patient indicates appetite is stable, denies challenges with energy level or concentration, continues to isolate to room during day sleeping in bed, remains visible some evenings, isolates to room some nights. Patient denies experiencing paranoia or feeling as though he is being persecuted, denies symptoms of agitation and irritability. Patient is eating and drinking, states he is attending to ADL's though appears disheveled with poor oral hygiene observed. Harp Maker and patient again discussed discharge planning and patient remains aware of possible discharge options and patient was made aware that child protective services social worker continues to try to confirm with DSS, that should he desire to discharge to DSS housing, he will have access to transportation which he will need to complete required daily DSS checks. Patient was provided with update on [place] and also upcoming availability of [facility] bed. Patient continues to desire discharge to [facility]. AIMS completed 08/09/16 Of note: Patient informed resume writer at previous interaction that he has taken Zyprexa, Risperdal, Invega Sustenna, and Abilify in past with poor effect. Addendum: Per plant operations coordinator, confirmation was received on 08/01/16 that patient may not discharge to the home of uncle, mother, or grandfather. VITAL SIGNS: See below. NEW TEST RESULTS: New lab work indicates WBCs now within normal range at 8.9, patient is afebrile and is asymptomatic. Rectal consult completed regarding EEG/head CT, not indicated EK05/22/16 SINUS TACHYCARDIA POSSIBLE LEFT ATRIAL ENLARGEMENT LEFT VENTRICULAR HYPERTROPHY AND ST-T CHANGE. PA is aware. CURRENT MEDICATIONS: See below. MENTAL STATUS EXAMINATION: Patient is a 36-year-old, single male, who is observed to be sleeping in bed during the day but is sometimes visible on unit and attending some groups in evening, displays no agitation today and is cooperative and compliant with staff, appears disheveled and unshowered though states he showers nightly. Patient appears younger than stated age, displays limited eye contact, does not appear to be responding to internal stimuli at time of interaction. Speech: Is monotone but less pressured, less repetitive, responses somewhat slower today Thought processes: Appears less internally preoccupied, makes attempts to verbalize internal experience, some delay in responses at times Rate of thoughts: Do not appear accelerated, possible presence of thought blocking Thought content: Generally logical, denies symptoms of paranoia today denies believing he has a chip in his head or that he is being persecuted or will be taken to custodial Abstract reasoning: Appears to be intact Associations: Appears generally intact Abnormal or psychotic thoughts: Patient denies audio hallucinations, denies persecutory delusions, denies preoccupation with the government and fears of being taken to custodial, denies believing he has chip implanted in his head, denies homicidal and suicidal ideation, but reportedly experienced suicidal ideation prior to hospitalization. Judgment: Limited Insight: Limited Oriented to: Person, place and time Recent and Remote Memory: Limited, continues to improve Attention Span and Concentration: Limited. Language: Limited but continues to improve Fund of knowledge: Adequate Mood: "I'm doing ok." Patient appears less lethargic today, no mood lability noted Affect: Blunted, no brightening today, is calm, no agitation DIAGNOSES: Schizophrenia, unspecified type. History of cannabis use disorder, history of alcohol use disorder ASSESSMENT: Patient remains limited in terms of program participation but is otherwise cooperative with staff and exhibits no signs of aggression or behavioral management concerns. Patient continues to utilize PRN Benadryl intermittently, indicates he feels current medication regimen is effective, denies medication side effects, though medication side effects involving stiffness are noted. Due to patient report of failure to respond well to Zyprexa , Risperdal, Invega Sustenna, and Abilify, patient will continue on current treatment course of Haldol. Will continue trial of Cogentin 0.5 mg po BID in effort to address symptoms of parkinsonism, and will monitor patient's response to recent Haldol dose reduction made in effort to reduce medication side effects and will evaluate need for further dose reduction. Will continue to monitor patient's response to Haldol dose reduction and continue to evaluate for stabilization purposes and will then evaluate need for dosing adjustment and /or transition to another antipsychotic and will attempt to reduce patient's medication regimen to one antipsychotic for ongoing psychotropic medication treatment purposes. Due to patient not having discharge destination, combined with history of initial response to medications followed by decompensation, [place] [facility] [place] in conjunction with [facility] housing referral. preventive maintenance coordinator is now also attempting to communicate with DSS, who has agreed to provide hotel housing, but housing is reportedly a distance from where patient must check in daily with DSS in order to maintain his housing. Patient is currently requesting that plant operations coordinator continue to also pursue referral to [facility] for supervised housing, referral has been initiated and patient is on list for bed at . MANAGEMENT PLAN: Continue med trial Cogentin 0.5 mg po BID. Continue Haldol 4 mg po q am and 5 mg po hs. Continue Seroquel 100 mg po q hs. Monitor need for dosing adjustment with plan to transition patient to atypical antipsychotic and reduce treatment to one antipsychotic once patient is stabilized for period of time and able to determine consistent and persistent response to medication Maintain safety precautions Patient to attend groups and participate in unit programming to develop coping strategies when able Engage patient in discharge planning process and arrange meeting with support system to ensure safe discharge planning when appropriate, initiate referral to long-term care in the event patient is not appropriate for community residence [facility] housing, and communicate with DSS regarding a logistics of discharge to DSS supported hotel type housing Patient to follow up with PCM and dentist upon discharge TIME SPENT: 25 minutes Vital Signs Vital Signs Date Time Temp Pulse Resp B/P Pulse Ox O2 Delivery O2 Flow Rate FiO2 08/14/16 06:12 96.3 62 16 124/60 Current Medications Current Medications Acetaminophen (Tylenol Tab) 650 mg Q6HP PRN PO HEADACHE or DISCOMFORT; Start at 14:00; Stop 09/06/16 at 13:59 Al Hydrox/Mg Hydrox/Simethicone (Mylanta) 30 ml Q4HP PRN PO HEARTBURN/ INDIGESTION; Start 07/09/16 at 14:00; Stop 09/06/16 at 13:59 Benztropine Mesylate (Cogentin) 0.5 mg BID PO Last administered on 08/14/16t 08: 52; Start 08/01/16 at 21:00; Stop 08/31/16 at 20:59 Benztropine Mesylate (Cogentin) 1 mg Q6HP PRN PO EPS symptoms; Start 07/10/16 at 12:00; Stop 07/10/16 at 12:00; Status DC Benztropine Mesylate (Cogentin) 1 mg Q6HP PRN PO EPS Last administered on 20:59; Start 07/10/16 at 21:15; Stop 08/01/16 at 21:00; Status DC Diphenhydramine HCl (Benadryl) 50 mg Q6HP PRN PO AGITATION Last administered on 08/13/16 20:02; Start 07/10/16 at 12:00; Stop 09/07/16 at 11:59 Haloperidol (Haldol) 4 mg QAM PO Last administered on 08/14/16 08:52; Start 08/07/16 at 09:00; Stop 09/06/16 at 08:59 Haloperidol (Haldol) 5 mg BID PO Last administered on 08/06/16 08:56; Start at 21:00; Stop 08/06/16 at 13:52; Status DC Haloperidol (Haldol) 5 mg Q6HP PRN PO AGITATION Last administered on 07/10/16 19:58; Start 07/10/16 at 12:00; Stop 09/07/16 at 11:59 Haloperidol (Haldol) 5 mg QHS PO Last administered on 08/13/16 20:02; Start at 21:00; Stop 09/05/16 at 20:59 Home Med (Med Rec Complete!) ASDIRECTED XX ; Start 07/09/16 at 07:30; Stop at 07:30; Status DC Lorazepam (Ativan) 1 mg Q6H PRN PO ANXIETY/AGITATION Last administered on 00:17; Start 07/10/16 at 12:00; Stop 07/23/16 at 11:59; Status DC Magnesium Hydroxide (Milk Of Magnesia) 30 ml DAILYPRN PRN PO CONSTIPATION; Start 07/09/16 at 14:00; Stop 09/06/16 at 13:59 Nicotine (Nicoderm Cq 21mg) 1 patch DAILY TD Last administered on 07/18/16 08: 51; Start 07/09/16 at 09:00; Stop 07/19/16 at 11:20; Status DC Nicotine (Nicorette) 2 mg Q2HP PRN PO NICOTINE WITHDRAWAL Last administered on 08/14/16 08:56; Start 07/19/16 at 11:30; Stop 08/18/16 at 11:29 Non-Formulary Medication ( See Comment Field Below ) SEE COMMENTS SECTION 1T @10 XX ; Start 07/13/16 at 10:00; Stop 07/13/16 at 10:00; Status DC Non-Formulary Medication ( See Comment Field Below ) SEE COMMENTS SECTION 1T @10 XX ; Start 07/15/16 at 10:00; Stop 07/15/16 at 23:59; Status DC Non-Formulary Medication ( See Comment Field Below ) SEE LABEL COMMENTS DAILY XX Last administered on 07/13/16 09:46; Start 07/11/16 at 09:00; Stop 07/13 at 09:49; Status DC Oseltamivir Phosphate (Tamiflu) 75 mg DAILY PO Last administered on 07/28/16 08:56; Start 07/19/16 at 09:00; Stop 07/28/16 at 12:00; Status DC Quetiapine Fumarate (SEROquel) 100 mg QHS PO Last administered on 08/13/16 20: 03; Start 07/09/16 at 21:00; Stop 09/06/16 at 20:59 Allergies Coded Allergies: No Known Allergies (Unverified , 05/18/16) Desire Jackson Aug 14, 2016 13:14
[2016-08-14 18:00] VITALS: BP 107/71
[2016-08-14] MEDS: HALOPERIDOL 5 MG TAB PO SCH (20:22)
[2016-08-14] MEDS: diphenhydrAMINE 50 MG CAP PO PRN (20:22)
[2016-08-14] MEDS: QUEtiapine FUMARATE 100 MG TAB PO SCH (20:22)
[2016-08-15 06:33] VITALS: BP 123/71
[2016-08-15] MEDS: BENZTROPINE 0.5 MG TAB PO SCH ×2 (08:26→20:27)
[2016-08-15] MEDS: HALOPERIDOL 2 MG TAB PO SCH (08:26)
[2016-08-15] MEDS: NICOTINE POLACRILEX 2 MG GUM PO PRN ×2 (08:27→20:27)
--- NOTE | 2016-08-15 14:29 | IPNPDOC ---
[facility] Progress Note Progress Note DATE OF SERVICE: 08/15/16 HISTORY: Sign Letterer met with patient today to assess treatment progress on inpatient unit. Patient was observed ambulating on unit and met with technical document writer in room where he was observed to be resting in bed between groups but readily sat up to meet with technical document writer. Patient continues to exhibit parkinsonian rigidity in movement, but rigidity appears reduced, and patient continues to remain unaware of medication side effect. Patient continues to take standing BID low-dose of Cogentin in effort to address symptoms, denies medication side effects. Patient denies symptoms of anxiety and depression, denies audiovisual hallucinations, denies suicidal and homicidal ideation, and denies urge to engage in self- injurious behavior. Patient indicates appetite is stable, denies challenges with energy level or concentration. Per staff report, patient has been making some effort to attend more daytime groups, continues to attend evening groups, was again encouraged to participate in unit programming during the day. Patient denies experiencing paranoia or feeling as though he is being persecuted, denies symptoms of agitation and irritability. Patient is eating and drinking, states he is attending to ADL's though appears disheveled with poor oral hygiene observed. Sign Letterer encouraged patient to complete ADLs daily and more frequently if needed. Sign Letterer and patient again discussed discharge planning and patient remains aware of possible discharge options and patient was made aware that social media marketing specialist continues to try to confirm with DSS, that should he desire to discharge to DSS housing, he will have access to transportation which he will need to complete required daily DSS checks. Patient was provided with update on [facility] and also upcoming availability of TLS bed. Patient continues to desire discharge to [facility]. AIMS completed 08/09/16 Of note: Patient informed technical document writer at previous interaction that he has taken Zyprexa, Risperdal, Invega Sustenna, and Abilify in past with poor effect. Addendum: Per field service coordinator, confirmation was received on 08/01/16 that patient may not discharge to the home of uncle, mother, or grandfather. VITAL SIGNS: See below. NEW TEST RESULTS: New lab work indicates WBCs now within normal range at 8.9, patient is afebrile and is asymptomatic. Rectal consult completed regarding EEG/head CT, not indicated EK05/22/16 SINUS TACHYCARDIA POSSIBLE LEFT ATRIAL ENLARGEMENT LEFT VENTRICULAR HYPERTROPHY AND ST-T CHANGE. PA is aware. CURRENT MEDICATIONS: See below. MENTAL STATUS EXAMINATION: Patient is a 36-year-old, single male, who is observed to be sleeping in bed during the day but is visible on unit and attending some groups in evening, displays no agitation today and is cooperative and compliant with staff, appears disheveled and unshowered though states he showers nightly. Patient appears younger than stated age, displays improved eye contact, does not appear to be responding to internal stimuli at time of interaction. Speech: Is monotone but less pressured, less repetitive, responses somewhat slower today Thought processes: Appears less internally preoccupied, makes attempts to verbalize internal experience, some delay in responses at times Rate of thoughts: Do not appear accelerated, possible presence of thought blocking Thought content: Generally logical, denies symptoms of paranoia today denies believing he has a chip in his head or that he is being persecuted or will be taken to alf Abstract reasoning: Appears to be intact Associations: Appears generally intact Abnormal or psychotic thoughts: Patient denies audio hallucinations, denies persecutory delusions, denies preoccupation with the government and fears of being taken to alf, denies believing he has chip implanted in his head, denies homicidal and suicidal ideation, but reportedly experienced suicidal ideation prior to hospitalization. Judgment: Limited Insight: Limited Oriented to: Person, place and time Recent and Remote Memory: Limited, continues to improve Attention Span and Concentration: Limited. Language: Limited but continues to improve Fund of knowledge: Adequate Mood: "I'm fine." Patient appears less lethargic today, no mood lability noted Affect: Blunted, some brightening today, is calm, no agitation DIAGNOSES: Schizophrenia, unspecified type. History of cannabis use disorder, history of alcohol use disorder ASSESSMENT: Patient remains cooperative with staff and exhibits no signs of aggression or behavioral management concerns, is attending some groups. Patient has been utilizing PRN Benadryl at increased frequency, have asked nursing to monitor patient's reason for PRN medication request, and have encouraged patient not to request Benadryl if not needed. Patient indicates current medication regimen is effective, denies medication side effects, though medication side effects involving stiffness are noted. Due to patient report of failure to respond well to Zyprexa, Risperdal, Invega Sustenna, and Abilify, patient will continue on current treatment course of Haldol. Will continue trial of Cogentin 0.5 mg po BID in effort to address symptoms of parkinsonism, and will monitor patient's response to recent Haldol dose reduction made in effort to reduce medication side effects and will evaluate need for further dose reduction. Will continue to monitor patient's response to Haldol dose reduction and continue to evaluate for stabilization purposes and will then evaluate need for dosing adjustment and/or transition to another antipsychotic and will attempt to reduce patient's medication regimen to one antipsychotic for ongoing psychotropic medication treatment purposes. Due to patient not having discharge destination, combined with history of initial response to medications followed by decompensation, transfer to [facility] was being pursued in conjunction with [facility] housing referral. creative coordinator is now also attempting to communicate with [facility], who has agreed to provide hotel housing, but housing is reportedly a distance from where patient must check in daily with [facility] in order to maintain his housing. Patient is currently requesting that field service coordinator continue to also pursue referral to [facility] for supervised housing, referral has been initiated and patient is on list for bed at . MANAGEMENT PLAN: Continue med trial Cogentin 0.5 mg po BID. Continue Haldol 4 mg po q am and 5 mg po hs. Continue Seroquel 100 mg po q hs. Monitor need for dosing adjustment with plan to transition patient to atypical antipsychotic and reduce treatment to one antipsychotic once patient is stabilized for period of time and able to determine consistent and persistent response to medication Maintain safety precautions Patient to attend groups and participate in unit programming to develop coping strategies when able Engage patient in discharge planning process and arrange meeting with support system to ensure safe discharge planning when appropriate, initiate referral to long-term care in the event patient is not appropriate for community residence [facility] housing, and communicate with [facility] regarding a logistics of discharge to [facility] supported hotel type housing Patient to follow up with PCM and dentist upon discharge TIME SPENT: 25 minutes Vital Signs Vital Signs Date Time Temp Pulse Resp B/P Pulse Ox O2 Delivery O2 Flow Rate FiO2 08/15/16 06:33 97.0 72 16 123/71 Current Medications Current Medications Acetaminophen (Tylenol Tab) 650 mg Q6HP PRN PO HEADACHE or DISCOMFORT; Start at 14:00; Stop 09/06/16 at 13:59 Al Hydrox/Mg Hydrox/Simethicone (Mylanta) 30 ml Q4HP PRN PO HEARTBURN/ INDIGESTION; Start 07/09/16 at 14:00; Stop 09/06/16 at 13:59 Benztropine Mesylate (Cogentin) 0.5 mg BID PO Last administered on 08/15/16 08: 26; Start 08/01/16 at 21:00; Stop 08/31/16 at 20:59 Benztropine Mesylate (Cogentin) 1 mg Q6HP PRN PO EPS symptoms; Start 07/10/16 at 12:00; Stop 07/10/16 at 12:00; Status DC Benztropine Mesylate (Cogentin) 1 mg Q6HP PRN PO EPS Last administered on 20:59; Start 07/10/16 at 21:15; Stop 08/01/16 at 21:00; Status DC Diphenhydramine HCl (Benadryl) 50 mg Q6HP PRN PO AGITATION Last administered on 08/14/16 20:22; Start 07/10/16 at 12:00; Stop 09/07/16 at 11:59 Haloperidol (Haldol) 4 mg QAM PO Last administered on 08/15/16 08:26; Start 08/07/16 at 09:00; Stop 09/06/16 at 08:59 Haloperidol (Haldol) 5 mg BID PO Last administered on 08/06/16 08:56; Start at 21:00; Stop 08/06/16 at 13:52; Status DC Haloperidol (Haldol) 5 mg Q6HP PRN PO AGITATION Last administered on 07/10/16 19:58; Start 07/10/16 at 12:00; Stop 09/07/16 at 11:59 Haloperidol (Haldol) 5 mg QHS PO Last administered on 08/14/16 20:22; Start at 21:00; Stop 09/05/16 at 20:59 Home Med (Med Rec Complete!) ASDIRECTED XX ; Start 07/09/16 at 07:30; Stop at 07:30; Status DC Lorazepam (Ativan) 1 mg Q6H PRN PO ANXIETY/AGITATION Last administered on 00:17; Start 07/10/16 at 12:00; Stop 07/23/16 at 11:59; Status DC Magnesium Hydroxide (Milk Of Magnesia) 30 ml DAILYPRN PRN PO CONSTIPATION; Start 07/09/16 at 14:00; Stop 09/06/16 at 13:59 Nicotine (Nicoderm Cq 21mg) 1 patch DAILY TD Last administered on 07/18/16 08: 51; Start 07/09/16 at 09:00; Stop 07/19/16 at 11:20; Status DC Nicotine (Nicorette) 2 mg Q2HP PRN PO NICOTINE WITHDRAWAL Last administered on 08/15/16 08:27; Start 07/19/16 at 11:30; Stop 08/18/16 at 11:29 Non-Formulary Medication ( See Comment Field Below ) SEE COMMENTS SECTION 1T @10 XX ; Start 07/13/16 at 10:00; Stop 07/13/16 at 10:00; Status DC Non-Formulary Medication ( See Comment Field Below ) SEE COMMENTS SECTION 1T @10 XX ; Start 07/15/16 at 10:00; Stop 07/15/16 at 23:59; Status DC Non-Formulary Medication ( See Comment Field Below ) SEE LABEL COMMENTS DAILY XX Last administered on 07/13/16 09:46; Start 07/11/16 at 09:00; Stop 07/13 at 09:49; Status DC Oseltamivir Phosphate (Tamiflu) 75 mg DAILY PO Last administered on 07/28/16 08:56; Start 07/19/16 at 09:00; Stop 07/28/16 at 12:00; Status DC Quetiapine Fumarate (SEROquel) 100 mg QHS PO Last administered on 08/14/16 20: 22; Start 07/09/16 at 21:00; Stop 09/06/16 at 20:59 Allergies Coded Allergies: No Known Allergies (Unverified , 05/18/16) Desire Jackson Aug 15, 2016 14:29
[2016-08-15 18:00] VITALS: BP 130/83
[2016-08-15] MEDS: QUEtiapine FUMARATE 100 MG TAB PO SCH (20:27)
[2016-08-15] MEDS: HALOPERIDOL 5 MG TAB PO SCH (20:27)
[2016-08-15] MEDS: diphenhydrAMINE 50 MG CAP PO PRN (20:27)
[2016-08-16 06:38] VITALS: BP 141/70
[2016-08-16] MEDS: BENZTROPINE 0.5 MG TAB PO SCH ×2 (08:48→21:03)
[2016-08-16] MEDS: NICOTINE POLACRILEX 2 MG GUM PO PRN ×4 (08:48→21:03)
[2016-08-16] MEDS: HALOPERIDOL 2 MG TAB PO SCH (08:48)
--- NOTE | 2016-08-16 13:22 | IPNPDOC ---
[facility] Progress Note Progress Note DATE OF SERVICE: 08/16/16 HISTORY: Collar Runner met with patient today to assess treatment progress on inpatient unit. Patient was observed ambulating on unit and met with content writer in room where he was able to converse with content writer sitting up in chair, AIMS completed. Patient continues to exhibit parkinsonian rigidity in movement, but rigidity continues to appear reduced, and patient continues to remain unaware of medication side effect. Patient continues to take standing BID low-dose of Cogentin in effort to address symptoms, denies medication side effects. Patient denies symptoms of anxiety and depression, denies audiovisual hallucinations, denies suicidal and homicidal ideation, and denies urge to engage in self- injurious behavior. Patient indicates appetite is stable, denies challenges with energy level or concentration. Per staff report, patient has been making some effort to attend more daytime groups, continues to attend evening groups, was again encouraged to participate in unit programming during the day. Patient denies experiencing paranoia or feeling as though he is being persecuted, denies symptoms of agitation and irritability. Patient is eating and drinking, states he is attending to ADL's though appears disheveled with poor oral hygiene observed. Collar Runner encouraged patient to complete ADLs daily and more frequently if needed. Patient remains aware that he is on the list for [facility] housing, transportation for DSS housing is being investigated, and patient is also awaiting word on [place] [facility] AIMS completed 08/09/16, repeated 08/16/16 Of note: Patient informed content writer at previous interaction that he has taken Zyprexa, Risperdal, Invega Sustenna, and Abilify in past with poor effect. Addendum: Per academic success coordinator, confirmation was received on 08/01/16 that patient may not discharge to the home of uncle, mother, or grandfather. VITAL SIGNS: See below. NEW TEST RESULTS: New lab work indicates WBCs now within normal range at 8.9, patient is afebrile and is asymptomatic. Rectal consult completed regarding EEG/head CT, not indicated EK05/22/16 SINUS TACHYCARDIA POSSIBLE LEFT ATRIAL ENLARGEMENT LEFT VENTRICULAR HYPERTROPHY AND ST-T CHANGE. PA is aware. CURRENT MEDICATIONS: See below. MENTAL STATUS EXAMINATION: Patient is a 36-year-old, single male, who is observed to be sleeping in bed during the day but is visible on unit and attending some groups in evening, displays no agitation today and is cooperative and compliant with staff, appears disheveled and unshowered though states he showers nightly. Patient appears younger than stated age, displays improved eye contact, does not appear to be responding to internal stimuli at time of interaction. Speech: Is monotone but less pressured, less repetitive, responses somewhat slower today Thought processes: Appears less internally preoccupied, makes attempts to verbalize internal experience, some delay in responses at times Rate of thoughts: Do not appear accelerated, possible presence of thought blocking Thought content: Generally logical, denies symptoms of paranoia today denies believing he has a chip in his head or that he is being persecuted or will be taken to snf Abstract reasoning: Appears to be intact Associations: Appears generally intact Abnormal or psychotic thoughts: Patient denies audio hallucinations, denies persecutory delusions, denies preoccupation with the government and fears of being taken to snf, denies believing he has chip implanted in his head, denies homicidal and suicidal ideation, but reportedly experienced suicidal ideation prior to hospitalization. Judgment: Limited Insight: Limited Oriented to: Person, place and time Recent and Remote Memory: Limited, continues to improve Attention Span and Concentration: Limited. Language: Limited but continues to improve Fund of knowledge: Adequate Mood: "I'm ok." Patient appears less lethargic today, no mood lability noted Affect: Blunted, some brightening today, is calm, no agitation DIAGNOSES: Schizophrenia, unspecified type. History of cannabis use disorder, history of alcohol use disorder ASSESSMENT: Patient remains cooperative with staff and exhibits no signs of aggression or behavioral management concerns, is attending some groups. Patient continues to utilize PRN Benadryl with increased frequency, is vague in terms of why he is taking medication, denies he needs medication, content writer again asked nursing to monitor patient's reasons for asking for PRN medication when taken. Patient reiterates current medication regimen is effective, denies medication side effects, though medication side effects involving stiffness are noted. Due to patient report of failure to respond well to Zyprexa, Risperdal, Invega Sustenna, and Abilify, patient will continue on current treatment course of Haldol. Will continue trial of Cogentin 0.5 mg po BID in effort to address symptoms of parkinsonism, and will monitor patient's response to recent Haldol dose reduction made in effort to reduce medication side effects and will evaluate need for further dose reduction. Will continue to monitor patient's response to Haldol dose reduction and continue to evaluate for stabilization purposes and will then evaluate need for dosing adjustment and/or transition to another antipsychotic and will attempt to reduce patient's medication regimen to one antipsychotic for ongoing psychotropic medication treatment purposes. Due to patient not having discharge destination, combined with history of initial response to medications followed by decompensation, [place] [facility] [place] being pursued in conjunction with [facility] housing referral. outreach coordinator is now also attempting to communicate with [facility], who has agreed to provide hotel housing, but housing is reportedly a distance from where patient must check in daily with DSS in order to maintain his housing. Patient is currently requesting that academic success coordinator continue to also pursue referral to [facility] for supervised housing, referral has been initiated and patient is on list for bed at . MANAGEMENT PLAN: Continue med trial Cogentin 0.5 mg po BID. Continue Haldol 4 mg po q am and 5 mg po hs. Continue Seroquel 100 mg po q hs. Monitor need for dosing adjustment with plan to transition patient to atypical antipsychotic and reduce treatment to one antipsychotic once patient is stabilized for period of time and able to determine consistent and persistent response to medication Maintain safety precautions Patient to attend groups and participate in unit programming to develop coping strategies when able Engage patient in discharge planning process and arrange meeting with support system to ensure safe discharge planning when appropriate, initiate referral to long-term care in the event patient is not appropriate for community residence TLS housing, and communicate with [facility] regarding a logistics of discharge to DSS supported hotel type housing Patient to follow up with PCM and dentist upon discharge TIME SPENT: 35 minute Vital Signs Vital Signs Date Time Temp Pulse Resp B/P Pulse Ox O2 Delivery O2 Flow Rate FiO2 08/16/16 06:38 97.0 76 16 141/70 Current Medications Current Medications Acetaminophen (Tylenol Tab) 650 mg Q6HP PRN PO HEADACHE or DISCOMFORT; Start at 14:00; Stop 09/06/16 at 13:59 Al Hydrox/Mg Hydrox/Simethicone (Mylanta) 30 ml Q4HP PRN PO HEARTBURN/ INDIGESTION; Start 07/09/16 at 14:00; Stop 09/06/16 at 13:59 Benztropine Mesylate (Cogentin) 0.5 mg BID PO Last administered on 08/16/16 08 :48; Start 08/01/16 at 21:00; Stop 08/31/16 at 20:59 Benztropine Mesylate (Cogentin) 1 mg Q6HP PRN PO EPS symptoms; Start 07/10/16 at 12:00; Stop 07/10/16 at 12:00; Status DC Benztropine Mesylate (Cogentin) 1 mg Q6HP PRN PO EPS Last administered on 20:59; Start 07/10/16 at 21:15; Stop 08/01/16 at 21:00; Status DC Diphenhydramine HCl (Benadryl) 50 mg Q6HP PRN PO AGITATION Last administered on 08/15/16 20:27; Start 07/10/16 at 12:00; Stop 09/07/16 at 11:59 Haloperidol (Haldol) 4 mg QAM PO Last administered on 08/16/16 08:48; Start at 09:00; Stop 09/06/16 at 08:59 Haloperidol (Haldol) 5 mg BID PO Last administered on 08/06/16 08:56; Start at 21:00; Stop 08/06/16 at 13:52; Status DC Haloperidol (Haldol) 5 mg Q6HP PRN PO AGITATION Last administered on 07/10/16 19:58; Start 07/10/16 at 12:00; Stop 09/07/16 at 11:59 Haloperidol (Haldol) 5 mg QHS PO Last administered on 08/15/16 20:27; Start at 21:00; Stop 09/05/16 at 20:59 Home Med (Med Rec Complete!) ASDIRECTED XX ; Start 07/09/16 at 07:30; Stop at 07:30; Status DC Lorazepam (Ativan) 1 mg Q6H PRN PO ANXIETY/AGITATION Last administered on 00:17; Start 07/10/16 at 12:00; Stop 07/23/16 at 11:59; Status DC Magnesium Hydroxide (Milk Of Magnesia) 30 ml DAILYPRN PRN PO CONSTIPATION; Start 07/09/16 at 14:00; Stop 09/06/16 at 13:59 Nicotine (Nicoderm Cq 21mg) 1 patch DAILY TD Last administered on 07/18/16 08: 51; Start 07/09/16 at 09:00; Stop 07/19/16 at 11:20; Status DC Nicotine (Nicorette) 2 mg Q2HP PRN PO NICOTINE WITHDRAWAL Last administered on 08/16/16 13:07; Start 07/19/16 at 11:30; Stop 08/18/16 at 11:29 Non-Formulary Medication ( See Comment Field Below ) SEE COMMENTS SECTION 1T @10 XX ; Start 07/13/16 at 10:00; Stop 07/13/16 at 10:00; Status DC Non-Formulary Medication ( See Comment Field Below ) SEE COMMENTS SECTION 1T @10 XX ; Start 07/15/16 at 10:00; Stop 07/15/16 at 23:59; Status DC Non-Formulary Medication ( See Comment Field Below ) SEE LABEL COMMENTS DAILY XX Last administered on 07/13/16 09:46; Start 07/11/16 at 09:00; Stop 07/13 at 09:49; Status DC Oseltamivir Phosphate (Tamiflu) 75 mg DAILY PO Last administered on 07/28/16 08:56; Start 07/19/16 at 09:00; Stop 07/28/16 at 12:00; Status DC Quetiapine Fumarate (SEROquel) 100 mg QHS PO Last administered on 08/15/16 20: 27; Start 07/09/16 at 21:00; Stop 09/06/16 at 20:59 Allergies Coded Allergies: No Known Allergies (Unverified , 05/18/16) Desire Jackson Aug 16, 2016 13:22
[2016-08-16 18:00] VITALS: BP 102/77
[2016-08-16] MEDS: QUEtiapine FUMARATE 100 MG TAB PO SCH (21:03)
[2016-08-16] MEDS: HALOPERIDOL 5 MG TAB PO SCH (21:03)
[2016-08-17 07:03] VITALS: BP 150/82
[2016-08-17] MEDS: BENZTROPINE 0.5 MG TAB PO SCH ×2 (09:10→20:24)
[2016-08-17] MEDS: NICOTINE POLACRILEX 2 MG GUM PO PRN ×3 (09:11→20:24)
[2016-08-17] MEDS: HALOPERIDOL 2 MG TAB PO SCH (09:11)
[2016-08-17 18:00] VITALS: BP 110/72
[2016-08-17] MEDS: QUEtiapine FUMARATE 100 MG TAB PO SCH (20:24)
[2016-08-17] MEDS: HALOPERIDOL 5 MG TAB PO SCH (20:24)
[2016-08-18 06:47] VITALS: BP 123/70
[2016-08-18] MEDS: HALOPERIDOL 2 MG TAB PO SCH (08:55)
[2016-08-18] MEDS: BENZTROPINE 0.5 MG TAB PO SCH ×2 (08:56→20:33)
[2016-08-18] MEDS: NICOTINE POLACRILEX 2 MG GUM PO PRN ×2 (08:56→20:33)
[2016-08-18 18:00] VITALS: BP 121/77
[2016-08-18] MEDS: QUEtiapine FUMARATE 100 MG TAB PO SCH (20:33)
[2016-08-18] MEDS: HALOPERIDOL 5 MG TAB PO SCH (20:33)
[2016-08-19 06:31] VITALS: BP 93/54
[2016-08-19] MEDS: HALOPERIDOL 2 MG TAB PO SCH (08:40)
[2016-08-19] MEDS: BENZTROPINE 0.5 MG TAB PO SCH ×2 (08:40→21:06)
[2016-08-19] MEDS: NICOTINE POLACRILEX 2 MG GUM PO PRN ×3 (08:41→21:06)
--- NOTE | 2016-08-19 17:07 | IPNPDOC ---
[facility] Progress Note Progress Note DATE OF SERVICE: 08/19/16 HISTORY: Assembly Line Robot Operator met with patient today to assess treatment progress on inpatient unit. Patient was observed ambulating on unit and met with engineering writer in room where he was able to converse with engineering writer sitting up in chair. Patient exhibits reduced parkinsonian rigidity in movement and patient continues to remain unaware of medication side effect. Patient continues to take standing BID low-dose of Cogentin in effort to address symptoms, denies medication side effects. Patient denies symptoms of anxiety and depression, denies audiovisual hallucinations, denies suicidal and homicidal ideation, and denies urge to engage in self-injurious behavior. Patient indicates appetite is stable, denies challenges with energy level or concentration. Per staff report, patient has been making increased effort to attend more daytime groups, continues to attend evening groups. Patient denies experiencing paranoia or feeling as though he is being persecuted, denies symptoms of agitation and irritability. Patient is eating and drinking, states he is attending to ADL's nightly. Patient has been made aware that [facility] has indicated a bed will be available for him this week. Patient indicates he is in agreement with discharge plan and stated he feels excited about transitioning to [facility]. Patient denied symptoms of physical pain and presented with no signs of acute distress at time of interaction. AIMS completed 08/09/16, repeated 08/16/16 VITAL SIGNS: See below. NEW TEST RESULTS: New lab work indicates WBCs now within normal range at 8.9, patient is afebrile and is asymptomatic. Rectal consult completed regarding EEG/head CT, not indicated EK05/22/16 SINUS TACHYCARDIA POSSIBLE LEFT ATRIAL ENLARGEMENT LEFT VENTRICULAR HYPERTROPHY AND ST-T CHANGE. PA is aware, has recommended outpatient follow-up CBC with differential ordered date of entry CURRENT MEDICATIONS: See below. MENTAL STATUS EXAMINATION: Patient is a 36-year-old, single male, who is observed to be sleeping in bed during the day but is visible on unit and attending some groups in evening, displays no agitation today and is cooperative and compliant with staff, personal hygiene appears somewhat improved and patient continues to indicate he showers nightly. Patient appears younger than stated age, displays improved eye contact, does not appear to be responding to internal stimuli at time of interaction. Speech: Remains monotone but is spontaneous, does not appear pressured or repetitive Thought processes: Appears less internally preoccupied, makes attempts to verbalize internal experience, some delay in responses at times Rate of thoughts: Do not appear accelerated, no thought blocking noted Thought content: Generally logical, denies symptoms of paranoia today denies believing he has a chip in his head or that he is being persecuted or will be taken to halfway Abstract reasoning: Appears to be intact Associations: Appears generally intact Abnormal or psychotic thoughts: Patient denies audio hallucinations, denies persecutory delusions, denies preoccupation with the government and fears of being taken to halfway, denies believing he has chip implanted in his head, denies homicidal and suicidal ideation, but reportedly experienced suicidal ideation prior to hospitalization. Judgment: Limited, continues to improve Insight: Limited, continues to improve Oriented to: Person, place and time Recent and Remote Memory: Limited, continues to improve Attention Span and Concentration: Limited. Language: Adequate Fund of knowledge: Adequate Mood: "I'm good, feeling ready to get out of here." Patient appears more energetic today, no mood lability noted Affect: Constricted, and brightens more frequently today, generally congruent with mood DIAGNOSES: Schizophrenia, unspecified type. History of cannabis use disorder, history of alcohol use disorder ASSESSMENT: Patient remains cooperative with staff and exhibits no signs of aggression or behavioral management concerns, is attending some groups. Patient has been utilizing PRN Benadryl with reduced frequency, reiterates current medication regimen is effective, denies medication side effects. Patient appears somewhat less stiff today when ambulating, continues to deny awareness of side effect. Due to patient report of failure to respond well to Zyprexa, Risperdal, Invega Sustenna, and Abilify, patient will continue on current treatment course of Haldol. Will continue trial of Cogentin 0.5 mg po BID in effort to address symptoms of parkinsonism, and will monitor patient's response to recent Haldol dose reduction made in effort to reduce medication side effects and will evaluate need for further dose reduction. Will continue to monitor patient's response to Haldol dose reduction and continue to evaluate for stabilization purposes and will then evaluate need for further dosing adjustment and/or transition to another antipsychotic and will attempt to reduce patient's medication regimen to one antipsychotic for ongoing psychotropic medication treatment purposes. donor services coordinator was informed today that [facility] will come Friday to meet with patient and will transport patient to [facility] at that time. Patient is aware of discharge plan and projected timeframe and states he is in agreement with transfer to CR[facility] level that [facility] with outpatient follow-up care involving psychotherapy and medication management. MANAGEMENT PLAN: Continue med trial Cogentin 0.5 mg po BID. Continue Haldol 4 mg po q am and 5 mg po hs. Continue Seroquel 100 mg po q hs. Monitor need for dosing adjustment with plan to transition patient to atypical antipsychotic and reduce treatment to one antipsychotic once patient is stabilized for period of time and able to determine consistent and persistent response to medication CBC with differential ordered in preparation for transfer to [facility] Maintain safety precautions Patient to attend groups and participate in unit programming to develop coping strategies when able Engage patient in discharge planning process and arrange meeting with support system/TLS to ensure safe discharge planning when appropriate. Patient to follow up with PCM and dentist upon discharge TIME SPENT: 35 minute Vital Signs Vital Signs Date Time Temp Pulse Resp B/P Pulse Ox O2 Delivery O2 Flow Rate FiO2 08/19/16 06:31 96.4 62 16 93/54 Current Medications Current Medications Acetaminophen (Tylenol Tab) 650 mg Q6HP PRN PO HEADACHE or DISCOMFORT; Start at 14:00; Stop 09/06/16 at 13:59 Al Hydrox/Mg Hydrox/Simethicone (Mylanta) 30 ml Q4HP PRN PO HEARTBURN/ INDIGESTION; Start 07/09/16 at 14:00; Stop 09/06/16 at 13:59 Benztropine Mesylate (Cogentin) 0.5 mg BID PO Last administered on 08/19/16 08 :40; Start 08/01/16 at 21:00; Stop 08/31/16 at 20:59 Benztropine Mesylate (Cogentin) 1 mg Q6HP PRN PO EPS symptoms; Start 07/10/16 at 12:00; Stop 07/10/16 at 12:00; Status DC Benztropine Mesylate (Cogentin) 1 mg Q6HP PRN PO EPS Last administered on 20:59; Start 07/10/16 at 21:15; Stop 08/01/16 at 21:00; Status DC Diphenhydramine HCl (Benadryl) 50 mg Q6HP PRN PO AGITATION Last administered on 08/15/16 20:27; Start 07/10/16 at 12:00; Stop 09/07/16 at 11:59 Haloperidol (Haldol) 4 mg QAM PO Last administered on 08/19/16 08:40; Start at 09:00; Stop 09/06/16 at 08:59 Haloperidol (Haldol) 5 mg BID PO Last administered on 08/06/16 08:56; Start at 21:00; Stop 08/06/16 at 13:52; Status DC Haloperidol (Haldol) 5 mg Q6HP PRN PO AGITATION Last administered on 07/10/16 19:58; Start 07/10/16 at 12:00; Stop 09/07/16 at 11:59 Haloperidol (Haldol) 5 mg QHS PO Last administered on 08/18/16 20:33; Start at 21:00; Stop 09/05/16 at 20:59 Home Med (Med Rec Complete!) ASDIRECTED XX ; Start 07/09/16 at 07:30; Stop at 07:30; Status DC Lorazepam (Ativan) 1 mg Q6H PRN PO ANXIETY/AGITATION Last administered on 00:17; Start 07/10/16 at 12:00; Stop 07/23/16 at 11:59; Status DC Magnesium Hydroxide (Milk Of Magnesia) 30 ml DAILYPRN PRN PO CONSTIPATION; Start 07/09/16 at 14:00; Stop 09/06/16 at 13:59 Nicotine (Nicoderm Cq 21mg) 1 patch DAILY TD Last administered on 07/18/16 08: 51; Start 07/09/16 at 09:00; Stop 07/19/16 at 11:20; Status DC Nicotine (Nicorette) 2 mg Q2HP PRN PO NICOTINE WITHDRAWAL Last administered on 08/19/16 08:41; Start 07/19/16 at 11:30; Stop 09/16/16 at 11:29 Non-Formulary Medication ( See Comment Field Below ) SEE COMMENTS SECTION 1T @10 XX ; Start 07/13/16 at 10:00; Stop 07/13/16 at 10:00; Status DC Non-Formulary Medication ( See Comment Field Below ) SEE COMMENTS SECTION 1T @10 XX ; Start 07/15/16 at 10:00; Stop 07/15/16 at 23:59; Status DC Non-Formulary Medication ( See Comment Field Below ) SEE LABEL COMMENTS DAILY XX Last administered on 07/13/16 09:46; Start 07/11/16 at 09:00; Stop 07/13 at 09:49; Status DC Oseltamivir Phosphate (Tamiflu) 75 mg DAILY PO Last administered on 07/28/16 08:56; Start 07/19/16 at 09:00; Stop 07/28/16 at 12:00; Status DC Quetiapine Fumarate (SEROquel) 100 mg QHS PO Last administered on 08/18/16 20: 33; Start 07/09/16 at 21:00; Stop 09/06/16 at 20:59 Allergies Coded Allergies: No Known Allergies (Unverified , 05/18/16) Desire Jackson Aug 19, 2016 17:07
[2016-08-19 17:47] LABS: BASO # 0.1 K/mm3 (0.0-0.2); BASO % 0.9 % (0.0-1.0); EOS # 0.3 K/mm3 (0.0-0.50); EOS % 4.8 % (0.0-3.0); LARGE UNSTAINED CELL # 0.1 K/mm3 (0.0-0.4); LARGE UNSTAINED CELL % 1.2 % (0.0-4.0); LYMPH % 29.6 % (24.0-44.0); MEAN CORPUSCULAR HEMOGLOBIN 32.3 pg (27.0-33.0); MEAN CORPUSCULAR HGB CONC 35.1 g/dl (32.0-36.5); MEAN CORPUSCULAR VOLUME 92.2 fl (80.0-96.0); MONO # 0.5 K/mm3 (0.0-0.8); MONO % 8.1 % (0.0-5.0); NEUTROPHILS # 3.6 K/mm3 (1.8-7.7); NEUTROPHILS % 55.3 % (36.0-66.0); PLATELET COUNT, AUTOMATED 353 k/mm3 (150-450); RED CELL DISTRIBUTION WIDTH 12.2 % (11.5-14.5); WHITE BLOOD COUNT 6.5 K/mm3 (4.0-10.0)
[2016-08-19 18:00] VITALS: BP 115/71
[2016-08-19] MEDS: HALOPERIDOL 5 MG TAB PO SCH (21:06)
[2016-08-19] MEDS: QUEtiapine FUMARATE 100 MG TAB PO SCH (21:06)
[2016-08-20 06:34] VITALS: BP 124/73
[2016-08-20] MEDS: BENZTROPINE 0.5 MG TAB PO SCH ×2 (09:03→20:23)
[2016-08-20] MEDS: NICOTINE POLACRILEX 2 MG GUM PO PRN ×2 (09:04→20:23)
[2016-08-20] MEDS: HALOPERIDOL 2 MG TAB PO SCH (09:04)
[2016-08-20] MEDS ORDERED: HALO2TA PO (11:26)
[2016-08-20] MEDS ORDERED: HALO5TA PO (11:26)
[2016-08-20] MEDS ORDERED: QUET1TAB8 PO (11:26)
[2016-08-20] MEDS ORDERED: BENZ5TA PO (11:26)
--- NOTE | 2016-08-20 11:39 | IPNPDOC ---
[facility] Progress Note Progress Note DATE OF SERVICE: 08/20/16 HISTORY: Manager Sign met with patient today to assess treatment progress on inpatient unit. Patient was observed ambulating on unit this morning and met with life underwriter in room where he was able to converse with life underwriter sitting up on bed. Patient exhibits reduced parkinsonian rigidity in movement and patient continues to remain unaware of medication side effect. Patient continues to take standing BID low-dose of Cogentin in effort to address symptoms, denies medication side effects. Patient denies symptoms of anxiety and depression, denies audiovisual hallucinations, denies suicidal and homicidal ideation, and denies urge to engage in self-injurious behavior. Patient indicates appetite is stable, denies challenges with energy level or concentration. Per staff report, patient has been making increased effort to attend more daytime groups, continues to attend evening groups. Patient denies experiencing paranoia or feeling as though he is being persecuted, denies symptoms of agitation and irritability. Patient is eating and drinking, states he is attending to ADL's nightly. Patient has been made aware that [facility] has indicated a bed will be available for him tomorrow or and program will provide transportation. Patient states he is in agreement with discharge plan and remains optimistic about transitioning to [facility]. Patient denied symptoms of physical pain and presented with no signs of acute distress at time of interaction. AIMS completed 08/09/16, repeated 08/16/16 VITAL SIGNS: See below. NEW TEST RESULTS: New lab work indicates WBCs now within normal range at 8.9, patient is afebrile and is asymptomatic. Rectal consult completed regarding EEG/head CT, not indicated EK05/22/16 SINUS TACHYCARDIA POSSIBLE LEFT ATRIAL ENLARGEMENT LEFT VENTRICULAR HYPERTROPHY AND ST-T CHANGE. PA is aware, has recommended outpatient follow-up. CBC with diff repeat ordered date of entry CURRENT MEDICATIONS: See below. MENTAL STATUS EXAMINATION: Patient is a 36-year-old, single male, who is observed to be sitting up on bed, has been observed ambulating on unit, attending some groups in evening, displays no agitation today and is cooperative and compliant with staff, personal hygiene appears somewhat improved and patient continues to indicate he showers nightly. Patient appears younger than stated age, displays improved eye contact, does not appear to be responding to internal stimuli at time of interaction. Speech: Remains monotone but is spontaneous, does not appear pressured or repetitive Thought processes: No indication of internal preoccupation, intermittent delay in responses but able to express internal experience Rate of thoughts: Do not appear accelerated, no thought blocking noted Thought content: Logical, denies symptoms of paranoia, denies believing he has a chip in his head or that he is being persecuted or will be taken to skilled nursing Abstract reasoning: Appears to be intact Associations: Appears generally intact Abnormal or psychotic thoughts: Patient denies audiovisual hallucinations, denies persecutory delusions, denies preoccupation with the government and fears of being taken to skilled nursing, denies believing he has chip implanted in his head, denies homicidal and suicidal ideation, reportedly experienced suicidal ideation prior to hospitalization. Judgment: Limited, continues to improve Insight: Limited, continues to improve Oriented to: Person, place and time Recent and Remote Memory: Limited, continues to improve Attention Span and Concentration: Limited. Language: Adequate Fund of knowledge: Adequate Mood: "I'm feeling good and looking forward to getting out of here to go to [facility]. " Patient appears more energetic today, no mood lability noted Affect: Constricted, and brightens more frequently today, generally congruent with mood DIAGNOSES: Schizophrenia, unspecified type. History of cannabis use disorder, history of alcohol use disorder ASSESSMENT: Patient remains cooperative with staff and exhibits no signs of aggression or behavioral management concerns, is attending some groups. Patient has not utilized PRN Benadryl X 5 days and denies need for medication, reiterates current medication regimen is effective, denies medication side effects. Patient appears somewhat less rigid when ambulating, continues to deny awareness of side effect. Due to patient report of failure to respond well to Zyprexa, Risperdal, Invega Sustenna, and Abilify, patient will continue on current treatment course of Haldol. Will continue Cogentin 0.5 mg po BID in effort to address symptoms of parkinsonism, and will continue to monitor patient 's response to recent Haldol dose reduction made in effort to reduce medication side effects and will evaluate need for further dose reduction. Will continue to evaluate patient for stabilization purposes and will then evaluate need for further dosing adjustment and/or transition to another antipsychotic and will attempt to reduce patient's medication regimen to one antipsychotic for ongoing psychotropic medication treatment purposes. branch operations coordinator has informed patient that [facility] will come Wednesday to meet with patient and will transport patient to [facility] CR at that time. Patient is aware of discharge plan and states he is in agreement with transfer to CR level at [facility], will receive outpatient follow-up psychotherapy and medication management services through [facility]. MANAGEMENT PLAN: Continue med trial Cogentin 0.5 mg po BID. Continue Haldol 4 mg po q am and 5 mg po hs. Continue Seroquel 100 mg po q hs. Monitor need for dosing adjustment with plan to transition patient to atypical antipsychotic and reduce treatment to one antipsychotic once patient is stabilized for period of time and able to determine consistent and persistent response to medication CBC with differential ordered in preparation for transfer to [facility] Maintain safety precautions Patient to attend groups and participate in unit programming to develop coping strategies when able Prepare patient for discharge tomorrow to [facility] CR. Patient to be transported by [facility] to CR in [facility] where he will reside. Patient will receive follow-up outpatient services for psychotherapy and medication management through [facility]. Patient to follow up with PCM and dentist upon discharge TIME SPENT: 25 minute Vital Signs Vital Signs Date Time Temp Pulse Resp B/P Pulse Ox O2 Delivery O2 Flow Rate FiO2 08/20/16 06:34 96.5 89 18 124/73 Laboratory Data 24H Labs Laboratory Tests 2 08/19/16 17:26: White Blood Count 6.5, Red Blood Count 4.47, Hemoglobin 14.5, Hematocrit 41.2L, Mean Corpuscular Volume 92.2, Mean Corpuscular Hemoglobin 32.3, Mean Corpuscular Hemoglobin Concent 35.1, Red Cell Distribution Width 12.2, Platelet Count 353, Neutrophils (%) (Auto) 55.3, Lymphocytes (%) (Auto) 29.6, Monocytes ( %) (Auto) 8.1H, Eosinophils (%) (Auto) 4.8H, Basophils (%) (Auto) 0.9, Neutrophils # (Auto) 3.6, Lymphocytes # (Auto) 2.0, Monocytes # (Auto) 0.5, Eosinophils # (Auto) 0.3, Basophils # (Auto) 0.1, Large Unclassified Cells # 0.1 , Large Unclassified Cells % 1.2 CBC/BMP Laboratory Tests 08/19/16 17:26 Red Blood Count 4.47, Mean Corpuscular Volume 92.2, Mean Corpuscular Hemoglobin 32.3, Mean Corpuscular Hemoglobin Concent 35.1, Red Cell Distribution Width 12.2 , Neutrophils (%) (Auto) 55.3, Lymphocytes (%) (Auto) 29.6, Monocytes (%) (Auto ) 8.1 H, Eosinophils (%) (Auto) 4.8 H, Basophils (%) (Auto) 0.9, Neutrophils # ( Auto) 3.6, Lymphocytes # (Auto) 2.0, Monocytes # (Auto) 0.5, Eosinophils # (Auto ) 0.3, Basophils # (Auto) 0.1 Current Medications Current Medications Acetaminophen (Tylenol Tab) 650 mg Q6HP PRN PO HEADACHE or DISCOMFORT; Start at 14:00; Stop 09/06/16 at 13:59 Al Hydrox/Mg Hydrox/Simethicone (Mylanta) 30 ml Q4HP PRN PO HEARTBURN/ INDIGESTION; Start 07/09/16 at 14:00; Stop 09/06/16 at 13:59 Benztropine Mesylate (Cogentin) 0.5 mg BID PO Last administered on 08/20/16 09 :03; Start 08/01/16 at 21:00; Stop 08/31/16 at 20:59 Benztropine Mesylate (Cogentin) 1 mg Q6HP PRN PO EPS symptoms; Start 07/10/16 at 12:00; Stop 07/10/16 at 12:00; Status DC Benztropine Mesylate (Cogentin) 1 mg Q6HP PRN PO EPS Last administered on 20:59; Start 07/10/16 at 21:15; Stop 08/01/16 at 21:00; Status DC Diphenhydramine HCl (Benadryl) 50 mg Q6HP PRN PO AGITATION Last administered on 08/15/16 20:27; Start 07/10/16 at 12:00; Stop 09/07/16 at 11:59 Haloperidol (Haldol) 4 mg QAM PO Last administered on 08/20/16 09:04; Start at 09:00; Stop 09/06/16 at 08:59 Haloperidol (Haldol) 5 mg BID PO Last administered on 08/06/16 08:56; Start at 21:00; Stop 08/06/16 at 13:52; Status DC Haloperidol (Haldol) 5 mg Q6HP PRN PO AGITATION Last administered on 07/10/16 19:58; Start 07/10/16 at 12:00; Stop 09/07/16 at 11:59 Haloperidol (Haldol) 5 mg QHS PO Last administered on 08/19/16 21:06; Start at 21:00; Stop 09/05/16 at 20:59 Home Med (Med Rec Complete!) ASDIRECTED XX ; Start 07/09/16 at 07:30; Stop at 07:30; Status DC Lorazepam (Ativan) 1 mg Q6H PRN PO ANXIETY/AGITATION Last administered on 00:17; Start 07/10/16 at 12:00; Stop 07/23/16 at 11:59; Status DC Magnesium Hydroxide (Milk Of Magnesia) 30 ml DAILYPRN PRN PO CONSTIPATION; Start 07/09/16 at 14:00; Stop 09/06/16 at 13:59 Nicotine (Nicoderm Cq 21mg) 1 patch DAILY TD Last administered on 07/18/16 08: 51; Start 07/09/16 at 09:00; Stop 07/19/16 at 11:20; Status DC Nicotine (Nicorette) 2 mg Q2HP PRN PO NICOTINE WITHDRAWAL Last administered on 08/20/16 09:04; Start 07/19/16 at 11:30; Stop 09/16/16 at 11:29 Non-Formulary Medication ( See Comment Field Below ) SEE COMMENTS SECTION 1T @10 XX ; Start 07/13/16 at 10:00; Stop 07/13/16 at 10:00; Status DC Non-Formulary Medication ( See Comment Field Below ) SEE COMMENTS SECTION 1T @10 XX ; Start 07/15/16 at 10:00; Stop 07/15/16 at 23:59; Status DC Non-Formulary Medication ( See Comment Field Below ) SEE LABEL COMMENTS DAILY XX Last administered on 07/13/16 09:46; Start 07/11/16 at 09:00; Stop 07/13 at 09:49; Status DC Oseltamivir Phosphate (Tamiflu) 75 mg DAILY PO Last administered on 07/28/16 08:56; Start 07/19/16 at 09:00; Stop 07/28/16 at 12:00; Status DC Quetiapine Fumarate (SEROquel) 100 mg QHS PO Last administered on 08/19/16 21: 06; Start 07/09/16 at 21:00; Stop 09/06/16 at 20:59 Allergies Coded Allergies: No Known Allergies (Unverified , 05/18/16) Desire Jackson Aug 20, 2016 11:39
[2016-08-20 18:00] VITALS: BP 95/62
[2016-08-20] MEDS: HALOPERIDOL 5 MG TAB PO SCH (20:23)
[2016-08-20] MEDS: QUEtiapine FUMARATE 100 MG TAB PO SCH (20:23)
[2016-08-21 06:00] VITALS: BP 105/62
[2016-08-21] MEDS: NICOTINE POLACRILEX 2 MG GUM PO PRN ×3 (08:47→20:32)
[2016-08-21] MEDS: HALOPERIDOL 2 MG TAB PO SCH (08:47)
[2016-08-21] MEDS: BENZTROPINE 0.5 MG TAB PO SCH ×2 (08:47→20:32)
[2016-08-21 09:18] LABS: BASO # 0.1 K/mm3 (0.0-0.2); BASO % 0.7 % (0.0-1.0); EOS # 0.4 K/mm3 (0.0-0.50); EOS % 5.1 % (0.0-3.0); LARGE UNSTAINED CELL # 0.1 K/mm3 (0.0-0.4); LARGE UNSTAINED CELL % 1.5 % (0.0-4.0); LYMPH # 2.9 K/mm3 (1.5-4.5); LYMPH % 33.3 % (24.0-44.0); MEAN CORPUSCULAR HEMOGLOBIN 31.1 pg (27.0-33.0); MEAN CORPUSCULAR VOLUME 91.5 fl (80.0-96.0); MONO # 0.7 K/mm3 (0.0-0.8); MONO % 7.9 % (0.0-5.0); NEUTROPHILS # 4.5 K/mm3 (1.8-7.7); NEUTROPHILS % 51.5 % (36.0-66.0); PLATELET COUNT, AUTOMATED 350 k/mm3 (150-450); RED CELL DISTRIBUTION WIDTH 11.9 % (11.5-14.5); WHITE BLOOD COUNT 8.6 K/mm3 (4.0-10.0)
--- NOTE | 2016-08-21 10:14 | IPNPDOC ---
[facility] Progress Note Progress Note DATE OF SERVICE: 08/21/16 HISTORY: Inclined Railway Operator met with patient today to assess treatment progress on inpatient unit. Patient was observed ambulating on unit this morning and met with public relations writer in room where he was able to converse with public relations writer sitting up on bed. Patient continues to exhibit mild parkinsonian rigidity in movement and patient continues to remain unaware of medication side effect. Patient continues to take standing BID low-dose of Cogentin in effort to address symptoms, denies medication side effects. Patient denies symptoms of anxiety and depression, denies audiovisual hallucinations, denies suicidal and homicidal ideation, and denies urge to engage in self-injurious behavior. Patient indicates appetite is stable, denies challenges with energy level or concentration. Per staff report, patient has been making increased effort to attend more daytime groups, continues to attend evening groups. Patient denies experiencing paranoia or feeling as though he is being persecuted, denies symptoms of agitation and irritability. Patient is eating and drinking, states he is attending to ADL's nightly. Patient has been made aware that [facility] CR has indicated a bed will be available for him tomorrow and program will provide transportation. Patient states he is in agreement with discharge plan and remains optimistic about transitioning to TLS. Patient denied symptoms of physical pain and presented with no signs of acute distress at time of interaction. AIMS completed 08/09/16 5, repeated 08/16/16 3, repeated 08/21 0 VITAL SIGNS: See below. NEW TEST RESULTS: New lab work indicates WBCs now within normal range at 8.9, patient is afebrile and is asymptomatic. Rectal consult completed regarding EEG/head CT, not indicated EK05/22/16 SINUS TACHYCARDIA POSSIBLE LEFT ATRIAL ENLARGEMENT LEFT VENTRICULAR HYPERTROPHY AND ST-T CHANGE. PA is aware, has recommended outpatient follow-up. CBC with diff 08/21/16 unremarkable CURRENT MEDICATIONS: See below. MENTAL STATUS EXAMINATION: Patient is a 36-year-old, single male, who is observed to be sitting up on bed, has been observed ambulating on unit, attending some groups in evening, displays no agitation, is cooperative and compliant with staff, personal hygiene appears somewhat improved and patient continues to indicate he showers nightly. Patient appears younger than stated age, displays improved eye contact, does not appear to be responding to internal stimuli at time of interaction. Speech: Remains monotone but is spontaneous, does not appear pressured or repetitive Thought processes: No indication of internal preoccupation, intermittent delay in responses but able to express internal experience Rate of thoughts: Does not appear accelerated, no thought blocking noted Thought content: Logical, denies symptoms of paranoia, denies believing he has a chip in his head or that he is being persecuted or will be taken to assisted Abstract reasoning: Appears to be intact Associations: Appears generally intact Abnormal or psychotic thoughts: Patient denies audiovisual hallucinations, denies persecutory delusions, denies preoccupation with the government and fears of being taken to assisted, denies believing he has chip implanted in his head, denies homicidal and suicidal ideation, reportedly experienced suicidal ideation prior to hospitalization. Judgment: Limited, has improved during treatment Insight: Limited, has improved during treatment Oriented to: Person, place and time Recent and Remote Memory: Limited, continues to improve Attention Span and Concentration: Fair Language: Adequate Fund of knowledge: Adequate Mood: "I'm good, ready to go." Patient appears more energetic today, no mood lability noted Affect: Constricted, brightens more frequently today, generally congruent with mood DIAGNOSES: Schizophrenia, unspecified type. History of cannabis use disorder, history of alcohol use disorder ASSESSMENT: Patient remains cooperative with staff and exhibits no signs of aggression or behavioral management concerns, has been making effort to attend more groups. Patient has not utilized PRN Benadryl X 6 days and denies need for medication, reiterates current medication regimen is effective, denies medication side effects. Patient appears somewhat less rigid when ambulating, continues to deny awareness of side effect. Due to patient report of failure to respond well to Zyprexa, Risperdal, Invega Sustenna, and Abilify, patient will continue on current treatment course of Haldol. Will continue Cogentin 0.5 mg po BID in effort to address symptoms of parkinsonism, and will continue to monitor patient's response to recent Haldol dose reduction made in effort to reduce medication side effects and will evaluate need for further dose reduction. Will continue to evaluate patient for stabilization purposes and will then evaluate need for further dosing adjustment and/or transition to another antipsychotic and will attempt to reduce patient's medication regimen to one antipsychotic for ongoing psychotropic medication treatment purposes. event marketing coordinator has informed patient that TLS will come Friday to meet with patient and will transport patient to TLS CR at that time. Patient is aware of discharge plan and states he is in agreement with transfer to CR level at [facility], will receive outpatient follow-up psychotherapy and medication management services through [facility]. MANAGEMENT PLAN: Continue med trial Cogentin 0.5 mg po BID. Continue Haldol 4 mg po q am and 5 mg po hs. Continue Seroquel 100 mg po q hs. Monitor need for dosing adjustment with plan to transition patient to atypical antipsychotic and reduce treatment to one antipsychotic once patient is stabilized for period of time and able to determine consistent and persistent response to medication Maintain safety precautions Patient to attend groups and participate in unit programming to develop coping strategies when able Prepare patient for discharge tomorrow to [facility] CR. Patient to be transported by TLS to CR in [facility] where he will reside. Patient will receive follow-up outpatient services for psychotherapy and medication management through [facility]. Patient to follow up with PCM and dentist upon discharge TIME SPENT: 25 minute Vital Signs Vital Signs Date Time Temp Pulse Resp B/P Pulse Ox O2 Delivery O2 Flow Rate FiO2 08/21/16 06:00 98.5 66 16 105/62 Laboratory Data 24H Labs Laboratory Tests 2 08/21/16 08:08: White Blood Count 8.6, Red Blood Count 4.72, Hemoglobin 14.7, Hematocrit 43.1, Mean Corpuscular Volume 91.5, Mean Corpuscular Hemoglobin 31.1, Mean Corpuscular Hemoglobin Concent 34.0, Red Cell Distribution Width 11.9, Platelet Count 350, Neutrophils (%) (Auto) 51.5, Lymphocytes (%) (Auto) 33.3, Monocytes ( %) (Auto) 7.9H, Eosinophils (%) (Auto) 5.1H, Basophils (%) (Auto) 0.7, Neutrophils # (Auto) 4.5, Lymphocytes # (Auto) 2.9, Monocytes # (Auto) 0.7, Eosinophils # (Auto) 0.4, Basophils # (Auto) 0.1, Large Unclassified Cells # 0.1 , Large Unclassified Cells % 1.5 CBC/BMP Laboratory Tests 08/21/16 08:08 Red Blood Count 4.72, Mean Corpuscular Volume 91.5, Mean Corpuscular Hemoglobin 31.1, Mean Corpuscular Hemoglobin Concent 34.0, Red Cell Distribution Width 11.9 , Neutrophils (%) (Auto) 51.5, Lymphocytes (%) (Auto) 33.3, Monocytes (%) (Auto ) 7.9 H, Eosinophils (%) (Auto) 5.1 H, Basophils (%) (Auto) 0.7, Neutrophils # ( Auto) 4.5, Lymphocytes # (Auto) 2.9, Monocytes # (Auto) 0.7, Eosinophils # (Auto ) 0.4, Basophils # (Auto) 0.1 Current Medications Current Medications Acetaminophen (Tylenol Tab) 650 mg Q6HP PRN PO HEADACHE or DISCOMFORT; Start at 14:00; Stop 09/06/16 at 13:59 Al Hydrox/Mg Hydrox/Simethicone (Mylanta) 30 ml Q4HP PRN PO HEARTBURN/ INDIGESTION; Start 07/09/16 at 14:00; Stop 09/06/16 at 13:59 Benztropine Mesylate (Cogentin) 0.5 mg BID PO Last administered on 08/21/16 08 :47; Start 08/01/16 at 21:00; Stop 08/31/16 at 20:59 Benztropine Mesylate (Cogentin) 1 mg Q6HP PRN PO EPS symptoms; Start 07/10/16 at 12:00; Stop 07/10/16 at 12:00; Status DC Benztropine Mesylate (Cogentin) 1 mg Q6HP PRN PO EPS Last administered on 20:59; Start 07/10/16 at 21:15; Stop 08/01/16 at 21:00; Status DC Diphenhydramine HCl (Benadryl) 50 mg Q6HP PRN PO AGITATION Last administered on 08/15/16 20:27; Start 07/10/16 at 12:00; Stop 09/07/16 at 11:59 Haloperidol (Haldol) 4 mg QAM PO Last administered on 08/21/16 08:47; Start at 09:00; Stop 09/06/16 at 08:59 Haloperidol (Haldol) 5 mg BID PO Last administered on 08/06/16 08:56; Start at 21:00; Stop 08/06/16 at 13:52; Status DC Haloperidol (Haldol) 5 mg Q6HP PRN PO AGITATION Last administered on 07/10/16 19:58; Start 07/10/16 at 12:00; Stop 09/07/16 at 11:59 Haloperidol (Haldol) 5 mg QHS PO Last administered on 08/20/16 20:23; Start at 21:00; Stop 09/05/16 at 20:59 Home Med (Med Rec Complete!) ASDIRECTED XX ; Start 07/09/16 at 07:30; Stop at 07:30; Status DC Lorazepam (Ativan) 1 mg Q6H PRN PO ANXIETY/AGITATION Last administered on 00:17; Start 07/10/16 at 12:00; Stop 07/23/16 at 11:59; Status DC Magnesium Hydroxide (Milk Of Magnesia) 30 ml DAILYPRN PRN PO CONSTIPATION; Start 07/09/16 at 14:00; Stop 09/06/16 at 13:59 Nicotine (Nicoderm Cq 21mg) 1 patch DAILY TD Last administered on 07/18/16 08: 51; Start 07/09/16 at 09:00; Stop 07/19/16 at 11:20; Status DC Nicotine (Nicorette) 2 mg Q2HP PRN PO NICOTINE WITHDRAWAL Last administered on 08/21/16 08:47; Start 07/19/16 at 11:30; Stop 09/16/16 at 11:29 Non-Formulary Medication ( See Comment Field Below ) SEE COMMENTS SECTION 1T @10 XX ; Start 07/13/16 at 10:00; Stop 07/13/16 at 10:00; Status DC Non-Formulary Medication ( See Comment Field Below ) SEE COMMENTS SECTION 1T @10 XX ; Start 07/15/16 at 10:00; Stop 07/15/16 at 23:59; Status DC Non-Formulary Medication ( See Comment Field Below ) SEE LABEL COMMENTS DAILY XX Last administered on 07/13/16 09:46; Start 07/11/16 at 09:00; Stop 07/13 at 09:49; Status DC Oseltamivir Phosphate (Tamiflu) 75 mg DAILY PO Last administered on 07/28/16 08:56; Start 07/19/16 at 09:00; Stop 07/28/16 at 12:00; Status DC Quetiapine Fumarate (SEROquel) 100 mg QHS PO Last administered on 08/20/16 20: 23; Start 07/09/16 at 21:00; Stop 09/06/16 at 20:59 Allergies Coded Allergies: No Known Allergies (Unverified , 05/18/16) Desire Jackson Aug 21, 2016 10:14
[2016-08-21 18:00] VITALS: BP 106/70
[2016-08-21] MEDS: QUEtiapine FUMARATE 100 MG TAB PO SCH (20:32)
[2016-08-21] MEDS: HALOPERIDOL 5 MG TAB PO SCH (20:32)
[2016-08-22 06:21] VITALS: BP 101/56
[2016-08-22] MEDS ORDERED: NICO2GUM62 PO (08:28)
[2016-08-22] MEDS: BENZTROPINE 0.5 MG TAB PO SCH (08:49)
[2016-08-22] MEDS: NICOTINE POLACRILEX 2 MG GUM PO PRN (08:50)
[2016-08-22] MEDS: HALOPERIDOL 2 MG TAB PO SCH (08:50)
--- NOTE | 2016-08-22 08:51 | DS.PDOC ---
[facility] Discharge Summary Discharge Summary DATE OF ADMISSION: Jul 09, 2016 at 09:33 DATE OF DISCHARGE: Aug 22, 2016 HISTORY: Patient is a 36-year-old who was recently treated at [facility] from 05/19/16-06/13/16. Patient was then seen by [facility] outpatient doctor on 06/26/16 and was scheduled for an outpatient appointment at [facility] on 07/09/16, and was due for his follow-up Invega Sustenna injection on 07/12/16. Per transfer summary report, patient is currently hospitalized due to having thoughts of wanting to hurt himself and having difficulty with sleep. Patient has apparently been hearing a female voice which sounds like his ex-girlfriend and a male voice he doesn't recognize, both voices are saying he is going to correction and to [place]. Also per transfer summary report, patient apparently feels that the voices have been reading his mind since 05/23/16. Patient is today in seclusion room where he is at times agitated, at other times resting quietly, informs tech writer 3 that he does not want to meet to complete assessment. Patient is, however, willing to answer basic assessment questions. By way of history, as previously mentioned, patient was recently discharged from [facility] inpatient psychiatric unit and was admitted at that time for bizarre behavior and was diagnosed with schizophrenia. Per record, patient began hearing voices in February 2016 and had paranoid delusions that the [facility] placed a chip in his brain. Patient was admitted for paranoia, auditory hallucinations, depression, and questionable Tylenol overdose, though acetaminophen levels were normal. UDS was negative. Per record, patient has had previous inpatient psychiatric admissions in [place] and has a history of cannabis use disorder and alcohol use disorder. Patient currently lives with his grandfather who rents a room and the grandfather's landlady has reportedly indicated that she no longer wants patient to live in residence. lead clinical research coordinator has made contact with the grandfather who indicates patient did not respond well to Invega Sustenna injection, continued to experience audio hallucinations post discharge, poor hygiene, and bizarre behavior. Patient also reportedly has history of taking Zyprexa, Risperdal, and Abilify with poor effect. Per record, at time of previous [facility] inpatient admission, patient indicated he had been hearing voices telling him that he has a chip implanted in his brain, the [facility] wants to torture him and telling him, and that he is going to be killed on national television. 911 was called by family and [place]. Patient indicated at that time that his inability to escape the audio hallucinations makes him feel depressed and suicidal though he denied any history of suicide attempt. Patient also indicated that time that the symptoms began on 02/22/16, with acute episode occurring 05/2016, he reported history of alcohol consumption but apparently minimized his use and also reported a history of cannabis use. Patient was admitted to the medical floor due to a possible Tylenol overdose. During patient 's previous hospitalization he indicated that Zyprexa was ineffective. Patient was then given Abilify but had severe akathisia reaction so medication was discontinued she was then switched to Risperdal 1 mg 4 times daily which, per record, was well tolerated. Patient's symptoms of psychosis improved but he remained paranoid and guarded, continued to report some auditory hallucinations , reportedly reached maximal hospital benefits and was agreeable to continuing his antipsychotic injection as an outpatient. At time of last discharge from [facility] inpatient treatment she was being prescribed trazodone 150 mg at bedtime as needed for sleep and Invega Sustenna 156 mg IM q 4 weeks. PAST PSYCHIATRIC HISTORY: Prior hospitalizations at [facility] and in [place] prior diagnosis of schizoaffective disorder. Previous medications include Zyprexa, Abilify, Risperdal, Invega Sustenna which were apparently ineffective Patient was scheduled for outpatient follow-up with [facility], did not follow through on appointments Patient denies history of suicide attempt, per record. No known history of aggression or homicidal ideation MEDICAL/SURGICAL HISTORY: None known. EK05/22/16 SINUS TACHYCARDIA POSSIBLE LEFT ATRIAL ENLARGEMENT LEFT VENTRICULAR HYPERTROPHY AND ST-T CHANGE SIMILAR 05/19/16, PA is aware, has recommended outpatient follow-up. Lab work on admission indicated low BUN and elevated WBCs. Leukocytosis, patient was afebrile and asymptomatic, PA has monitored. Follow up lab work indicated WBCs within normal range at 8.9, patient has remained afebrile and asymptomatic. Clinical consult completed regarding EEG/head CT, not indicated CBC with diff 08/21/16 unremarkable AIMS completed 08/09/16 5, repeated 08/16/16 3, repeated 08/21 0 FAMILY PSYCHIATRIC HISTORY: Patient's grandmother has history of Schizophrenia and is, per record, currently hospitalized at [facility]. SOCIAL HISTORY: Patient is a poor historian. Patient indicates he is from the [facility], completed high school high school with some college. Patient had been living in [place] for 2-1/2 years prior to returning to the [facility] to live with his grandparents. 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 Patient indicates he is single, never and no children. SUBSTANCE ABUSE HISTORY: Patient denies but, per record, has history of alcohol and cannabis use. Patient is also apparently a cigarette smoker. LEGAL HISTORY: Patient denies. TREATMENT PROGRESS ON UNIT: Patient was acutely psychotic at time of admission and once stabilized on medications has adjusted well to unit, has attended groups and afternoon and evening, has declined to attend morning groups siting program repetition. Patient has been cooperative with staff, has engaged selectively with peers, and has not been a behavior management problem. Due to patient report of failure to respond well to Zyprexa, Risperdal, Invega Sustenna , and Abilify, patient has remained on current treatment course of Haldol to which he has responded well. Effort has been made to ensure patient is on the lowest most effective Haldol dosing and Cogentin has been added in effort to address parkinsonism symptoms of which patient denies awareness and symptoms are minimal at this time. Recommendation is made to continue to make efforts to reduce Haldol dosing as tolerated by patient with eventual transition to antipsychotic monotherapy if tolerated by patient. Patient indicates current medication regimen is effective and denies medication side effects. Patient denies symptoms of anxiety and depression, denies suicidal and homicidal ideation, denies audiovisual hallucinations, and denies urge to engage in self- injurious behavior. Patient states he is excited about transitioning to the [facility], is today requesting discharge and is aware he will be transported by TLS to CR located in [place]. Patient also expresses awareness that he will participate in outpatient follow-up psychotherapy and medication management services through [facility]. Patient verbalizes understanding of and agreement with discharge plan. MENTAL STATUS EXAMINATION: Patient is a 36-year-old, single male, who is observed to be sitting up on bed, has been observed ambulating on unit, attending some groups in evening, is calm and cooperative, personal hygiene appears improved and patient continues to indicate he showers nightly, is dressed and personal clothing. Patient appears younger than stated age, displays improved eye contact, does not appear to be responding to internal stimuli at time of interaction. Speech: Remains somewhat monotone but is spontaneous, does not appear pressured or repetitive Thought processes: No indication of internal preoccupation, intermittent delay in responses but able to express internal experience Rate of thoughts: Does not appear accelerated, no thought blocking noted Thought content: Logical, denies symptoms of paranoia, denies believing he has a chip in his head or that he is being persecuted or will be taken to correction Abstract reasoning: Intact Associations: Intact Abnormal or psychotic thoughts: Patient denies audiovisual hallucinations, denies persecutory delusions, denies preoccupation with the government and fears of being taken to correction, denies believing he has chip implanted in his head, denies homicidal and suicidal ideation, reportedly experienced suicidal ideation prior to hospitalization. Judgment: Fair, has improved during treatment Insight: Fair, has improved during treatment Oriented to: Person, place and time Recent and Remote Memory: Fair, continues to improve Attention Span and Concentration: Adequate Language: Adequate Fund of knowledge: Adequate Mood: "I'm good, ready to go." Patient appears more energetic today, no mood lability noted Affect: Constricted, brightens more frequently today, congruent with mood CONDITION ON DISCHARGE: Stable, no suicidal or homicidal ideation DIAGNOSES: Schizophrenia, unspecified type. History of cannabis use disorder, history of alcohol use disorder MEDICATIONS ON DISCHARGE: See below FOLLOW UP PLAN: MANAGEMENT PLAN: Continue med trial Cogentin 0.5 mg po BID, Haldol 4 mg po q am and 5 mg po hs, Seroquel 100 mg po q hs. Monitor need for dosing adjustment with plan to transition patient to atypical antipsychotic and reduce treatment to one antipsychotic once patient is stabilized for period of time and able to determine consistent and persistent response to medication Patient to discharge today and to be transported by TLS to in [facility] where he will reside. Patient will receive follow-up outpatient services for psychotherapy and medication management through [facility]. Patient to follow up with PCM within 5-7 days of discharge and follow-up with dentist TIME SPENT COORDINATING CARE: 25 minutes Vital Signs Vital Sign - Last 24 Hours 08/21/16 08/22/16 18:00 06:21 Temp 98.8 97.9 Pulse 78 85 Resp 16 20 B/P 106/70 101/56 Medications Scheduled Benztropine Mesylate (Benztropine Mesylate) 0.5 Mg Tab #14 0.5 MG PO BID EPS Haloperidol (Haloperidol) 5 Mg Tab #7 5 MG PO QHS Psychosis Haloperidol (Haloperidol) 2 Mg Tab #14 4 MG PO QAM Psychosis Quetiapine Fumerate (Quetiapine Fumarate) 100 Mg Tab #7 100 MG PO QHS Mood/ sleep Scheduled PRN Nicotine Polacrilex (Nicorelief) 2 Mg Gum #30 2 MG PO Q2HP PRN PRN NICOTINE WITHDRAWAL Allergies Coded Allergies: No Known Allergies (Unverified , 05/18/16) Desire Jackson Aug 22, 2016 08:51 Desire Jackson Aug 22, 2016 08:51
== END 2016-08-22 10:15 | disposition home or self-care (01) | DRG 750 ==
LOC: M ED 02:21 → M PSY 09:33 → UNDODISIN 18:54 → M PSY 07-20 22:08
PROVIDERS: ADMIT Psychiatry & Neurology Psychiatry; ATTEND Psychiatry & Neurology Psychiatry
DX: F20.9 Schizophrenia, unspecified (principal); D72.829 Elevated white blood cell count, unspecified; R94.31 Abnormal electrocardiogram [ECG] [EKG]; F12.10 Cannabis abuse, uncomplicated; F10.10 Alcohol abuse, uncomplicated; F17.210 Nicotine dependence, cigarettes, uncomplicated; Z79.899 Other long term (current) drug therapy